=== PATIENT | male | born 1950 | race Caucasian/White ===

== ENCOUNTER 2020-11-12 10:40 | Outpatient (REF) | payer MEDICARE, OTHER, SELFPAY ==
[2020-11-12 12:47] LABS: Basophils Percent Auto 0.4 % (0-2); Eosinophils Absolute Auto 0.1 X10*3/uL (0.0-0.4); Hematocrit 33.1 % (42-52); Hemoglobin 10.7 g/dl (14.0-18.0); Imm Gran Abs Auto 0.01 X10*3/uL (0.00-0.03); Imm Gran Pct Auto 0.2 % (0.0-0.4); Lymphocytes Absolute Auto 0.7 X10*3/uL (1.2-4.9); Lymphocytes Percent Auto 13.3 % (20-40); MANUAL DIFF FLAG NO; Mean Corpuscular HGB Conc 32.3 g/dl (31.0-36.0); Mean Corpuscular Hemoglobin 30.2 pg (27.0-33.0); Mean Corpuscular Volume 93.5 fL (80-98); Mean Platelet Volume 10.8 fL (9.4-12.4); Monocytes Absolute Auto 0.3 X10*3/uL (0.1-1.2); Monocytes Percent Auto 5.9 % (2-11); Neutrophils Absolute Auto 4.2 X10*3/uL (2.0-8.3); Neutrophils Percent Auto 79.2 % (45-73); Platelet Count 222 X10*3/uL (160-400); Red Blood Count 3.54 X10*6/uL (4.60-5.80); Red Cell Distribution Width 15.9 % (11.0-16.0); White Blood Count 5.3 X10*3/uL (4.8-10.8)
[2020-11-12 13:15] LABS: Alanine Aminotransferase 34 U/L (0-40); Albumin Level 4.1 g/dL (3.5-5.0); Alkaline Phosphatase 63 U/L (39-117); Anion Gap 16 (12-20); Aspartate Amino Transferase 25 U/L (5-37); Bilirubin Total 0.5 mg/dL (0.0-1.0); Blood Urea Nitrogen 18 mg/dL (9-16); Calcium 8.8 mg/dL (8.4-10.2); Carbon Dioxide 26 mmol/L (22-29); Chloride 103 mmol/L (96-108); Estimated Glomerular Filt Rate > 60; Glucose Random 172 mg/dL (60-115); Potassium 4.4 mmol/l (3.3-5.1); Sodium 141 mmol/L (135-145); Total Protein 6.2 g/dL (6.5-8.0)
[2020-11-12 13:21] LABS: Estimated Average Glucose 174 mg/dL; Hemoglobin A1c % 7.7 %
== END 2020-11-12 10:41 | disposition home or self-care (01) ==
LOC: HO.MANLDS 10:40
PROVIDERS: PCP Internal Medicine; Visit Provider Internal Medicine
DX: Z00.01 Encounter for general adult medical examination with abnormal findings (principal); Z13.6 Encounter for screening for cardiovascular disorders; E11.9 Type 2 diabetes mellitus without complications; I10 Essential (primary) hypertension
CPT/HCPCS: 36415; 80053; 83036; 85025

== ENCOUNTER 2021-09-15 10:28 | Outpatient (REF) | payer MEDICARE, OTHER, SELFPAY ==
[2021-09-15 13:13] LABS: Estimated Average Glucose 154 mg/dL
== END 2021-09-15 10:29 | disposition home or self-care (01) ==
LOC: HO.MANLDS 10:28
PROVIDERS: PCP Internal Medicine; Visit Provider Internal Medicine
DX: E11.9 Type 2 diabetes mellitus without complications (principal)
CPT/HCPCS: 36415; 83036

== ENCOUNTER 2025-01-15 15:18 | Outpatient (REF) | payer MEDICARE, OTHER, SELFPAY ==
--- OUTSIDE RECORDS SUMMARY | 2025-01-15 17:32 | XMS_ITS | Continuity of Care Document ---
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) MDM HIGH MUST MEET 2 OUT OF 3 ELEMENTS: PROBLEMS, DATA OR RISK ELEMENT 1: PROBLEMS 1 OR MORE CHRONIC ILLNESS W/SEVERE EXACERBATION, PROGRESSION MAY REQUIRE HOSPITAL LEVEL CARE OR 1 ACUTE OR CHRONIC ILLNESS OR INJURY THAT POSES A THREAT TO LIFE OR BODILY FUNCTION ELEMENT 2: DATA: MUST MEET 2 OF 3 CATEGORIES CATEGORY 1 REVIEW OF PRIOR EXTERNAL NOTES REVIEW OF THE RESULTS ORDERING OF EACH TEST ASSESSMENT REQUIRING INDEPENDENT HISTORIAN(S) CATEGORY 2: INDEPENDENT INTERPRETATION OF TESTS BY ANOTHER PROVIDER/SPECIALI ST CATEGORY 3: DISCUSSION OF MGT OR TEST INTERPRETATION W/EXTERNAL PHYSICIAN/SPECIAL IST ELEMENT 3: RISK HIGH RISK OF MORBIDITY FROM ADDITIONAL DIAGNOSTIC TESTING OR TREATMENT PROVIDER MUST THOROUGHLY DOCUMENT EACH ELEMENT THAT IS COVERED The patient presented to their appointment today for multiple concerns requiring moderate to high-level decision making and took over 40-45 minutes for an adequate and appropriate history, exam, assessment and treatment plan. This appointment was done with an established patient. Not available 01/15/2025 15:18:33 Plan of Treatment Reminders Order Date Submit Date Provider Last Modified By Organization Details Last Modified Time Details Appointments FOLLOW UP 15 2024 02:30P M DR BURGOS Not available Not available Not available FOLLOW UP 15 20[address] 10:[address] BURGOS Not available Not available Not available Lab HbA1c (hemoglob in A1c), blood 2024 025 [facility], [address] [place] [address], [place], [id number], 01/15/2025 15:16:07 microalbu min, urine 2024 025 [facility], [address] [place] [address], [id number], 01/15/2025 15:16:07 lipid panel, serum 2024 025 [facility], [address] [place] [address], [id number], 01/15/2025 15:16:06 CBC w/ auto diff 2024 025 [facility], [address] [place] [address], [id number], 01/15/2025 15:16:07 CMP, serum or plasma 2024 025 [facility], [address] [place] [address], [place], [address], 01/15/2025 15:16:06 PSA, serum or plasma 2024 025 [facility], [address] [place] [address], [id number], 01/15/2025 15:16:07 CBC 2024 025 [facility], [address] [place] [address], [id number], 01/15/2025 15:16:07 Referral None recorded. Procedures None recorded. Surgeries None recorded. Imaging None recorded. Medication Orders oxycodone 5 mg tablet 2024 025 [id number], [address] [place], [address], 01/15/2025 15:14:49 Patient TargetsNo targets recorded. Patient Instructions Encounter Date Encounter Id Patient Instructions Last Modified By Organization Details Last Modified Time 01/15/2025 [id number] gastroesophageal reflux disease (GERD): care instructions Not available 01/15/2025 15:14:47 chronic lymphocy tic leukemia: care instructions Not available 01/15/2025 15:14:47 Reason for Referral None Reported. 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 Active 2017 stargard t's macular disease Not Available [facility] 3 14:31:55 Hyperten sive disorder 58455467 Completed 201710/07/2018 Yani yan [place] [facility] 8 16:54:39 Gastroes ophageal reflux disease 229520137 Active 2017 Not Available [facility] 3 14:31:55 Type 2 diabetes mellitus 28204741 Active 2017 Not Available [facility] 3 14:31:55 Hyperlip idemia 34777792 Active 2017 Not Available [facility] 3 14:31:55 Rheumato id arthriti s 25094618 Active 2017 Not Available [facility] 3 14:31:56 [facility] hyperten susana 49881899 Active 2017 Not Available [facility] 3 14:31:55 Coronary atherosc lerosis 550848557 Active 2017 Not Available [facility] 3 14:31:55 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 Not Available [facility] 3 14:31:55 Myocardi al infarcti on 41484249 Active 2017 Not Available [facility] 3 14:31:55 Osteomye litis 61101325 Active 2017 left foot Not Available [facility] 3 14:31:55 Osteoart hritis 833681011 Active 2017 Not Available [facility] 3 14:31:55 Anemia 871617936 Active 2017 neg GI workup for bleed, thought to be 2/2 ACS from RA Not Available [facility] 3 14:31:55 Osteopor osis 64046784 Active 2018 Not Available [facility] 3 14:31:55 Herpes zoster 8786861 Active 2020 Not Available [facility] 3 14:31:55 Closed subluxat ion cervical spine 247314612 Active 2021 Not Available [facility] 3 14:31:55 COVID-19 930694059 Active 2021 Not Available [facility] 3 14:31:56 Eczema 30596551 Active 2021 Not Available [facility] 3 14:31:55 Atopic dermatit is of scalp 143720999 Active 2022 Not Available [facility] 3 14:31:55 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 8612070245 35603 Active 2022 Not Available [facility] 3 14:31:55 Sebaceou s cyst of skin 982640844 Active 2022 Not Available [facility] 3 14:31:56 Abscess 378262724 Active 2022 Not Available [facility] 3 14:31:55 Pain of left hip joint 8334407354 68794 Active 2023 RENATE MARTÍNEZ [address] [place], [address], [facility] 4 14:28:13 Degenera tion of lumbar interver tebral disc 02271841 Active 2023 Ian Burgos DO [address] [place], [address], [facility] 4 11:03:05 Weakness of bilatera l lower limb Active 2023 Ian Burgos DO [address] [place], [address], [facility] 4 15:44:43 Iron deficien cy anemia 56952636 Active 2023 RENATE MARTÍNEZ [address] [place] [address], [phone], [facility] 4 12:00:15 Thromboc ytosis 9828073 Active 2023 RENATE MARTÍNEZ [address] [place] [address], [address], [facility] 4 12:04:33 Chronic lymphoid leukemia , disease 48464000 Active 2023 RENATE MARTÍNEZ [address] [place] [address], [address], [facility] 4 12:14:41 Osteoart hritis of right hip joint 5947130251 68205 Active 2023 Ian Burgos DO [address] [place] [address], [phone], [facility] 4 09:46:01 Total replacem ent of right hip joint Active 2024 Ian Burgos DO [address] [place] [address], [phone], [facility] 5 15:04:34 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 Procedures Surgical History Date Name Laterality Status Provider Name and Address Organization Details Recorded Time 07/02/20 23 I&D completed RENATE MARTÍNEZ [address] [place] [address], [phone], [facility] 07/02/2023 13:50:44 05/26/20 I&D completed RENATE MARTÍNEZ [address] [place] [address], [phone], [facility] 05/26/2023 15:42:48 04/02/20 21 Family Practice Trigger Point Injection completed Ian Burgos DO [address] [place] [address], [phone], [facility] 04/02/2021 12:27:07 12/13/19 21 I&D completed Ian Burgos DO [address] [place] [address], [phone], [facility] 12/13/2020 11:00:52 09/04/20 20 I&D completed Ian Burgos DO [address] [place] [address], [address], [facility] 09/04/2020 16:33:02 08/02/20 19 I&D completed [address], [address], [facility] 08/02/2019 11:00:55 11/08/19 19 extraction of cataract completed [address], [phone], [facility] 04/17/2019 09:33:00 07/09/20 18 Cabg vein three completed [address], [address], [facility] 10/11/2018 14:10:20 06/28/20 18 total knee replacement completed [address], [address], [facility] 10/11/2018 14:10:41 02/28/20 17 Back Surgery completed [address], [address], [facility] 10/11/2018 14:19:44 11/08/19 08 amputation of toe completed [address], [address], [facility] 10/11/2018 14:21:35 Imaging Results None recorded. Procedure Notes None recorded. Medical Equipment None Reported. Allergies No known drug allergies Medications Name Sig Start Date Stop Date Status Note LastModified by Organization Details LastModified Time cyclobenzap rine 10 mg tablet TAKE 1/2 TABLET BY MOUTH NIGHTLY AT BEDTIME 06/26 completed Not Available Not Available Not Available amoxicillin 500 mg capsule TAKE 4 CAPSULES EVERY DAY BY ORAL ROUTE DIRECTED FOR 1 DAY. 01/15 completed Not Available Not Available Not Available atorvastati n 40 mg tablet 10/12 completed Not Available Not Available Not Available fentanyl 50 mcg/hr transdermal patch APPLY 1 PATCH BY TRANSDERM AL ROUTE EVERY 72 HOURS 05/08 completed Not Available Not Available Not Available aspirin 25 mg-dipyrida mole 200 mg capsule,ext .release 12 hr multiphase 10/11 completed Not Available Not Available Not Available atorvastati n 80 mg tablet TAKE 1 TABLET BY MOUTH EVERY DAY active Not Available Not Available No t Available carvedilol 6.25 mg tablet TAKE 1 TABLET TWICE A DAY BY ORAL ROUTE FOR 90 DAYS. active Not Available Not Available No t Available prednisone 10 mg tablet TAKE 3 TABLETS BY MOUTH TWICE A DAY 01/09 completed Not Available Not Available Not Available lidocaine 5 % topical cream APPLY TOPICALLY THREE TIMES A DAY FOR 30 DAYS 11/19 completed Not Available Not Available Not Available valacyclovi r 1 gram tablet TAKE 1 TABLET BY MOUTH EVERY 8 HOURS FOR 7 DAYS 07/15 completed Not Available Not Available Not Available famotidine 40 mg tablet TAKE 1 TABLET BY MOUTH EVERY DAY active Not Available Not Available No t Available prednisone 20 mg tablet Take 1 tablet every day by oral route. 05/08 completed Not Available Not Available Not Available alendronate 70 mg tablet PLEASE SEE ATTACHED FOR DETAILED DIRECTION S 01/27 completed Not Available Not Available Not Available fluorouraci l 5 % topical cream PLEASE SEE ATTACHED FOR DETAILED DIRECTION S active Not Available Not Available No t Available prednisone 5 mg tablet TAKE 4 TABLETS (20 MG TOTAL) BY MOUTH ONCE A DAY. 05/08 completed Not Available Not Available Not Available atenolol 25 mg tablet 10/11 completed Not Available Not Available Not Available clobetasol 0.05 % topical cream APPLY THIN COAT TO AFFECTED AREA TWICE A DAY active Not Available Not Available No t Available acetaminoph en 300 mg-codeine 30 mg tablet TAKE 1 TABLET BY MOUTH THREE TIMES A DAY NEEDED 05/26 completed Not Available Not Available Not Available clopidogrel 75 mg tablet TAKE 1 TABLET BY MOUTH EVERY DAY 08/11 completed Not Available Not Available Not Available sulfamethox azole 800 mg-trimetho prim 160 mg tablet TAKE 1 TABLET BY MOUTH EVERY 12 HOURS FOR 10 DAYS 01/06 completed Not Available Not Available Not Available omeprazole 40 mg capsule,del ayed release 10/11 completed Not Available Not Available Not Available doxycycline monohydrate 100 mg tablet 10/11 completed Not Available Not Available Not Available tramadol 50 mg tablet TAKE 1 TO 2 TABLETS BY MOUTH EVERY 6 HOURS NEEDED FOR MILD PAIN. DO NOT EXCEED 8 TABLETS (400MG) PER DAY. active Not Available Not Available No t Available amoxicillin 500 mg tablet TAKE 1 TABLET BY MOUTH 3 TIMES A DAY UNTIL FINISHED 06/26 completed Not Available Not Available Not Available acyclovir 800 mg tablet TAKE 1 TABLET (800 MG TOTAL) BY MOUTH 5 (FIVE) TIMES A DAY FOR 10 DAYS. 11/12 completed Not Available Not Available Not Available oxycodone 15 mg tablet 10/11 completed Not Available Not Available Not Available isosorbide mononitrate ER 120 mg tablet,exte nded release 24 hr TAKE 1 TABLET BY MOUTH EVERY DAY DIRECTED active Not Available Not Available No t Available ketorolac 0.5 % eye drops 01/10 completed Not Available Not Available Not Available oxycodone-a cetaminophe n 5 mg-325 mg tablet Take 1 tablet every 6 hours by oral route as needed for 7 days. 01/09 completed Not Available Not Available Not Available alprazolam 0.25 mg tablet 05/08 completed Not Available Not Available Not Available lorazepam 0.5 mg tablet TAKE 1 TABLET BY MOUTH TWICE A DAY NEEDED active Not Available Not Available No t Available methocarbam ol 750 mg tablet 12/13 completed Not Available Not Available Not Available fentanyl 100 mcg/hr transdermal patch Apply 1 patch every 72 hours by transderm al route. 05/08 completed Not Available Not Available Not Available prednisone 1 mg tablet TAKE 3 TABLETS BY MOUTH EVERY DAY WITH BREAKFAST 01/27 completed Not Available Not Available Not Available prednisone 2.5 mg tablet Take 1 tablet every day by oral route. 08/11 completed Not Available Not Available Not Available cephalexin 500 mg capsule Take 1 capsule 3 times a day by oral route for 10 days. 12/13 completed Not Available Not Available Not Available nitroglycer in 0.4 mg sublingual tablet TAKE 1 TABLET BY MOUTH SUBLINGUA LLY EVERY 5 MINUTES. MAX OF 3 DOSES WITHIN 15 MINUTES active Not Available Not Available No t Available betamethaso ne dipropionat e 0.05 % topical cream APPLY TOPICALLY SPARINGLY TO AFFECTED AREA EVERY DAY FOR 30 DAYS 05/26 completed Not Available Not Available Not Available docusate sodium 100 mg capsule Take 1 capsule twice a day by oral route. 07/17 completed Not Available Not Available Not Available cephalexin 500 mg tablet 07/17 completed Not Available Not Available Not Available mupirocin 2 % topical ointment APPLY TO AFFECTED AREA 3 TIMES A DAY 01/06 completed Not Available Not Available Not Available gabapentin 100 mg capsule TAKE 6 CAPSULES BY MOUTH 3 TIMES A DAY 05/19 completed Not Available Not Available Not Available metoprolol succinate ER 25 mg tablet,exte nded release 24 hr TAKE 1/2 TABLET BY MOUTH DAILY 08/11 completed Not Available Not Available Not Available clobetasol 0.05 % topical ointment 11/12 completed Not Available Not Available Not Available fluocinonid e 0.05 % topical solution APPLY TOPICALLY TO AREAS FOR ITCHING OR PIMPLES ON SCALP ONCE A DAY FOR 30 DAYS 01/06 completed Not Available Not Available Not Available methylpredn isolone 4 mg tablets in a dose pack Take 1 dose pk by oral route as directed for 6 days. 01/06 completed Not Available Not Available Not Available morphine 15 mg immediate release tablet TAKE 0.5 TABLET BY MOUTH EVERY 4 HOURS NEEDED FOR PAIN 06/07 completed Not Available Not Available Not Available clobetasol 0.05 % scalp solution Apply 1 applicati on twice a day by topical route as directed for 30 days. 01/09 completed Not Available Not Available Not Available metformin ER 500 mg tablet,exte nded release 24 hr TAKE 2 TABLETS EVERY MORNING AND 1 TABLET IN THE EVENING active Not Available Not Available No t Available sertraline 50 mg tablet TAKE 1 TABLET BY MOUTH EVERY DAY 05/26 completed Not Available Not Available Not Available oxycodone 5 mg tablet Take 1 tablet twice a day by oral route as needed for 15 days. 2024 active Not Available Not Available Not Avai lable valsartan 40 mg tablet TAKE 1 TABLET BY MOUTH EVERY DAY active Not Available Not Available No t Available pregabalin 75 mg capsule TAKE 1 CAPSULE BY MOUTH TWICE A DAY 01/09 completed Not Available Not Available Not Available pregabalin 100 mg capsule TAKE 1 CAPSULE BY MOUTH TWICE A DAY 03/03 completed Not Available Not Available Not Available pregabalin 150 mg capsule TAKE 1 CAPSULE BY MOUTH TWICE A DAY active Not Available Not Available No t Available Vitamin C active Not Available Not Soo ilable Not Available garlic active Not Available Not Availa ble Not Available Fish Oil active Not Available Not Avai lable Not Available Aspir-81 Take one tablet once a day active Not Available Not Available No t Available cholecalcif patrick (vitamin D3) one per day active Not Available Not Available No t Available Multivitami n 50 Plus active Not Available Not Available No t Available Enbrel SureClick 50 mg/mL (1 mL) subcutaneou s pen injector 01/09 completed Not Available Not Available Not Available oxycodone 10 mg tablet Take 1 tablet 3 times a day by oral route as needed for 7 days. 07/02 completed Not Available Not Available Not Available Simponi 50 mg/0.5 mL subcutaneou s pen injector Once a month injection 07/18 completed Not Available Not Available Not Available GaviLyte-G 236 gram-22.74 gram-6.74 gram-5.86 gram oral solution 10/11 completed Not Available Not Available Not Available BD Ultra-Fine Melina Pen Needle 32 gauge x 5/32 active Not Available Not Available Not Available Orencia 125 mg/mL subcutaneou s syringe Inject 1 mL every week by subcutane ous route. 08/11 completed Not Available Not Available Not Available Trulicity 0.75 mg/0.5 mL subcutaneou s pen injector INJECT 1 PREFILLED PEN SUBCUTANE OUSLY ONCE A WEEK FOR 30 DAYS active Not Available Not Available No t Available naloxone 4 mg/actuatio n nasal spray 06/07 completed Not Available Not Available Not Available Orencia ClickJect 125 mg/mL subcutaneou s auto-inject or 08/11 completed Not Available Not Available Not Available Fish Oil 1,000 mg (120 mg-180 mg) capsule Take 1 capsule every day by oral route. 01/09 completed Not Available Not Available Not Available Basagldavid KwikPen U-100 Insulin 100 unit/mL (3 mL) subcutaneou s INJECT 14 UNIT(S) BY SUBCUTANE OUS ROUTE. 90 day supply 07/17 completed Not Available Not Available Not Available Actemra ACTPen 162 mg/0.9 mL subcutaneou s pen injector active Not Available Not Available Not Available Actemra ACTPen inject weekly active Not Available Not Available No t Available melatonin 3 mg capsule Take by oral route. active Not Available Not Available No t Available AsperFlex (lidocaine) 4 % topical patch APPLY ONCE DAILY active Not Available Not Available No t Available Paxlovid 300 mg (150 mg x 2)-100 mg tablets in a dose pack TAKE 3 TABLETS TWICE A DAY BY ORAL ROUTE FOR 5 DAYS. 06/26 completed Not Available Not Available Not Available Vitals Date Recorded Body height Body mass index (BMI) Body weight Heart rate Oxygen saturation Oxygen saturation in Arterial blood by Pulse oximetry Systolic blood pressure Diastolic blood pressure Provider Name and Address Organization Details Last Updated DateTime 5 161.29 cm 26.6 kg/m2 21549.2 g 71 /min 99 % 99 % 124 mm[Hg] 82 mm[Hg] Barbra Bobby [facility] 5 14:45:36 Social History Question Answer Notes LastModified by Organizat ion Details LastModified Time Tobacco Smoking Status Former Smoker Yani yan [facility] 10/11/2018 14:03:00 What Was The Date Of Your Most Recent Tobacco Screening? 01/15/2025 [email or web address] Information not available 01/15/2025 How Many Years Have You Smoked Tobacco? 20 [email or web address] Information not available 10/11/2018 Do You Or Have You Ever Used Any Other Forms Of Tobacco Or Nicotine? No Information not available 01/27/2023 Sex: Unknown Functional Status None recorded. Mental Status None recorded. Family History Nothing Reported. Medical History No medical history recorded. Immunizations Vaccine Type Date Status Note Provider Nam e and Address Organization Details Recorded Time COVID-19, mRNA, LNP-S, PF, 30 mcg/0.3 mL dose 06/26/20 21 completed Not Available [facility] 11/26/2023 16:07:42 Influenza, split virus, quadrivalent, preservative 06/19/20 21 completed Not Available [facility] 11/26/2023 16:07:42 COVID-19, mRNA, LNP-S, PF, 30 mcg/0.3 mL dose, janay-sucrose 03/13/20 22 completed Not Available [facility] 11/26/2023 16:07:42 COVID-19, mRNA, LNP-S, PF, 30 mcg/0.3 mL dose, janay-sucrose 08/25/20 22 completed Not Available [facility] 11/26/2023 16:07:42 influenza, unspecified formulation 08/25/20 22 completed Not Available [facility] 11/26/2023 16:07:43 Respiratory syncytial virus (RSV) MAB, unspecified 08/09/20 24 completed RENATE MARTÍNEZ [address] [place] [address], [phone], [facility] 08/11/2024 12:16:08 influenza, unspecified formulation 08/09/20 24 completed RENATE MARTÍNEZ [address] [place] [address], [phone], [facility] 08/11/2024 12:16:22 Pneumococcal conjugate PCV 13 08/09/20 15 completed Not Available [facility] 11/26/2023 16:07:43 Influenza, split virus, quadrivalent, preservative 08/08/20 18 completed Not Available [facility] 11/26/2023 16:07:42 pneumococcal polysaccharide PPV23 09/18/20 16 completed Not Available [facility] 11/26/2023 16:07:42 Td (adult) 11/08/19 05 completed Not Available [facility] 11/26/2023 16:07:43 Influenza, split virus, quadrivalent, preservative 07/27/20 19 completed Not Available [facility] 11/26/2023 16:07:42 Influenza, split virus, quadrivalent, preservative 07/22/20 20 completed [facility] Available [facility] 11/26/2023 16:07:42 COVID-19, mRNA, LNP-S, PF, 30 mcg/0.3 mL dose 01/19/20 21 completed Not Available [facility] 11/26/2023 16:07:42 COVID-19, mRNA, LNP-S, PF, 30 mcg/0.3 mL dose 02/09/20 21 completed Not Available [facility] 11/26/2023 16:07:42 Past Encounters Encounter ID Performer Location Encounter Start Date Encounter Closed Date Diagnosis/Indication Diagnosis SNOMED-CT Code Diagnosis ICD10 Code Diagnosis Note [id number] Ian Burgos, [facility] [address] [address] 01/15/2025 14:22:10 01/15/2025 15:41:26 Essential hypertension 47613658 I10 stable bp no changes Hyperlipidemia 76691223 E78.5 is excellent and LDL 38 Type 2 gabriel betes mellitus 50421978 E11.9 a1c was great at 6.1 again!!! prior he was at 6., 7.2 he was at 6.2 before thatwe will decrease the metformin to just 2 tabs in amwe will rechk in may and further decrease the dose Depression screening 171 638778 Z13.31 Doing well on sertraline Coronary atherosclerosis 507352228 I25.10 quiet and feeling good no cp no sob Gastroesop hageal reflux disease 613634550 K21.9 stable Chronic ly mphoid leukemia, disease 48445654 C91.10 cbc has been stable Osteoarthr itis of joint of right shoulder region 2047289880 54639 M19.011 still with severe pain at times will provide with med for prn use Health Concerns Section Related Observation LastModified by Organization Detai ls LastModified Time None Recorded Concern Status LastModified by Organization Details LastModified Time None Recorded Payers Encounter Date Sequence Insurance Name Policy Number Policy Meraz Covered Member ID Meraz Member ID Guarantor Name 01/15/2025 1 MEDICARE B-KS: [employer] Vito Vizcarra [id number] Vito Vizcarra 01/15/2025 2 [facility] [id number] Vito Vizcarra [id number] Vito Vizcarra Notes Date Note Type Note Provider Name a nd Address Organization Details Recorded Time 01/15/2025 text/html doing well and is feeling wellhad hip replaced and is feeling goodwas disch the next day Ian Burgos, DO [address] [facility], [place], [id number], [facility] 01/15/2025 15:18:38
--- OUTSIDE RECORDS SUMMARY | 2025-01-15 17:32 | XMS_ITS | Data Portability ---
Author Organization [facility], Main Office Address [address] [place] [address] Care Team Providers Care Clearance Coordinator Name Role Phone CAREONE (NONO UNIT) OTHER GIANLUCA BURGOS Primary Care Provider Assessment Encounter Date Assessment Date Assessment LastModified by Organization Details LastModified Time 05/19/2024 05/19/2024 05/10/24 na 141, k 5 cre 1 wbc 9.48 hgb 9.9 hct 30.5 7/9 na 142 k 4.6 cre 1.0 wbc 6.50 hgb 9.8 hct 30.7 [email or web address] Not available 05/21/2024 23:31:54 05/22/2024 05/22/2024 05/10/24 na 141, k 5 cre 1 wbc 9.48 hgb 9.9 hct 30.5 7/9 na 142 k 4.6 cre 1.0 wbc 6.50 hgb 9.8 hct 30.7 [email or web address] Not available 05/22/2024 11:10:43 05/24/2024 05/24/2024 05/10/24 na 141, k 5 cre 1 wbc 9.48 hgb 9.9 hct 30.5 7/9 na 142 k 4.6 cre 1.0 wbc 6.50 hgb 9.8 hct 30.7 /16 na 144 k 4.9 cre 1 wbc 10.4 hgb 10 hct 31.3 [email or web address] Not available 05/24/2024 12:41:15 05/29/2024 05/29/2024 05/10/24 na 141, k 5 cre 1 wbc 9.48 hgb 9.9 hct 30.5 7/9 na 142 k 4.6 cre 1.0 wbc 6.50 hgb 9.8 hct 30.7 7/16 na 144 k 4.9 cre 1 wbc 10.4 hgb 10 hct 31.3 [email or web address] Not available 05/29/2024 11:02:31 05/31/2024 05/31/2024 05/10/24 na 141, k 5 cre 1 wbc 9.48 hgb 9.9 hct 30.5 7/9 na 142 k 4.6 cre 1.0 wbc 6.50 hgb 9.8 hct 30.7 /16 na 144 k 4.9 cre 1 wbc 10.4 hgb 10 hct 31.3 /24 na 149 k 4.9 cre 0.8 wbc 6 hgb 10 hct 31.7 [email or web address] Not available 05/31/2024 09:48:42 Plan of Treatment Reminders Order Date Submit Date Provider Last Modified By Organization Details Last Modified Time Details Appointments None record ed. Lab None record ed. Referral None record ed. Procedures None record ed. Surgeries None record ed. Imaging None record ed. Medication Orders None record ed. Patient TargetsNo targets recorded. Patient InstructionsNo instructions recorded. Reason for Referral None Reported. Problems Name Problem SNOMED Code Status Onset Date Resolution Date Notes Provider Name and Address Organization Details Recorded Time At increased risk for falls 376120816 Active 2023 Florence Lees MD [address] [facility], [facility] [address], [place], [address] , [employer] 4 23:59:32 Pain in right hip joint 5405626244588 02 Active 2023 Florence Lees MD [address] [facility], [address], [place], [address] , [facility] 4 23:59:37 Spinal stenosis of lumbar region 08557018 Active 2016 Isabel yan [facility] 7 15:43:58 Rheumatoid arthritis 94810616 Active 2016 Isabel yan [facility] 7 15:44:04 Essential hypertensio n 11569402 Active 2016 Isabel yan [facility] 7 15:44:08 Hyperlipide rick 69221644 Active 2016 Isabel yan [facility] 7 15:44:14 Diabetes mellitus 16232726 Active 2016 Isabel Guzmán [facility] 7 15:44:24 Tobacco user 544768713 Active 2016 Isabel Guzmán [facility], [facility] 7 15:45:11 Gastroesoph ageal reflux disease without esophagitis 368767808 Active 2016 Isabel Guzmán [facility], [facility] 7 15:45:20 Degenerativ e disorder of macula 357130534 Active 2016 Arcenio Allen MD [address] [facility], [address], [place], [address], [facility] 7 09:29:40 Coronary atheroscler osis 697742356 Active [address], [address], [place], [address], [facility] 8 08:37:12 Anemia 566657772 Active [address], [address], [place], [address], [facility] 8 08:45:06 History of right total knee replacement 1493580918088 102 Active [address], [address], [place], [address], [facility] 8 08:46:37 Depressive disorder 21564370 Active [address], [address], [place], [address], [facility] 8 08:49:47 Problem Notes None recorded. Medical Equipment None Reported. Allergies No known drug allergies Medications Name Sig Start Date Stop Date Status Note LastModified by Organization Details LastModified Time morphine concentrate 100 mg/5 mL (20 mg/mL) oral solution give 10 mg(0.5ml) po q 4 hours prn 2023 active for ekit dose until MSIR arrives Not Available Not Available Not Available tramadol 50 mg tablet 50 mg po q 6hours prn mild moderate pain 2023 active Not Available Not Available Not Avai lable morphine 15 mg immediate release tablet take 1/2 tablet (7.5 mg) po q 4hours prn pain 2023 active Not Available Not Available Not Avai lable Lyrica 150 mg capsule Take 2 capsules twice a day by oral route. 2023 active Not Available Not Available Not Avai lable Vitals Date Recorded Body height Body mass index (BMI) Body weight Heart rate Respiratory rate Body temperature Oxygen saturation Oxygen saturation in Arterial blood by Pulse oximetry Systolic blood pressure Diastolic blood pressure Provider Name and Address Organization Details Last Updated DateTime 4 167.64 cm 23.5 kg/m2 02524.0 5 g 68 /min 17 /min 97.7 [degF] 97 % 97 % 124 mm[Hg] 56 mm[Hg] Florence Lees MD [address] [facility], [address], [place], [address], [facility] 4 22:30:06 Social History Question Answer Notes LastModified by Organizat ion Details LastModified Time Tobacco Smoking Status Former Smoker hx of cigar smoking Florence Lees MD [address] [facility], [address], [place], [address], [facility] 05/21/2024 18:09:40 Do You Have An Advance Directive? Yes Information not available 05/21/2024 What Is Your Level Of Alcohol Consumption? Occasional 3 Beers/wk Information not available 05/21/2024 How Many Times Per Week Do You Consume Alcohol? 3-4 Times Per Week Information not available 05/21/2024 What Is Your Code Status? Full Code Information not available 05/21/2024 Which Illicit Or Recreational Drugs Have You Used? Uses Cannabis Information not available 05/21/2024 Where Do You Live? Apartment [address] In Basement Of Daughter's Home Information not available 05/21/2024 Legal Guardian? No Informati on not available 05/21/2024 Do You Have A Medical Power Of Advertising Dispatch Clerks Supervisor? Yes Information not available 05/21/2024 What Was The Date Of Your Most Recent Tobacco Screening? 08/04/2018 [id number] Information not available 09/03/2020 Do You Have An Out Of Hospital DNR? No Information not available 05/21/2024 Have You Ever Been Counseled For Unhealthy Alcohol Use? No Information not available 05/21/2024 What Is Your Relationship Status? Information not available 05/21/2024 How Much Tobacco Do You Smoke? No Information not available 05/21/2024 Do You Use Any Illicit Or Recreational Drugs? Yes Information not available 05/21/2024 Has Tobacco Cessation Counseling Been Provided? No N/a As Pt No Longer Smokes Information not available 05/21/2024 Have You Used IV Drugs? No Information not available 05/21/2024 Do You Or Have You Ever Used Any Other Forms Of Tobacco Or Nicotine? No Information not available 05/21/2024 Sex: Unknown Functional Status None recorded. Mental Status None recorded. Family History Nothing Reported. Medical History No medical history recorded. Immunizations Vaccine Type Date Status Note Provider Nam e and Address Organization Details Recorded Time Td(adult) unspecified formulation 5 completed [facility] 05/18/2024 16:37:09 Pneumococcal conjugate PCV 13 5 completed [facility] 05/18/2024 16:37:42 Pneumococcal conjugate PCV 13 0 completed Annaleeteetee Arshad [facility] 05/18/2024 16:38:02 influenza, unspecified formulation 2 completed Annalee Arshad [facility] 05/18/2024 16:40:53 influenza, unspecified formulation 3 completed Annalee Arshad [facility] 05/18/2024 16:41:01 SARS-COV-2 (COVID-19) vaccine, UNSPECIFIED 1 completed Annalee Arshad [facility] 05/18/2024 16:41:17 SARS-COV-2 (COVID-19) vaccine, UNSPECIFIED 1 completed Annalee Arshad [facility] 05/18/2024 16:41:24 SARS-COV-2 (COVID-19) vaccine, UNSPECIFIED 1 completed [place] rAshad [facility] 05/18/2024 16:41:32 SARS-COV-2 (COVID-19) vaccine, UNSPECIFIED 2 completed Annaleeteetee Arshad [facility] 05/18/2024 16:41:39 SARS-COV-2 (COVID-19) vaccine, UNSPECIFIED 2 completed [facility] 05/18/2024 16:41:46 SARS-COV-2 (COVID-19) vaccine, UNSPECIFIED 3 completed [facility] 05/18/2024 16:41:54 Past Encounters Encounter ID Performer Location Encounter Start Date Encounter Closed Date Diagnosis/Indication Diagnosis SNOMED-CT Code Diagnosis ICD10 Code Diagnosis Note [id number] Isabel RUSSO [address] [place] [address] 02/25/2017 15:34:34 03/18/2017 12:57:47 Spinal stenosis of lumbar region 47387723 M48.06 failed conservati ve treatment, now s/p L3-L5 spinal fusion by niki Grubbs for pain, monitor incision, f/u ortho, PT/OT eval and tx Rheumatoid arthritis 698 28599 M06.89 Prednisone 20 mg dailySimpo ni injection QmonthlyMo nitor sxs and pain Essential hypertension 12473933 I10 Atenolol 25 mg dailyTriam terene-HCT Z 37.5-25 mg dailyMonit or bp and labs Hyperlipidemia 35489664 E78.2 Atorvastat in 40 mg QHS Diabetes mellitus 859935 09 E11.9 Metformin 500 mg BIDLantus 10 units QHS SS insulinMon itor accuchecks Tobacco user 431956935 Z 72.0 Nicotine patch, patient reports quit smoking 6 mos ago but started again for 2 weeks prior to surgery d/t pain and stress, is very motivated not to start back up again Gastroesop hageal reflux disease without esophagitis 902517021 K21.9 Omeprazole 40 mg dailyMonit or sxs Constipation 13972234 K5 9.09 Initiate bowel protocol [id number] Isabel RUSSO [address] [place] [address] 03/03/2017 12:14:08 03/18/2017 13:03:56 Diabetes mellitus 30362449 E11.9 Metformin 500 mg BIDLantus 10 units QHS SS insulinEle vated blood sugars mid-day, will increase AM metformin dose to 1000 mg, monitor [id number] MD PRIYA Da Silva [address] [place] [address] 03/04/2017 09:12:57 03/18/2017 13:05:25 Spinal stenosis of lumbar region 06356573 M48.07 see HPIfailed conservati ve treatmentf ollowed by Dr. Alejandro2-S1 laminectom ies with fusion of L4-F0jpmqy to [facility] on dilauded for pain controlmon itor for pain control and constipati on. Rheumatoid arthritis 698 44056 M06.89 Prednisone 20 mg qd baselineSi mponi 50 mg SQ q month through rheumatolo gyMonitor sxs and painrheuma tology consult prnfmercedese d by Dr. Thrasher Essential hypertension 10293363 I10 Atenolol 25 mg qdTriamter shayla-HCTZ 37.5-25 mg qdMonitor bp and labs Hyperlipidemia 31627899 E78.2 Atorvastat in 40 mg QHS Diabetes mellitus 967154 09 E11.9 Metformin 500 mg BIDLantus 10 units QHS SS insulinfol low blood glucose at [facility] Tobacco user 778941221 Z 72.0 hx cigar smokingsta sammie he has quit Gastroesop hageal reflux disease without esophagitis 822928683 K21.9 Omeprazole 40 mg dailyMonit or sxs Constipation 82850905 K5 9.09 Bowel protocol and monitor for sx Degenerati ve disorder of macula 012872318 H35.3131 legally blind at baselinesp ecifics of dx not availableh as been eval at [facility] ear [id number] Isabel POWERS RAFAELA [address] [place] [address] 03/05/2017 08:34:04 03/18/2017 13:04:18 Diabetes mellitus 65191123 E11.9 Metformin 1000 mg QAM and 500 mg QPMLantus 10 units QHSF/u with pcp to adjust meds if BS remains elevated Spinal jasson nosis of lumbar region 98627654 M48.06 failed conservati ve treatment, now s/p L3-L5 spinal fusion by niki Grubbs for pain-repor ts pain well controlled , monitor incision, f/u ortho, good progress in therapy Rheumatoid arthritis 698 50134 M06.89 Prednisone 20 mg dailySimpo ni injection Q monthlyInc reased bilat. knee and R elbow pain-usual ly takes diclofenac -mistopros jose but was d/c prior to surgery-wi ll restart now Essential hypertension 69987115 I10 Atenolol 25 mg dailyTriam terene-HCT Z 37.5-25 mg dailyBP with good control Hyperlipidemia 62475376 E78.2 Atorvastat in 40 mg QHS Tobacco user 630637498 Z 72.0 Nicotine patch, patient reports quit smoking 6 mos ago but started again for 2 weeks prior to surgery d/t pain and stress, is very motivated not to start back up again Gastroesop hageal reflux disease without esophagitis 567840158 K21.9 Omeprazole 40 mg dailyMonit or sxs [id number] ERIKA LORD PRIYA RUSSO [address] [place] [address] 07/26/2018 08:32:23 07/29/2018 12:05:59 Coronary atherosclerosis 426581810 I25.10 ASA 81 mg dailyAtorv astatin 80 mg qhsToprol XL 25 mg dailyplavi x 75 mg X 2 months due to NSTEMIdail y weights to monitor fluid statusmoni tor labsmonito r incision sitesfollo w up with surgeon on 08/01oxycod one 10 mg q 4 PRN Anemia 163787238 D50.8 Transfused in hospital with 1 unitstable on dischargem onitor H/H weekly- keep above 7likely ACD due to RA- baseline hgb around 7.5 Rheumatoid arthritis 698 26780 M06.89 Prednisone 5 mg dailygolim umab every 28 days had stress dose in hospital History of right total knee replacement 3395807337 039648 Z96.651 PT/OT eval and treat Depressive disorder 3548 9007 F33.8 sertraline 50 mg qhs Diabetes mellitus 427059 09 E11.9 Lantus 14 units dailymetfo rmin 500 mg BID Gastroesop hageal reflux disease without esophagitis 652163458 K21.9 Omeprazole 40 mg dailymonit or for reflux [id number] Bib RUSSO [address] [place] [address] 07/27/2018 15:06:17 07/29/2018 12:35:28 Coronary arteriosclerosis 44349476 I25.10 s/p CABG x 3. Continue DAPT, beta sandra Multiple complications due to type 2 diabetes mellitus 789354759 E11.8 glargine, accuchecks Anemia 533099292 D64.9 stable after transfusio n. Monitor CBC Rheumatoid arthritis 698 39514 M06.9 continue prednisone 5 mg. F/u with rheumatolo gy [id number] ERIKA SHIPMAN PRIYAEmmanuel RUSSO [address] [place] [address] 08/04/2018 09:14:45 08/09/2018 13:21:36 Coronary atherosclerosis 545313215 I25.10 ASA 81 mg dailyAtorv astatin 80 mg qhsToprol XL 25 mg dailyplavi x 75 mg X 2 months due to NSTEMIcard iology to arrange cardiac rehab once outptVNA to continue daily dressing changes, if steri strips fall off reapply Anemia 662372299 D50.8 H/H stable 9.7/31.7 likely ACD due to RA- baseline hgb around 7.5 Rheumatoid arthritis 698 80874 M06.89 Prednisone 5 mg dailygolim umab every 28 days follow up with rheumatolo gy Depressive disorder 9588 9007 F33.8 sertraline 50 mg qhsfollow up with psych outpt if needed Diabetes mellitus 684545 09 E11.9 Lantus 14 units dailymetfo rmin 500 mg BID Gastroesop hageal reflux disease without esophagitis 994241632 K21.9 D/C omeprazole add Famotidine 40 mg daily- per cardiology recs [id number] ERIKA Carballo at [facility] on [address] [facility] [place] [address] 05/16/2024 09:26:41 05/23/2024 10:16:48 Degenerative disorder of macula 934477149 H35.30 carrying dx - legally blind-fall risk precaution s Coronary atherosclerosis 132330984 I25.10 carrying dx-ASA 81 mg daily-Lipi tor 80 mg qhs-Toprol XL 12.5 mg daily-plav ix 75 mg daily due to NSTEMI Depressive disorder 3548 9007 F33.8 carrying dx-not on meds-monit or mood and affect-psy ch eval prn-melato radha HS for insomnia Diabetes mellitus 547389 09 E11.9 carrying dx-trulici ty SQ on wed.-metfo rmin 1000 daily-accu checks once daily in am-diabeti c foot care HS-regular diet Essential hypertension 38639452 I10 well controlled -toprol XL 12.5 mg daily-BP Q shift X 3 days, then daily Gastroesop hageal reflux disease without esophagitis 260301599 K21.9 carrying dx-famotid ine 40 daily-jodie tor ss Hyperlipidemia 46017030 E78.5 carrying dx-lipitor 80 daily-lipi d panel prn Rheumatoid arthritis 698 37852 M06.89 carrying dx-Prednis one 2.5 mg daily-jasper min C daily-jasper min D 3 daily-Omeg a 3 daily-foll ows with rheumatolo gy Spinal jasson nosis of lumbar region 91116829 M48.061 -lyrica 300 mg bid-see above for pain control At [facility] ed risk for falls 198493884 Z91.81 recent fall without fx or dislocatio ncontinues with right arm and hip painCT negative for acute findings-P t/OT for strength and mobility-f all precaution s-ordered to schedule tylenol 650 TID-start lidocaine patch to right hip-tramad ol 50 Q6H prn-morphi ne 7.5 Q4H prn Anemia 424932106 D50.8 H/H stable 05/10 9.9 and 30.5likely ACD due to RA-admissi on labs pending [id number] ERIKA Carballo at [facility] on [address] [place] [address] 05/18/2024 10:46:07 05/23/2024 11:52:48 At increased risk for falls 481116890 Z91.81 recent fall without fx or dislocatio ncontinues with right arm and hip painCT negative for acute findings-P t/OT for strength and mobility-f all precaution s-continue scheduled tylenol 650 TID-contin ue lidocaine patch to right hip-contin ue home pain regimen = tramadol 50 Q6H prn and morphine 7.5 Q4H prn Degenerati ve disorder of macula 479699927 H35.30 carrying dx - legally blind-fall risk precaution s-glasses Essential hypertension 69418123 I10 well controlled -toprol XL 12.5 mg daily-BP Q shift X 3 days, then daily Rheumatoid arthritis 698 21252 M06.89 carrying dxmultiple joint deformitie s and nodes-cont inue prednisone 2.5 mg daily-foll ows with rheumatolo gy-see above for pain control Spinal jasson nosis of lumbar region 66960545 M48.061 -continue lyrica 300 mg bid-see above for pain control [id number] MD PRIYA Boyd [address] [place] [address] 05/19/2024 20:53:55 05/23/2024 12:09:01 At increased risk for falls 762689201 R29.6 As above. Degenerati ve disorder of macula 792440706 H35.30 Legally blind.Prov breanna supportive care.F/U with eye dr as planned. Essential hypertension 63436997 I10 BP in good control on metoprolol XL 12.5 mg qdMonitor BP and labs. Rheumatoid arthritis 698 79889 M06.89 Severe with chronic pain and deformitie s.Continue meds as above.F/U as above. Spinal jasson nosis of lumbar region 88895286 M48.061 PT/OT and pain management as above.Jodie tor Coronary atherosclerosis 413535067 I25.10 No recent sxs.Contin ue ASA 81 mg qd, atorvastat in 80 mg qhs, metoprolol XL 12.5 mg qd and plavix 75 mg qd.Also on Trulicity which helps with cardiac risk reduction. Monitor sxs.F/U with cardio as planned. Depressive disorder 3548 9007 F33.8 Situationa l due to chronic pain, not on meds.Angie nue melatonin 3 mg qhs for insomniaMo od good today.Jodie tor mood.Consu lt psych prn Diabetes mellitus 876105 09 E11.9 Last HgA1C was 6.1 in 05/2023.Con tinue trulicity 0.75 mg SQ weekly and metformin 1000 mg qd.Monitor fingerstic ks fasting qd and HgA1C as an outpt. Gastroesop hageal reflux disease without esophagitis 706309791 K21.9 No current sxs.Contin ue famotidine 40 mg qdMonitor GI sxs. Hyperlipidemia 51965405 E78.49 Continue atorvastat in 80 mg qd and fish oil 1000 mg qdMonitor labs as an outpt. Anemia 603285449 D50.8 Multifacto rial.Stabl eMonitor labs. Pain in ri ght hip joint 4017877935 46124 M25.551 Acute exacerbati on of chronic problem.Wi th minimal pain with ROM doubt occult fx.Continu e lidocaine patch to right hip qd and baseline RA pain regimen of lyrica 300 mg BID, prednisone 2.5 mg qd, tramadol 50 mg q 6 hrs prn, MSIR 7.5 mg q 6 hrs prn, and APAP 650 mg q 4 hrs prn.Remain s deconditio mary.Needs PT/OT for strengthen ing, balance, gait training, safety and function.C ontinue fall precaution s.Monitor for safety.F/U with rheum and PM&R as planned. [id number] RIGO OLIVEROS [facility] on [address] [facility] [place] [address] 05/22/2024 09:44:23 05/26/2024 09:32:28 At increased risk for falls 092674803 Z91.81 recent fall without fx or dislocatio ncontinues with right arm and hip painCT negative for acute findings-P t/OT for strength and mobility-f all precaution s-continue scheduled tylenol 650 TID-contin ue lidocaine patch to right hip-contin ue home pain regimen = tramadol 50 Q6H prn and morphine 7.5 Q4H prn Rheumatoid arthritis 698 97679 M06.89 carrying dxmultiple joint deformitie s and nodes-cont inue prednisone 2.5 mg daily-foll ows with rheumatolo gy-see above for pain control Primary insomnia 5346349 F51.01 -increase melatonin to 10 mg HS-encoura ge sleep hygeine [id number] RIGO OLIVEROS [facility] on [address] [place] [phone] 05/24/2024 09:04:49 05/26/2024 11:52:14 At increased risk for falls 284559545 Z91.81 recent fall without fx or dislocatio nCT negative for acute findingspa in well controlled now-Pt/OT for strength and mobility = progressin g well=worki ng on goal of stairs with therapy-fa ll precaution s-continue scheduled tylenol 650 TID-contin ue lidocaine patch to right hip-contin ue home pain regimen = tramadol 50 Q6H prn and morphine 7.5 Q4H prn-plan to dc home next wednesday with PT/OT services Rheumatoid arthritis 698 08178 M06.89 carrying dxmultiple joint deformitie s and nodes-cont inue prednisone 2.5 mg daily-foll ows with rheumatolo gy-see above for pain control Primary insomnia 0559638 F51. improved with increased melatonin- continue melatonin to 10 mg HS-encoura ge sleep hygeine [id number] RIGO OLIVEROS [facility] on [address] [place] [phone] 05/29/2024 09:23:48 05/31/2024 09:17:09 At increased risk for falls 007187669 Z91.81 recent fall without fx or dislocatio nCT negative for acute findingspa in well controlled now-Pt/OT for strength and mobility = progressin g well=worki ng on goal of stairs with therapy-fa ll precaution s-continue scheduled tylenol 650 TID-contin ue lidocaine patch to right hip-contin ue home pain regimen = tramadol 50 Q6H prn and morphine 7.5 Q4H prn-plan to dc home wednesday with PT/OT services Rheumatoid arthritis 698 41158 M06.89 carrying dxmultiple joint deformitie s and nodes-cont inue prednisone 2.5 mg daily-foll ows with rheumatolo gy-see above for pain control Primary insomnia 4415845 F51.01 improved with increased melatonin- continue melatonin to 10 mg HS-encoura ge sleep hygeine Diabetes mellitus 021682 09 E11.9 BS very well controlled = 146 today-trul icity SQ on mon.-metfo rmin 1000 daily-accu checks once daily in am-diabeti c foot care HS-regular diet Essential hypertension 27864993 I10 well controlled 101/67 today-cont inue toprol XL 12.5 mg daily-BP check daily [id number] ROMAN KERNS NP-C [facility] on [address] [place] [place] [address] 05/31/2024 09:43:57 06/01/2024 14:43:00 At increased risk for falls 651094436 Z91.81 recent fall without fx or dislocatio nCT negative for acute findings-h ome with PT/OT services-f /up with pcp Rheumatoid arthritis 698 70151 M06.89 carrying dxmultiple joint deformitie s and nodes-cont inue prednisone 2.5 mg daily-foll ows with rheumatolo gy-continu e scheduled tylenol 650 TID-contin ue home pain regimen = tramadol 50 Q6H prn and morphine 7.5 Q4H prn-f/up with pcp Primary insomnia 1706502 F51.01 improved with increased melatonin- continue melatonin to 10 mg HS-encoura ge sleep hygeine at home-f/up with pcp Diabetes mellitus 456141 09 E11.9 BS very well controlled = 146 today-trul icity SQ on mon.-metfo rmin 1000 daily-jodie tor BS at home-f/up with pcp Essential hypertension 08318402 I10 well controlled 101/67 today-cont inue toprol XL 12.5 mg daily-jodie tor BP with pcp Degenerati ve disorder of macula 599087056 H35.30 carrying dx = legally blind-f/up outpatient Coronary atherosclerosis 887693021 I25.10 carrying dx-ASA 81 mg daily-Lipi tor 80 mg qhs-Toprol XL 12.5 mg daily-plav ix 75 mg daily due to NSTEMI-f/u p with pcp Depressive disorder 5444 9007 F33.8 carrying dx-not on meds-f/up with pcp to monitor mood and affect Gastroesop hageal reflux disease without esophagitis 792900312 K21.9 carrying dx-famotid ine 40 daily-jodie tor ss outpatient with pcp Hyperlipidemia 33356269 E78.5 carrying dx-lipitor 80 daily-lipi d panel outpatient Spinal jasson nosis of lumbar region 27147003 M48.061 -lyrica 300 mg bid-see above for pain control-f/ up wit pcp Anemia 261946373 D50.8 H/H stable hgb 10 hct 31.7 on 05/31likely ACD due to RA-admissi on labs pending Health Concerns Section Related Observation LastModified by Organization Detai ls LastModified Time None Recorded Concern Status LastModified by Organization Details LastModified Time None Recorded Advance Directives Directive Y: Payers Encounter Date Sequence Insurance Name Policy Number Policy Meraz Covered Member ID Meraz Member ID Guarantor Name 05/19/2024 2 [facility] [id number] 1 [employer] Elizabetheben [id number] Vito Sherette 05/19/2024 1 [place] [employer] Vito Vizcarra [id number] Vito Sherette 05/22/2024 2 [facility] [id number] 1 Vito Sherette [id number] Vito Sherette 05/22/2024 1 [place] [employer] Vito Vizcarra [id number] Vito Sherette 05/24/2024 2 [facility] [id number] 1 Vito Sherette [id number] Vito Sherette 05/24/2024 1 [place] [employer] Vito Elizabethette [id number] Vito Sherette 05/29/2024 2 [facility] [id number] 1 Vito Sherette [id number] Vito Sherette 05/29/2024 1 [place] [employer] Vito Elizabethette [id number] Vito Sherette 05/31/2024 2 [facility] [id number] 1 Vito Sherette [id number] Vito Sherette 05/31/2024 1 [place] [employer] Vito Elizabethette [id number] Vito Sherette Notes Date Note Type Note Provider Name and Address Organization Details Recorded Time 05/19/2024 text/html This is a 73 yo man with severe RA, who is here for rehab after an ED visit for a fall with hip pain, no fxs.Although he tells me tonight he never had right hip pain before his fall, on review of records he has been in the ED several times for right hip pain.First time in 02/2024, txed with pain meds.Then on 04/18, sent to [facility] for rehab. No info about that available, was d/c'd on 05/02.Was going to start outpt PT, but was unable to get out of the car.Was then getting home PT.Then on 05/10 he had a fall after slipping on urine in his BR when he had an accident.ED eval showed similar findings to previous imaging, no fxs.He was d/c home to continue home PT.However after returning home he was unable to manage with only 's help. So was admitted here on 05/15.At baseline he is on a pain med regimen for his RA and spinal stenosis. He also gets steroid injections at times. Tonight he tells me right hip still hurts, but is a little better. His PMH includes HTN, seropositive RA on chronic pain meds, AODM, spinal stenosis, GERD, CAD s/p CABGx3 in 2018, HLD, anemia, macular degeneration, and depression. Florence Lees MD [address] [place] [address], [address], [place], [address], [facility] 05/22/2024 00:48:02 05/22/2024 text/html Patient is a 73 yo male being seen today for acute rounding. Patient sustained a mechanical fall on 05/10 when he slipped in his urine in the bathroom at home. He was discharged back home after CT in ED showed no acute abnormalities. Family and patient felt he needed STR for weakness and pain to right arm and hip after the fall. He is now at [facility]. Vito is doing well, he continue to work with therapy with goal of returning home. His pain is fairly well controlled on current regimen. His only complaint this am was difficulty sleeping. He is requesting an increased dose of melatonin. Tells me the 3mg isnt enough as he was taking 10mg every night at home. PMH GERD, HTN, HLD, RA, DM2, spinal stenosis, depression, and coronary atherosclerosis RIGO OLIVEROS [address] [facility], [address], [place], [address], [facility] [employer] 05/22/2024 11:12:17 05/24/2024 text/html Patient is a 73 yo male being seen today for acute rounding. Patient sustained a mechanical fall on 05/10 when he slipped in his urine in the bathroom at home. He was discharged back home after CT in ED showed no acute abnormalities. Family and patient felt he needed STR for weakness and pain to right arm and hip after the fall. He is now at [facility]. Patient seen today with his present. He was just finishing up therapy, they tell me he is progressing very well. They will soon be working on stairs with plans to dc next Wednesday with PT/OT services. Patients pain is very well controlled now. He is sleeping through the night with the increase in melatonin. PMH GERD, HTN, HLD, RA, DM2, spinal stenosis, depression, and coronary atherosclerosis RIGO OLIVEROS [address] [facility], [address], [place], [address], [facility] [employer] 05/24/2024 12:45:10 05/29/2024 text/html Patient is a 73 yo male being seen today for acute rounding. Patient sustained a mechanical fall on 05/10 when he slipped in his urine in the bathroom at home. He was discharged back home after CT in ED showed no acute abnormalities. Family and patient felt he needed STR for weakness and pain to right arm and hip after the fall. He is now at [facility]. Patients weekend was uneventful. He is feeling very well, and happy to go home at the end of the week. He is planned for dc home on wed with PT/OT services. He has no complaints. He is sleeping well and his pain is being managed on current regimen. PMH GERD, HTN, HLD, RA, DM2, spinal stenosis, depression, and coronary atherosclerosis RIGO OLIVEROS [address] [facility], [address], [place], [address], [facility] 05/29/2024 11:05:35 05/31/2024 text/html Patient is a 73 yo male being seen today for discharge summary visit. Patient sustained a mechanical fall on 05/10 when he slipped in his urine in the bathroom at home. He was discharged back home after CT in ED showed no acute abnormalities. Family and patient felt he needed STR for weakness and pain to right arm and hip after the fall. He is now at [facility]. Patients rehab stay has been uneventful. His pain is well controlled on his home analgesics. Plan for dc home on wednesday with PT/OT services. He has no complaints and tells me he doesn't need any prescriptions sent home. PMH GERD, HTN, HLD, RA, DM2, spinal stenosis, depression, and coronary atherosclerosis ROMAN KERNS, GURJIT-C [address] [facility], [address], [place], [address], [facility] 05/31/2024 09:49:10
--- OUTSIDE RECORDS SUMMARY | 2025-01-15 17:32 | XMS_ITS | Data Portability ---
Author Organization [facility] Home Service Address [address] [place] [address] Assessment Encounter Date Assessment Date Assessment LastModified by Organization Details LastModified Time 06/07/2024 06/07/2024 Patient agreed and verbally consents to this audio and video Telehealth appt via a secure platform [email or web address] Not available 06/07/2024 15:15:38 09/29/2024 09/29/2024 [id number] [place] [id number] (JEWELRY APPRAISER) MDM MODERATE MUST MEET 2 OUT OF 3 ELEMENTS: PROBLEMS, DATA OR RISK ELEMENT 1: PROBLEMS ADDRESSED 1 OR MORE CHRONIC ILLNESS WITH EXACERBATION OR 2 OR MORE STABLE CHRONIC ILLNESSES OR 1 UNDIAGNOSED NEW PROBLEM OR 1 ACUTE ILLNESS W/SYMPTOMS OR 1 ACUTE COMPLICATED INJURY ELEMENT 2: DATA MUST MEET 1 OF 3 CATEGORIES CATEGORY 1: REVIEW OF PRIOR EXTERNAL NOTES, REVIEW OF RESULTS, ORDERING OF EACH TEST, ASSESSMENT REQUIRING INDEPENDENT HISTORIAN OR CATEGORY 2: INDEPENDENT INTERPRETATION OF TESTS BY ANOTHER PHYSICIAN OR SPECIALIST OR CATEGORY 3: DISCUSSION OF MGT OR TEST INTERPRETATION W/EXTERNAL PHYSICIAN OR SPECIALIST ELEMENT 3: RISK RISK OF COMPLICATIONS AND/OR MORBIDITY OR MORTALITY OF PATIENT MANAGEMENT PROVIDER MUST THOROUGHLY DOCUMENT EACH ELEMENT THAT IS COVERED Not available 09/29/2024 09:51:40 01/15/2025 01/15/2025 [id number] [place] [id number] (JEWELRY APPRAISER) MDM HIGH MUST MEET 2 OUT OF [...] HbA1c (hemoglob in A1c), blood 2024 025 [facility], [address] [place] [address], [address], 01/15/2025 15:16:07 microalbu min, urine 2024 025 [facility], [address] [place] [address], [address], 01/15/2025 15:16:07 lipid panel, serum 2024 025 [facility], [address] [place] [address], [address], 01/15/2025 15:16:06 CBC w/ auto diff 2024 025 [facility], [address] [place] [address], [address], 01/15/2025 15:16:07 CMP, serum or plasma 2024 025 [facility], [address] [place] [address], [address], 01/15/2025 15:16:06 PSA, serum or plasma 2024 025 [facility], [address] [place] [address], [address], 01/15/2025 15:16:07 CBC 2024 025 [facility], [address] [place] [address], [address], 01/15/2025 15:16:07 HbA1c (hemoglob in A1c), blood 2023 024 [facility], [address] [place] [address], [address], 09/29/2024 10:08:20 microalbu min, urine 2023 024 [facility], [address] [place] [address], [address], 09/29/2024 10:08:20 lipid panel, blood 2023 024 [facility], [address] [place] [address], [address], 09/29/2024 10:08:20 iron + TIBC + ferritin, serum 2023 024 [email or web address] 10 [facility], [address] [place] [address], [address], 08/18/2024 08:36:25 CBC w/ auto diff 2023 024 [facility], [address] [place] [address], [address], 08/11/2024 12:02:06 microalbu min, urine 2023 024 [facility], [address] [place] [address], [address], 06/26/2024 11:07:11 hemoglobi n A1c, QN, blood 2023 024 [facility], [address] [facility], [place], [address], 06/26/2024 11:07:11 lipid panel, serum 2023 [facility], [address] [facility], [place], [address], 06/26/2024 11:07:11 Referral None recorded. Procedures None recorded. Surgeries None recorded. Imaging None recorded. Medication Orders oxycodone 5 mg tablet 2024 [id number] [address] [place], [address], 01/15/2025 15:14:49 carvedilo l 6.25 mg tablet 2023 024 [id number], [address] [place], [address], 08/11/2024 12:02:28 isosorbid e mononitra te ER 120 mg tablet,ex tended release 24 hr 2023 024 [id number], [address] [place], [address], 08/11/2024 12:03:11 valsartan 40 mg tablet 2023 024 [id number], [address] [place], [address], 08/11/2024 12:04:18 nitroglyc ovi 0.4 mg sublingua l tablet 2023 024 [id number], [address] [place], [address], 08/11/2024 12:16:16 amoxicill in 500 mg capsule 2023 025 [id number], [address] [place], [address], 01/15/2025 14:39:17 metoprolo l succinate ER 25 mg tablet,ex tended release 24 hr 2023 024 [id number], [address] [place], [address], 08/11/2024 12:05:51 Patient TargetsNo targets recorded. Patient Instructions Encounter Date Encounter Id Patient Instructions Last Modified By Organization Details Last Modified Time 06/26/2024 [id number] stroke: care instructions Not available 06/26/2024 11:05:15 01/15/2025 [id number] gastroesophageal reflux disease (GERD): care instructions Not available 01/15/2025 15:14:47 chronic lymphocy tic leukemia: care instructions Not available 01/15/2025 15:14:47 Reason for Referral None Reported. Results Created Date Observation Date Name Description Value Unit Range Abnormal Flag Note LastModifiedBy Organization Detail LastModifiedTime 06/27/20 24 02/27/2024 MRI, cervi yesika spine , w/o contr ast No observ ation record ed. [facility] (Scheduling Dept) [address] [place], [address], 07/04/2024 16:53:55 06/27/20 24 02/27/2024 MRI, lumba r spine , w/o contr ast No observ ation record ed. [facility] [address] [place], [address], 06/30/2024 11:10:41 Result Notes None recorded. 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 stargard t's macular disease Not Available [facility] 14:31:55 Hyperten sive disorder 92244338 Completed 201710/07/2018 Yani yan [place] [facility] 8 16:54:39 Gastroes ophageal reflux disease 836206515 Active 2017 Not Available [facility] 3 14:31:55 Type 2 diabetes mellitus 27714452 Active 2017 Not Available [facility] 3 14:31:55 Hyperlip idemia 36586259 Active 2017 Not Available [facility] 3 14:31:55 Rheumato id arthriti s 02667998 Active 2017 Not Available [facility] 3 14:31:56 [facility] hyperten susana 87816191 Active 2017 Not Available [facility] 3 14:31:55 Coronary atherosc lerosis 519401485 Active 2017 Not Available [facility] 3 14:31:55 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 Not Available [facility] 3 14:31:55 Myocardi al infarcti on 54475548 Active 2017 Not Available [facility] 3 14:31:55 Osteomye litis 80369793 Active 2017 left foot Not Available [facility] 3 14:31:55 Osteoart hritis 545599800 Active 2017 Not Available [facility] 3 14:31:55 Anemia 865725253 Active 2017 neg GI workup for bleed, thought to be 2/2 ACS from RA Not Available [facility] 3 14:31:55 Osteopor osis 88858503 Active 2018 Not Available [facility] 3 14:31:55 Herpes zoster 7512224 Active 2020 Not Available [facility] 3 14:31:55 Closed subluxat ion cervical spine 718504411 Active 2021 Not Available [facility] 3 14:31:55 COVID-19 386247381 Active 2021 Not Available [facility] 3 14:31:56 Eczema 40303110 Active 2021 Not Available [facility] 3 14:31:55 Atopic dermatit is of scalp 453087048 Active 2022 Not Available [facility] 3 14:31:55 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 4 14:28:13 Degenera tion of lumbar interver tebral disc 26547843 Active 2023 Ian Burgos, DO [address] [place], [address], [facility] 4 11:03:05 Weakness of bilatera l lower limb Active 2023 Ian Burgos, DO [address] [place], [address], [facility] 4 15:44:43 Iron deficien cy anemia 35263496 Active 2023 RENATE MARTÍNEZ [address] [place], [address], [facility] 4 12:00:15 Thromboc ytosis 2348407 Active 2023 RENATE MARTÍNEZ [address] [place], [address], [facility] 4 12:04:33 Chronic lymphoid leukemia , disease 76087803 Active 2023 RENATE MARTÍNEZ [address] [place], [address], [facility] 4 12:14:41 Osteoart hritis of right hip joint 2238451323 81064 Active 2023 Ian Burgos DO [address] [place] [address], [address], [facility] 4 09:46:01 Total replacem ent of right hip joint Active 2024 Ian Burgos DO [address] [place] [address], [address], [facility] 5 15:04:34 Osteoart hritis of joint of right shoulder region 4647824709 32317 Active 2024 Ian Burgos DO [address] [place] [address], [address], [facility] 5 15:05:57 Problem Notes None recorded. Procedures Surgical History Date Name Laterality Status Provider Name and Address Organization Details Recorded Time 07/02/20 23 I&D completed RENATE MARTÍNEZ [address] [place] [address], [address], [facility] 07/02/2023 13:50:44 05/26/20 23 I&D completed RENATE MARTÍNEZ [address] [place] [address], [address], [facility] 05/26/2023 15:42:48 04/02/20 21 Family Practice Trigger Point Injection completed Ian Burgos DO [address] [place] [address], [address], [facility] 04/02/2021 12:27:07 12/13/19 21 I&D completed Ian Burgos DO [address] [place] [address], [address], [facility] 12/13/2020 11:00:52 09/04/20 20 I&D completed Ian Burgos DO [address] [place] [address], [address], [facility] 09/04/2020 16:33:02 08/02/20 19 I&D completed [address], [address], [facility] 08/02/2019 11:00:55 11/08/19 19 extraction of cataract completed [address], [address], [facility] 04/17/2019 09:33:00 07/09/20 18 Cabg vein three completed [address], [address], [facility] 10/11/2018 14:10:20 06/28/20 18 total knee replacement completed [address], [address], [facility] 10/11/2018 14:10:41 02/28/20 17 Back Surgery completed [address], [address], [facility] 10/11/2018 14:19:44 11/08/19 08 amputation of toe completed [address], [address], [facility] 10/11/2018 14:21:35 Imaging Results Imaging Date Name Status LastModified by Organiz ation Details LastModified Time 02/27/2024 MRI, cervical spine, w/o contrast completed [email or web address] [facility] (Scheduling Dept) [address] [place], [address], 07/04/2024 16:53:55 02/27/2024 MRI, lumbar spine, w/o contrast completed [email or web address] [facility] [address], [address], 06/30/2024 11:10:41 Procedure Notes None recorded. Medical Equipment None [...] Ultra-Fine Melina Pen Needle 32 gauge x active Not Available Not Available Not Available [...] Not Available Not Available Not Available [facility] BeckerikPen U-100 Insulin 100 unit/mL (3 mL) subcutaneou [...] Address Organization Details Last Updated DateTime 4 161.29 cm 25 kg/m2 58295.8 6 g 66 /min 98 % 98 % 124 mm[Hg] 64 mm[Hg] Gerald Cerrato [facility] 4 10:45:13 Date Recorded Body height Heart rate Oxygen saturation Oxygen saturation in Arterial blood by Pulse oximetry Systolic blood pressure Diastolic blood pressure Provider Name and Address Organization Details Last Updated DateTime 4 161.29 cm 67 /min 96 % 96 % 120 mm[Hg] 62 mm[Hg] Barbra Bobby [facility] 4 11:44:43 Date Recorded Body height Body mass index (BMI) Body weight Systolic blood pressure Diastolic blood pressure Provider Name and Address Organization Details Last Updated DateTime 09/29/2024 161.29 cm 26 kg/m2 15752.26 g 100 mm[Hg] 60 mm[Hg] Shanthi Mean [facility] 4 09:29:37 Date Recorded Body height Body mass index (BMI) Body weight Heart rate Oxygen saturation Oxygen saturation in Arterial blood by Pulse oximetry Systolic blood pressure Diastolic blood pressure Provider Name and Address Organization Details Last Updated DateTime 5 161.29 cm 26.6 kg/m2 61768.2 g 71 /min 99 % 99 % 124 mm[Hg] 82 mm[Hg] Barbra Bobby [facility] 5 14:45:36 Social History Question Answer Notes LastModified by Organizat ion Details LastModified Time Tobacco Smoking Status Former Smoker Yani Verna yan [facility] 10/11/2018 14:03:00 What Was The [...] mL dose 06/26/20 21 completed Not Available [facility] 11/26/2023 16:07:42 Influenza, split virus, quadrivalent, preservative 06/19/20 21 completed Not Available [facility] 11/26/2023 16:07:42 COVID-19, mRNA, LNP-S, PF, 30 mcg/0.3 mL dose, janay-sucrose 03/13/20 22 completed Not Available [facility] 11/26/2023 16:07:42 COVID-19, mRNA, LNP-S, PF, 30 mcg/0.3 mL dose, janay-sucrose 08/25/20 22 completed Not Available [facility] 11/26/2023 16:07:42 influenza, unspecified formulation 08/25/20 22 completed Not Available [facility] 11/26/2023 16:07:43 Respiratory syncytial virus (RSV) MAB, unspecified 08/09/20 24 completed RENATE MARTÍNEZ [address] [place] [address], [address], [facility] 08/11/2024 12:16:08 influenza, unspecified formulation 08/09/20 24 completed RENATE MARTÍNEZ [address] [facility], [place], [address], [facility] 08/11/2024 12:16:22 Pneumococcal conjugate PCV 13 08/09/20 15 completed Not Available [facility] 11/26/2023 16:07:43 Influenza, split virus, quadrivalent, preservative 08/08/20 18 completed Not Available [facility] 11/26/2023 16:07:42 pneumococcal polysaccharide PPV23 09/18/20 16 completed Not Available [facility] 11/26/2023 16:07:42 Td (adult) 11/08/19 05 completed Not Available [facility] 11/26/2023 16:07:43 Influenza, split virus, quadrivalent, preservative 07/27/20 19 completed Not Available [facility] 11/26/2023 16:07:42 Influenza, split virus, quadrivalent, preservative 07/22/20 20 completed Not Available [facility] 11/26/2023 16:07:42 COVID-19, mRNA, LNP-S, PF, 30 mcg/0.3 mL dose 01/19/20 21 completed Not Available [facility] 11/26/2023 16:07:42 COVID-19, mRNA, LNP-S, PF, 30 mcg/0.3 mL dose 02/09/20 21 completed Not Available [facility] 11/26/2023 16:07:42 Past Encounters Encounter ID Performer Location Encounter Start Date Encounter Closed Date Diagnosis/Indication Diagnosis SNOMED-CT Code Diagnosis ICD10 Code Diagnosis Note [id number] February CHELO [facility] [address] [facility],[place] [address] 10/11/2018 13:40:31 10/11/2018 15:13:47 Gastroesophageal reflux disease 327040195 K21.9 stable on famotidine Type 2 gabriel betes mellitus 30616814 E11.65 fbs this am 89 doesn't know his last a1c but reports he is generally well controlled Hyperlipidemia 41685783 E78.5 he is on statin, especially now s/p AK. he doesn't know the dose Essential hypertension 92886211 I10 very well controlled Rheumatoid arthritis [address] mo who rx's his controlled substance - tylenol #3 Myocardial infarction 22 905860 I21.9 unsure of his next cardio appointmen t we need to get consult informatio n to clarify his meds Osteoarthritis 198453537 M19.90 just had right knee replaced, and then several days later had an AK Cataract 546959864 H26.9 he is hoping to have cataracts removed, but he says the eye doctor is going to be contacting the cardiologi for clearance [id number] [facility] [address] [facility] [address],[place] [address] 10/18/2018 11:35:27 10/18/2018 12:25:48 Gastroesophageal reflux disease 197657307 K21.9 stable on famotidine Type 2 gabriel betes mellitus 78073039 E11.65 a1c 6.1 Hyperlipidemia 17169734 E78.5 really well controlled Essential hypertension 58404009 I10 very well controlled per his cardio note he should be on half dose of metoprolol , so he was advised of this Rheumatoid arthritis [address] mo who rx's his controlled substance - tylenol #3 also gets simponi injection through rheum joints have been improved Myocardial infarction 22 382478 I21.9 meds reconciled per cardio note Osteoarthritis 114539746 M19.90 joints seem to be less painful as of lately right knee is good Cataract 084016840 H26.9 will likely be able to have his cataracts based on his current state of health will schedule pre-op for this [id number] Morelia [facility] [address] [facility] [address],[facility] [address] 11/04/2018 14:15:40 11/04/2018 15:05:42 Pre-surgery evaluation 242763653 Z01.818 clear for b/l cataract removal procedures - will send note to office under conscious sedation surgeon - dr. camacho Type 2 gabriel betes mellitus 58842511 E11.65 a1c 6.1 very well controlled Hyperlipidemia 63966007 E78.5 really well controlled Essential hypertension 82264244 I10 very well controlled Myocardial infarction 22 430059 I21.9 undergoing cardiac rehab per pt, cardiac has cleared and will be sending their own note over to the eye surgeon as well [id number] Morelia [facility] [address] [facility] [address], [employer] [place] [facility] [address] 01/10/2019 09:03:28 01/10/2019 09:40:41 Gastroesophageal reflux disease 378133181 K21.9 stable on famotidine Type 2 gabriel betes mellitus 26131439 E11.65 needs repeat a1c Hyperlipidemia 04086854 E78.5 really well controlled as of last labs 10/25 will get labs in 3 months Essential hypertension 43519806 I10 very well controlled per his cardio note he should be on half dose of metoprolol , so he was advised of this Rheumatoid arthritis [address] mo who rx's his controlled substance - tylenol #3 also gets simponi injection through rheum joints have been improved Epidermoid cyst of skin of neck 679340462 L72.0 [id number] Morelia [facility] [address] [facility] [address], [address] [facility] [place] [address] 04/17/2019 09:05:25 04/17/2019 09:50:32 Gastroesophageal reflux disease 938344322 K21.9 stable on famotidine Type 2 gabriel betes mellitus 50617175 E11.65 slightly elevated microalbum in 01/2019 will recheck a1c Hyperlipidemia 77716696 E78.5 really well controlled as of last labs 01/2019 will get labs in 3 months Essential hypertension 81960192 I10 very well controlled Rheumatoid arthritis [address] mo who rx's his controlled substance - tylenol #3 also gets simponi injection through rheum joints have been improved [id number] Morelia [facility] [address] [facility] [address], [address] [address] 07/18/2019 09:01:50 07/18/2019 09:55:16 Gastroesophageal reflux disease 495548058 K21.9 stable on famotidine will monitor sx as he is now being started on alendronat e Type 2 gabriel betes mellitus 06354623 E11.65 slightly elevated microalbum in 05/2019 will recheck a1c - very well controlled as of may Hyperlipidemia 83533189 E78.5 really well controlled as of last labs 05/2019 Essential hypertension 71770832 I10 very well controlled Rheumatoid arthritis [address] mo who rx's his controlled substance - tylenol #3 also gets simponi injection through rheum joints have been improved Active or passive immunization 664057706 Z23 Body mass index 25-29 - overweight 288434039 Z68.27 very mildly overweight healthy diet and exercise Hepatitis C screening 41 4250463 Z11.59 Advance care planning 71 0452350 Z71.89 all uptodate [id number] February CHELO [facility] [address] [facility] [address],[place] [employer] [place] [address] 08/02/2019 10:08:34 08/02/2019 11:14:51 Essential hypertension 00126938 I10 very well controlled Abscess 234282772 L02.91 abscess drained keep area covered, dry clean, may shower but dry and cover immediatel y following use warm compress or ice for discomfort Type 2 gabriel betes mellitus 00080920 E11.65 slightly elevated microalbum in 05/2019 will recheck a1c - very well controlled as of may Hyperlipidemia 07997213 E78.5 really well controlled as of last labs 05/2019 having labs again just before october Anemia 567989682 D64.9 has anemia, had GI work up in the past which was negative and apparently it was determined to be due to RA will recheck again as pt has been feeling tired since before the AK this came up after completing pre-op for cataracts should not affect clearance unless very significan tly low Abscess of back 21140732 7 L02.212 [id number] [facility] [address] [facility] [address],[employer] [employer] [place] [address] 12/01/2019 11:05:02 12/01/2019 12:27:58 Gastroesophageal reflux disease 180271975 K21.9 stable on famotidine will monitor sx as he is now being started on alendronat e Type 2 gabriel betes mellitus 38432704 E11.65 a1c was 6.2 Hyperlipidemia 19388603 E78.5 really well controlled as of last labs 05/2019 Essential hypertension 72346098 I10 very well controlled Rheumatoid arthritis [address] mo who rx's his controlled substance - tylenol #3 also gets simponi injection through rheum joints have been improved Body mass index 25-29 - overweight 165394200 Z68.27 very mildly overweight healthy diet and exercise Basal cell carcinoma of skin 051790681 C44.91 [id number] Ian Burgos [facility] [address] [facility], [employer] [place] [address] 01/08/2020 16:01:20 01/08/2020 16:34:48 Type 2 diabetes mellitus 54755715 E11.9 a1c was stable at 6.2 Rheumatoid arthritis 698 54570 M06.9 stable but severe deformity noted in all limbs followed by dr mo Essential hypertension 77043851 I10 stable bp no changews Coronary atherosclerosis 630767010 I25.10 quiet and feeling good Diabetic foot 861206977 E11.59 pt is in great need for diabetic custom shoes given the marked deformitie s as described in the exam as well as the history of the foot ulcers and neuropathy [id number] Ian Burgos [facility] [address] [facility],[place] [employer] [place] [address] 04/17/2020 11:29:33 04/17/2020 12:26:09 Type 2 diabetes mellitus 84335153 E11.9 a1c was stable at 6.2 Essential hypertension 02606722 I10 stable bp no changews Myocardial infarction 22 459793 I21.9 Coronary atherosclerosis 232393179 I25.10 quiet and feeling good Rheumatoid arthritis 698 72587 M06.9 stable but severe deformity [place] [id number] Ian Burgos [facility] [address] [facility], [employer] [place] [address] 07/17/2020 10:24:18 07/17/2020 11:07:38 Type 2 diabetes mellitus 11274365 E11.9 a1c was elevated at 7.2 he was at 6.2 Hyperlipidemia 85751199 E78.5 is excellent and LDL 38 Essential hypertension 42381256 I10 stable bp no changes Coronary atherosclerosis 646145812 I25.10 quiet and feeling good Rheumatoid arthritis 698 19339 M06.9 stable but severe deformity noted in all limbs from rheumatoid followed by dr mo he is asking about accupunctu re andtold him i would try it [id number] Ian Burgos [facility] [address] [facility] [address] 09/04/2020 15:59:20 09/04/2020 16:43:00 Infection of sebaceous cyst 774154194 L72.3 I &D performed well tolerate d cont abx wound precaution s and extra bandages given [id number] Ian Burgos [facility] [address] [facility],[place] [address] 11/12/2020 09:46:08 11/12/2020 11:04:42 Adult health examination 602054741 Z00.01 Screening for cardiovascular system disease 441443107 Z13.6 Type 2 gabriel betes mellitus 13114924 E11.9 a1c was elevated at 7.2 he was at 6.2 Essential hypertension 69684056 I10 stable bp no changes Post-herpe tic trigeminal neuralgia 05338148 B02.22 [id number] [facility] [address] [facility],[place] [address] 12/13/2020 09:54:55 12/13/2020 11:08:35 Infection of sebaceous cyst 673972371 L72.3 I &D performed well tolerate d cont abx wound precaution s and extra bandages given [id number] Ian Burgos [facility] [address] [facility],[place] [address] 03/11/2021 13:30:15 03/11/2021 15:22:51 Type 2 diabetes mellitus 08080135 E11.9 a1c was elevated at 7.2 he was at 6.2 Essential hypertension 97674726 I10 stable bp no changes Cervico-oc cipital neuralgia 58540680 M54.81 believe this is a classic case but we will have him try a quick medrol pk and see if this is beneficial [id number] Ian Burgos [facility] [address] [facility] [address] 04/02/2021 11:48:50 04/02/2021 12:29:39 Cervico-occipital neuralgia 52425589 M54.81 believe this is a classic case but we will have celia trigger pt injh and see if this is beneficial [id number] RENATE MARTÍNEZ [facility] [address] [facility], [place] [address] 05/19/2021 14:36:14 05/20/2021 08:23:13 Herpes zoster 6459832 B02.9 will treat with valtrex and prednisone for pain and itching [id number] RENATE MARTÍNEZ [facility] [address] [place] [address],[facility] [place] [address] 07/15/2021 10:51:13 07/15/2021 14:39:40 Degeneration of cervical intervertebral disc 71323870 M50.30 will have patient call Dr. Mo 's office for fu sooner than three months to discuss next options in treatment if it is warranted Post-herpe tic trigeminal neuralgia 67545885 B02.22 will continue pregabalin and start on betamethas one for the inflammati on and rash [id number] Ian Burgos, [facility] [address] [place] [address],[facility] [place] [address] 09/15/2021 09:47:06 09/15/2021 10:34:27 Essential hypertension 93612443 I10 stable bp no changes Type 2 gabriel betes mellitus 06701680 E11.9 a1c was elevated at 7.2 he was at 6.2 Rheumatoid arthritis 698 45686 M06.9 stable but severe deformity noted in all limbs from rheumatoid followed by dr mo s re[placeme ntthey are going to try to get him offf the prednisone and embrel injection but we dont know what he is going to use to replace now on 7.5 of pred and he is feeling it but is tolerating Cerebrovas cular accident 748934993 I63.9 has been stable and without further neuro deficits Myocardial infarction 22 702063 I21.9 has been stable and without any symptoms and we will fust follow along with the cardiologi sts Abdominal aortic aneurysm screening 519545624 Z13.6 we will order but not at this time while he is undergoing rheumatoid work up for tx Diabetic foot 485453577 E11.59 pt is in great need for diabetic custom shoes given the marked deformitie s as described in the exam as well as the history of the foot ulcers and neuropathy Anemia 955476727 D64.9 stable hgb at 11.2 feel this is anemia of chronic disease Seborrheic dermatitis of scalp 828780483 L21.0 Cervico-oc cipital neuralgia 91189806 M54.81 believe this is a classic case and is involved with the severe C1-2 vertebral degen will give him oxy for pain [facility] [id number] Ian Burgos [facility] [address] [facility], [employer] [place] [address] 01/09/2022 11:01:17 01/09/2022 13:56:06 Type 2 diabetes mellitus 26738213 E11.9 a1c was elevated at 7.2 he was at 6.2 Essential hypertension 90868897 I10 stable bp no changes Abdominal aortic aneurysm screening 273834664 Z13.6 we will order but not at this time while he is undergoing rheumatoid work up for tx Cerebrovas cular accident 657377711 I63.9 has been stable and without further neuro deficits Myocardial infarction 22 070832 I21.9 has been stable and without any symptoms and we will fust follow along with the cardiologi sts Rheumatoid arthritis 698 95149 M06.9 stable but severe deformity noted in all limbs from rheumatoid followed by dr mo s re[placeme ntthey are going to try to get him offf the prednisone and embrel injection but we dont know what he is going to use to replace now on 7.5 of pred and he is feeling it but is tolerating Diabetic foot 112441696 E11.59 pt is in great need for diabetic custom shoes given the marked deformitie s as described in the exam as well as the history of the foot ulcers and neuropathy [id number] Ian Burgos DO [facility] [address] [facility], [place] [place] [address] 06/26/2022 10:51:02 06/26/2022 11:36:21 Type 2 diabetes mellitus 31282722 E11.9 a1c was great at 6.1 prior he was at 7.2 he was at 6.2 before that Hyperlipidemia 90181699 E78.5 is excellent and LDL 38 Essential hypertension 94856709 I10 stable bp no changes Active or passive immunization 867359968 Z23 will consider Tdap Depression screening 171 628141 Z13.31 Doing well on sertraline Eczema 52129575 L30.9 has been having irritating folliculit is episodes to the back of his scalp [id number] Ian Burgos, [facility] [address] [facility],[place] [address] 10/26/2022 11:55:46 10/26/2022 13:17:28 Type 2 diabetes mellitus 36239151 E11.9 a1c was great at 6.1 prior he was at 7.2 he was at 6.2 before that Essential hypertension 81581352 I10 stable bp no changes Hyperlipidemia 60405930 E78.5 is excellent and LDL 38 Rheumatoid arthritis 698 15306 M06.9 stable but severe deformity noted in all limbs from rheumatoid followed by dr mo s r[placemen tthey are going to try to get him off the prednisone and embrel injection but we dont know what he is going to use to replace now on 2.5 of pred and he is feeling it but is tolerating [id number] Ian Burgos, [facility] [address] [facility],[place] [address] 01/27/2023 10:32:23 01/27/2023 15:58:53 Essential hypertension 32491969 I10 stable bp no changes Type 2 gabriel betes mellitus 55455490 E11.9 a1c was great at 6.1 again!!! prior he was at 6., 7.2 he was at 6.2 before thatwe will decrease the metformin to just 2 tabs in amwe will rechk in may and further decrease the dose Coronary atherosclerosis 581268511 I25.10 quiet and feeling good Gastroesop hageal reflux disease 663392431 K21.9 Diabetic foot 878826682 E11.59 pt is in great need for diabetic custom shoes given the marked deformitie s as described in the exam as well as the history of the foot ulcers and neuropathy Rheumatoid arthritis 698 18227 M06.9 stable but severe deformity noted in all limbs from rheumatoid followed by dr chung lay[placemen ton ramira injection , per rheum , now on 2.5 of pred and he is feeling it but is tolerating Myocardial infarction 22 266393 I21.9 has been stable and without any symptoms and we will just follow along with the cardiologi sts Cerebrovas cular accident 489398703 I63.9 has been stable and without further neuro deficits Advance care planning 71 0916292 Z71.89 86390 Ian Burgos [facility] [address] [facility] [address] 05/18/2023 14:03:23 05/18/2023 14:55:19 Closed subluxation cervical spine 797841656 S13.100D he is in agony from this and is hurting badly at times he will be seeing his rheumin meantime we will give him some oxycodone 10mg Atopic raffy matitis of scalp 312893874 L20.9 61172 RENATE MARTÍNEZ [facility] [address] [facility],[place] [address] 05/26/2023 15:04:03 05/28/2023 16:11:15 Sebaceous cyst of skin 751515941 L72.3 I&D performed successful ly [id number] RENATE MARTÍNEZ [facility] [address] [facility],[place] [address] 07/02/2023 13:25:34 07/05/2023 14:56:49 Abscess 971046840 L02.212 resolved with I&D [id number] Ian Burgos DO [facility] [address] [facility] [address] 01/07/2024 13:27:58 01/07/2024 15:44:40 Active or passive immunization 835498504 Z23 will consider Tdap Adult heal th examination 959587818 Z00.00 actually doing ok overall Type 2 gabriel betes mellitus 78846165 E11.9 a1c was great at 6.1 again!!! prior he was at 6., 7.2 he was at 6.2 before thatwe will decrease the metformin to just 2 tabs in amwe will rechk in may and further decrease the dose Rheumatoid arthritis 698 24203 M06.9 stable but severe deformity noted in all limbs from rheumatoid followed by dr chung lay[placemen ton ramira injection , per rheum , now on 2.5 of pred and he is feeling it but is tolerating Cerebrovas cular accident 899300269 I63.9 has been stable and without further neuro deficits Essential hypertension 41085874 I10 stable bp no changes Coronary atherosclerosis 657526051 I25.10 quiet and feeling good no cp no sob [id number] RENATE MARTÍNEZ [facility] [address] [facility],[place] [address] 03/03/2024 14:05:25 03/03/2024 14:42:23 Rheumatoid arthritis 40667152 M05.152 fu with rheum Pain of le ft hip joint 7200000594 29158 M25.552 will set him up with PT [id number] RENATE MARTÍNEZ [facility] [address] [facility] [address] [place] [facility] [place] [address] 05/08/2024 14:46:18 05/09/2024 08:55:26 Depression screening 457938528 Z13.31 The patient denies little pleasure in activities they find enjoyable, feeling depressed, difficulti es sleeping, feeling tired or having little energy, change in appetite, feeling guilty, overwhelme d or unmotivate d. The patient denies suicidal ideation, thoughts of hurting themselves or others. Their mood is appropriat e, they show good judgement and clear understand ing of the conversati on. They are orientated to time, place and person. They are not expressing any concerning thoughts or actions that would need further investigat ion and treatment for mental health. 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 2089512846 35090 M99.61 stable Rheumatoid arthritis 698 95642 M05.152 stable Pain of le ft hip joint 6448854446 20137 M25.552 stable [id number] Ian Burgos, [facility] [address] [facility],[place] [address] 06/26/2024 10:35:53 06/26/2024 11:15:50 Closed subluxation cervical spine 899018878 S13.100D he is in agony from this and is hurting badly at times he will be seeing his rheumhe has been given oxy 10mg without relief he will need an MRI Essential hypertension 35442260 I10 stable bp no changes Hyperlipidemia 04610111 E78.5 is excellent and LDL 38 Type 2 gabriel betes mellitus 46361995 E11.9 a1c was great at 6.1 again!!! prior he was at 6., 7.2 he was at 6.2 before thatwe will decrease the metformin to just 2 tabs in amwe will rechk in may and further decrease the dose Depression screening 171 887676 Z13.31 Doing well on sertraline Cerebrovas cular accident 868742001 I63.9 has been stable and without further neuro deficits Degenerati on of lumbar intervertebral disc 68801013 M51.36 waiting to see if there is a record of a recent MRI of the lumbar spinestate s they think he had [facility] visit[facility] is off all pain medscont the PT he is eating better [id number] RENATE MARTÍNEZ [facility] [address] [facility] [address] 08/11/2024 11:31:16 08/11/2024 14:23:26 Iron deficiency anemia 73983344 D50.0 recheck levelshas improved Myocardial infarction 22 986545 I21.9 refilled new meds from hospitalha s f/u with cardio to discussed continuati on of them recommende d nitro to have until his cardiac fugiven specific instructio ns for useavoid use when BP is low Antibiotic prophylaxis indicated 751959386 Z78.9 has f/u with dentistsug gested rescheduli ng it in a few weeks [id number] Ian Burgos [facility] [address] [facility],[place] [address] 09/29/2024 09:14:31 09/29/2024 09:54:32 Essential hypertension 58064752 I10 stable bp no changes Type 2 gabriel betes mellitus 91843300 E11.9 a1c was great at 6.1 again!!! prior he was at 6., 7.2 he was at 6.2 before thatwe will decrease the metformin to just 2 tabs in amwe will rechk in may and further decrease the dose Hyperlipidemia 00882698 E78.5 is excellent and LDL 38 Osteoarthr itis of right hip joint 6718520013 28318 M16.11 going for surg wednesday [id number] Ian Burgos [facility] [address] [facility],[place] [address] 01/15/2025 14:22:10 01/15/2025 15:41:26 Essential hypertension 15479372 I10 stable bp no changes Hyperlipidemia 68826055 E78.5 is excellent and LDL 38 Type 2 gabriel betes mellitus 51627306 E11.9 a1c was great at 6.1 again!!! 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 1758574014 59551 M19.011 still with severe pain at times will provide with med for prn use Health Concerns Section Related Observation LastModified by Organization Detai ls LastModified Time None Recorded Concern Status LastModified by Organization Details LastModified Time None Recorded Advance Directives Directive None Recorded Payers Encounter Date Sequence Insurance Name Policy Number Policy Meraz Covered Member ID Meraz Member ID Guarantor Name 06/07/2024 1 [place] [employer] Vito R Sherette [id number] Vito R Sherette 06/07/2024 2 [facility] [id number] 01 Vito R R Sherette [id number] Vito R Sherette 06/26/2024 1 [place] [employer] Vito R Sherette [id number] Vito R Sherette 06/26/2024 2 [facility] [id number] 01 Vito R R Sherette [id number] Vito R Sherette 08/11/2024 1 [place] [employer] Vito R Sherette [id number] Vito R Sherette 08/11/2024 2 [facility] [id number] 01 Vito R R Sherette [id number] Vito R Sherette 09/29/2024 1 [place] [employer] Vito R Sherette [id number] Vito R Sherette 09/29/2024 2 [facility] [id number] 01 Vito R R Sherette [id number] Vito R Sherette 01/15/2025 1 [place] [employer] Vito R Sherette [id number] Vito R Sherette 01/15/2025 2 [facility] [id number] 01 Vito R R Sherette [id number] Vito R Sherette Notes Date Note Type Note Provider Name and Address Organization Details Recorded Time 4 text/htm l TCM/rehab d/c The patient is participating in this appointment via telemedicine communication with a phone call/video calling service (Doxy)The patient consents to use of these platforms in place of an in-person appointment due to either sick symptoms the patient is presenting with or current office closure due to COVID exposure in order to keep our office staff and patients safe the patient was recently discharged [facility] for his rehabilitation stay for PTdoing better, off the medications for the painup, walking around with a walker, able to go to the bathroom with assistance has been doing really good after d/c, has PT coming to the house is off the tramadol, fentanyl patches, morphine for the painmuch better pain control documented in his chartno other medication changes will fu in office when he is stronger otherwise knows to call if anything changeswill get progress notes from PT RENATE MARTÍNEZ [address] [place], [address], [facility] 06/07/2024 15:15:52 4 text/htm l Care Management - DiabetesReported bypatient.Self Care:seeing eye doctor yearly for dilated eye exam; checking feet regularly; normal range of home blood sugars (in the low 100s); no side effects from medications Associated Symptoms:symptoms are usually well controlled; no fatigue; no dizziness; no excessive sweating; no headaches; no confusion; no increased thirst; no increased appetite; no increased urination; no blurred vision; no numbness of feet; no calluses on feetCare Management - HypertensionReported bypatient.Self Care:not under emotional stress Severity:symptoms are improving; does not interfere with daily activities Associated Symptoms:no dizziness; no lightheadedness; no chest pain; no shortness of breath; no palpitations; no edema; no calf muscle cramps; no blurred vision; no confusion; no headaches; no fatigue here for rechk and is doing great Ian Burgos DO [address] [facility], [place], [address], [facility] 06/26/2024 11:07:08 4 text/htm l hospital f/u iron def from bleeding related to hospital complicationlevels improved with recheck from d/crecommended f/u in two weeks to monitor levels until he sees cardiology not a specific AK this time, still recommended cardio fufeeling better, bruising has improved, still bruising pattern posterior thigh L side up to the buttock medications adjusted in chart from the new meds initiatedwill continue until he sees cardiogiven nitro just in case, does have anginal symptoms, no specific signs of coronary blockage at this time has dental appt coming up, needs amox refilledrecommended pushing the appt due to the fact he is still recovering from the bleeds and at high risk for complications at this time his BP has evened outtoday in the office the patient BP is 120/62 L arm sitting the patient is doing well on the BP medication with no side effects and no adjustment of their medications needed today at the appointment well-controlled on medication denies chest pain, sob, ankle swelling, orthopnea, palpitations RENATE MARTÍNEZ [address] [place], [address], [facility] 08/11/2024 12:34:38 4 text/htm l here for rechk and is getting surgery for his right hip replacementon wednesdaypt has been strugglinghe has been seen by pre op eval and also with cardiologyhe has had a small NSTEMI in jul secondary to demand ischemia and that his grafts were all patent and was then cleared by cardiology Ian Burgos, [address] [place], [address], [facility] 09/29/2024 09:54:18 5 text/htm l doing well and is feeling wellhad hip replaced and is feeling goodwas disch the next day Ian Burgos DO [address] [place], [address], [facility] 01/15/2025 15:18:38
--- OUTSIDE RECORDS SUMMARY | 2025-01-15 17:32 | XMS_ITS | Data Portability ---
Author Organization [facility] Address [address] [facility] [place] [address] Care Team Providers Care Robot Programmer Name Role Phone CABRERAELDA Primary Care Provider [phone] KEKE WRIGHT Primary Care Provider [phone] Assessment Encounter Date Assessment Date Assessment LastModified by Organization Details LastModified Time 09/07/2018 09/07/2018 No new concerns re: right knee. ROM is functional for stair climbing. He tells me he tries to go for walks daily. He is doing his HEP. No chest pain, SOB or distress described dfisher Not available 09/07/2018 11:35:28 09/12/2018 09/12/2018 No new concerns re: right knee. ROM is functional for stair climbing demonstrating 0-125 degrees. Pt does have mild scar tissue at superior incision but has the tools to improve. Continue PT per POC Not available 09/12/2018 15:36:04 09/15/2018 09/15/2018 Despite subjective, pt was still able to achieve 118 degrees actively and 120 degrees passively. This is a decrease from previous visit, but still WNL given pain. Knee incision without restrictions, lower leg not as smooth but pt is aware of self scar massage. Pt to take a couple weeks off to reassess for further needs prior to starting cardiac rehab. Not available 09/15/2018 12:49:45 09/26/2018 09/26/2018 Pt continues to have full R knee AROM/patellar mobility, only still with mild soft tissue restrictions of superior incision. Pt actually demonstrates WNL of flexibility for HS and ITB, but did note a moderate stretch at end-range. Pt with full understanding of new HEP. Pt is hopeful for discharge next visit (to start cardiac rehab), will go through all HEP to ask any questions. Not available 09/26/2018 10:04:12 10/06/2018 10/06/2018 Pt is a 68 y.o. male s/p 06/28/18 as well as triple cardiac bypass given acute AK on 07/20/18. Pt is discharged today with full and pain-free R knee AROM (0-125 degrees), full patellar mobility, and strength grossly 4+/5 which is equal to LLE and pt? s baseline strength. During sessions, pt? s vitals were monitored and were consistent. Pt independent with extensive HEP. Pt is discharged today in order to start cardiac rehab. Not available 10/06/2018 13:37:38 Plan of Treatment Reminders Order Date Submit Date Provider Last Modified By Organization Details Last Modified Time Details Appointments None record ed. Lab None record ed. Referral None record ed. Procedures None record ed. Surgeries None record ed. Imaging None record ed. Medication Orders None record ed. Patient Targets Encounter Date Encounter Id Patient Goals Patient Target Last Modified By Organization Details Last Modified Time 10/06/2018 [id number] Mobility, walking and moving around ([id number]) 20-40 CJ % limitation Not available Not available Not available Patient Instructions Encounter Date Encounter Id Patient Instructions Last Modified By Organization Details Last Modified Time 09/07/2018 [id number] Continue with primary PT next week. dfisher Not available 09/07/2018 11:36:21 09/12/2018 [id number] Continue with primary PT next week. Not available 09/12/2018 14:37:00 09/15/2018 [id number] Continue with primary PT next week. Not available 09/15/2018 11:42:07 09/26/2018 [id number] Continue with primary PT next week. Not available 09/26/2018 09:00:20 10/06/2018 [id number] Continue with primary PT next week. Not available 10/06/2018 13:08:05 Reason for Referral None Reported. 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 Melchor Torres OD [address] [place] [address], [address] , [facility] 6 08:18:07 Cerebrov ascular accident 087009745 Active 2017 left leg weakness ; right sided embolic stroke Elda Cabrera MD [address] [place] [address], [address] , [facility] 8 09:59:21 Anemia 598093083 Active 2017 Keke Wright NP [address] [place] [address], [address] , [facility] 8 08:06:18 Mixed hyperlip idemia 545146987 Active 2008 Keke Wright NP [address] [place] [address], [address] , [facility] 6 06:25:19 Gastroes ophageal reflux disease 675678501 Active 2004 Not Available [facility] 3 03:06:24 Cough 33280421 Completed 09/27/2013 Not Available [facility] 3 02:01:05 Rheumato id arthriti s 02686203 Active 2000 Keke Wright NP [address] [place] [address], , [facility] 6 06:25:19 Astigmat ism 57171018 Completed 200606/23/2017 Keke Wright NP [address] [place] [address], , [facility] 7 07:49:01 Benign essentia l hyperten susana 0996550 Active 2000 Keke Wright NP [address] [place] [address], , [facility] 6 06:25:19 Tobacco user 075577768 Completed 200601/06/2018 Removal Reason: stopped Elda Cabrera MD [address] [place] [address], , [facility] 8 10:21:45 Complica tion of medical care 35849780 Completed 200609/27/2013 Not Available [facility] 3 02:03:24 Nuclear senile cataract 148704174 Completed 200806/23/2017 Keke Wright NP [address] [place], [address] , [facility] 7 07:49:11 Hammer toe 354395365 Active 2006 Keke Wright NP [address] [place], [address] , [facility] 4 09:15:14 Hypermet ropia 65786005 Active 2006 Not Available [facility] 3 03:06:24 Ketoacid osis due to type 2 diabetes mellitus 290928469 Completed 200807/10/2009 Not Available [facility] 3 03:06:24 Finding by method 923716656 Completed 200007/10/2009 Not Available [facility] 3 03:06:24 Nonvenom ous insect bite of multiple sites 723977535 Completed 200207/10/2009 Not Available [facility] 3 03:06:24 Lyme disease 22889860 Completed 200109/18/2016 Keke Wright NP [address] [place] [address], [address] , [facility] 6 07:53:27 Common cold 32869944 Completed 200507/10/2009 Not Available [facility] 3 03:06:24 Diabetes mellitus 89277950 Completed 09/18/2016 Keke Wright NP [address] [place], [address] , [facility] 6 07:53:43 Knee pain Completed 200707/10/2009 Not Available [facility] 3 03:06:24 On examinat ion - a rash Completed 09/27/2013 Not Available [facility] 3 02:00:45 On examinat ion - a rash Completed 200107/10/2009 Not Available [facility] 3 03:06:24 Legal blindnes s [facility] 700390425 Active 2008 Keke Wright NP [address] [place] [address], [address] , [facility] 4 09:15:14 Type 2 diabetes mellitus without complica tion 558163024 Active 2008 Keke Wright NP [address] [place] [address], [address] , [facility] 6 06:25:19 Heredita ry retinal dystroph y 46815524 Completed 200606/23/2017 Keke Wright NP [address] [place] [address], [address] , [facility] 7 07:49:05 Cellulit is and abscess of trunk 129575709 Completed 200509/27/2013 Not Available [facility] 3 02:03:42 Corns and callus Completed 200609/27/2013 Not Available [facility] 3 02:03:39 Problem Notes None recorded. Procedures Surgical History Date Name Laterality Status Provider Name and Address Organization Details Recorded Time 03/31/20 18 47184: Therapeutic Exercise completed Daniella Chen PT, DPT, CSCS [address] [place] [address], [address], [facility] 03/31/2018 17:44:08 03/31/20 18 97722: Manual Therapy completed Daniella Chen, PT, DPT, CSCS [address] [place] [address], [address], [facility] 03/31/2018 17:43:57 03/23/20 18 Physical Activity Counselling completed Daniella Chen PT, DPT, CSCS [address] [place] [address], [address], [facility] 03/23/2018 07:35:38 03/23/20 18 46587: PT Eval, Moderate Complexity completed Daniella Chen PT, DPT, [address], [address], [facility] 03/23/2018 07:37:46 03/09/20 18 54392: Therapeutic Exercise completed Daniella Chen, PT, DPT, CSCS [address] [place] [address], [address], [facility] 03/09/2018 14:30:32 03/09/20 18 86395: Manual Therapy completed Daniella Chen, PT, DPT, CSCS [address] [place] [address], [address], [facility] 03/09/2018 14:30:35 03/09/20 18 20659: Therapeutic Activities - Direct 1:1 completed Daniella Cehn PT, DPT, [address], [address], [facility] 03/09/2018 14:31:22 03/02/20 18 15950: Therapeutic Exercise completed Daniella Chen, PT, DPT, [address], [address], [facility] 03/02/2018 09:04:23 03/02/20 18 08970: Manual Therapy completed Daniella Chen, PT, DPT, [address], [address], [facility] 03/02/2018 09:04:23 02/18/20 18 15664: Therapeutic Exercise completed Daniella Chen, PT, DPT, [address], [address], [facility] 02/17/2018 09:50:32 02/18/20 18 92847: Manual Therapy completed Daniella Chen, PT, DPT, CSCS [address] [place] [address], [address], [facility] 02/17/2018 09:50:40 02/11/20 18 15766: Therapeutic Exercise completed Daniella Chen, PT, DPT, CSCS [address] [place] [address], [address], [facility] 02/10/2018 12:30:41 02/11/20 18 70901: Manual Therapy completed Daniella Chen, PT, DPT, CSCS [address] [place] [address], [address], [facility] 02/10/2018 13:44:30 02/11/20 18 51264: Therapeutic Activities - Direct 1:1 completed Daniella Chen, PT, DPT, CSCS [address] [place] [address], [address], [facility] 02/10/2018 13:36:16 02/01/20 18 35141: Therapeutic Exercise completed Daniella Chen, PT, DPT, CSCS [address] [place], [address], [facility] 01/31/2018 13:45:49 02/01/20 18 01286: Manual Therapy completed Daniella Chen, PT, DPT, CSCS [address] [place] [address], [address], [facility] 01/31/2018 13:45:51 01/25/20 18 Physical Activity Counselling completed Daniella Chen, PT, DPT, CSCS [address] [place] [address], [address], [facility] 01/24/2018 09:54:02 01/25/20 18 44318: PT Anna, High Complexity completed Daniella Chen, PT, DPT, CSCS [address] [place] [address], [address], [facility] 01/24/2018 09:54:23 01/07/20 18 Post hospital/SNF follow-up/Trans itional Care completed Kaci Wen CMA [facility] 01/06/2018 09:52:40 09/14/20 17 Medicare Wellness Visit completed Mariza Adams MA [facility] 09/14/2017 15:27:51 06/10/20 17 69133: Therapeutic Exercise completed Gurmeet Roa, PT [address] [place], [address], [facility] 06/10/2017 08:14:37 06/10/20 17 Treatment and Advice completed Gurmeet Roa, PT [address] [place], [address], [facility] 06/10/2017 08:07:22 06/03/20 17 42820: Therapeutic Exercise completed Gurmeet Roa, PT [address] [place], [address], [facility] 06/03/2017 08:14:58 06/03/20 17 Treatment and Advice completed Gurmeet Roa, PT [address] [place], [address], [facility] 06/03/2017 08:23:47 05/28/20 17 12642: Therapeutic Exercise completed Gurmeet Roa, PT [address] [place], [address], [facility] 05/28/2017 10:06:14 05/28/20 17 Treatment and Advice completed Gurmeet Roa, PT [address] [place], [address], [facility] 05/28/2017 10:06:08 05/20/20 17 Physical Activity Counselling completed Gurmeet Roa, PT [address] [place], [address], [facility] 05/20/2017 07:04:53 05/20/20 17 41100: PT Eval Low Complexity completed Gurmeet Roa, PT [address] [place], [address], [facility] 05/20/2017 07:05:03 05/20/20 17 Treatment and Advice completed Gurmeet Roa, PT [address] [place], [address], [facility] 05/20/2017 07:38:48 04/27/20 17 Knee (Left) Injection completed SAEID ChambersP [address] [place], [address], [facility] 04/28/2017 17:37:28 03/26/20 16 76657: Therapeutic Exercise completed Gurmeet Roa, PT [address] [place], [address], [facility] 03/26/2016 08:07:00 03/26/20 16 Treatment and Advice completed Gurmeet Roa, PT [address] [place], [address], [facility] 03/26/2016 08:06:41 03/12/20 16 30645: PT Evaluation completed Gurmeet Roa, PT [address] [place], [address], [facility] 03/12/2016 07:52:31 01/27/20 16 I&D completed Not Available Not Available Not Available 08/09/20 15 Medicare Wellness Visit completed Mariza Adams MA [facility] 08/09/2015 08:30:13 03/29/20 14 Medicare Wellness Visit completed Mariza Adams MA [facility] 03/29/2014 08:37:42 Imaging Results None recorded. Procedure Notes None recorded. Medical Equipment None Reported. Allergies No known drug allergies Medications Name Sig Start Date Stop Date Status Note LastModified by Organization Details LastModified Time freestyle mis lancets active Not Available Not Available Not Available freestyle sammie lite active Not Available Not Available Not Available diclofena c 75 mg-misopr ostol 200 mcg tablet,im mediate,d elayed release TK 2 TS PO BID 11/10 completed Not Available Not Available Not Available amoxicill in 500 mg capsule active Not Available Not Available Not Available atorvasta tin 40 mg tablet TK 1 T PO QD 12/20 completed increase d to 80 followin g CVA 2017 Not Available Not Available Not Available Augmentin 875 mg-125 mg tablet Take 1 tablet every 12 hours by oral route for 7 days. 04/20 completed Not Available Not Available Not Available aspirin 25 mg-dipyri damole 200 mg capsule,e xt.releas e 12 hr multiphas e TAKE ONE CAPSULE BY MOUTH TWICE A DAY 08/08 completed Not Available Not Available Not Available atorvasta tin 80 mg tablet TAKE 1 TABLET BY MOUTH EVERY DAY active Not Available Not Available No t Available prednison e 10 mg tablet TK 1 T PO TID 04/20 completed taking one pill daily 11/10/17 -alterna sammie back to 5mg as sx improve Not Available Not Available Not Available Protonix 40 mg tablet,de layed release Take 1 tablet every day by oral route. 07/01 completed Not Available Not Available Not Available aspirin 325 mg tablet Take 1 tablet every day by oral route. 01/08 completed Had CVA 12/2017; changed to aggrenox 01/06 Not Available Not Available Not Available pravastat in 40 mg tablet TAKE 1 TABLET BY MOUTH EVERY EVENING 03/29 completed change to atorva Not Available Not Available Not Available ceftriaxo ne 2 gram intraveno us solution Inject 2 g every day by intraven ous route. active s/p cdh discharg e 08/06/15. via PICC line. x 4-[address] flores Not Available Not Available Not Available FreeStyle Test strips test sugars QID 2017 active Not Available Not Available Not Avai lable hydrocodo ne 5 mg-acetam inophen 325 mg tablet TK 1 T PO Q 6 H 07/10 completed Not Available Not Available Not Available FreeStyle Lancets 28 gauge USE TO TEST BLOOD SUGARS QID active Not Available Not Available No t Available famotidin e 40 mg tablet TAKE 1 TABLET BY MOUTH EVERY DAY active Not Available Not Available No t Available prednison e 5 mg tablet take 2 tabs 3 x daily 11/19/16 per Rheumato logist sjm active ONE DAILY Not Available Not Available Not Available atenolol 25 mg tablet TAKE 1 TABLET BY MOUTH EVERY DAY 08/08 completed Not Available Not Available Not Available acetamino phen 300 mg-codein e 30 mg tablet TAKE 2 TABLETS BY MOUTH 3 TIMES A DAY NEEDED active Not Available Not Available No t Available clopidogr el 75 mg tablet TAKE 1 TABLET BY MOUTH EVERY DAY active Not Available Not Available No t Available Aspir-Low 81 mg tablet,de layed release Take 1 tablet every day by oral route. 12/20 completed Increase d to 325 with 2018 CVA Not Available Not Available Not Available omeprazol e 40 mg capsule,d elayed release TK ONE C PO QD 08/08 completed Not Available Not Available Not Available doxycycli ne monohydra te 100 mg tablet 04/20 completed Not Available Not Available Not Available triamtere ne 37.5 mg-hydroc hlorothia zide 25 mg capsule TAKE 1 CAPSULE BY MOUTH EVERY MORNING 2010 active Not Available Not Available Not Avai lable acyclovir 800 mg tablet TK 1 T Q 4 H FID FOR 10 DAYS 02/11 completed Not Available Not Available Not Available oxycodone 15 mg tablet 08/08 completed Not Available Not Available Not Available cefadroxi l 500 mg capsule 07/10 completed Not Available Not Available Not Available garlic 1,000 mg capsule 1 cap qd active Not Available Not Available Not Available oxycodone -acetamin ophen 5 mg-325 mg tablet TK 1 T PO Q 6 H PRN P 02/11 completed Not Available Not Available Not Available lorazepam 0.5 mg tablet take 1-2tabs one hour before flight and prn active Not Available Not Available No t Available pravastat in 10 mg tablet TAKE 1 TABLET BY MOUTH EVERY DAY 2010 active Not Available Not Available Not Avai lable aspirin 325 mg tablet,de layed release TAKE 1 TABLET BY MOUTH TWICE A DAY 08/08 completed Not Available Not Available Not Available oxycodone -acetamin ophen 10 mg-325 mg tablet TK 1 T PO BID PRN 03/12 completed Not Available Not Available Not Available prednison e 2.5 mg tablet TAKE 3 TABLETS EVERY DAY 08/08 completed Not Available Not Available Not Available lidocaine 5 % topical patch 07/10 completed Not Available Not Available Not Available docusate sodium 100 mg capsule TAKE ONE CAPSULE BY MOUTH TWICE A DAY active Not Available Not Available No t Available triamtere ne 37.5 mg-hydroc hlorothia zide 25 mg tablet TAKE 1 TABLET BY MOUTH EVERY MORNING/ /PLEASE SCHEDULE AN OFFICE VISIT// 02/11 completed ON HOLD X 1 WEEK OR PER PCP S/P [facility] DISCHARG E 08/06/15 Not Available Not Available Not Available codeine 10 mg-guaife nesin 100 mg/5 mL oral liquid Take 10 mL every 4 hours by oral route as needed. 2011 active Not Available Not Available Not Avai lable bisacodyl 5 mg tablet,de layed release TAKE 4 TABLETS BY MOUTH WITH 8 OUNCES OF WATER ONCE THE DAY BEFORE PROCEDUR E DIRECTED active Not Available Not Available No t Available pravastat in 20 mg tablet TAKE 1 TABLET BY MOUTH EVERY DAY IN THE EVENING 2011 active Not Available Not Available Not Avai lable metoprolo l succinate ER 25 mg tablet,ex tended release 24 hr TAKE 1/2 TABLET BY MOUTH EVERY DAY active Not Available Not Available No t Available fluocinon breanna 0.05 % topical cream Apply to the affected area(s) by topical route 2 times per day 2010 active Not Available Not Available Not Avai lable metformin ER 500 mg tablet,ex tended release 24 hr TAKE 2 TABLETS BY MOUTH IN THE MORNING AND 1 TABLET IN THE EVENING active Not Available Not Available No t Available sertralin e 50 mg tablet TAKE 1 TABLET BY MOUTH EVERY DAY active Not Available Not Available No t Available doxycycli ne hyclate 100 mg tablet Take 1 tablet twice a day by oral route. 07/10 completed Not Available Not Available Not Available Vitamin D3 25 mcg (1,000 unit) tablet take 2 daily active Not Available Not Available No t Available Tylenol-C odeine #3 1-2 tbas/ day prn 07/10 completed s/p cdh discharg e 08/06/15 Not Available Not Available Not Available Aspir-81 1 daily active Not Available Not Soo ilable Not Available multivita min 1 tab qd active Not Available Not Available Not Available Chantix Starting Month Foster 0.5 mg (11)-1 mg (42) tablets in dose pack Take by oral route as directed . 2013 active Not Available Not Available Not Avai lable Enbrel SureClick 50 mg/mL (1 mL) subcutane ous pen injector 2007 active once a week Not Available Not Available Not Available Fish Oil 1,000 mg capsule Take 1 capsule twice a day by oral route for 90 days. 2010 active Not Available Not Available Not Avai lable FreeStyle Lite Meter kit DIRECTED active Not Available Not Available No t Available Simponi 50 mg/0.5 mL subcutane ous syringe 11/10 completed Not Available Not Available Not Available Simponi 50 mg/0.5 mL subcutane ous pen injector active monthly Not Available Not Available Not Available Cimzia 400 mg/2 mL (200 mg/mL x 2) subcutane ous syringe kit 02/11 completed Not Available Not Available Not Available GaviLyte- G 236 gram-22.7 4 gram-6.74 gram-5.86 gram oral solution 08/08 completed Not Available Not Available Not Available BD Ultra-Fin e Melina Pen Needle 32 gauge x USE TO INJECT BASIGLAR DIRECTED active Not Available Not Available No t Available Probiotic BID active s/p cdh discharg e 08/06/15. while on IV abx Not Available Not Available Not Available Orencia 125 mg/mL subcutane ous syringe Inject 1 mL every week by subcutan eous route. 07/10 completed 03/18/16- ac Not Available Not Available Not Available Basaglar KwikPen U-100 Insulin 100 unit/mL (3 mL) subcutane ous INJECT 14 UNIT(S) BY SUBCUTAN EOUS ROUTE. active Not Available Not Available No t Available Vitals None Recorded Social History Question Answer Notes LastModified by Organization Details LastModified Time Tobacco Smoking Status Former Smoker Not Available [facility] 09/24/2011 04:44:23 Do You Have An Advance Directive? Yes [email or web address] Information not available 09/03/2009 What Is Your Level Of Caffeine Consumption? Heavy 3-4 Cups In AM Information not available 09/25/2010 How Much Tobacco Do You Chew? None Information not available 09/29/2011 What Type Of Diet Are You Following? CARBOHYDRATE Low Carb, Low Fat, Low Salt [email or web address] Information not available 09/25/2010 Which Illicit Or Recreational Drugs Have You Used? Denies Information not available 09/24/2011 What Is Your Occupation? [employer] Work [employer] Fulltime, [employer] Information not available 09/25/2010 When Did You Quit Smoking? 6-10yearssince lastcigarette Quit 2009 Cigars Information not available 02/11/2017 Are There Any Guns Present In Your Home? No Information not available 09/24/2011 Live Alone Or With Others? With Others Information not available 09/24/2011 CSRP - Narcotics No Informat ion not available 09/29/2011 CSRP Contract Signed And Discussed No Information not available 09/29/2011 Patient Has Health Care Proxy Signed And In Chart No [email or web address] Information not available 08/17/2018 DM Disease Process Post-shows Competency Information not available 03/30/2017 Nutrition [employer]-shows Competency Information not available 03/30/2017 Physical Activity Post-shows Competency Information not available 03/30/2017 Medications Post-grasps Echevarria Points Pt. Would Like To Eventually Come Off Insulin. Information not available 03/30/2017 Monitoring Post-shows Competency Information not available 03/30/2017 Acute Complications Post-grasps Echevarria Points Information not available 03/30/2017 Chronic Complications Post-grasps Echevarria Points Information not available 03/30/2017 Coping Post-shows Competency Information not available 03/30/2017 Behavior Change Post-shows Competency Information not available 03/30/2017 DSME Plan Goal Using Medications Safely: Continue Lantus 14 Units And Metformin 500 Mg, 2 In The AM And 1 At Night. Information not available 02/16/2017 DSME Plan Goal Success 100%-always: Information not available 03/30/2017 DSME Plan Goal Evaluation: 03/30/2017 Information not available 03/30/2017 DSME 2nd Goal Monitoring Monitor Blood Sugars 3-4x/day Information not available 02/16/2017 DSME 2nd Goal Success 100%-always: Information not available 03/30/2017 DSME 2nd Goal Evaluation: 03/30/2017 Information not available 03/30/2017 DSME Plan Initiated: 03/30/2017 DSME Dates Seen: 02/16/17, 03/30/17, Information not available 03/30/2017 DSME Plan Status Completed- Informat ion not available 03/30/2017 DSME Evaluation Note 03/30/2017 Pt. Doing Very Well With Diet, Exercise, Testing BG And Taking Medication. Information not available 03/30/2017 CCM Consent Discussion 01/06/2018 canelo Information not available 01/06/2018 Diabetes Ed Classes Discussed Patient Not Appropriate Information not available 03/30/2017 Marital Status Information not available 09/24/2011 Mosquito Repellent Used Routinely No Information not available 09/24/2011 What Was The Date Of Your Most Recent Tobacco Screening? 06/09/2018 Information not available 05/31/2019 How Many Children Do You Have? 2 Information not available 09/24/2011 Seat Belts Used Routinely Yes [id number] Information not available 09/24/2011 Are You Sexually Active? Yes Information not available 09/24/2011 Smoke Alarm In Home Yes Information not available 09/24/2011 General Stress Level Low mstefan Information not available 09/14/2017 Do You Use Sunscreen Routinely? No Information not available 09/24/2011 Sex: Unknown Functional Status None recorded. Mental Status None recorded. Family History Relationship Description Onset Age of this Age Resolved Age Notes LastModified by Organization Details LastModified Time Sister Problem health y 5 yrs younge r [id number] Not available 06/19/2013 03:00:17 Mother Problem 89 old age [id number] [id number] Not available 06/19/2013 03:00:17 Notes:father- early no k nowledge Medical History Condition Response Macular Degeneration Y EYE Y Hyperlipidemia Y Diabetes Type II Y GERD Y Rheumatoid Arthritis Y Hypertension Y Immunizations Vaccine Type Date Status Note Provider Nam e and Address Organization Details Recorded Time Influenza, split virus, trivalent, preservative 1 completed Not Available [facility] 11/25/2019 02:38:46 Td(adult) unspecified formulation 5 completed Not Available [facility] 09/23/2011 05:22:41 influenza, unspecified formulation 5 completed Not Available [facility] 09/23/2011 05:22:41 influenza, unspecified formulation 7 completed Not Available [facility] 09/23/2011 05:22:41 influenza, unspecified formulation 8 completed Not Available [facility] 09/23/2011 05:22:41 Novel [id number]-[id number] 9 completed Not Available [facility] 11/25/2019 02:17:42 Influenza, split virus, trivalent, preservative 2 completed Not Available [facility] 11/25/2019 02:18:35 pneumococcal polysaccharide PPV23 9 completed Not Available [facility] 09/23/2011 05:22:41 Influenza, split virus, trivalent, PF 3 completed Not Available [facility] 11/25/2019 02:18:58 Pneumococcal conjugate PCV 13 5 completed Not Available [facility] 11/25/2019 02:33:41 pneumococcal polysaccharide PPV23 9 [place] 10/14/[place] 07:34:39 Influenza, high-dose, trivalent, PF 6 completed Not Available [facility] 11/25/2019 02:31:08 Influenza, high-dose, trivalent, PF 6 completed Not Available [facility] 11/25/2019 02:20:41 pneumococcal polysaccharide PPV23 6 completed Not Available [facility] 11/25/2019 02:21:08 Influenza, high-dose, trivalent, PF 8 completed Not Available [facility] 11/25/2019 02:35:35 Influenza, split virus, trivalent, preservative 0 completed Not Available [facility] 11/25/2019 02:27:45 Influenza, split virus, trivalent, preservative 9 completed Not Available [facility] 11/25/2019 02:17:24 Past Encounters Encounter ID Performer Location Encounter Start Date Encounter Closed Date Diagnosis/Indication Diagnosis SNOMED-CT Code Diagnosis ICD10 Code Diagnosis Note [id number] Radiology , [facility] [address] [place] [address] 03/17/2001 10:45:00 11/28/2008 02:02:29 [id number] Radiology , [address] [address] 03/17/2001 00:00:00 11/28/2008 02:02:29 [id number] [facility], OFFICE [address] [place] [address] 03/17/2001 10:15:00 11/28/2008 02:02:29 [id number] [facility], OFFICE [address] [place] [address] 10/27/2001 10:15:00 11/28/2008 02:02:29 [id number] [facility], OFFICE [address] [place] [address] 05/01/2002 16:05:18 11/28/2008 02:02:29 [id number] FP, [facility], OFFICE [address] [facility] [place] [place] [address] 05/25/2002 15:35:49 11/28/2008 02:02:29 [id number] FP, [facility], OFFICE [address] [facility] [place] [place] [address] 03/26/2003 11:31:04 11/28/2008 02:02:29 [id number] FP, [facility], OFFICE [address] [facility] [place] [place] [address] 02/09/2004 08:58:58 02/10/2004 09:54:27 [id number] FP, [facility], OFFICE [address] [facility] [place] [place] [address] 03/11/2005 08:39:29 11/28/2008 02:02:29 [id number] FP, [facility], OFFICE [address] [facility] [place] [place] [address] 09/03/2005 08:10:20 11/28/2008 02:02:29 [id number] FP, [facility], OFFICE [address] [place] [address] 11/17/2005 13:52:34 11/17/2005 15:01:12 [id number] , [facility], OFFICE [address] [facility] [place] [address] [id number] FP, [facility], OFFICE [address] [place] [address] 02/08/2007 08:33:19 02/08/2007 12:38:13 [id number] Eye Care, [facility] [address] [place] [address] 03/04/2007 08:05:10 03/04/2007 10:37:05 [id number] , [facility], [address]ICE [address] [place] [address] 08/17/2007 09:57:40 11/28/2008 02:02:29 [id number] Podiatry, [facility] [address] [place] [address] 08/18/2007 09:07:59 11/28/2008 02:02:29 [id number] Radiology , [facility] [address] [place] [address] 08/18/2007 10:08:41 08/19/2007 08:47:28 [id number] Radiology , [facility] [address] [place] [address] 08/18/2007 00:00:00 11/28/2008 02:02:29 [id number] Podiatry, [facility] [address] [place] [address] 08/23/2007 08:45:55 08/23/2007 16:59:25 [id number] [facility], OFFICE [address] [place] [address] 08/31/2007 08:51:51 11/28/2008 02:02:29 [id number] Podiatry, [facility] [address] [place] [address] 10/11/2007 10:34:28 10/12/2007 09:07:55 [id number] Podiatry, [facility] [place] [address] 11/15/2007 08:54:43 11/16/2007 07:50:29 [id number] Podiatry, [facility] [address] [place] [address] 11/24/2007 10:32:03 11/28/2008 02:02:29 [id number] Radiology , [facility] [address] [place] [address] 02/22/2008 08:40:09 02/23/2008 09:14:11 [id number] Radiology , [facility] [address] [place] [address] 02/22/2008 00:00:00 11/28/2008 02:02:29 [id number] [facility], OFFICE [address] [place] [address] 04/24/2008 13:31:03 11/28/2008 02:02:29 [id number] LAB - [facility] [address] [place] [address] 04/24/2008 14:17:57 04/24/2008 14:18:07 [id number] [facility], OFFICE [address] [place] [address] 09/02/2008 09:24:50 09/02/2008 09:24:54 [id number] [facility], OFFICE [address] [place] [address] 10/23/2008 14:30:16 11/28/2008 02:02:29 [id number] Radiology , [facility] [address] [place] [address] 02/07/2009 08:47:55 02/08/2009 13:55:44 [id number] [facility], OFFICE [address] [place] [address] 04/03/2009 17:17:37 04/08/2009 15:33:25 [id number] [facility], OFFICE [address] [facility] CRISTINA SANCHES[address] 07/10/2009 07:30:38 07/17/2009 07:41:29 [id number] [facility], OFFICE [address] [place] [address] 09/03/2009 08:17:47 09/05/2009 09:36:12 [id number] Radiology , [facility] [address] [facility] [place] [address] 02/07/2009 00:00:00 09/05/2009 02:00:52 [id number] Eye Care, [facility] [address] [place] [address] 03/20/2009 07:45:01 03/20/2009 15:15:48 [id number] LAB - [facility] [address] [place] [address] 06/21/2009 06:51:48 06/21/2009 06:51:51 [id number] [facility], OFFICE [address] [place] [address] 09/12/2009 08:28:02 09/12/2009 14:38:10 [id number] [facility], OFFICE [address] [place] [address] 10/08/2009 08:25:39 10/11/2009 11:15:52 [id number] [facility], OFFICE [address] [place] [address] 07/01/2010 17:17:53 07/03/2010 14:42:22 [id number] [facility], OFFICE [address] [place] [address] 07/25/2010 07:24:00 07/28/2010 09:11:54 [id number] [facility], OFFICE [address] [place] [address] 09/25/2010 07:28:59 09/26/2010 12:43:17 [id number] [facility], OFFICE [address] [place] [address] 04/28/2011 07:53:27 04/28/2011 08:47:19 [id number] [facility], OFFICE [address] [place] [address] 08/05/2011 11:21:58 08/05/2011 11:35:11 [id number] [facility], OFFICE [address] [place] [address] 09/29/2011 08:01:26 09/30/2011 09:25:53 [id number] Morelia Jennifer. RAEGAN SANDOVAL, [facility], OFFICE [address] [place] [address] 08/12/2012 06:12:52 08/12/2012 10:20:40 [id number] Keke Wright NP , [facility], [address] [place] [address] 10/14/2012 06:46:17 10/14/2012 10:07:14 [id number] Keke Wright NP , [facility], OFF[address] [place] [address] 01/20/2013 08:52:56 01/20/2013 10:44:07 [id number] Nixon Forte MD Radiology , [facility] [address] [place] [address] 01/20/2013 09:44:35 01/23/2013 11:15:27 [id number] Keke Wright NP , [facility], [address] [place] [address] 02/01/2013 07:40:46 02/01/2013 08:33:36 [id number] Marci Chester , [facility], [address] [place] [address] 07/31/2013 06:14:30 07/31/2013 12:10:34 Influenza vaccine needed [id number] [id number] [facility], OFFICE [address] [place] [address] 03/29/2014 08:02:51 03/30/2014 08:31:12 Adult health examination [id number] see Risk Assessment and Lifestyle Change Counseling section above Counseling [id number] Benign ess ential hypertension 1693743 At goal - continue to work on diet , exercise, lowering salt intake as discussed Mixed hyperlipidemia 495931161 Not at goal - continue to work on diet and exercise as discussed Otitis 31660089 Use the Afrin nasal spray for 2 days only COnsider antibiotic s if pain increases, throbbing -over holiday weekend. Diabetes mellitus 65586779 At goal Hammer toe 090063952 Wor shashi with NEOS re amputation s to improve discomfort - plans future surg. Legal blindness [place] [id number] Rheumatoid arthritis 41603711 Stable - under care of Dr Mo . [id number] Mariza Adams MA , [facility], [address] [place] [address] 04/13/2014 07:25:46 04/16/2014 10:50:55 Otitis media 53066555 Will treat with augmentin - probiotics advised ENT referral with persistent sx [id number] Keke Wright NP FP, [facility], [address] [place] [address] 04/03/2015 06:58:02 04/03/2015 08:31:09 Benign essential hypertension 0472231 Blood pressure at goal Mixed hyperlipidemia 077197686 Cholestero l is at goal - except TG Continue to work on diet and exercise as discussed Diabetes mellitus 07074720 A1C increased above goal of <6.5 will start metformin, discussed dietary changes -suggest DM Ed or nutrition apt - pt declines at this time Allergic rhinitis 02846810 trial of loratadine 10mg - not Claritin D - no decongesta nts keep window closed at hs rtc prn cough persists - would obtain CXR [id number] Keke Wright NP , [facility], [address] [place] [address] 08/09/2015 08:18:56 08/09/2015 09:14:39 Adult health examination 409729936 Z00.00 see Risk Assessment and Lifestyle Change Counseling section above Counseling 930376604 Z71 .9 Benign ess ential hypertension 7725003 I10 at goal - continue to work on diet, exercise, and lowering salt intake as discussed Mixed hyperlipidemia 267 756886 E78.2 at goal -continue to work on diet and exercise as discussed Screening for disorder 148490400 Z11.59 Active or passive immunization 616983204 Z23 Diabetes mellitus 876970 09 E11.9 A1C at goal Rheumatoid arthritis 698 86442 M06.9 Stable - under care of Dr Mo . Osteomyeli tis of ankle AND/OR foot 94922818 M86.8X7 continue scrupulous foot care f/u with surgeon next week - report any redness or swelling sooner. [id number] MD LORI Perry, [facility], OFFICE [address] [place] [address] 01/27/2016 08:26:26 01/27/2016 09:01:21 Abscess of back 479427382 L02.491 [id number] Amy Back , [facility], OFF[address] [place] [address] 01/29/2016 16:24:42 01/30/2016 11:08:19 Abscess of back 648137305 L02.212 packing removed and reolaced will remove in 2 days , can leave ther sebaceous cysts alone unless red or tender [id number] Keke Wright NP , [facility], [address] [place] [address] 02/25/2016 14:11:40 02/25/2016 14:50:42 Screening for malignant neoplasm of colon 399207108 Z12.11 Type 2 gabriel betes mellitus without complication 657749747 E11.9 worsening control, little motivation to make changes declines nutr referral enc attention to diet, lower carb options Rheumatoid arthritis 698 23412 M06.9 Stable - under care of Dr Mo . Benign ess ential hypertension 1347736 I10 at goal - continue to work on diet, exercise, and lowering salt intake as discussed Mixed hyperlipidemia 267 454137 E78.2 at goal -continue to work on diet and exercise as discussed [id number] Gurmeet Roa , PT Physical Therapy, [facility] [address] [place] [address] 03/12/2016 07:00:40 03/13/2016 09:51:40 Low back pain 427962621 M54.5 65 year old {{male* fe male}} with signs and symptoms consistent with {{acute ch ronic* rec urrent}} low back pain with {{mobility deficits. movement co-ordinat ion impairment . referred lower extremity pain. radi ating pain.* rel ated cognitive or affective tendencies . related generalize d pain.}} Patient has significan t functional limitation in their {{activiti es of daily living. ac tivities of daily living and work capacity.* activitie s of daily living and exercise capacity. activities of daily living and recreation .}} Patient Goals: Be able to stand and walk and complete his worksday with less back and leg pain Clinical Goals: 1. Demonstrat e pain free trunk range of motion. 2. Demonstrat es sufficient trunk muscular stability to meet functional demands. Skilled physical therapy is needed to safely and progressiv mingo address impairment s and functional limitation s as outlined above. Treatment Plan: Patient to return {{1* 2 3 4 1-2 2-3 3 -4}} times per week for {{4 5 6 7 8 1-2 3-5 4-6 6-8*}} weeks. We expect significan t change in pain, impairment and function in this time frame. Treatment to Include: therapeuti c exercise and manual therapy Lumbar radiculopathy 128 383047 M54.16 [id number] Trish Martinez NP FP, [facility], OFF[address] [place] [address] 03/18/2016 07:39:22 03/18/2016 08:23:37 Eczema 85701369 L30.9 enc otc hydrocorti sone cream/oint ment to upper lids for 7-10 days and f/u here if sx not resolving Allergic conjunctivitis 890738756 H10.13 Reassured. No s/s bacterial infection - eyes clear but very itchy. Trial of otc allergy eye drops such as naphcon and f/u if not improving. [id number] Gurmeet Roa , PT Physical Therapy, [facility] [address] [place] [address] 03/26/2016 07:01:39 03/26/2016 08:13:50 Low back pain 628976019 M54.5 Lumbar radiculopathy 128 198380 M54.16 [id number] Keke Wright NP , [facility], OFF[address] [place] [address] 07/10/2016 06:58:12 07/16/2016 08:44:14 Type 2 diabetes mellitus without complication 898408385 E11.9 worsening control, little motivation to make changes declines nutr referral enc attention to diet, lower carb options Benign ess ential hypertension 2246673 I10 at goal - continue to work on diet, exercise, and lowering salt intake as discussed Mixed hyperlipidemia 267 136276 E78.2 at goal -continue to work on diet and exercise as discussed Screening for malignant neoplasm of colon 649606011 Z12.11 declines colonoscop yagrees to IFOBT Active or passive immunization 024030334 Z23 [id number] Melchor Torres OD Eye Care, [facility] [address] [place] [address] 07/10/2016 07:16:33 07/27/2016 10:02:29 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 Hypermetropia 26409914 H 52.03 Type 2 gabriel betes mellitus without complication 643083278 E11.9 Posterior subcapsular cataract 389223877 H25.89 [id number] Keke Wright NP , [facility], OFF[address] [place] [address] 09/18/2016 06:58:52 09/22/2016 08:51:31 Benign essential hypertension 4803166 I10 Blood pressure at goal Mixed hyperlipidemia 267 345859 E78.2 at goal -continue to work on diet and exercise as discussed Active or passive immunization 217628223 Z23 Diabetes mellitus 621927 09 E11.9 due for labs A1C now >8 - will increase metformin to bid and recheck 3mos -reminded re need for dietary controls Legal blindness [place] 1937 [address] H54.8 Rheumatoid arthritis 698 89510 M06.9 Stable - under care of Dr Mo . [id number] Eulalio Soto MD , [facility], [address] [place] [address] 12/09/2016 11:23:05 12/09/2016 14:59:46 Pain in calf 761675783 M79.669 Patient presents with RLE pain including right buttock, posterior thigh, calf and ankle. Denies classic claudicati on symptoms, but reports increased pain with prolonged standing. No pedal edema or cord. Negative Harsh's. Foot deformity due to RA deformity and subsequent toe amputation s. Has a custom-mad e insoles. Will check ankle-brac hial index to further evaluate and hopefully rule out vascular etiology of his pain. Ankle pain 760311374 M25 .571 Patient with ankle pain. Initially stated 2-3 weeks of symptoms, but now reports his pain has been present for several months. History of foot deformity and toe amputation s. No edema or effusion. Ankle has FROM with inversion, eversion, dorsiflext ion and plantar flexion. Will check X-ray of the ankle. I would expect some element of arthritic changes given his underlying RA, active lifestyle and foot deformity. Currently on a higher dose of maintenanc e Prednisone . Also tried Tylenol with Codeine and Percocet without significan t improvemen t. Recommende d to try Aspercream with Lidocaine topical. Patient also contacted his rheumatolo gist about his current symptoms. [id number] Elda Cabrera MD , [facility], OFF[address] [place] [address] 02/11/2017 16:33:04 02/17/2017 09:43:18 Pre-surgery evaluation 258233201 Z01.818 Type 2 gabriel betes mellitus without complication 318798922 E11.9 [id number] Annalee Pratt RN, BSN, [facility] DM Education , [facility] [address] [place] [address] 02/15/2017 08:34:29 02/15/2017 10:02:25 Type 2 diabetes mellitus without complication 448803877 E11.9 Met with Vito today for diabetes education, kindly referred by Dr. Cabrera. Vito reports he was scheduled to have a major back surgery last week and it was cancelled due to the fact that his blood sugars are elevated. His most recent A1C was 11% in February. He was not sure how long he has had diabetes, however, it appears he has had an elevated A1C since 2008 and his diabetes was well controlled for several years until recently when his A1C started to increase in 2015 to 8.2%. Vito also reports his blood sugars have deteriorat ed since he has been on higher doses of prednisone 20 mg every day. He will not be discontinu ing the prednisone anytime soon, however, he reports he has been taking it for his RA. Today Vito was taught how to inject Lantus insulin, as requested by Dr. Cabrera. We started him on a dose of 10 units. He successful ly injected his first injection during our appointmen t. The needle was bent after he injected it and this could be due to the fact that he is legally blind and can not watch the needle going in. Reviewed his technique and he demonstrat es excellent technique. He was also taught how to use a glucose meter so that he can test his blood sugars 3x/day. Reviewed with him how to titrate his dose of Lantus based on his fasting blood sugars. He was instructed to increase it by 2 units every 3 days until fasting blood sugars are below 150 mg/dl. Both Vito and his verbalized understand ing and agreeing with plan. Reviewed the following: Disease Process: Pathophysi ology of DM, Difference between Type I & 2, Goals of Treatment. Natural progressio n of diabetes Monitoring : Appropriat e times to test blood sugar and target blood sugars. Evaluation of blood glucose results and care of meter and strips. [employer] Pattern Management . Nutrition: Identifica tion of high carb foods, effects of carbs, carb counting and developing a meal plan. Label reading. The Plate Method. Hypoglycem ic protocols: Test blood sugar. If under 70mg/dl treat with 15grams of fast-actin g carbohydra sammie. Retest in 15 minutes if not over 70mg/dl, repeat. [id number] Keke Wright NP , [facility], [address] [place] [address] 03/12/2017 13:16:57 03/12/2017 14:07:01 Benign essential hypertension 5270730 I10 Blood pressure at goal -low due to dehydratio n - enc increasing fluid intake -limit alcohol, coffee. Type 2 gabriel betes mellitus without complication 668626562 E11.9 improved with attention to diet, taking insulinCOn t careful and close monitoring -consult with CDE re sick day insulin dosing Rheumatoid arthritis 698 62317 M06.9 Stable - under care of Dr Mo . Stargardt's disease 7009 9003 H35.53 Spinal jasson nosis of lumbar region 43793195 M48.06 healing well post op fusion - cont f/u with Dr Rosario [id number] Annalee Pratt, RN, BSN, [facility] DM Education , [facility] [address] [place] [address] 03/30/2017 07:14:07 03/30/2017 14:27:54 Type 2 diabetes mellitus without complication 472482014 E11.9 Met with Vito today for diabetes education, kindly referred by Dr. Cabrera. Since Vito was last seen he had back surgery in February to decompress and fuse L3,4 & 5. He came to diabetes education prior to surgery to start on Lantus due to the fact that his A1C was elevated. It was 8.2% in September and then climbed to 11% in February, before surgery. Vito now has it very well controlled by watching his diet, walking daily after his surgery, losing weight, testing his blood sugar 3x/day and taking Lantus 14 units once a day and Metformin 500 mg, 2 in the AM and 1 in the PM. He reports he continues to take Prednisone 10 mg once a day. His dose has decreased from 20 mg about 2 weeks ago. He was told to increase it based on his arthritis symptoms. No changes were made with his current diabetes medication s because his blood sugars are doing so well. He is testing 3x/day, he is taking his medication regularly and he is walking daily. He also reports he has cut out almost all sweets from his diet, such as donuts, cookies and ice cream. He was encouraged to keep up the great work.Both Vito and his verbalized understand ing and agreeing with plan. Reviewed the following: Disease Process: Pathophysi ology of DM, Difference between Type I & 2, Goals of Treatment. Natural progressio n of diabetes Monitoring : Appropriat e times to test blood sugar and target blood sugars. Evaluation of blood glucose results and care of meter and strips. [employer] Management . Nutrition: Identifica tion of high carb foods, effects of carbs, carb counting and developing a meal plan. Label reading. The Plate Method. [id number] CHRISTIE Chambers , [facility], OFF[address] [place] [address] 04/27/2017 07:29:44 04/29/2017 08:50:58 Pain in left knee [id number] 36813 M25.562 +RA, L knee pain, Cortisone injection given into L knee, tolerated procedure well, post injection instructio ns given Type 2 gabriel betes mellitus without complication 935086614 E11.9 Labs ordered [id number] Gurmeet Roa , PT Physical Therapy, [facility] [address] [place] [address] 05/20/2017 06:47:06 05/21/2017 10:33:29 History of operative procedure on lumbar spinal structure [id number] Z98.890 66 year old {{male* fe male}} with now approximat mingo 3 months status post lumbar laminectom y and fusion for treatment of lumbar stenosis. He has a history of rheumatoid arthritis and insulin-de pendent diabetes. He has recently retired secondary to his surgery. He has new onset right lower extremity symptoms that seem to have a component of both hip and knee sources. Patient has significan t functional limitation in their {{activiti es of daily living. ac tivities of daily living and work capacity. activities of daily living and exercise capacity. activities of daily living and recreation .*}} Patient Goals: He wishes to be able to walk stand and lift for longer periods of time ADLs, yardwork and home projects without back or recurrence of leg pain. Clinical Goals: 1. Demonstrat e pain free trunk range of motion. 2. Demonstrat es sufficient trunk muscular stability to meet functional demands. Skilled physical therapy is needed to safely and progressiv mingo address impairment s and functional limitation s as outlined above. Treatment Plan: Patient to return {{1* 2 3 4 1-2 2-3 3 -4}} times per week for {{4 5 6 7 8* 1-2 3-5 4-6 6-8}} weeks. We expect significan t change in pain, impairment and function in this time frame. Treatment to Include: therapeuti c exercise and manual therapy Low back pain [id number] M54.5 [id number] José Miguel Guzman PA-C , [facility], OFFICE [address] [place] [address] 05/24/2017 07:39:40 05/25/2017 10:50:26 Pain in right knee [id number] 14114 M25.561 Likely arthritis. No joint instabilit y. Will get xray and consider cortisone, although one was just done 04/27/17. [id number] Gurmeet Roa , PT Physical Therapy, [facility] [address] [place] [address] 05/28/2017 09:06:06 05/28/2017 13:24:33 History of operative procedure on lumbar spinal structure 178005893 Z98.890 Patient Goals: He wishes to be able to walk stand and lift for longer periods of time ADLs, yardwork and home projects without back or recurrence of leg pain. Clinical Goals: 1. Demonstrat e pain free trunk range of motion. 2. Demonstrat es sufficient trunk muscular stability to meet functional demands. Skilled physical therapy is needed to safely and progressiv mingo address impairment s and functional limitation s as outlined above. Treatment Plan: Patient to return {{1* 2 3 4 1-2 2-3 3 -4}} times per week for {{4 5 6 7 8* 1-2 3-5 4-6 6-8}} weeks. We expect significan t change in pain, impairment and function in this time frame. Treatment to Include: therapeuti c exercise and manual therapy Low back pain 242307504 4.5 [id number] Gurmeet Roa , PT Physical Therapy, [address] [address] 06/03/2017 07:49:01 06/03/2017 12:34:24 History of operative procedure on lumbar spinal structure [id number] Z98.890 Patient Goals: He wishes to be able to walk stand and lift for longer periods of time ADLs, yardwork and home projects without back or recurrence of leg pain. Clinical Goals: 1. Demonstrat e pain free trunk range of motion. 2. Demonstrat es sufficient trunk muscular stability to meet functional demands. Skilled physical therapy is needed to safely and progressiv mingo address impairment s and functional limitation s as outlined above. Treatment Plan: Patient to return {{1* 2 3 4 1-2 2-3 3 -4}} times per week for {{4 5 6 7 8* 1-2 3-5 4-6 6-8}} weeks. We expect significan t change in pain, impairment and function in this time frame. Treatment to Include: therapeuti c exercise and manual therapy Low back pain 023443593 M54.5 [id number] Gurmeet Roa , PT Physical Therapy, [address] [address] 06/10/2017 07:47:30 06/10/2017 16:45:54 History of operative procedure on lumbar spinal structure 245309759 Z98.890 Patient Goals: He wishes to be able to walk stand and lift for longer periods of time ADLs, yardwork and home projects without back or recurrence of leg pain. Clinical Goals: 1. Demonstrat e pain free trunk range of motion. 2. Demonstrat es sufficient trunk muscular stability to meet functional demands. Skilled physical therapy is needed to safely and progressiv mingo address impairment s and functional limitation s as outlined above. Treatment Plan: Patient to return {{1* 2 3 4 1-2 2-3 3 -4}} times per week for {{4 5 6 7 8* 1-2 3-5 4-6 6-8}} weeks. We expect significan t change in pain, impairment and function in this time frame. Treatment to Include: therapeuti c exercise and manual therapy Low back pain 476508578 M54.5 [id number] GURJIT Jose, [facility], [address] [place] [address] 06/23/2017 07:20:54 06/23/2017 13:17:51 Benign essential hypertension 2237421 I10 Blood pressure at goal Mixed hyperlipidemia 267 548728 E78.2 at goal -continue to work on diet and exercise as discussed Screening for disorder 503889993 Z11.59 Legal blindness [place] 1937 [address] H54.8 safe home environmen t Type 2 gabriel betes mellitus without complication 703528239 E11.9 improved with attention to diet, taking insulinCOn t careful and close monitoring - Rheumatoid arthritis 698 28687 M06.9 Stable - under care of Dr Mo . Screening for malignant neoplasm of colon 355525245 Z12.11 agrees to GI consult to discuss screening [id number] Keke Wright NP , [facility], [address] [place] [address] 09/14/2017 15:12:07 09/15/2017 12:13:55 Adult health examination 981497503 Z00.00 see Risk Assessment and Lifestyle Change Counseling section above Benign ess ential hypertension 3084639 I10 Blood pressure at goal. Mixed hyperlipidemia 267 789313 E78.2 at goal - continue to work on diet and exercise as discussed [place] 1937 [address] H54.8 Patient reports no vision changes and recent excessive tearing. Encouraged pt. to make appointmen t with optho- has not had visit in over a year. Gastroesop hageal reflux disease 623738079 K21.9 Pt. reports that his GERD is well controlled , and he only feels symptoms if he does not take his medication on a full stomach. COntinue omeprazole . Rheumatoid arthritis 318 99004 M06.9 Stable - under care of Dr Mo . Patient inquiring about possible medical marijuana prescripti on. [id number] Keke Wright NP , [facility], [address] [place] [address] 11/10/2017 09:13:44 11/10/2017 15:28:36 Benign essential hypertension 0206250 I10 Blood pressure at goal Mixed hyperlipidemia 267 853790 E78.2 at goal - continue to work on diet and exercise as discussed [place] [address] H54.8 Patient reports no vision changes and recent excessive tearing OD. Encouraged pt. to make appointmen t with optho- has not had visit in over a year. Type 2 gabriel betes mellitus without complication 680377095 E11.9 at goal A1C <7 Rheumatoid arthritis 698 08403 M06.9 per rheum - [id number] Elda Cabrera MD FP, [facility], [address] [place] [address] 01/06/2018 09:32:18 01/07/2018 08:47:19 Benign essential hypertension 2500116 I10 Blood pressure at goal Mixed hyperlipidemia 267 868186 E78.2 Cerebrovas cular accident 287553849 I63.9 Type 2 gabriel betes mellitus without complication 650709364 E11.9 Rheumatoid arthritis 698 64324 M06.9 [id number] Daniella Chen, PT, DPT, CSCS Physical Therapy, [facility] [address] [place] [address] 01/24/2018 09:48:23 01/24/2018 15:01:32 Muscle weakness 06150410 M62.81 Cerebrovas cular accident 121819799 I63.9 [id number] Daniella Chen, PT, DPT, CSCS Physical Therapy, [facility] [address] [place] [address] 01/31/2018 13:42:28 02/01/2018 08:57:14 Muscle weakness 05925720 M62.81 Cerebrovas cular accident 360772005 I63.9 [id number] Daniella Chen, PT, DPT, CSCS Physical Therapy, [facility] [address] [place] [address] 02/10/2018 11:42:50 02/11/2018 10:59:45 Muscle weakness 60222102 M62.81 Cerebrovas cular accident 567775035 I63.9 [id number] Daniella Chen, PT, DPT, CSC[facility] Physical Therapy, [address] [address] 02/17/2018 09:20:38 02/17/2018 13:27:00 Muscle weakness 23641557 M62.81 Cerebrovas cular accident 737939686 I63.9 [id number] Daniella Chen, PT, DPT, CSCS Physical Therapy, [address] [address] 03/02/2018 08:45:35 03/02/2018 10:47:55 Muscle weakness 04465900 M62.81 Cerebrovas cular accident 756943550 I63.9 [id number] Daniella Chen, PT, DPT, CSC[facility] Physical Therapy, [address] [address] 03/09/2018 13:49:33 03/10/2018 09:29:55 Muscle weakness 86314352 M62.81 Cerebrovas cular accident 792798622 I63.9 [id number] Daniella Chen, PT, DPT, [facility] Physical Therapy, [address] [address] 03/23/2018 07:27:34 03/24/2018 12:01:18 Pain in right knee 2037406635 32260 M25.561 Pt is a 67 y.o. male who was already being seen in physical therapy for LLE weakness secondary to recent CVA and now returns for R knee pain with plans for a TKA in the near future. Pt presents with limitation s in R knee AROM/joint mobility and strength that when combined with excess pressure and stress with weakness in LLE, has led to further antalgic gait and pain. Patient requires skilled physical therapy in order to safely and effectivel y progress their rehabilita tion to gain maximal functional outcome with as much symptom resolution as possible. Patient Goals: Resolve pain in order to return to normal function including walking, lawncare Clinical Goals: Maintain as much baseline R knee AROM and joint mobility; increase strength to grossly 4+/5; normalize gait; education on posture Treatment Plan: Patient to return 1-2 times per week for 4-6 weeks. Treatment to Include: therapeuti c exercises/ activities , HEP prescripti on, modalities PRN, edema massage, manual therapy, ROM, patient education. [id number] Daniella Chen, PT, DPT, CSC[facility] Physical Therapy, [facility] [address] [place] [address] 03/31/2018 16:44:51 04/01/2018 15:03:25 Pain in right knee 9544270791 86357 M25.561 Pt tolerated manual techniques noting feeling good during. PT demonstrat es significan t limitation s in patellar mobility, however, does demonstrat e full ROM. After combo of manual techniques and upright bike, pt noted pain down to 6/10 and with less of an antalgic gait.Angie nue PT per POC [id number] Daniella Chen, PT, DPT, [facility] Physical Therapy, [facility] [address] [place] [address] 04/18/2018 17:24:41 04/18/2018 17:53:49 Pain in right knee 0012134470 73003 M25.561 Pt understood concepts discussed and feels prepared to manage exercises on own. Pt will plan to take several weeks off prior to next PT appointmen t which will be another several weeks prior to TKA. At that point we will take re-measure ments and assess for further needs prior to surgery [id number] Keke Wright NP , [facility], [address] [place] [address] 04/20/2018 09:07:04 04/21/2018 08:31:06 Benign essential hypertension 4139598 I10 Blood pressure at goal Mixed hyperlipidemia 267 774205 E78.2 at goal = continue to work on diet and exercise as discussed Cerebrovas cular accident 966959255 I63.9 nearly returned to baseline - slower, less steady on feet. Gastroesop hageal reflux disease 861186406 K21.9 Pt. reports that his GERD is worse. Advised to take PPI on empty stomach (wasnt doing this) - increase to bid if still with sx -only for 2-3wk at bid. report persistent sx. Rheumatoid arthritis 698 41804 M06.9 per rheum - [id number] Daniella Chen, PT, DPT, CSCS Physical Therapy, [facility] [address] [place] [address] 05/18/2018 07:24:31 05/23/2018 13:16:32 Pain in right knee 9331307466 11854 M25.561 Pt understood concepts discussed and feels ready for surgery. Pt noted feeling better after manual techniques . Pt will plan to follow up after surgery. [id number] , [facility], [address] [place] [address] 06/09/2018 07:38:45 06/10/2018 13:33:46 Anemia 323755042 D64.9 [id number] Elda Cabrera MD , [facility], [address] [place] [address] 08/08/2018 15:05:18 08/12/2018 08:24:42 Active or passive immunization 742048998 Z23 Benign ess ential hypertension 0772070 I10 Blood pressure at goal Mixed hyperlipidemia 267 540184 E78.2 Type 2 gabriel betes mellitus without complication 740217094 E11.9 Rheumatoid arthritis 698 33854 M06.9 Legal blindness [facility] 1937 [address] H54.8 Type 2 gabriel betes mellitus 87530100 E11.8 [id number] Daniella Chen, PT, DPT, CSC[facility] Physical Therapy, [address] [address] 08/22/2018 09:42:36 08/23/2018 07:36:36 Replacement of total knee joint 311669136 Z96.651 Pt is a 68 y.o. who reports to PT with ? R knee pain s/p R TKA 06/28/18. To note, pt also had a hear attack requiring triple bypass on 07/20/18. Pt presents with deficits to ROM and joint mobility combined with limitation s in strength lead to an antalgic gait. Contributi ng to that is poor foot to RLE posturing, body habitus and weakness of hip/knee stabilizat ion muscles. Patient requires skilled physical therapy in order to safely and effectivel y progress their rehabilita tion to gain maximal functional outcome with as much symptom resolution as possible. Patient Goals: Resolve pain in order to return to normal function including walking Clinical Goals: Full and pain-free R knee AROM; increase strength of hip/knee stabilizat ion muscles; pt will demonstrat e understand ing and applicatio n of education on ergonomics and posture discussed Treatment Plan: Patient to return 1-2 times per week for 4-6 weeks. Treatment to Include: therapeuti c exercises/ activities , neuromuscu lar re-educati on, HEP prescripti on, modalities PRN, edema massage, manual therapy, ROM, patient education. [id number] Daniella Chen, PT, DPT, [facility] Physical Therapy, [address] [address] 08/25/2018 12:50:59 08/26/2018 08:31:06 Replacement of total knee joint 278093141 Z96.651 Pt tolerated initiation of manual techniques well and pain-free demonstrat ing improved patellar mobility as well as soft tissue extensibil ity of both knee and lower leg incision. Pt was able to achieve 121 degrees of knee flexion with moderate effort. Pt tolerated exercises well with adequate response in heart rate.Angie nue PT per POC [id number] Daniella Chen, PT, DPT, [facility] Physical Therapy, [address] [address] 08/29/2018 10:55:19 08/30/2018 07:38:53 Replacement of total knee joint 907249714 Z96.651 Pt tolerated all exercises well and with no c/o cardiac symptoms. Pt did require cues on maintainin g neutral pelvis and hips/knees /feet in same line. Pt able to utilize full available ROM actively. At end of visit, pt able to actively achieve 115 degrees of knee flexion and 122 degrees passively with full knee extension. Continue PT per POC [id number] Daniella Chen, PT, DPT, [facility] Physical Therapy, [address] [address] 09/01/2018 12:05:56 09/02/2018 08:37:39 Replacement of total knee joint 922077640 Z96.651 Pt tolerated all exercises well and with no c/o cardiac symptoms nor concerning vitals. Pt did required increased UE support with step ups with additional balance challenge, but only for balance versus assistance in the concentric portion of the step up. Pt with decreased antalgic gait, with the primary reason due to LLE weakness versus R knee pain. Pt still able to actively achieve 115 degrees flexion, passively 124.Contin ue PT per POC [id number] Dhara guajardo, PT Physical Therapy, [address] [address] 09/07/2018 10:49:20 09/08/2018 12:35:13 Replacement of total knee joint 650146009 Z96.809 [id number] Daniella Chen, PT, DPT, [facility] Physical Therapy, [address] [address] 09/12/2018 14:17:45 09/13/2018 08:54:42 Replacement of total knee joint 615770910 Z96.000 [id number] Daniella Chen, PT, DPT, [facility] Physical Therapy, [address] [address] 09/15/2018 11:25:32 09/15/2018 14:36:02 Replacement of total knee joint 626048174 Z96.074 [id number] Daniella Chen, PT, DPT, [facility] Physical Therapy, [address] [address] 09/26/2018 08:56:09 09/26/2018 13:47:45 Replacement of total knee joint 317539789 Z96.600 [id number] Daniella Chen, PT, DPT, [facility] Physical Therapy, [address] [address] 10/06/2018 12:45:49 10/06/2018 16:24:33 Replacement of total knee joint 996916554 Z96.651 Health Concerns Section Related Observation LastModified by Organization Detai ls LastModified Time None Recorded Concern Status LastModified by Organization Details LastModified Time None Recorded Advance Directives Directive Y: Payers Encounter Date Sequence Insurance Name Policy Number Policy Meraz Covered Member ID Meraz Member ID Guarantor Name 09/07/2018 2 [facility] ([facility] [place] [id number] 1 Vito Vizcarra [id number] Vito Vizcarra 09/07/2018 1 MEDICARE [place]: [employer] Vito Vizcarra [id number] Vito Vizcarra 09/12/2018 2 [facility] ([facility] [place]) [id number] 1 Vito Vizcarra [id number] Vito Vizcarra 09/12/2018 1 [place]: [employer] Vito R Sherette [id number] Vito R Sherette 09/15/2018 2 [facility] ([facility] [place] [id number] 1 Vito R R Sherette [id number] Vito R Sherette 09/15/2018 1 [place]: [employer] Vito R Sherette [id number] Vito R Sherette 09/26/2018 2 [facility] ([facility] [place]) [id number] 1 Vito R R Sherette [id number] Vito R Sherette 09/26/2018 1 [place]IC[place] [facility] SERVICES Vito R Sherette [id number] Vito R Sherette 10/06/2018 2 [facility] ([facility] [place]) [id number] 1 Vito R R Sherette [id number] Vito R Sherette 10/06/2018 1 [place]: [facility] GOVERNMENT SERVICES Vito R Sherette [id number] Vito R Sherette Notes Date Note Type Note Provider Name and Address Organization Details Recorded Time 09/07/2018 text/html The knee is feel ing fine with the exception of the superior aspect of the scar is tender. He continues with his scar massage, strengthening exercises. No other complaints. Plans to start cardiac rehab one PT here is done. Dhara Coulter, PT [address] [place] [address], [address], [facility] 09/07/2018 11:36:32 09/12/2018 text/html Pt continues to note discomfort at superior incision, but otherwise states I don't feel restricted anymore regarding knee, and in fact, feels ready for discharge so that he can get started on cardiac rehab. Daniella Chen, PT, DPT, [address], [address], [facility] 09/12/2018 15:36:16 09/15/2018 text/html Pt with increase d stiffness due to prolonged static standing on concrete floors yesterday, otherwise, no complaints. Daniella Chen, PT, DPT, [address], [address], [facility] 09/15/2018 12:49:57 09/26/2018 text/html Today was initia lly planned to be discharge, however, pt with follow up with Dr. Haddad who suggested further HEP targeting ITB/HS stretches and exercises as Dr. Haddad believes pt's subjective c/o restriction at superior incision is due to tightness. Daniella Chen, PT, DPT, [address], [address], [facility] 09/26/2018 10:04:37 10/06/2018 text/html PT Functional an d ADL Assessment*Reported bypatient.Mobility2 0-40 % limitation Pt notes I'm actually feeling pretty good, I'm read to get started on cardiac rehab. Daniella Chen, PT, DPT, [address], [address], [facility] 10/06/2018 13:40:46
--- OUTSIDE RECORDS SUMMARY | 2025-01-15 17:32 | XMS_ITS | Clinical Summary ---
Author Organization [facility] ity Address [address] [place] [address] Care Team Providers Care Store Standards Associate Name Role Phone Ian Morejon DO Primary Care Provider [phone] Surgical History Surgery Date Site/Laterality Comments CORONARY ARTERY BYPASS GRAFT PROCEDURE: HISTORICAL CABG TOTAL KNEE ARTHROPLASTY PROCEDURE: VA ARTHRP KNE CONDYLE&PLATU MEDIAL&LAT COMPARTMENTS BACK SURGERY PROCEDURE: HISTORICAL BACK SURGERY Medical History Medical History Date Comments Essential hypertension DX:Essent ial hypertension Diabetes mellitus type 2, co ntrolled, with complications (CMS/HCC) DX:Diabetes mellitus type 2, controlled, with complications (HCC) Rheumatoid arthritis (CMS/HCC) D X:Rheumatoid arthritis (HCC) Heart attack (CMS/HCC) DX:Heart attack (HCC) Osteopenia DX:Osteopenia Hyperlipidemia DX:Hyperlipidemi a Stargardts disease DX:Stargardts disease Social History Tobacco Use Types Packs/Day Years Used Date Smoking Tobacco: Former Smokeless Tobacco: Never Sex and Gender Information Value Date Recorded Sex Assigned at Not on file Legal Sex Male 6:27 AM EST Gender Identity Not on file Sexual Orientation Not on file Obstetrics History Last Filed Vital Signs Vital Sign Reading Time Taken Comments Blood Pressure - - Pulse - - Temperature - - Respiratory Rate - - Oxygen Saturation - - Inhaled Oxygen Concentration - - Weight 64.9 kg (143 lb) 07/04/2024 1:19 PM EDT Height 190.5 cm (6' 3 ) 07/04/2024 1:19 PM EDT Body Mass Index 17.87 07/04/2024 1:19 PM EDT Plan of Treatment Health Maintenance Due Date Last Done Comments COVID-19 Vaccine (#1) 1955 DTaP,Tdap,and Td Vaccines (1 - Tdap) 1967 Pneumococcal Vaccine: 50+ Ye ars (1 of 1 - PCV) 1998 Zoster Vaccines (1 of 2) 1998 RSV Immunization Patients 60 + Years Old (1 - 1-dose 75+ series) 2023 Influenza Vaccine (#1) 2024 Cholesterol Screening (Lipid Panel) 10/03/2024 Depression Screening 10/03/2024 Falls Risk Assessment 10/03/2024 Hepatitis C Screening 10/03/2024 Social Influencers of Health Screening 10/03/2024 HIB Vaccines Aged Out No longer eligi ble based on patient's age to complete this topic HPV Vaccines Aged Out No longer eligi ble based on patient's age to complete this topic Hepatitis A Vaccines Aged Out No long er eligible based on patient's age to complete this topic Hepatitis B Vaccines Aged Out No long er eligible based on patient's age to complete this topic IPV Vaccines Aged Out No longer eligi ble based on patient's age to complete this topic MMR Vaccines Aged Out No longer eligi ble based on patient's age to complete this topic Meningococcal ACWY Vaccine Aged Out N o longer eligible based on patient's age to complete this topic Meningococcal B Vacine Aged Out No lo nger eligible based on patient's age to complete this topic RSV Immunization Patients Un raffy 20 months Aged Out No longer eligible b ased on patient's age to complete this topic Varicella Vaccines Aged Out No longer eligible based on patient's age to complete this topic Care Teams Store Standards Associate Relationship Specialty Start Date End Date Ian Morejon DO [address] [facility] [address] [place], [place] PCP - General 07/04/24
[2025-01-15 17:42] LABS: MANUAL DIFF FLAG NO
[2025-01-15 17:59] LABS: Estimated Average Glucose 117 mg/dL; Hemoglobin A1C 115.5854 umol/L; Hemoglobin A1c % 5.7 % (<6.0)
[2025-01-15 18:07] LABS: Basophils Absolute Auto 0.1 X10*3/uL (0.0-0.2); Basophils Percent Auto 0.9 % (0-2); Eosinophils Absolute Auto 0.1 X10*3/uL (0.0-0.4); Eosinophils Percent Auto 1.7 % (0-4); Hematocrit 34.7 % (42.0-52.0); Hemoglobin 11.3 g/dl (14.0-18.0); Imm Gran Abs Auto 0.02 X10*3/uL (0.00-0.03); Imm Gran Pct Auto 0.3 % (0.0-0.4); Lymphocytes Absolute Auto 0.9 X10*3/uL (1.2-4.9); Mean Corpuscular HGB Conc 32.6 g/dl (31.0-36.0); Mean Corpuscular Hemoglobin 31.6 pg (27.0-33.0); Mean Corpuscular Volume 96.9 fL (80.0-98.0); Mean Platelet Volume 11.9 fL (9.4-12.4); Monocytes Absolute Auto 0.5 X10*3/uL (0.1-1.2); Monocytes Percent Auto 8.7 % (2-11); NRBC Pct Auto 0.3 /100WBC (0.0-0.2); Neutrophils Absolute Auto 4.3 x10*3/uL (2.0-8.3); Neutrophils Percent Auto 72.4 % (45-73); Platelet Count 530 X10*3/uL (160-400); Red Blood Count 3.58 X10*6/uL (4.60-5.80); Red Cell Distribution Width 15.1 % (11.0-16.0); White Blood Count 5.9 X10*3/uL (4.8-10.8)
[2025-01-15 18:19] LABS: Alanine Aminotransferase 66 U/L (0-40); Albumin Level 4.1 g/dL (3.5-5.0); Alkaline Phosphatase 41 U/L (39-117); Anion Gap 13 (12-20); Aspartate Amino Transferase 37 U/L (5-37); Bilirubin Total 0.4 mg/dL (0.0-1.0); Blood Urea Nitrogen 19 mg/dL (9-16); Calcium 9.4 mg/dL (8.4-10.2); Carbon Dioxide 27 mmol/L (22-29); Chloride 107 mmol/L (96-108); Estimated Glomerular Filt Rate > 60; Glucose Random 122 mg/dL (60-115); Potassium 5.1 mmol/L (3.3-5.1); Sodium 142 mmol/L (135-145); Total Protein 6.5 g/dL (6.5-8.0)
[2025-01-15 18:38] LABS: Prostate Specific Antigen 3.85 ng/mL (<0.05-4.0)
== END 2025-01-15 15:19 | disposition home or self-care (01) ==
LOC: HO.MANLDS 15:18
PROVIDERS: PCP Internal Medicine; Visit Provider Internal Medicine
DX: I10 Essential (primary) hypertension (principal); E11.9 Type 2 diabetes mellitus without complications; Z12.5 Encounter for screening for malignant neoplasm of prostate
CPT/HCPCS: 36415; 80053; 83036; 84153; 85025

== ENCOUNTER 2025-04-13 11:05 | Outpatient (REF) | payer MEDICARE, OTHER, SELFPAY ==
--- OUTSIDE RECORDS SUMMARY | 2025-04-13 11:58 | XMS_ITS | Data Portability ---
Author Organization [facility], Main Office Address [address] [place] [address] Care Team Providers Care Gallery Or Museum Curator Name Role Phone CAREONE (NONO UNIT) OTHER [...] 1.0 wbc 6.50 hgb 9.8 hct 30.7 [email or web address] Not available 05/22/2024 11:10:43 05/24/2024 05/24/2024 05/10/24 na 141, k 5 cre 1 wbc 9.48 hgb 9.9 hct 30.5 7/9 na 142 k 4.6 cre 1.0 wbc 6.50 hgb 9.8 hct 30.7 /16 na 144 k 4.9 cre 1 wbc 10.4 hgb 10 hct 31.3 [email or web address] Not available 05/24/2024 12:41:15 05/29/2024 05/29/2024 05/10/24 na 141, k 5 cre 1 wbc 9.48 hgb 9.9 hct 30.5 7/9 na 142 k 4.6 cre 1.0 wbc 6.50 hgb 9.8 hct 30.7 7/16 na 144 k 4.9 cre 1 wbc 10.4 hgb 10 hct 31.3 [email or web address] Not available 05/29/2024 11:02:31 05/31/2024 05/31/2024 05/10/24 na 141, k 5 cre 1 wbc 9.48 hgb 9.9 hct 30.5 7/9 na 142 k 4.6 cre 1.0 wbc 6.50 hgb 9.8 hct 30.7 /16 na 144 k 4.9 cre 1 wbc 10.4 hgb 10 hct 31.3 /24 na 149 k 4.9 cre 0.8 wbc 6 hgb 10 hct 31.7 [email or web address] Not available 05/31/2024 09:48:42 Plan of Treatment [...] Recorded Time At increased risk for falls 994194457 Active 2023 Florence Lees MD [address] [facility] [address], [place], [address] , [employer] 4 23:59:32 Pain of right hip joint 7747180902630 02 Active 2023 Florence Lees MD [address] [facility], [facility] [address], [place], [address] , [facility] [employer] 4 23:59:37 Spinal stenosis of lumbar region 56904427 Active 2016 Isabel yan [employer] 7 15:43:58 Rheumatoid arthritis 76252034 Active 2016 Isabel yan [facility] 7 15:44:04 Essential hypertensio n 61413064 Active 2016 Isabel yan [employer] 7 15:44:08 Hyperlipide rick 89578257 Active 2016 Isabel yan [facility] 7 15:44:14 Diabetes mellitus 25194756 Active 2016 Isabel Guzmán [facility] 7 15:44:24 Tobacco user 328576456 Active 2016 Isabel Guzmán [facility], [facility] 7 15:45:11 Gastroesoph ageal reflux disease without esophagitis 565662267 Active 2016 Isabel Guzmán [facility], [facility] 7 15:45:20 Degenerativ e disorder of macula 092799908 Active 2016 Arcenio Allen MD [address] [facility], [address], [place], [address], [facility] 7 09:29:40 Coronary atheroscler osis 490587404 Active [address], [address], [place], [address], [facility] 8 08:37:12 Anemia 608848233 Active [address], [address], [place], [address], [facility] 8 08:45:06 History of right total knee replacement 3772381607929 102 Active [address], [address], [place], [address], [facility] 8 08:46:37 Depressive disorder 19375674 Active [address], [address], [place], [address], [facility] 8 08:49:47 Problem Notes None recorded. 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 Yes Information not available 05/21/2024 What Was The Date Of Your Most Recent Tobacco Screening? 08/04/2018 [id number] Information not available 09/03/2020 Do You Have An Out Of Hospital DNR? No Information not available 05/21/2024 Have You Ever Been Counseled For Unhealthy Alcohol Use? No Information not available 05/21/2024 What Is Your Relationship Status? Information not available 05/21/2024 How Much Tobacco Do You Smoke? No Information not available 05/21/2024 Has Tobacco Cessation Counseling Been Provided? No N/a As Pt No Longer Smokes Information not available 05/21/2024 Have You Used IV Drugs? No Information not available 05/21/2024 Sex: Unknown Functional Status Question Answer Note LastModified by Organizat ion Details LastModified Time How many times per week do you consume alcohol? 3-4 times per week Information not available 05/21/2024 Do you use any illicit or recreational drugs? Yes Information not available 05/21/2024 Do you or have you ever used any other forms of tobacco or nicotine? No Information not available 05/21/2024 What is your level of alcohol consumption? Occasional 3 beers/wk Information not available 05/21/2024 Mental Status None recorded. Family History Nothing Reported. Medical History No medical history recorded. Immunizations Vaccine Type Date Status Note Provider Nam e and Address Organization Details Recorded Time Td(adult) unspecified formulation 5 completed Annalee Arshad [facility] 05/18/2024 16:37:09 Pneumococcal conjugate PCV 13 5 completed Annalee Arshad [facility] 05/18/2024 16:37:42 Pneumococcal conjugate PCV 13 0 completed Annalee Arshad [facility] 05/18/2024 16:38:02 influenza, unspecified formulation 2 completed Annalee Arshad [facility] 05/18/2024 16:40:53 influenza, unspecified formulation 3 completed Annalee Arshad [facility] 05/18/2024 16:41:01 SARS-COV-2 (COVID-19) vaccine, UNSPECIFIED 1 completed Annalee Arshad [facility] 05/18/2024 16:41:17 SARS-COV-2 (COVID-19) vaccine, UNSPECIFIED 1 completed Annalee Arshad [facility] 05/18/2024 16:41:24 SARS-COV-2 (COVID-19) vaccine, UNSPECIFIED 1 completed Annaleeteetee Arshad [facility] 05/18/2024 16:41:32 SARS-COV-2 (COVID-19) vaccine, UNSPECIFIED 2 completed Annalee [facility] 05/18/2024 16:41:39 SARS-COV-2 (COVID-19) vaccine, UNSPECIFIED 2 completed Annalee [facility] 05/18/2024 16:41:46 SARS-COV-2 (COVID-19) vaccine, UNSPECIFIED 3 completed [facility] 05/18/2024 16:41:54 Past Encounters Encounter ID Performer Location Encounter Start Date Encounter Closed Date Diagnosis/Indication Diagnosis SNOMED-CT Code Diagnosis ICD10 Code Diagnosis Note [id number] [address] [place] [address] [place] [address] 02/25/2017 15:34:34 03/18/2017 12:57:47 Spinal stenosis of lumbar region 25753084 M48.06 failed conservati ve treatment, now s/p L3-L5 spinal fusion by niki Grubbs for pain, monitor incision, f/u ortho, PT/OT eval and tx Rheumatoid arthritis 698 55689 M06.89 Prednisone 20 mg dailySimpo ni injection QmonthlyMo nitor sxs and pain Essential hypertension 83417153 I10 Atenolol 25 mg dailyTriam terene-HCT Z 37.5-25 mg dailyMonit or bp and labs Hyperlipidemia 96719278 E78.2 Atorvastat in 40 mg QHS Diabetes mellitus 626665 09 E11.9 Metformin 500 mg BIDLantus 10 units QHS SS insulinMon itor accuchecks Tobacco user 482076975 Z 72.0 Nicotine patch, patient reports quit smoking 6 mos ago but started again for 2 weeks prior to surgery d/t pain and stress, is very motivated not to start back up again Gastroesop hageal reflux disease without esophagitis 172619535 K21.9 Omeprazole 40 mg dailyMonit or sxs Constipation 67901381 K5 9.09 Initiate bowel protocol CHRISTIE [place] [address] [place] [address] 03/03/2017 12:14:08 03/18/2017 13:03:56 Diabetes mellitus 32823485 E11.9 Metformin 500 mg BIDLantus 10 units QHS SS insulinEle vated blood sugars mid-day, will increase AM metformin dose to 1000 mg, monitor [id number] MD PRIYA Da Silva [address] [place] [address] 03/04/2017 09:12:57 03/18/2017 13:05:25 Spinal stenosis of lumbar region 97667973 M48.07 see HPIfailed conservati ve treatmentf ollowed by Dr. Alejandro2-S1 laminectom ies with fusion of L4-E5xmknj to snf on dilauded for pain controlmon itor for pain control and constipati on. Rheumatoid arthritis 698 70346 M06.89 Prednisone 20 mg qd baselineSi mponi 50 mg SQ q month through rheumatolo gyMonitor sxs and painrheuma tology consult prnfollowe d by Dr. Thrasher Essential hypertension 47550051 I10 Atenolol 25 mg qdTriamter shayla-HCTZ 37.5-25 mg qdMonitor bp and labs Hyperlipidemia 24358104 E78.2 Atorvastat in 40 mg QHS Diabetes mellitus 900553 09 E11.9 Metformin 500 mg BIDLantus 10 units QHS SS insulinfol low blood glucose at [facility] Tobacco user 671615279 Z 72.0 hx cigar smokingsta sammie he has quit Gastroesop hageal reflux disease without esophagitis 605338807 K21.9 Omeprazole 40 mg dailyMonit or sxs Constipation 28712729 K5 9.09 Bowel protocol and monitor for sx Degenerati ve disorder of macula 643244996 H35.3131 legally blind at baselinesp ecifics of dx not availableh as been eval at [facility] ear CHRISTIE Mills [address] [place] [address] 03/05/2017 08:34:04 03/18/2017 13:04:18 Diabetes mellitus 37309664 E11.9 Metformin 1000 mg QAM and 500 mg QPMLantus 10 units QHSF/u with pcp to adjust meds if BS remains elevated Spinal jasson nosis of lumbar region 11205086 M48.06 failed conservati ve treatment, now s/p L3-L5 spinal fusion by Dr Rosario, dilaudid for pain-repor ts pain well controlled , monitor incision, f/u ortho, good progress in therapy Rheumatoid arthritis 698 16936 M06.89 Prednisone 20 mg dailySimpo ni injection Q monthlyInc reased bilat. knee and R elbow pain-usual ly takes diclofenac -mistopros jose but was d/c prior to surgery-wi ll restart now Essential hypertension 63934971 I10 Atenolol 25 mg dailyTriam terene-HCT Z 37.5-25 mg dailyBP with good control Hyperlipidemia 73389101 E78.2 Atorvastat in 40 mg QHS Tobacco user 463292714 Z 72.0 Nicotine patch, patient reports quit smoking 6 mos ago but started again for 2 weeks prior to surgery d/t pain and stress, is very motivated not to start back up again Gastroesop hageal reflux disease without esophagitis 534057671 K21.9 Omeprazole 40 mg dailyMonit or sxs [id number] ERIKA RUSSO [address] [place] [address] 07/26/2018 08:32:23 07/29/2018 12:05:59 Coronary atherosclerosis 483456523 I25.10 ASA 81 mg dailyAtorv astatin 80 mg qhsToprol XL 25 mg dailyplavi x 75 mg X 2 months due to NSTEMIdail y weights to monitor fluid statusmoni tor labsmonito r incision sitesfollo w up with surgeon on 08/01oxycod one 10 mg q 4 PRN Anemia 313777594 D50.8 Transfused in hospital with 1 unitstable on dischargem onitor H/H weekly- keep above 7likely ACD due to RA- baseline hgb around 7.5 Rheumatoid arthritis 698 39129 M06.89 Prednisone 5 mg dailygolim umab every 28 days had stress dose in hospital History of right total knee replacement 7318533704 344439 Z96.651 PT/OT eval and treat Depressive disorder 3548 9007 F33.8 sertraline 50 mg qhs Diabetes mellitus 806732 09 E11.9 Lantus 14 units dailymetfo rmin 500 mg BID Gastroesop hageal reflux disease without esophagitis 527566029 K21.9 Omeprazole 40 mg dailymonit or for reflux [id number] MD PRIYA Perez [address] [place] [address] 07/27/2018 15:06:17 07/29/2018 12:35:28 Coronary arteriosclerosis 02518320 I25.10 s/p CABG x 3. Continue DAPT, beta sandra Multiple complications due to type 2 diabetes mellitus 130388623 E11.8 glargine, accuchecks Anemia 229287345 D64.9 stable after transfusio n. Monitor CBC Rheumatoid arthritis 698 56685 M06.9 continue prednisone 5 mg. F/u with rheumatolo gy [id number] ERIKA RUSSO [address] [place] [address] 08/04/2018 09:14:45 08/09/2018 13:21:36 Coronary atherosclerosis 376697578 I25.10 ASA 81 mg dailyAtorv astatin 80 mg qhsToprol XL 25 mg dailyplavi x 75 mg X 2 months due to NSTEMIcard iology to arrange cardiac rehab once outptVNA to continue daily dressing changes, if steri strips fall off reapply Anemia 600485235 D50.8 H/H stable 9.7/31.7 likely ACD due to RA- baseline hgb around 7.5 Rheumatoid arthritis 698 68777 M06.89 Prednisone 5 mg dailygolim umab every 28 days follow up with rheumatolo gy Depressive disorder 5570 5977 F33.8 sertraline 50 mg qhsfollow up with psych outpt if needed Diabetes mellitus 370522 09 E11.9 Lantus 14 units dailymetfo rmin 500 mg BID Gastroesop hageal reflux disease without esophagitis 565124695 K21.9 D/C omeprazole add Famotidine 40 mg daily- per cardiology recs [id number] ERIKA Carballo at [facility] [address] [facility] [place] [address] 05/16/2024 09:26:41 05/23/2024 10:16:48 Degenerative disorder of macula 711243238 H35.30 carrying dx - legally blind-fall risk precaution s Coronary atherosclerosis 124356753 I25.10 carrying dx-ASA 81 mg daily-Lipi tor 80 mg qhs-Toprol XL 12.5 mg daily-plav ix 75 mg daily due to NSTEMI Depressive disorder 3548 9007 F33.8 carrying dx-not on meds-monit or mood and affect-psy ch eval prn-melato radah HS for insomnia Diabetes mellitus 364972 09 E11.9 carrying dx-trulici ty SQ on mon.-metfo rmin 1000 daily-accu checks once daily in am-diabeti c foot care HS-regular diet Essential hypertension 52757777 I10 well controlled -toprol XL 12.5 mg daily-BP Q shift X 3 days, then daily Gastroesop hageal reflux disease without esophagitis 757974888 K21.9 carrying dx-famotid ine 40 daily-jodie tor ss Hyperlipidemia 40569322 E78.5 carrying dx-lipitor 80 daily-lipi d panel prn Rheumatoid arthritis 698 06452 M06.89 carrying dx-Prednis one 2.5 mg daily-jasper min C daily-jasper min D 3 daily-Omeg a 3 daily-foll ows with rheumatolo gy Spinal jasson nosis of lumbar region 95127212 M48.061 -lyrica 300 mg bid-see above for pain control At [facility] ed risk for falls 567614718 Z91.81 recent fall without fx or dislocatio ncontinues with right arm and hip painCT negative for acute findings-P t/OT for strength and mobility-f all precaution s-ordered to schedule tylenol 650 TID-start lidocaine patch to right hip-tramad ol 50 Q6H prn-morphi ne 7.5 Q4H prn Anemia 216292629 D50.8 H/H stable 05/10 9.9 and 30.5likely ACD due to RA-admissi on labs pending [id number] ERIKA Carballo at [facility] on [address] [place] [address] 05/18/2024 10:46:07 05/23/2024 11:52:48 At increased risk for falls 358927245 Z91.81 recent fall without fx or dislocatio ncontinues with right arm and hip painCT negative for acute findings-P t/OT for strength and mobility-f all precaution s-continue scheduled tylenol 650 TID-contin ue lidocaine patch to right hip-contin ue home pain regimen = tramadol 50 Q6H prn and morphine 7.5 Q4H prn Degenerati ve disorder of macula 086739623 H35.30 carrying dx - legally blind-fall risk precaution s-glasses Essential hypertension 34957505 I10 well controlled -toprol XL 12.5 mg daily-BP Q shift X 3 days, then daily Rheumatoid arthritis 698 40098 M06.89 carrying dxmultiple joint deformitie s and nodes-cont inue prednisone 2.5 mg daily-foll ows with rheumatolo gy-see above for pain control Spinal jasson nosis of lumbar region 53957257 M48.061 -continue lyrica 300 mg bid-see above for pain control [id number] MD PRIYA Boyd [address] [place] [address] 05/19/2024 20:53:55 05/23/2024 12:09:01 At increased risk for falls 700513098 R29.6 As above. Degenerati ve disorder of macula 120988464 H35.30 Legally blind.Prov breanna supportive care.F/U with eye dr as planned. Essential hypertension 81593727 I10 BP in good control on metoprolol XL 12.5 mg qdMonitor BP and labs. Rheumatoid arthritis 698 71852 M06.89 Severe with chronic pain and deformitie s.Continue meds as above.F/U as above. Spinal jasson nosis of lumbar region 20801239 M48.061 PT/OT and pain management as above.Jodie tor Coronary atherosclerosis 585876912 I25.10 No recent sxs.Contin ue ASA 81 mg qd, atorvastat in 80 mg qhs, metoprolol XL 12.5 mg qd and plavix 75 mg qd.Also on Trulicity which helps with cardiac risk reduction. Monitor sxs.F/U with cardio as planned. Depressive disorder 5528 9007 F33.8 Situationa l due to chronic pain, not on meds.Angie nue melatonin 3 mg qhs for insomniaMo od good today.Jodie tor mood.Consu lt psych prn Diabetes mellitus 761368 09 E11.9 Last HgA1C was 6.1 in 05/2023.Con tinue trulicity 0.75 mg SQ weekly and metformin 1000 mg qd.Monitor fingerstic ks fasting qd and HgA1C as an outpt. Gastroesop hageal reflux disease without esophagitis 604529538 K21.9 No current sxs.Contin ue famotidine 40 mg qdMonitor GI sxs. Hyperlipidemia 33731449 E78.49 Continue atorvastat in 80 mg qd and fish oil 1000 mg qdMonitor labs as an outpt. Anemia 028042817 D50.8 Multifacto rial.Stabl eMonitor labs. Pain of ri ght hip joint 0685468557 97538 M25.551 Acute exacerbati on of chronic problem.Wi [...] safety.F/U with rheum and PM&R as planned. [id number] RIGO OLIVEROS [facility] on [address] [place] [address] 05/22/2024 09:44:23 05/26/2024 09:32:28 At increased risk for falls 540958080 Z91.81 recent fall without fx or dislocatio ncontinues with right arm and hip painCT negative for acute findings-P t/OT for strength and mobility-f all precaution s-continue scheduled tylenol 650 TID-contin ue lidocaine patch to right hip-contin ue home pain regimen = tramadol 50 Q6H prn and morphine 7.5 Q4H prn Rheumatoid arthritis 698 74421 M06.89 carrying dxmultiple joint deformitie s and nodes-cont inue prednisone 2.5 mg daily-foll ows with rheumatolo gy-see above for pain control Primary insomnia 4396451 F51.01 -increase melatonin to 10 mg HS-encoura ge sleep hygeine [id number] RIGO OLIVEROS [facility] on [address] [place] [address] 05/24/2024 09:04:49 05/26/2024 11:52:14 At increased risk for falls 957578372 Z91.81 recent fall without fx or dislocatio [...] wednesday with PT/OT services Rheumatoid arthritis 698 98124 M06.89 carrying dxmultiple joint deformitie s and nodes-cont inue prednisone 2.5 mg daily-foll ows with rheumatolo gy-see above for pain control Primary insomnia 0916702 F51.01 improved with increased melatonin- continue melatonin to 10 mg HS-encoura ge sleep hygeine [id number] RIGO OLIVEROS [facility] on [address] [place] [address] 05/29/2024 09:23:48 05/31/2024 09:17:09 At increased risk for falls 414730309 Z91.81 recent fall without fx or dislocatio [...] wednesday with PT/OT services Rheumatoid arthritis 698 33807 M06.89 carrying dxmultiple joint deformitie s and nodes-cont inue prednisone 2.5 mg daily-foll ows with rheumatolo gy-see above for pain control Primary insomnia 2119144 F51.01 improved with increased melatonin- continue melatonin to 10 mg HS-encoura ge sleep hygeine Diabetes mellitus 163017 09 E11.9 BS very well controlled = 146 today-trul icity SQ on mon.-metfo rmin 1000 daily-accu checks once daily in am-diabeti c foot care HS-regular diet Essential hypertension 71024485 I10 well controlled 101/ today-cont inue toprol XL 12.5 mg daily-BP check daily [id number] ROMAN KERNS NP-C [facility] on [address] [facility] [address] 05/31/2024 09:43:57 06/01/2024 14:43:00 At increased risk for falls 688499877 Z91.81 recent fall without fx or dislocatio nCT negative for acute findings-h ome with PT/OT services-f /up with pcp Rheumatoid arthritis 068 95833 M06.89 carrying dxmultiple joint deformitie s and nodes-cont inue prednisone 2.5 mg daily-foll ows with rheumatolo gy-continu e scheduled tylenol 650 TID-contin ue home pain regimen = tramadol 50 Q6H prn and morphine 7.5 Q4H prn-f/up with pcp Primary insomnia 3762852 F51.01 improved with increased melatonin- continue melatonin to 10 mg HS-encoura ge sleep hygeine at home-f/up with pcp Diabetes mellitus 263522 09 E11.9 BS very well controlled = 146 today-trul icity SQ on mon.-metfo rmin 1000 daily-jodie tor BS at home-f/up with pcp Essential hypertension 09632150 I10 well controlled 101 today-cont inue toprol XL 12.5 mg daily-jodie tor BP with pcp Degenerati ve disorder of macula 548252352 H35.30 carrying dx = legally blind-f/up outpatient Coronary atherosclerosis 265758935 I25.10 carrying dx-ASA 81 mg daily-Lipi tor 80 mg qhs-Toprol XL 12.5 mg daily-plav ix 75 mg daily due to NSTEMI-f/u p with pcp Depressive disorder 6988 9007 F33.8 carrying dx-not on meds-f/up with pcp to monitor mood and affect Gastroesop hageal reflux disease without esophagitis 351548452 K21.9 carrying dx-famotid ine 40 daily-jodie tor ss outpatient with pcp Hyperlipidemia 32026155 E78.5 carrying dx-lipitor 80 daily-lipi d panel outpatient Spinal jasson nosis of lumbar region 94262071 M48.061 -lyrica 300 mg bid-see above for pain control-f/ up wit pcp Anemia 234754696 D50.8 H/H stable hgb 10 hct 31.7 [...] Meraz Member ID Guarantor Name 05/19/2024 2 [facility] [id number] 1 Vito Glennette [id number] Vito Sherette 05/19/2024 1 [place] [employer] Vito R Sherette [id number] Vito Sherette 05/22/2024 2 [facility] [id number] 1 Vito Sherette [id number] Vito Sherette 05/22/2024 1 [place] [employer] Vito R Sherette [id number] Vito Sherette 05/24/2024 2 [facility] [id number] 1 Vito Sherette [id number] Vito Sherette 05/24/2024 1 [place] [employer] Vito R Sherette [id number] Vito Sherette 05/29/2024 2 [facility] [id number] 1 Vito Sherette [id number] Vito Sherette 05/29/2024 1 [place] [employer] Vito R Sherette [id number] Vito Sherette 05/31/2024 2 [facility] [id number] 1 Vito Sherette [id number] Vito Sherette 05/31/2024 1 [place] [employer] Vito R Sherette [id number] Vito Vizcarra Notes Date Note Type Note [...] with pain meds.Then on 04/18, sent to [facility] for rehab. No info about that available, [...] macular degeneration, and depression. Florence Lees MD [address] [place] [address], [address], [place], [address], [facility] 05/22/2024 00:48:02 05/22/2024 text/html Patient is a [...] after the fall. He is now at [facility]. Vito is doing well, he continue [...] depression, and coronary atherosclerosis RIGO OLIVEROS [address] [facility] [address], [address], [place], [address], [facility] 05/22/2024 11:12:17 05/24/2024 text/html Patient is a [...] after the fall. He is now at [facility]. Patient seen today with his present. [...] depression, and coronary atherosclerosis RIGO OLIVEROS [address], [address], [place], [address], [facility] 05/24/2024 12:45:10 05/29/2024 text/html Patient is a [...] after the fall. He is now at [facility]. Patients weekend was uneventful. He is [...] depression, and coronary atherosclerosis RIGO OLIVEROS [address], [address], [place], [address], [employer] 05/29/2024 11:05:35 05/31/2024 text/html Patient is a [...] after the fall. He is now at [facility]. Patients rehab stay has been uneventful. His pain is well controlled on his home analgesics. Plan for dc home on wednesday with PT/OT services. He has no complaints and tells me he doesn't need any prescriptions sent home. PMH GERD, HTN, HLD, RA, DM2, spinal stenosis, depression, and coronary atherosclerosis ROMAN KERNS NP-C [address] [place] [address], [address], [place], [address], [facility] 05/31/2024 09:49:10
[2025-04-13 14:04] LABS: Estimated Average Glucose 120 mg/dL; Hemoglobin A1c % 5.8 % (<6.0)
[2025-04-13 14:42] LABS: Alanine Aminotransferase 26 U/L (0-40); Albumin Level 3.6 g/dL (3.5-5.0); Alkaline Phosphatase 56 U/L (39-117); Anion Gap 11 (12-20); Aspartate Amino Transferase 31 U/L (5-37); Bilirubin Total 0.4 mg/dL (0.0-1.0); Blood Urea Nitrogen 20 mg/dL (9-16); Calcium 8.7 mg/dL (8.4-10.2); Carbon Dioxide 28 mmol/L (22-29); Chloride 104 mmol/L (96-108); Estimated Glomerular Filt Rate 53; Glucose Random 139 mg/dL (60-115); Potassium 4.5 mmol/L (3.3-5.1); Sodium 138 mmol/L (135-145); Total Protein 5.6 g/dL (6.5-8.0)
== END 2025-04-13 11:06 | disposition home or self-care (01) ==
LOC: HO.MANLDS 11:05
PROVIDERS: Visit Provider Internal Medicine
DX: E11.9 Type 2 diabetes mellitus without complications (principal)
CPT/HCPCS: 36415; 80053; 83036

== ENCOUNTER 2025-08-21 13:34 | Outpatient (REF) | payer MEDICARE, OTHER, SELFPAY ==
--- OUTSIDE RECORDS SUMMARY | 2021-03-27 09:30 | XMS_ITS | Encounter Summary ---
Author Organization [facility] Address [address] [place] [address] Phone Care Team Providers Care Bonding Supervisor Name Role Phone Ian Morejon Primary Care Provider Encounter Details Date Type Department Care Team (Late st Contact Info) Description 03/27/2021 9:30 AM EDT Hospital Encounter [facility] [address] [place] [id number] Ramon Thompson PA [address] [place] [phone] [email or web address] History Tobacco [...] 7:45 AM EDT Rayne Alvarez RN * [place] Suicide Severity Rating Scale (Screener/Recent Self-Report) Question [...] on filedocumented in this encounter Care Teams Bonding Supervisor Relationship Specialty Start Date End Date Ian Morejon DO [email or web address] PCP - General Internal Medicine 10/05/18 documented as of this encounter Additional Source Comments The information contained in this document represents components of the legal health record. It is not the complete legal health record.[facility]
--- OUTSIDE RECORDS SUMMARY | 2021-03-27 09:49 | XMS_ITS | Encounter Summary ---
Author Organization [facility] Address [address] [place] [address] Phone Care Team Providers Care Php Mysql Web Developer Name Role Phone Ian Morejon Primary Care Provider [phone] Encounter Details Date Type Department Care Team (Late st Contact Info) Description 03/27/2021 9:49 AM EDT Hospital Encounter [facility] [address] [place] [phone] Ramon Thompson PA [address] [place] [phone] [email or web address] History Tobacco Use Types Packs/Day [...] 7:45 AM EDT Rayne Alvarez RN * [place] Suicide Severity Rating Scale (Screener/Recent Self-Report) Question [...] on filedocumented in this encounter Care Teams Php Mysql Web Developer Relationship Specialty Start Date End Date Ian Morejon DO [email or web address] PCP - General Internal Medicine 10/05/18 documented as of this encounter Additional Source Comments The information contained in this document represents components of the legal health record. It is not the complete legal health record.[facility]
--- OUTSIDE RECORDS SUMMARY | 2025-08-21 16:30 | XMS_ITS | Encounter Summary ---
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; Elevated glucose Social History Tobacco Use Types Packs/Day Years Used Date Smoking Tobacco: Former Cigarettes Q uit: 2016 Smokeless Tobacco: Never Comments:Cigar Smoker Alcohol Use Standard Drinks/Week Comments Yes 6 (1 standard drink = 0.6 oz pur e alcohol) Weekly Sex and Gender Information Value Date Recorded Sex Assigned at Male 12/17/2017 9:49 AM EST Legal Sex Male 10:05 PM EDT Gender Identity Male 12/17/2017 9:49 AM EST Sexual Orientation Straight 12/17/2017 9: 49 AM EST documented as of this encounter Plan of Treatment Not on file documented as of this encounter Results * Urine culture (05/27/2018 10:40 AM EDT) Specimen Source/ Description URINE CLEAN [place] URINE [facility] Special Requests None [facility] GRAM STAIN NO ORGANISMS SEEN [facility] Culture/Test NO GROWTH 48HRS [facility] Report Status 05/29/2018 FINAL [facility] Urine (Urine) 05/27/2018 10: 40 AM EDT 05/27/2018 10:43 AM EDT Jim Haddad MD MICROBIOLOGY - GENERAL OR DERABLES Final Result Performing Organization Address [facility] de Phone Number [address] [address] * Urinalysis (05/27/2018 10:40 AM EDT) COLOR Yellow Yellow [facility] CLARITY Clear [facility] GLUCOSE Negative Negative [facility] BILI Negative Negative [facility] KETONES Negative Negative [facility] SPECIFIC GRAVITY <1.005 1.005 - 1.030 [facility] BLOOD Negative Negative [facility] PH 5.5 5.0 - 8.0 [facility] Protein-UA Negative Negative [facility] NITRITE Negative Negative [facility] Leukocyte esterase, ur Negative Negative [facility] Urine (Urine) 05/27/2018 10: 40 AM EDT 05/27/2018 10:43 AM EDT Jim Haddad MD URINE ORDERABLES Final Re sult Performing Organization Address [facility] de Phone Number [address] [address] * PTT (05/27/2018 10:40 AM EDT) APTT 30.2 25.1 - 36.5 sec [facility] Comment:APTT response to unf ractionated heparin concentrations between 0.3 and 0.7 IU/mL is typically 54.0-94.0 seconds in uncomplicated cases. The Anti-Xa assay is the preferred method. Blood 05/27/2018 10:4 0 AM EDT 05/27/2018 10:43 AM EDT Jim Haddad MD LAB BLOOD ORDERABLES Nunu l Result Performing Organization Address City/[facility] Co de Phone Number [address] [address] * PT-INR (05/27/2018 10:40 AM EDT) PT 12.1 10.2 - 12.9 sec [facility] INR 1.1 0.9 - 1.1 [facility] Comment:Therapeutic range fo r oral Vitamin K antagonists: 2.0-3.5 Blood 05/27/2018 10:4 0 AM EDT 05/27/2018 10:43 AM EDT Jim Haddad MD LAB BLOOD ORDERABLES Nunu l Result Performing Organization Address [facility] de Phone Number [address] [address] * (ABNORMAL) Hemoglobin A1c (05/27/2018 10:40 AM EDT) HEMOGLOBIN A1C 6.3(H) 4.3 - 5.8 % [facility] Blood 05/27/2018 10:4 0 AM EDT 05/27/2018 10:43 AM EDT Result [facility] Jim Haddad MD LAB BLOOD ORDERABLES Nunu l Result Performing Organization Address [facility] Co de Phone Number [address] [address] * (ABNORMAL) Glucose, fasting (05/27/2018 10:40 AM EDT) FASTING GLUCOSE 138(H) 70 - 110 mg/dL [facility] Blood 05/27/2018 10:4 0 AM EDT 05/27/2018 10:43 AM EDT Jim Haddad MD LAB BLOOD ORDERABLES Nunu l Result [address] [address] * Creatinine/eGFR (05/27/2018 10:40 AM EDT) CREATININE 1.00 0.5 - 1.5 mg/dL [facility] EGFR 76 >59 mL/min/1.7 3m2 [facility] Comment:If patient is black, multiply result by 1.159. Estimated glomerular filtration rate calculated using the CKD-EPI equation. Blood 05/27/2018 10:4 0 AM EDT 05/27/2018 10:43 AM EDT us Jim Haddad MD LAB BLOOD ORDERABLES Nunu doran Result [address] [address] * (ABNORMAL) CBC and differential (05/27/2018 10:40 AM EDT) WBC 5.68 3.40 - 11.20 K/uL [facility] RBC 3.87(L) 4.50 - 5.50 M/uL [facility] HGB 8.6(L) 13.0 - 17.0 g/dL [facility] HCT 29.3(L) 40.0 - 51.0 % [facility] PLT 211 130 - 400 K/uL [facility] MCV 75.7(L) 79.0 - 98.0 fL [facility] MCH 22.2(L) 27.0 - 34.8 pg [facility] MCHC 29.4(L) 31.5 - 36.0 g/dL [facility] RDW 16.6(H) 10.8 - 14.6 % [facility] MPV 11.3 9.4 - 12.4 fl [facility] NRBC 0.00 /100 WBCs [facility] ABSOLUTE NRBC 0.00 K/uL [facility] DIFF METHOD Auto [facility] NEUTS 67.9 45.30 - 77.70 % [facility] LYMPHS 22.0 12.30 - 39.70 % [facility] MONOS 7.4 4.10 - 12.80 % [facility] EOS 1.8 0 - 7.2 % [facility] BASOS 0.5 0 - 2.80 % [facility] Granulocytes, immature (%) 0.4 0.0 - 0.9 % [facility] ABSOLUTE NEUTS 3.86 1.40 - 7.70 K/uL [facility] ABSOLUTE LYMPHS 1.25 0.60 - 3.20 K/uL [facility] ABSOLUTE MONOS 0.42 0.11 - 0.59 K/uL [facility] ABSOLUTE EOS 0.10 0.01 - 0.50 K/uL [facility] ABSOLUTE BASOS 0.03 0.00 - 0.08 K/uL [facility] Granulocytes, immature 0.02 0.00 - 0.05 K/uL [facility] Blood 05/27/2018 10:4 0 AM EDT 05/27/2018 10:43 AM EDT us Jim Haddad MD LAB BLOOD ORDERABLES Nunu l Result [address] [address] * BUN (05/27/2018 10:40 AM EDT) BUN 16 6 - 19 mg/dL [facility] Blood 05/27/2018 10:4 0 AM EDT 05/27/2018 10:43 AM EDT us Jim Haddad MD LAB BLOOD ORDERABLES Nunu l Result Performing Organization Address City/[facility]/ZIP Co de Phone Number [address] [address] * Electrolytes (05/27/2018 10:40 AM EDT) SODIUM 143 133 - 146 mmol/L [facility] POTASSIUM 4.6 3.3 - 5.1 mmol/L [facility] CHLORIDE 103 96 - 108 mmol/L [facility] CO2 29 21 - 35 mmol/L [facility] ANION GAP 16 10 - 20 mmol/L [facility] Blood 05/27/2018 10:4 0 AM EDT 05/27/2018 10:43 AM EDT us Jim Haddad MD LAB BLOOD ORDERABLES Nunu l Result [facility] [address] [place] [address] documented in this encounter Visit Diagnoses Diagnosis Pre-operative laboratory examination- Primary Pre-procedural laboratory examination 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 It is not the complete legal health record.[facility]
--- OUTSIDE RECORDS SUMMARY | 2025-08-21 16:30 | XMS_ITS | Encounter Summary ---
Author Organization [facility] Address [address] [facility] [address] [place] [address] Phone Care Team Providers Care Bait Digger Name Role Phone Wyatt Jorgesnen MD Primary Care Provider [phone] Gianluca Morejon DO Primary Care Provider [phone] Encounter Details Date Type Department Care Team (Latest Contact Info) Description 05/17/2018 Transcribe Orders Virtual Department [address] [place] [address] Jim Haddad MD [address] [place] [id number] Pre-op examination (Primary Dx) Social History Tobacco Use Types Packs/Day Years [...] documented as of this encounter Results * ECG 12-LEAD (05/27/2018 11:12 AM EDT) Ventricular Rate EKG/MIN 62 BPM [facility] Atrial Rate 62 BPM [facility] AK Interval 158 ms [facility] QRS Duration 96 ms [facility] QT Interval 368 ms [facility] QTC Interval 373 ms [facility] P Wilson 49 degrees [facility] R Wave Wilson 5 degrees [facility] T Wave Wilson 33 degrees [facility] 05/27/2018 11:1 2 AM EDT 05/27/2018 3:12 PM EDT Narrative [facility] - 05/27/2018 3:12 PM EDT Normal sinus rhythm Normal ECG When compared with ECG of 17-DEC-2017 10:34, No significant change was found Confirmed by GIANLUCA LOGAN MD ([id number]) on 05/27/2018 3:12:17 PM us Jim Haddad MD ECG ORDERABLES Final Res ult [facility] documented in this encounter Visit Diagnoses Diagnosis Pre-op examination- Primary Pre-op examination documented in this encounter Care Teams Bait Digger Relationship Specialty Start Date End Date Wyatt Jorgensen MD [address] [place] [address] [email or web address] PCP - General 08/26/17 10/04/18 Gianluca Morejon DO [address] [place] [address] [email or web address] PCP - General Internal Medicine 10/05/18 documented as of this encounter Additional Source Comments The information contained in this document represents components of the legal health record. It is not the complete legal health record.[facility]
--- OUTSIDE RECORDS SUMMARY | 2025-08-21 16:31 | XMS_ITS | Encounter Summary ---
Author Organization [facility] Address [address] [facility] [address] [place] [address] Phone Care Team Providers Care Systems Integration Manager Name Role Phone Wyatt Jorgensen MD Primary Care Provider [phone] Ian Morejon DO Primary Care Provider [phone] Encounter Details Date Type Department Care Team (Late st Contact Info) Description 07/02/2018 Procedure Pass [facility], Ct Scan - [address] [address] Social History Tobacco Use Types Packs/Day Years [...] on file documented as of this encounter Visit Diagnoses Not on filedocumented in this encounter Care Teams Systems Integration Manager Relationship Specialty Start Date End Date Wyatt Jorgensen MD [address] [place] [address] [email or web address] PCP - General 08/26/17 10/04/18 Ian Morejon DO [address] [place] [address] [email or web address] PCP - General Internal Medicine 10/05/18 documented as of this encounter Additional Source Comments The information contained in this document represents components of the legal health record. It is not the complete legal health record.[facility]
--- OUTSIDE RECORDS SUMMARY | 2025-08-21 16:31 | XMS_ITS | Encounter Summary ---
Author Organization [facility] Address [address] [facility] [address] [place] [address] Phone Care Team Providers Care Patient Care Director Name Role Phone Wyatt Jorgensen MD Primary Care Provider [phone] Ian Morejon DO Primary Care Provider [phone] Encounter Details Date Type Department Care Team (Late st Contact Info) Description 07/29/2018 Transcribe Orders [facility] Specimen Processing [address] [place] [address] Arcenio Allen MD [address] [facility] [address], [address] [place] [address] S/P CABG x 3 (Primary Dx) Social History Tobacco Use Types [...] documented as of this encounter Results * (ABNORMAL) CBC and differential (07/29/2018 11:10 AM EDT) WBC 8.69 3.40 - 11.20 K/uL [facility] RBC 3.96(L) 4.50 - 5.50 M/uL [facility] HGB 9.7(L) 13.0 - 17.0 g/dL [facility] HCT 31.6(L) 40.0 - 51.0 % [facility] PLT 288 130 - 400 K/uL [facility] MCV 79.8 79.0 - 98.0 fL [facility] MCH 24.5(L) 27.0 - 34.8 pg [facility] MCHC 30.7(L) 31.5 - 36.0 g/dL [facility] RDW 18.4(H) 10.8 - 14.6 % [facility] MPV 10.8 9.4 - 12.4 fl [facility] NRBC 0.00 /100 WBCs [facility] ABSOLUTE NRBC 0.00 K/uL [facility] DIFF METHOD Auto [facility] NEUTS 85.7(H) 45.30 - 77.70 % [facility] LYMPHS 7.9(L) 12.30 - 39.70 % [facility] MONOS 4.9 4.10 - 12.80 % [facility] EOS 1.0 0 - 7.2 % [facility] BASOS 0.2 0 - 2.80 % [facility] Granulocytes, immature (%) 0.3 0.0 - 0.9 % [facility] ABSOLUTE NEUTS 7.43 1.40 - 7.70 K/uL [facility] ABSOLUTE LYMPHS 0.69 0.60 - 3.20 K/uL [facility] ABSOLUTE MONOS 0.43 0.11 - 0.59 K/uL [facility] ABSOLUTE EOS 0.09 0.01 - 0.50 K/uL [facility] ABSOLUTE BASOS 0.02 0.00 - 0.08 K/uL [facility] Granulocytes, immature 0.03 0.00 - 0.05 K/uL [facility] Blood 07/29/2018 11:1 0 AM EDT 07/29/2018 11:55 AM EDT us Arcenio Allen MD LAB BLOOD ORDERABLES Final Resul t [facility] [address] [place] [address] documented in this encounter Visit Diagnoses Diagnosis S/P CABG x 3- Primary Postsurgical aortocoronary bypass status documented in this encounter Care Teams Patient Care Director Relationship Specialty Start Date End Date Wyatt Jorgensen MD [address] [place] [address] [email or web address] PCP - General 08/26/17 10/04/18 Ian Morejon DO [address] [place] [address] [email or web address] PCP - General Internal Medicine 10/05/18 documented as of this encounter Additional Source Comments The information contained in this document represents components of the legal health record. It is not the complete legal health record.[facility]
--- OUTSIDE RECORDS SUMMARY | 2025-08-21 16:31 | XMS_ITS | Encounter Summary ---
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 Procedures MRI Cervical Spine Ian Morejon DO Phone: tel: fax: [email or web address] Referral ID Status Reason Start Date Expiration Date Visits Re quested Visits Authorized [id number] Closed 05/27/2023 1 1 Encounter Details Date Type Department Care Team (Late st Contact Info) Description 05/27/2023 Transcribe Orders Virtual Department [address] [place] [address] Ian Morejon DO [address] [facility] [place] [address] [place] [address] [email or web address] 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 Not on henrietta e 03/04/2023 Are you concerned about learning? Not on file 03/04/2023 No 03/04/2023 No 03/04/2023 Digital Access Answer Date Recorded No 04/05/2023 No 04/05/2023 Reliable internet access at home? Not on file 04/05/2023 Device with a working camera? Not on file Sex and Gender Information Value Date Recorded Sex Assigned at Male 12/17/2017 9:49 AM EST Legal Sex Male 10:05 PM EDT Gender Identity Male 12/17/2017 9:49 AM EST Sexual Orientation Straight 12/17/2017 9: 49 AM EST documented as of this encounter Plan of Treatment Not on file documented as of this encounter Results * MRI CERVICAL SPINE (BONE) WITHOUT CONTRAST (06/18/2023 7:09 AM EDT) Anatomical Region Laterality Modality C-spine Magnetic Resonan ce 06/19/2023 7:59 PM EDT Impressions 06/20/2023 2:43 PM EDT 1. Severe degenerative changes at the atlantoaxial joint appears essentially stable compared with 07/28/2021. Stable widening of the pre-dens space likely related to degenerative changes. 2. Moderate size right-sided disc protrusion at C3-C4 and mass effect on the spinal cord appears essentially stable. 3. Stable moderate central canal stenosis and moderate-severe bilateral neuroforaminal narrowing at C4-C5. 4. Stable degenerative disc and endplate changes, most prominent at C3-C4, C4-C5 and T1-T2. 5. No other significant changes. Narrative 06/20/2023 2:43 PM EDT MRI CERVICAL SPINE (BONE) WITHOUT CONTRAST Persistent, worsening cervical pain with right arm weakness. TECHNIQUE: MRI CERVICAL SPINE (BONE) WITHOUT CONTRAST Multi-sequence, multi-planar MRI of the cervical spine was performed without intravenous contrast. COMPARISON: Cervical spine x-ray 05/29/2022, CT cervical spine 08/12/2021, MRI cervical spine 07/28/2021 FINDINGS: CERVICAL SPINE: Alignment and Vertebrae: Pre-dens space measures approximately 6 mm, stable from 08/05/2021. Similar pannus formation at the atlantoaxial joint the dens extends approximately 11 mm superior to the upper margin of the C1 vertebral body and is stable. Stable mild retrolisthesis of C4 on C5. No new subluxations. No evidence of fractures. Marrow: No suspicious marrow signal abnormalities. Discs and Endplates: Moderate degenerative disc and endplate changes at C3-C4, C4-C5 and T1-T2 appear essentially stable. Spinal Cord: No evidence of spinal cord lesions. Soft Tissue: No prevertebral edema or evidence of paravertebral masses. Findings by level: C2-C3: Stable tiny central disc bulge. No central canal stenosis. Similar severe facet arthropathy on the left and mild-moderate neuroforaminal narrowing. Right neuroforamen widely patent. C3-C4: Moderate size right-sided disc protrusion is very similar. This again contacts and effaces the spinal cord. Degree of mass-effect on the spinal cord appears essentially unchanged. Mild-moderate narrowing of the right neuroforamen unchanged. Minimal narrowing of the left neuroforamen. C4-C5: Stable broad-based disc-osteophyte complex. Moderate central canal stenosis is stable. Moderate-severe bilateral neuroforaminal narrowing is stable. Stable bilateral moderate facet arthropathy. C5-C6: Small central disc protrusion superimposed on broad-based disc bulge is stable. No central canal stenosis. Stable mild neuroforaminal narrowing. Stable moderate facet arthropathy. C6-C7: Small broad-based disc bulge is stable. No central canal stenosis. Minimal neuroforaminal narrowing. C7-T1: Minimal broad-based bulging of the disc. No central canal stenosis. No significant neuroforaminal narrowing. Procedure Note Víctor Johnson MD - 06/20/2023 MRI CERVICAL SPINE (BONE) WITHOUT CONTRAST Persistent, worsening cervical pain with right arm weakness. TECHNIQUE: MRI CERVICAL SPINE (BONE) WITHOUT CONTRAST Multi-sequence, multi-planar MRI of the cervical spine was performedwithout intravenous contrast. COMPARISON: Cervical spine x-ray 05/29/2022, CT cervical spine 08/12/2021,MRI cervical spine 07/28/2021 FINDINGS: CERVICAL SPINE: Alignment and Vertebrae: Pre-dens space measures approximately 6 mm,stable from 08/05/2021. Similar pannus formation at the atlantoaxial jointthe dens extends approximately 11 mm superior to the upper margin of theC1 vertebral body and is stable. Stable mild retrolisthesis of C4 on C5.No new subluxations. No evidence of fractures. Marrow: No suspicious marrow signal abnormalities. Discs and Endplates: Moderate degenerative disc and endplate changes atC3-C4, C4-C5 and T1-T2 appear essentially stable. Spinal Cord: No evidence of spinal cord lesions. Soft Tissue: No prevertebral edema or evidence of paravertebral masses. Findings by level: C2-C3: Stable tiny central disc bulge. No central canal stenosis. Similarsevere facet arthropathy on the left and mild-moderate neuroforaminalnarrowing. Right neuroforamen widely patent. C3-C4: Moderate size right-sided disc protrusion is very similar. Thisagain contacts and effaces the spinal cord. Degree of mass-effect on thespinal cord appears essentially unchanged. Mild-moderate narrowing of theright neuroforamen unchanged. Minimal narrowing of the leftneuroforamen. C4-C5: Stable broad-based disc-osteophyte complex. Moderate central canalstenosis is stable. Moderate-severe bilateral neuroforaminal narrowing isstable. Stable bilateral moderate facet arthropathy. C5-C6: Small central disc protrusion superimposed on broad-based discbulge is stable. No central canal stenosis. Stable mild neuroforaminalnarrowing. Stable moderate facet arthropathy. C6-C7: Small broad-based disc bulge is stable. No central canal stenosis.Minimal neuroforaminal narrowing. C7-T1: Minimal broad-based bulging of the disc. No central canal stenosis.No significant neuroforaminal narrowing. IMPRESSION: 1. Severe degenerative changes at the atlantoaxial joint appearsessentially stable compared with 07/28/2021. Stable widening of thepre-dens space likely related to degenerative changes. 2. Moderate size right-sided disc protrusion at C3-C4 and mass effect onthe spinal cord appears essentially stable. 3. Stable moderate central canal stenosis and moderate-severe bilateralneuroforaminal narrowing at C4-C5. 4. Stable degenerative disc and endplate changes, most prominent atC3-C4, C4-C5 and T1-T2. 5. No other significant changes. 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 It is not the complete legal health record.[facility]
--- OUTSIDE RECORDS SUMMARY | 2025-08-21 16:31 | XMS_ITS | Encounter Summary ---
Author Organization [facility] Address [address] [place] [address] Phone Care Team Providers Care Horseback Excavator Name Role Phone Ian Morejon Primary Care Provider [phone] Encounter Details Date Type Department Care Team (Latest Contact Info) Description 10/27/2018 Transcribe Orders Non-Invasive Cardiology [address] [place] [address] Melchor Ji MD [address] [place] [address] [email or web address] NSTEMI (non-ST elevated myocardial infarction) (Primary Dx) Social History Tobacco Use Types [...] of this encounter Results * ECG 12-LEAD (10/27/2018 3:18 PM EST) Ventricular Rate EKG/MIN 97 BPM [facility] Atrial Rate 97 BPM [facility] MS Interval 150 ms [facility] QRS Duration 80 ms [facility] QT Interval 348 ms [facility] QTC Interval 441 ms [facility] P [place] 58 degrees [facility] R Wave [place] -5 degrees [facility] T Wave [place] 63 degrees [facility] 10/27/2018 3:18 PM EST 10/28/2018 11:05 AM EST Narrative [facility] - 10/28/2018 11:05 AM EST Normal sinus rhythm Inferior infarct , age undetermined Abnormal ECG When compared with ECG of 02-JUL-2018 11:30, Non-specific change in ST segment in Anterolateral leads T wave inversion no longer evident in Anterolateral leads Confirmed by DORA HOU MD ([id number]) on 10/28/2018 11:05:23 AM us Melchor Ji MD ECG ORDERABLES Final Res ult [facility] documented in this encounter Visit Diagnoses Diagnosis NSTEMI (non-ST elevated myocardial infarction)- Primary Acute myocardial infarction, subendocardial infarction, episode of care unspecified NSTEMI (non-ST elevated myocardial infarction) Acute myocardial infarction, subendocardial infarction, episode of care unspecified documented in this encounter Care Teams Horseback Excavator Relationship Specialty Start Date End Date Ian Morejon DO [email or web address] PCP - General Internal Medicine 10/05/18 documented as of this encounter Additional Source Comments The information contained in this document represents components of the legal health record. It is not the complete legal health record.[facility]
--- OUTSIDE RECORDS SUMMARY | 2025-08-21 16:31 | XMS_ITS | Encounter Summary ---
Author Organization [facility] Address [address] [place] [address] Phone Care Team Providers Care School Library Media Program Director Name Role Phone Wyatt Jorgensen MD Primary Care Provider [phone] Ian Morejon DO Primary Care Provider [phone] Encounter Details Date Type Department Care Team (Late st Contact Info) Description 07/26/2018 Transcribe Orders [facility] Specimen Processing [address] [place] [address] Arcenio Allen MD [address] [facility], [address] [place] [address] [email or web address] 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, unspecified vessel or lesion type, unspecified whether sleetm[place] or transplanted heart (Primary Dx); Hypertension, unspecified type; Diabetes mellitus of other type with complication, unspecified whether terminal make up operator insulin use Social History Tobacco Use Types Packs/Day Years [...] of this encounter Results * (ABNORMAL) CBC (07/26/2018 6:05 AM EDT) WBC 4.44 3.40 - 11.20 K/uL [facility] RBC 3.97(L) 4.50 - 5.50 M/uL [facility] HGB 9.6(L) 13.0 - 17.0 g/dL [facility] HCT 31.5(L) 40.0 - 51.0 % [facility] PLT 247 130 - 400 K/uL [facility] MCV 79.3 79.0 - 98.0 fL [facility] Comment:Checked by repeat an alysis. MCH 24.2(L) 27.0 - 34.8 pg [facility] MCHC 30.5(L) 31.5 - 36.0 g/dL [facility] RDW 19.0(H) 10.8 - 14.6 % [facility] MPV 11.3 9.4 - 12.4 fl [facility] NRBC 0.00 /100 WBCs [facility] ABSOLUTE NRBC 0.00 K/uL [facility] Blood 07/26/2018 6:05 AM EDT 07/26/2018 11:28 AM EDT us Arcenio Allen MD LAB BLOOD ORDERABLES Final Resul t [facility] [address] [place], [place] [id number] * (ABNORMAL) Comprehensive metabolic panel (07/26/2018 6:05 AM EDT) SODIUM 141 133 - 146 mmol/L [facility] POTASSIUM 4.2 3.3 - 5.1 mmol/L [facility] CHLORIDE 100 96 - 108 mmol/L [facility] CO2 23 21 - 35 mmol/L [facility] BUN 18 6 - 19 mg/dL [facility] CREATININE 0.90 0.5 - 1.5 mg/dL [facility] GLUCOSE 113(H) 70 - 99 mg/dL [facility] ALBUMIN 3.2(L) 3.9 - 4.8 g/dL [facility] TOTAL PROTEIN 5.9(L) 6.5 - 8.0 g/dL [facility] CALCIUM 8.7 8.4 - 10.3 mg/dL [facility] ALKALINE PHOSPHATASE 73 39 - 117 U/L [facility] TOTAL BILIRUBIN 0.4 0.0 - 1.2 mg/dL [facility] AST 16 0 - 37 U/L [facility] ALT 19 0 - 40 U/L [facility] GLOBULIN 2.7 1 - 4.8 g/dL [facility] EGFR 86 >59 mL/min/1.7 3m2 [facility] Comment:If patient is black, multiply result by 1.159. Estimated glomerular filtration rate calculated using the CKD-EPI equation. 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, unspecified vessel or lesion type, unspecified whether sleetm[place] or transplanted heart- Primary Hypertension, unspecified type Diabetes mellitus of other type with complication, unspecified whether terminal make up operator insulin use documented in this encounter Care Teams School Library Media Program Director Relationship Specialty Start Date End Date Wyatt Jorgensen MD [address] [place] [address] [email or web address] PCP - General 08/26/17 10/04/18 Ian Morejon DO [address] [place] [address] [email or web address] PCP - General Internal Medicine 10/05/18 documented as of this encounter Additional Source Comments The information contained in this document represents components of the legal health record. It is not the complete legal health record.[facility]
--- OUTSIDE RECORDS SUMMARY | 2025-08-21 16:31 | XMS_ITS | Encounter Summary ---
Author Organization [facility] Address [address] [place] [id number] Phone Care Team Providers Care Bobbin Inspector Name Role Phone Ian Morejon Primary Care Provider [phone] Encounter Details Date Type Department Care Team (Late st Contact Info) Description 05/27/2023 Procedure Pass [facility], [address] [address] Social History Tobacco Use Types Packs/Day Years [...] on filedocumented in this encounter Care Teams Bobbin Inspector Relationship Specialty Start Date End Date Ian Morejon DO [email or web address] PCP - General Internal Medicine 10/05/18 documented as of this encounter Additional Source Comments The information contained in this document represents components of the legal health record. It is not the complete legal health record.[facility]
--- OUTSIDE RECORDS SUMMARY | 2025-08-21 16:31 | XMS_ITS ---
Author Organization [facility] on Care Team Providers Care Commercial Relationship Manager Name Role Phone Ligia Plummer Unavailable Unavailable Sandra Boyd Unavailable Unavailable Otsi Stern Unavailable Unavailable Arcenio Allen Unavailable Unavailable Nabeel Florence Unavailable Unavailable Kaleigh Romo Unavailable Unavailable Allergies and adverse reactions No Known Allergies Care Team Name Role Address Phone Organization Dates Arcenio Allen PCP [address] [place] [address], [place], [address], [place] (Office): : [facility] 05/16/2024 - 06/02/2024 Ligia Plummer [address] [place] [address], [address], [place] (Office): : : [facility] 05/16/2024 - 06/02/2024 Sandra Boyd [address] [place] [address], [address], [place] (Office): [facility] 05/16/2024 - 06/02/2024 Otis Riveraey [address] [facility], [place], [address], [place] (Office): [facility] [place] 05/16/2024 - 06/02/2024 Florence Nabeel [address] [place] [address], [address], [facility] (Office): : [facility] [place] 05/16/2024 - 06/02/2024 Kaleigh Romo [address] [facility] [address], [place], [address], [place] (Office): : [facility] 05/16/2024 - 06/02/2024 Immunizations Immunization Status Vaccine Details Vaccine Code CodeSystem Date Notes Pneumococcal Conjugate Vaccine (PCV13) completed pneumococcal conjugate vaccine, 13 valent 133 CVX created date: 4 administe red date: 0 Verified in MIIS. Pneumococcal Conjugate Vaccine (PCV13) completed pneumococcal conjugate vaccine, 13 valent 133 CVX created date: 4 administe red date: 5 Verified in MIIS. Pneumococcal Polysaccharide Vaccine (PPSV23) completed pneumococcal polysaccharide vaccine, 23 valent 33 CVX created date: 4 administe red date: 6 Verified in MIIS. Pneumococcal Polysaccharide Vaccine (PPSV23) completed pneumococcal polysaccharide vaccine, 23 valent 33 CVX created date: 4 administe red date: 9 Verified in MIIS. SARS-COV-2 (COVID-19) completed SARS-COV-2 (COVID-19) vaccine, mRNA, spike protein, LNP, preservative free, 30 mcg/0.3mL dose Mfg: pfizer Step 2 of Multi-step with next step required 208 CVX created date: 4 administe red date: 1 Verified in MIIS. SARS-COV-2 (COVID-19) completed SARS-COV-2 (COVID-19) vaccine, mRNA, spike protein, LNP, preservative free, 30 mcg/0.3mL dose Mfg: pfizer Step 1 of Multi-step with next step required 208 CVX created date: 4 administe red date: 1 Verified in MIIS. Prevnar 20 Pneumococcal conjugate (PCV20) cancelled Pneumococcal conjugate vaccine 20-valent (PCV20), polysaccharide [id number] conjugate, adjuvant, preservative free 216 CVX created date: 4 consent date: 4 SARS-COV-2 (COVID-19 BOOSTER) completed SARS-COV-2 (COVID-19) vaccine, mRNA, spike protein, LNP, bivalent, preservative free, 30 mcg/0.3 mL dose, janay-sucrose formulation Mfg: Pfizer Bilvalent Booster 300 CVX created date: 4 administe red date: 2 Verified in MIIS. SARS-COV-2 (COVID-19 BOOSTER) completed SARS-COV-2 (COVID-19) vaccine, mRNA, spike protein, LNP, preservative free, 30 mcg/0.3mL dose Mfg: Pfizer Booster # 2 208 CVX created date: 4 administe red date: 2 Verified in MIIS. SARS-COV-2 (COVID-19 BOOSTER) completed SARS-COV-2 (COVID-19) vaccine, mRNA, spike protein, LNP, preservative free, 30 mcg/0.3mL dose Mfg: Pfizer Booster # 1 208 CVX created date: 4 administe red date: 1 Verified in MIIS. RSV, recombinant, protein subunit RSVpreF, adjuvant rec cancelled Respiratory syncytial virus (RSV), vaccine, recombinant, protein subunit RSV prefusion F, adjuvant reconstituted, 0.5 mL, preservative free 303 CVX created date: 4 consent date: 4 Previously Received influenza, unspecified formulation completed influenza virus vaccine, unspecified formulation 88 CVX created date: 4 administe red date: 3 Verified in MIIS. influenza, high-dose, quadrivalent cancelled Influenza, high-dose, split virus, quadrivalent, injectable, preservative free 197 CVX created date: 4 consent date: 4 Previously Received COVID-19 vaccine, vector-nr, rS-Ad26, PF, 0.5 mL cancelled SARS-COV-2 (COVID-19) vaccine, mRNA, spike protein, LNP, preservative free, janay-sucrose, 30 mcg/0.3 mL dose 309 CVX created date: 4 consent date: 4 COVID-19 vaccine, vector-nr, rS-Ad26, PF, 0.5 mL completed SARS-COV-2 (COVID-19) vaccine, mRNA, spike protein, LNP, preservative free, janay-sucrose, 30 mcg/0.3 mL dose Mfg: [employer] 309 CVX created date: 4 administe red date: 3 Verified in MIIS. Td(adult) unspecified formulation completed Td(adult) unspecified formulation 139 CVX created date: 4 administe red date: 5 Verified in MIIS. Mental Status Section Date Assessment Total Score Description 06/02/2024 BIMS 15 cognitively int act CAM 0 No delirium ind icated PHQ-9 00 05/21/2024 BIMS 15 cognitively int act CAM 0 No delirium ind icated PHQ-9 02 minimal depress ion Insurance Providers Problems Problem # Description Date of onset Resolved Date Code CodeSystem Concern Status 1 ANEMIA, UNSPECIFIED 05/15/[address] active 2 ATHEROSCLEROTIC HEART DISEASE OF [place] CORONARY ARTERY WITHOUT ANGINA PECTORIS 05/15/[id number] active 3 ESSENTIAL (PRIMARY) HYPERTENSION 05/15/[address] active 4 GASTRO-ESOPHAGEAL REFLUX DISEASE WITHOUT ESOPHAGITIS 05/15/[address] active 5 HYPERLIPIDEMIA, UNSPECIFIED 05/15/[address] active 6 RHEUMATOID ARTHRITIS, UNSPECIFIED 05/15/[address] active 7 SPINAL STENOSIS, LUMBAR REGION WITHOUT NEUROGENIC CLAUDICATION 05/15/[address] active 8 TYPE 2 DIABETES MELLITUS WITHOUT COMPLICATIONS 05/15/[address] active 9 UNSPECIFIED MACULAR DEGENERATION 05/15/[address] active Reason for Referral No Reasons for Referral Entered Social History Social History Observation Description Start Date End Date Code Code System Current Smoking Status Tobacco smoking consumption unknown 576225691 SNOMED CT Sex Assigned At Male 1950 46812-1 [facility] Gender Identity Sexual Orientation Vital Signs Code Code System Vitals Name Values and Units Timing Information 9279-1 [facility] Respiratory Rate Value=17.0 Units=/m in 06/02/2024 8462-4 [facility] Blood Pressure-Diastolic Value=64 Un its=mmHg 06/02/2024 8480-6 [facility] Blood Pressure-Systolic Znyop=878 Un its=mmHg 06/02/2024 8310-5 [facility] Body Temperature Value=97.2 Units= F 06/02/2024 8867-4 [facility] Heart rate Value=80.0 Units=/min 74197-6 [facility] O2 % BldC Oximetry Xnsin=766.0 Units =% 06/02/2024 2339-0 [facility] Blood Sugar Czxdu=738.0 Units=mg/dL 06/02/2024 20146-8 [facility] Pain Level Value=0.0 06/02/2024 27647-2 [facility] Weight Cpyzq=356.0 Units=Lbs 8302-2 [facility] Height Value=66.0 Units=Inches 05/18/2024
--- OUTSIDE RECORDS SUMMARY | 2025-08-21 16:31 | XMS_ITS | Clinical Summary ---
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 Active garlic 1,000 mg Cap Take 1 capsule by mouth daily. Active atorvastatin (LIPITOR) 80 MG tablet Take 1 tablet (80 mg total) by mouth every evening. 8 Active multivitamin-min erals-lutein (CENTRUM SILVER) Tab Take 1 tablet by mouth daily. Active aspirin 81 MG EC tablet Take 81 mg by mouth daily. Active famotidine (PEPCID) 40 MG tablet Take 40 mg by mouth every other day. 1 9 Active ascorbic acid, vitamin C, (VITAMIN C) 500 MG tablet Take 500 mg by mouth daily. 3 tablets daily Active TRULICITY 0.75 mg/0.5 mL subcutaneous injection INJECT 0.5 ML EVERY WEEK BY SUBCUTANEOUS ROUTE FOR 30 DAYS. 1 Active metFORMIN (GLUCOPHAGE-XR) 500 MG 24 hr tablet Take 1,000 mg by mouth daily. 1 Active cholecalciferol, vitamin D3, 25 mcg (1,000 unit) capsule Take 1,000 Units by mouth daily. 90 capsule 3 Active predniSONE (DELTASONE) 2.5 MG tabletIndication s:Seropositive rheumatoid arthritis TAKE 1 TABLET BY MOUTH DAILY WITH BREAKFAST. 90 tablet 1 3 Active pregabalin (LYRICA) 100 MG capsule Take 1 capsule by mouth 2 (two) times a day. 150 mg oral capsule - take by mouth 2 times daily 3 Active clobetasol (TEMOVATE) 0.05 % cream APPLY THIN COAT TO AFFECTED AREA TWICE A DAY 3 Active traMADoL (ULTRAM) 50 mg tablet Take 50 mg by mouth every 6 (six) hours as needed. Active morphine (MSIR) 15 MG tablet [The details of the medication are not available because there are pending changes by a home health clinician.] 9 tablet 4 Active Additional Information Patient not taking.Reason: Other (PATIENT NOT TAKING), Informant: Self, Reported on 08/01/2024 tocilizumab (ACTEMRA) 162 mg/0.9 mL subcutaneous injection syringe Inject 162 mg under the skin every 14 (fourteen) days. 4 Active acetaminophen (TYLENOL) 325 mg capsule Take 975 mg by mouth every 6 (six) hours as needed for pain (specific location in comments) (R hip). take 2 tablets by nouth every day at bedtime for moderate pain. As needed medicine 4 Active docusate sodium (COLACE) 100 MG capsule Take 100 mg by mouth 2 (two) times a day. as needed for constipation 4 Active melatonin 3 mg Cap Take 3 mg by mouth as needed (sleep aid). take 1 tablet by mouth every day at bedtime for insomnia. As needed medicine 4 Active polyethylene glycol (MIRALAX) 17 gram packet Take 17 g by mouth daily. take 17 grams by mouth every day for constipation. As needed medicine 4 Active ICY HOT, MENTHOL, TP Apply 1 Application topically 4 (four) times a day as needed (pain relief). apply to low back pain areas 4 X day as needed 4 Active lidocaine 4 % Place 1 patch onto the skin daily. apply one patch to R hip PRN 4 Active Medication-Free Text Apply 1 Application topically 2 (two) times a day as needed (pain management). Apply the fix (marijuana salve) to Paulino KNees and R shoulder 2 X day PRN as needed for pain 4 Active fluorouraciL (EFUDEX) 5 % cream Apply 1 Application topically 2 (two) times a day. apply twice daily to forehead and top of scalp 4 Active carvedilol (COREG) 6.25 MG tablet Take 6.25 mg by mouth 2 (two) times a day with meals. 4 Active isosorbide mononitrate (IMDUR) 120 MG 24 hr tablet Take 120 mg by mouth nightly at bedtime. 4 Active LORazepam (ATIVAN) 0.5 MG tablet Take 0.5 mg by mouth 2 (two) times a day as needed for anxiety. 4 Active oxyCODONE 5 MG immediate release tablet Take 5 mg by mouth every 4 (four) hours as needed for pain (specific location in comments) (severe pain R hip). 1-2 tabs every 4 hours as needed for severe pain R hip 4 Active senna 8.6 mg tablet Take 1 tablet by mouth daily as needed for constipation. 4 Active Active Problems Problem Noted Date Diagnosed Date Rheumatoid arthritis involvi ng multiple sites with positive rheumatoid factor 11/08/2023 Assessment & Plan (11/08/2023 1:23 PM EST): Seropositive rheumatoid arthritis with high titer factors currently well- controlled on Orencia weekly and daily prednisone 2.5 mg. He has not been able to wean himself off prednisone in the past. He has chronic joint deformities in multiple areas. He also has issues with gait instability and uses a cane for support. He uses a fentanyl pain patch 50 mcg every 72 hours. He might benefit from a small increase in the fentanyl dose since he has likely developed a tolerance to 50 mcg. He will talk with the prescriber to see if he can have an increase in dose. He also takes Tylenol 650 mg as needed. Primary osteoarthritis involving multiple joints 11/08/2023 Assessment & Plan (11/08/2023 1:24 PM EST): Degenerative osteoarthritis in multiple areas with stiffness but no swelling. He should continue with Tylenol and see if the prescriber will increase his fentanyl patch dose. Osteopenia of left forearm 06/17/2023 Thrombocytosis 12/10/2022 Overview (12/10/2022): Normal platelets prior to 09/2021 Assessment & Plan (06/17/2023 12:53 PM EDT): Timing of onset of thrombocytosis correlates with abatacept start, question direct drug effect vs manifestation of less well-controlled systemic inflammation. No current clear indication to switch to alternative biologic agent; will monitor closely. Trigeminal herpes zoster 11/25/2020 Assessment & Plan (11/25/2020 3:21 PM EST): Patient had trigeminal neuralgia and I believe it was secondary to herpes zoster. I am increasing the gabapentin to 100 mg 3 times daily for the next 10 days and then he will follow up with me by phone call. He then may slowly taper over the next 6 weeks if it is doing the right job without side effects. Certainly dosage can be augmented as well if it is not efficacious but there were no side effects. Occipital neuralgia of right side 06/20/2020 Assessment & Plan (06/23/2021 11:52 AM EDT): Injection therapy today hopefully will help this. He will call me and let me know. He will start physical therapy. He will use ice packs. Assessment & Plan (01/06/2021 3:35 PM EST): Acute flare of chronic recurrent occipital neuropathy will be treated by local injection therapy into the occipital nerve today. This will be on the right side. In addition his gabapentin will be increased from 100 mg 3 times daily to 300 mg 3 times daily with a follow-up phone call in 5 days. Assessment & Plan (07/01/2020 8:53 AM EDT): Severe multilevel cervical spondylitic changes with upper right paracervical spasm and tenderness and occipital neuralgia which is chronic and recurrent on the right side and unresponsive to local injection therapy. I advised ice applications and a call back from Dr. Chaney to consider radiofrequency ablation here. RI scan of the cervical spine reviewed in detail with him. Assessment & Plan (06/23/2020 2:04 PM EDT): Patient is using topical CBD product called fix and intermittent salonpas patches but did not find them helpful enough therefore requested local steroid injection today. Continue icing or applying warm pack as needed. Gentle range of motion and stretching as tolerated. Call if worse or with questions. Aspirin long-term use 06/20/2020 Assessment & Plan (06/23/2020 1:52 PM EDT): Avoid falls, injuries and cuts. Monitor for excessive bruising and bleeding. Anticoagulated 06/20/2020 Assessment & Plan (06/23/2020 1:54 PM EDT): Continue Plavix as prescribed. Avoid falls, injuries and cuts. Monitor for excessive bruising and bleeding. Extra caution exercised after local injection today. Spinal enthesopathy of cervical region Assessment & Plan (06/24/2021 9:28 AM EDT): Acute painful right sided upper cervical flare will be treated by a injection today for pain relief into the tendon sheath of the right upper paracervical tendon. Assessment & Plan (10/01/2020 9:49 AM EST): He has responded to a higher course of steroids and is now tapering down by 5 mg a week currently on 30 mg a day. He is also doing physical therapy. He is having less pain and is sleeping better and has a bit greater range of motion. Assessment & Plan (06/23/2020 1:50 PM EDT): Procedure: After an informed oral consent, under sterile conditions using Ethyl chloride spray for local anesthesia I have injected 20 mg DepoMedrol and 2 cc 1% Lidocaine into Right upper cervical enthesis uneventfully. Details of post-procedure care were explained to the patient in the office and given in writing. Cervical spine x-ray and MRI showed moderate synovitis within C1-2 and C3-4 on the right side without spondylolisthesis or fractures.-See details in imaging section of epic. Assessment & Plan (04/30/2020 8:29 AM EDT): Acute flare of right upper paracervical enthesopathy will be treated with local injection therapy today. MRI and x-ray of cervical spine reviewed. Moderate synovitis apparent in C1-2 and C3-4 on the right side. No spondylolisthesis. No fractures. Assessment & Plan (11/29/2019 9:55 AM EST): Severe cervical enthesopathy on top of multilevel severe advanced cervical spondylitic changes. He is under Dr. Chaney's care. He will continue to work with him. We will see how the Botox injection goes. There is no long track signs or signs of cervical radiculopathy. Assessment & Plan (04/27/2019 12:41 PM EDT): Flareup of right-sided cervical enthesopathy today will be treated with local injection followed by relative rest. Assessment & Plan (03/08/2019 10:43 AM EDT): Flaring cervical spinal enthesopathy in the setting of multilevel cervical spondylosis without long track signs or signs of radiculopathy. Injected area today of most tenderness over the right cervical ligament. Use relative rest and good support for the neck at night. If no improvement referred to PT. History of total knee arthroplasty, right 2018 Osteopenia of multiple sites 11/21/2018 Overview (06/17/2023): DEXA 05/2021 heidi T-score -1.9 left forearm Assessment & Plan (06/17/2023 1:00 PM EDT): Alendronate reportedly stopped by PCP some time after 11/2022 for drug holiday after at least 5 years on this medication. Updated DEXA ordered. Increased fall risk given chronic prednisone requirement, severe bl knee OA, and h/o multiple toe amputations bl. May require denosumab pending DEXA findings. Assessment & Plan (06/23/2021 11:51 AM EDT): High risk for fall and fracture given long-term prednisone use and low bone mass. He will continue on alendronate and vitamin D. New bone densitometry will be ordered and previous bone densitometry reviewed. Fall and fracture prevention strategies discussed. Results for orders placed or performed during the hospital encounter of 05/30/21 (from the past 99413 hour(s)) DXA Monitoring Narrative Reason for exam (per EHR order): Osteoporosis Additional clinical information obtained from the EHR: None. TECHNIQUE: Bone densitometry on Holo[employer] Vision A ([id number]). The least significant change for this machine is 0.039 g/cm2 for the lumbar spine, 0.034 g/cm2 for the total hip, and 0.030 g/cm2 for the radius. FINDINGS: Bone Density: Region: Left forearm. BMD (g/cm2): 0.576. T-score: -1.9. Z-score: -0.6. Classification: Osteopenia. Region: Right Femoral Neck. BMD (g/cm2): 0.99. T-score: -0.6. Z-score: 0.1. Classification: Normal. Region: Left Femoral Neck. BMD (g/cm2): 0.844. T-score: -1.3. Z-score: -0.5. Classification: Osteopenia. World Health Organization criteria for BMD interpretation classify patients as: Normal (T-score at or above -1.0), Osteopenia (T-score between -1.0 and -2.5), Osteoporosis (T-score at or below -2.5). Impression There is osteopenia of the left forearm and left femoral neck. The bone mineral density of the right femoral neck is normal. When comparing with 05/17/2019, A significant decrease in the left forearm density. A significant increase in the right femoral neck density. A significant increase in the left femoral neck density. Assessment & Plan (03/03/2021 11:51 AM EDT): Bone densitometry reviewed. Fall and fracture prevention strategies discussed. Risks and benefits of continued use of alendronate 70 mg weekly was discussed. He is tolerating this well without signs or symptoms of esophageal irritation. Continue vitamin D at current level as he has a therapeutic 25 hydroxy vitamin D level we will be checking that again today. Another bone density study to be done at the end of May of this year. Results for orders placed or performed during the hospital encounter of 05/17/19 (from the past 20593 hour(s)) DXA Monitoring Narrative COMPARISON: None. BONE DENSITY FINDINGS: History: This is a 68-year-old male with osteoporosis and history of long-term corticosteroid use. Evaluation of the left forearm and hips was performed and felt to be technically adequate. Lumbar spine was not imaged due to spinal fusion hardware Total bone mineral density in the left forearm was calculated at 0.601 gm/cm2 with a T-score of -1.4 falling within the WHO classification of osteopenia. Z-score of -0.3.Fracture risk increased. Total bone mineral density in the right hip was calculated at 0.864 gm/cm2 with a T-score of -1.1 falling within the WHO classification of osteopenia. Z-score of -0.4. Fracture risk increased. Total bone mineral density in the left hip was calculated at 0.833 gm/cm2 with a T-score of -1.3 falling within the WHO classification of osteopenia. Z-score of -0.6. Fracture risk increased. Impression Osteopenia of the left forearm and both hips. POS - [email or web address] Assessment & Plan (01/06/2021 3:36 PM EST): Previous bone densitometry was reviewed. He will remain on alendronate 70 mg weekly along with vitamin D3 1000 units daily to maintain a therapeutic 25 hydroxy vitamin D level. Fall and fracture prevention strategies were discussed. Results for orders placed or performed during the hospital encounter of 05/17/19 (from the past 54894 hour(s)) DXA Monitoring Narrative COMPARISON: None. BONE DENSITY FINDINGS: History: This is a 68-year-old male with osteoporosis and history of long-term corticosteroid use. Evaluation of the left forearm and hips was performed and felt to be technically adequate. Lumbar spine was not imaged due to spinal fusion hardware Total bone mineral density in the left forearm was calculated at 0.601 gm/cm2 with a T-score of -1.4 falling within the WHO classification of osteopenia. Z-score of -0.3.Fracture risk increased. Total bone mineral density in the right hip was calculated at 0.864 gm/cm2 with a T-score of -1.1 falling within the WHO classification of osteopenia. Z-score of -0.4. Fracture risk increased. Total bone mineral density in the left hip was calculated at 0.833 gm/cm2 with a T-score of -1.3 falling within the WHO classification of osteopenia. Z-score of -0.6. Fracture risk increased. Impression Osteopenia of the left forearm and both hips. POS - [email or web address] Assessment & Plan (11/25/2020 3:21 PM EST): Low bone mass, use of steroids and history of vertebral crush fracture is reason for him to continue on alendronate which he is tolerating well. The bone densitometry was done in May 2019 and will be repeated again in May 2021. He will continue on daily vitamin D supplements and we will make sure that his 25-hydroxy vitamin D level is in the therapeutic range. Results for orders placed or performed during the hospital encounter of 05/17/19 (from the past 93971 hour(s)) DXA Monitoring Narrative COMPARISON: None. BONE DENSITY FINDINGS: History: This is a 68-year-old male with osteoporosis and history of long-term corticosteroid use. Evaluation of the left forearm and hips was performed and felt to be technically adequate. Lumbar spine was not imaged due to spinal fusion hardware Total bone mineral density in the left forearm was calculated at 0.601 gm/cm2 with a T-score of -1.4 falling within the WHO classification of osteopenia. Z-score of -0.3.Fracture risk increased. Total bone mineral density in the right hip was calculated at 0.864 gm/cm2 with a T-score of -1.1 falling within the WHO classification of osteopenia. Z-score of -0.4. Fracture risk increased. Total bone mineral density in the left hip was calculated at 0.833 gm/cm2 with a T-score of -1.3 falling within the WHO classification of osteopenia. Z-score of -0.6. Fracture risk increased. Impression Osteopenia of the left forearm and both hips. POS - [email or web address] Assessment & Plan (10/01/2020 9:48 AM EST): Reviewed bone densitometry from May 2019 and plan to repeat it in June of this coming year. He will take his vitamin D 5 out of 7 days a week as his last 25- hydroxy vitamin D level was supratherapeutic. He will stay on 70 mg of alendronate weekly. 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 Results for orders placed or performed during the hospital encounter of 05/17/19 (from the past 90711 hour(s)) DXA Monitoring Narrative COMPARISON: None. BONE DENSITY FINDINGS: History: This is a 68-year-old male with osteoporosis and history of long-term corticosteroid use. Evaluation of the left forearm and hips was performed and felt to be technically adequate. Lumbar spine was not imaged due to spinal fusion hardware Total bone mineral density in the left forearm was calculated at 0.601 gm/cm2 with a T-score of -1.4 falling within the WHO classification of osteopenia. Z-score of -0.3.Fracture risk increased. Total bone mineral density in the right hip was calculated at 0.864 gm/cm2 with a T-score of -1.1 falling within the WHO classification of osteopenia. Z-score of -0.4. Fracture risk increased. Total bone mineral density in the left hip was calculated at 0.833 gm/cm2 with a T-score of -1.3 falling within the WHO classification of osteopenia. Z-score of -0.6. Fracture risk increased. Impression Osteopenia of the left forearm and both hips. POS - [email or web address] Assessment & Plan (07/01/2020 8:54 AM EDT): Previous bone densitometry reviewed. Fall and fracture prevention strategies discussed. Try to keep vitamin D at a therapeutic level and measure his 25- hydroxy vitamin D level and keep prednisone as low as possible. Continue on alendronate 70 mg weekly. Other bone density in 2020. No visits with results within 3 Month(s) from this visit. Latest known visit with results is: Hospital Outpatient Visit on 10/20/2019 Component Date Value Ref Range Status HBV SURFACE ANTIBODY 10/20/2019 Negative Final Comment: Unvaccinated: Negative Vaccinated: Positive HEMOGLOBIN A1C 10/20/2019 6.2* 4.3 - 5.8 % Final Assessment & Plan (04/30/2020 8:28 AM EDT): Reviewed bone densitometry from May 2019. Plan on repeat bone densitometry next year. Check 25 hydroxy vitamin D level. Fall and fracture prevention strategies discussed. Continue 70 mg of alendronate weekly. Assessment & Plan (11/29/2019 9:54 AM EST): Reviewed last bone densitometry. Continue vitamin D3. Continue calcium. Continue alendronate 70 mg weekly. Obtain bone densitometry later this year. Results for orders placed or performed during the hospital encounter of 05/17/19 (from the past 24041 hour(s)) DXA Monitoring Narrative COMPARISON: None. BONE DENSITY FINDINGS: History: This is a 68-year-old male with osteoporosis and history of long-term corticosteroid use. Evaluation of the left forearm and hips was performed and felt to be technically adequate. Lumbar spine was not imaged due to spinal fusion hardware Total bone mineral density in the left forearm was calculated at 0.601 gm/cm2 with a T-score of -1.4 falling within the WHO classification of osteopenia. Z-score of -0.3.Fracture risk increased. Total bone mineral density in the right hip was calculated at 0.864 gm/cm2 with a T-score of -1.1 falling within the WHO classification of osteopenia. Z-score of -0.4. Fracture risk increased. Total bone mineral density in the left hip was calculated at 0.833 gm/cm2 with a T-score of -1.3 falling within the WHO classification of osteopenia. Z-score of -0.6. Fracture risk increased. Impression Osteopenia of the left forearm and both hips. POS - [email or web address] Assessment & Plan (08/29/2019 10:07 AM EDT): Reviewed last bone densitometry. Continue vitamin D3 1000 units daily to maintain a therapeutic 25 hydroxy vitamin D level and we discussed further fall and fracture prevention strategies and I reviewed the bone densitometry which will be repeated again next year as long as he is on prednisone. He will remain on 70 mg of alendronate weekly. He is tolerating this well. Results for orders placed or performed during the hospital encounter of 05/17/19 (from the past 80795 hour(s)) DXA Monitoring Narrative COMPARISON: None. BONE DENSITY FINDINGS: History: This is a 68-year-old male with osteoporosis and history of long-term corticosteroid use. Evaluation of the left forearm and hips was performed and felt to be technically adequate. Lumbar spine was not imaged due to spinal fusion hardware Total bone mineral density in the left forearm was calculated at 0.601 gm/cm2 with a T-score of -1.4 falling within the WHO classification of osteopenia. Z-score of -0.3.Fracture risk increased. Total bone mineral density in the right hip was calculated at 0.864 gm/cm2 with a T-score of -1.1 falling within the WHO classification of osteopenia. Z-score of -0.4. Fracture risk increased. Total bone mineral density in the left hip was calculated at 0.833 gm/cm2 with a T-score of -1.3 falling within the WHO classification of osteopenia. Z-score of -0.6. Fracture risk increased. Impression Osteopenia of the left forearm and both hips. POS - [email or web address] Assessment & Plan (06/27/2019 10:25 AM EDT): Worsening osteopenia and patient at high risk for recurrent fracture on chronic steroids and aggressive inflammatory rheumatoid arthritis of a polyarticular and axial nature. After full discussion of risks and benefits he will start on 70 mg of alendronate weekly. He understands the risk for gastroesophageal inflammation and even esophagitis. I talked to him about the correct way to take the medication. He will call me if he has any worsening GERD and I will strongly recommend a parenteral form of treatment for treatment of his osteoporosis. Results for orders placed or performed during the hospital encounter of 05/17/19 (from the past 80112 hour(s)) DXA Monitoring Narrative COMPARISON: None. BONE DENSITY FINDINGS: History: This is a 68-year-old male with osteoporosis and history of long-term corticosteroid use. Evaluation of the left forearm and hips was performed and felt to be technically adequate. Lumbar spine was not imaged due to spinal fusion hardware Total bone mineral density in the left forearm was calculated at 0.601 gm/cm2 with a T-score of -1.4 falling within the WHO classification of osteopenia. Z-score of -0.3.Fracture risk increased. Total bone mineral density in the right hip was calculated at 0.864 gm/cm2 with a T-score of -1.1 falling within the WHO classification of osteopenia. Z-score of -0.4. Fracture risk increased. Total bone mineral density in the left hip was calculated at 0.833 gm/cm2 with a T-score of -1.3 falling within the WHO classification of osteopenia. Z-score of -0.6. Fracture risk increased. Impression Osteopenia of the left forearm and both hips. POS - [email or web address] Assessment & Plan (04/27/2019 12:42 PM EDT): And fracture prevention strategies and maintenance of vitamin D3 at 1000 units daily was discussed. Patient is at risk given his chronic inflammatory arthritis and low-dose prednisone. He will have a bone densitometry that I will review next month. Assessment & Plan (03/08/2019 10:41 AM EDT): New bone density will be done in the fall. Fall and fracture prevention strategies discussed. Compliance with vitamin D3 1000 units daily recommended. Decrease prednisone to 2.5 mg daily. Her vitamin D level in the next visit. Coronary artery disease with history of myocardial infarction without history of CABG 11/21/2018 Assessment & Plan (11/21/2018 1:27 PM EST): No report of anginal equivalents. Continue cardiac rehab and appropriate diet and medications as per cardiology. Cerebrovascular accident (CVA) due to embolism 0 12/17/2017 Assessment & Plan (11/21/2018 1:27 PM EST): Stable without recurrence. Blood pressure is normal. Assessment & Plan (12/18/2017 6:04 PM EST): - MRI appearance suggestive of embolic event - echo no vegetation or thrombus, nl ef - security monitor no afib so far - carotid - some right sided plaque but less than 50% stenosis - likely will need 30 day monitor at discharge - cont aspirin and statin - LDL is low, blood sugars controlled - bp ok atenolol held - pt ot speech Type 2 diabetes mellitus wit h complication, with long-term current use of insulin 12/17/2017 Overview (12/17/2017): Continue his Lantus. Hold the metformin because were doing significantly more imaging. Add a sliding scale. Diabetic diet. 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 Suspect severe and persistent c-spine pain is secondary to OA rather than direct result of rheumatoid arthritis; repeat MRI c-spine pending for tmrw (ordered by PCP). I had a very lengthy d/w patient and his today re: neck pain and recommendations moving forward. They will f/u with PCP +/- physiatry pending MRI findings, though I am certainly happy to help guide if needed. Will consider change from abatacept to alternative biologic pending clinical course, though certainly there is extensive and chronic joint damage that has already occurred. Assessment & Plan (08/31/2022 10:13 PM EDT): Hx of seropositive RA with cervical spine instability Pt had been managed on Enbrel weekly and chronic pred 10 mg daily-unable to taper in the past. Treatment changed to Orencia 10/28 He has had been tapering prednisone and tolerating Orencia -will continue He has tapered pred to 2.5 mg daily .Occasionally increases to 4 mg for a couple days if he flares Reports stiffness in the large joint all day but there is no synovitis on exam. He has secondary OA of large joints, suspect some of the stiffness is due to OA I asked pt to stay at 2.5 mg pred daily And keep note of when he increases the dose. He will try to increase only to 3 mg daily prn Labs today to include CRP and ESR as markers of disease activity Assessment & Plan (10/22/2021 9:47 AM EST): Hx of seropositive RA with cervical spine instability Pt had been managed on Enbrel weekly and chronic pred 10 mg daily-unable to taper in the past. Treatment changed to Orencia 3 weeks ago in hopes to taper pred to allow him to undergo cervical spine stabilization He has had 3 doses thus far of Orencia and is tolerated-will continue He has tapered pred to 5 mg daily . Reports stiffness in the large joint all day but there is no synovitis on exam. He has secondary OA of large joints, suspect some of the stiffness is due to OA I asked pt to stay at 5 mg pred for 4 weeks before trying to taper. Then I would try 5 mg daily alternating with 2 until next f/u in 2 month Labs today to include CRP and ESR as markers of disease activity Assessment & Plan (06/23/2021 11:51 AM EDT): Polyarticular seropositive erosive painful rheumatoid arthritis affecting large and small joints in the upper and lower portions of his body in a patient with a longstanding disease. He will continue on Enbrel at 50 mg weekly. He does want a third COVID-19 vaccination and after he gets the appointment I advised him to skip the next 2 doses of Enbrel if possible. Laboratory work was reviewed and new lab work is ordered. No change in medications. No visits with results within 3 Month(s) from this visit. Latest known visit with results is: Hospital Outpatient Visit on 03/03/2021 Component Date Value Ref Range Status SODIUM 03/03/2021 138 133 - 146 mmol/L Final POTASSIUM 03/03/2021 4.9 3.3 - 5.1 mmol/L Final CHLORIDE 03/03/2021 101 96 - 108 mmol/L Final CO2 03/03/2021 26 21 - 35 mmol/L Final BUN 03/03/2021 22* 6 - 19 mg/dL Final CREATININE 03/03/2021 0.90 0.5 - 1.5 mg/dL Final GLUCOSE 03/03/2021 197* 70 - 99 mg/dL Final ALBUMIN 03/03/2021 4.3 3.9 - 4.8 g/dL Final TOTAL PROTEIN 03/03/2021 6.6 6.5 - 8.0 g/dL Final CALCIUM 03/03/2021 9.7 8.4 - 10.3 mg/dL Final ALKALINE PHOSPHATASE 03/03/2021 80 39 - 117 U/L Final TOTAL BILIRUBIN 03/03/2021 0.3 0.0 - 1.2 mg/dL Final AST 03/03/2021 41* 0 - 37 U/L Final ALT 03/03/2021 27 0 - 40 U/L Final GLOBULIN 03/03/2021 2.3 1 - 4.8 g/dL Final EGFR 03/03/2021 85 >59 mL/min/1.73m2 Final Estimated glomerular filtration rate calculated using the CKD-EPI equation. ANION GAP 03/03/2021 16 10 - 20 mmol/L Final C REACTIVE PROTEIN 03/03/2021 <3.0 0.0 - 4.0 mg/L Final WBC 03/03/2021 7.90 4.00 - 11.00 K/uL Final RBC 03/03/2021 4.11 3.90 - 5.69 M/uL Final HGB 03/03/2021 11.6* 12.4 - 17.3 g/dL Final HCT 03/03/2021 36.9* 37.0 - 51.0 % Final PLT 03/03/2021 370 140 - 430 K/uL Final MCV 03/03/2021 89.8 78.0 - 97.0 fL Final MCH 03/03/2021 28.2 25.0 - 33.0 pg Final MCHC 03/03/2021 31.4* 32.0 - 36.0 g/dL Final RDW 03/03/2021 14.5 11.0 - 15.0 % Final MPV 03/03/2021 11.2 8.4 - 12.8 fl Final NRBC 03/03/2021 0.00 0 /100 WBCs Final ABSOLUTE NRBC 03/03/2021 0.00 0 K/uL Final DIFF METHOD 03/03/2021 Auto Final NEUTS 03/03/2021 85.5* 43.0 - 75.0 % Final LYMPHS 03/03/2021 8.6* 18.2 - 47.4 % Final MONOS 03/03/2021 4.8 4.00 - 11.00 % Final EOS 03/03/2021 0.4 0.0 - 8.0 % Final BASOS 03/03/2021 0.3 0.0 - 2.0 % Final Granulocytes, immature (%) 03/03/2021 0.4 0.0 - 0.9 % Final ABSOLUTE NEUTS 03/03/2021 6.76 1.80 - 7.70 K/uL Final ABSOLUTE LYMPHS 03/03/2021 0.68* 1.00 - 3.10 K/uL Final ABSOLUTE MONOS 03/03/2021 0.38 0.20 - 0.80 K/uL Final ABSOLUTE EOS 03/03/2021 0.03 0.00 - 0.80 K/uL Final ABSOLUTE BASOS 03/03/2021 0.02 0.00 - 0.09 K/uL Final Granulocytes, immature 03/03/2021 0.03 0.00 - 0.05 K/uL Final Assessment & Plan (03/03/2021 11:50 AM EDT): Patient severe erosive deforming polyarticular rheumatoid arthritis will continue to be treated with Enbrel and low-dose prednisone. His severe cervical spondylosis with occipital neuralgia will continue to be treated with pain medicine and and after full discussion risk and benefits he will stop the Tylenol with codeine is start tramadol 50 mg every 6 hours as needed. In addition I am to increase his gabapentin to 400 mg 3 times daily. Risks and benefits were discussed. Follow-up phone call 10 days. Continue to use cervical pillow. No visits with results within 3 Month(s) from this visit. Latest known visit with results is: Hospital Outpatient Visit on 07/05/2020 Component Date Value Ref Range Status WBC 07/05/2020 7.37 4.00 - 11.00 K/uL Final Note Reference Range updates to all CBC and Differential results. RBC 07/05/2020 4.48 3.90 - 5.69 M/uL Final HGB 07/05/2020 12.3* 12.4 - 17.3 g/dL Final Note updated Reference Ranges for all CBC and Differential results. HCT 07/05/2020 38.4 37.0 - 51.0 % Final PLT 07/05/2020 225 140 - 430 K/uL Final MCV 07/05/2020 85.7 78.0 - 97.0 fL Final MCH 07/05/2020 27.5 25.0 - 33.0 pg Final MCHC 07/05/2020 32.0 32.0 - 36.0 g/dL Final RDW 07/05/2020 16.1* 11.0 - 15.0 % Final MPV 07/05/2020 11.3 8.4 - 12.8 fl Final NRBC 07/05/2020 0.00 0 /100 WBCs Final ABSOLUTE NRBC 07/05/2020 0.00 0 K/uL Final DIFF METHOD 07/05/2020 Auto Final NEUTS 07/05/2020 72.9 43.0 - 75.0 % Final LYMPHS 07/05/2020 19.8 18.2 - 47.4 % Final MONOS 07/05/2020 6.6 4.00 - 11.00 % Final EOS 07/05/2020 0.5 0.0 - 8.0 % Final BASOS 07/05/2020 0.1 0.0 - 2.0 % Final Granulocytes, immature (%) 07/05/2020 0.1 0.0 - 0.9 % Final ABSOLUTE NEUTS 07/05/2020 5.36 1.80 - 7.70 K/uL Final ABSOLUTE LYMPHS 07/05/2020 1.46 1.00 - 3.10 K/uL Final ABSOLUTE MONOS 07/05/2020 0.49 0.20 - 0.80 K/uL Final ABSOLUTE EOS 07/05/2020 0.04 0.00 - 0.80 K/uL Final ABSOLUTE BASOS 07/05/2020 0.01 0.00 - 0.09 K/uL Final Granulocytes, immature 07/05/2020 0.01 0.00 - 0.05 K/uL Final SODIUM 07/05/2020 142 133 - 146 mmol/L Final POTASSIUM 07/05/2020 5.0 3.3 - 5.1 mmol/L Final CHLORIDE 07/05/2020 101 96 - 108 mmol/L Final CO2 07/05/2020 28 21 - 35 mmol/L Final BUN 07/05/2020 23* 6 - 19 mg/dL Final CREATININE 07/05/2020 1.00 0.5 - 1.5 mg/dL Final GLUCOSE 07/05/2020 97 70 - 99 mg/dL Final ALBUMIN 07/05/2020 4.2 3.9 - 4.8 g/dL Final TOTAL PROTEIN 07/05/2020 6.8 6.5 - 8.0 g/dL Final CALCIUM 07/05/2020 9.3 8.4 - 10.3 mg/dL Final ALKALINE PHOSPHATASE 07/05/2020 65 39 - 117 U/L Final TOTAL BILIRUBIN 07/05/2020 0.3 0.0 - 1.2 mg/dL Final AST 07/05/2020 21 0 - 37 U/L Final ALT 07/05/2020 33 0 - 40 U/L Final GLOBULIN 07/05/2020 2.6 1 - 4.8 g/dL Final EGFR 07/05/2020 75 >59 mL/min/1.73m2 Final Estimated glomerular filtration rate calculated using the CKD-EPI equation. ANION GAP 07/05/2020 18 10 - 20 mmol/L Final HEMOGLOBIN A1C 07/05/2020 7.3* 4.3 - 5.8 % Final HDL 07/05/2020 36 mg/dL Final Comment: Interpretation <40 mg/dL: Low HDL cholesterol (major risk factor for CHD) Greater than or equal to 60 mg/dL: High HDL cholesterol ( negative risk factor for CHD) HDL - cholesterol is affected by a number of factors, e.g. smoking, excerise, hormones, sex and age. CHOLESTEROL 07/05/2020 113 0 - 240 mg/dL Final TRIGLYCERIDES 07/05/2020 194* 30 - 160 mg/dL Final LDL 07/05/2020 38* 50 - 129 mg/dL Final Comment: LDL levels in terms of risk for coronary heart disease: <100 mg/dL: Optimal 100-129 mg/dL: Near or above optimal 130-159 mg/dL: Borderline high 160-189 mg/dL: High >190 mg/dL: Very High CARDIAC RISK RATIO 07/05/2020 3.1* 3.4 - 5.0 Final Assessment & Plan (01/06/2021 3:37 PM EST): Active erosive polyarticular seropositive disease affecting large and small joints in the upper and lower portions of his body. Continue Enbrel 50 mg weekly. Continue prednisone at 5 mg daily. No visits with results within 3 Month(s) from this visit. Latest known visit with results is: Hospital Outpatient Visit on 07/05/2020 Component Date Value Ref Range Status WBC 07/05/2020 7.37 4.00 - 11.00 K/uL Final Note Reference Range updates to all CBC and Differential results. RBC 07/05/2020 4.48 3.90 - 5.69 M/uL Final HGB 07/05/2020 12.3* 12.4 - 17.3 g/dL Final Note updated Reference Ranges for all CBC and Differential results. HCT 07/05/2020 38.4 37.0 - 51.0 % Final PLT 07/05/2020 225 140 - 430 K/uL Final MCV 07/05/2020 85.7 78.0 - 97.0 fL Final MCH 07/05/2020 27.5 25.0 - 33.0 pg Final MCHC 07/05/2020 32.0 32.0 - 36.0 g/dL Final RDW 07/05/2020 16.1* 11.0 - 15.0 % Final MPV 07/05/2020 11.3 8.4 - 12.8 fl Final NRBC 07/05/2020 0.00 0 /100 WBCs Final ABSOLUTE NRBC 07/05/2020 0.00 0 K/uL Final DIFF METHOD 07/05/2020 Auto Final NEUTS 07/05/2020 72.9 43.0 - 75.0 % Final LYMPHS 07/05/2020 19.8 18.2 - 47.4 % Final MONOS 07/05/2020 6.6 4.00 - 11.00 % Final EOS 07/05/2020 0.5 0.0 - 8.0 % Final BASOS 07/05/2020 0.1 0.0 - 2.0 % Final Granulocytes, immature (%) 07/05/2020 0.1 0.0 - 0.9 % Final ABSOLUTE NEUTS 07/05/2020 5.36 1.80 - 7.70 K/uL Final ABSOLUTE LYMPHS 07/05/2020 1.46 1.00 - 3.10 K/uL Final ABSOLUTE MONOS 07/05/2020 0.49 0.20 - 0.80 K/uL Final ABSOLUTE EOS 07/05/2020 0.04 0.00 - 0.80 K/uL Final ABSOLUTE BASOS 07/05/2020 0.01 0.00 - 0.09 K/uL Final Granulocytes, immature 07/05/2020 0.01 0.00 - 0.05 K/uL Final SODIUM 07/05/2020 142 133 - 146 mmol/L Final POTASSIUM 07/05/2020 5.0 3.3 - 5.1 mmol/L Final CHLORIDE 07/05/2020 101 96 - 108 mmol/L Final CO2 07/05/2020 28 21 - 35 mmol/L Final BUN 07/05/2020 23* 6 - 19 mg/dL Final CREATININE 07/05/2020 1.00 0.5 - 1.5 mg/dL Final GLUCOSE 07/05/2020 97 70 - 99 mg/dL Final ALBUMIN 07/05/2020 4.2 3.9 - 4.8 g/dL Final TOTAL PROTEIN 07/05/2020 6.8 6.5 - 8.0 g/dL Final CALCIUM 07/05/2020 9.3 8.4 - 10.3 mg/dL Final ALKALINE PHOSPHATASE 07/05/2020 65 39 - 117 U/L Final TOTAL BILIRUBIN 07/05/2020 0.3 0.0 - 1.2 mg/dL Final AST 07/05/2020 21 0 - 37 U/L Final ALT 07/05/2020 33 0 - 40 U/L Final GLOBULIN 07/05/2020 2.6 1 - 4.8 g/dL Final EGFR 07/05/2020 75 >59 mL/min/1.73m2 Final Estimated glomerular filtration rate calculated using the CKD-EPI equation. ANION GAP 07/05/2020 18 10 - 20 mmol/L Final HEMOGLOBIN A1C 07/05/2020 7.3* 4.3 - 5.8 % Final HDL 07/05/2020 36 mg/dL Final Comment: Interpretation <40 mg/dL: Low HDL cholesterol (major risk factor for CHD) Greater than or equal to 60 mg/dL: High HDL cholesterol ( negative risk factor for CHD) HDL - cholesterol is affected by a number of factors, e.g. smoking, excerise, hormones, sex and age. CHOLESTEROL 07/05/2020 113 0 - 240 mg/dL Final TRIGLYCERIDES 07/05/2020 194* 30 - 160 mg/dL Final LDL 07/05/2020 38* 50 - 129 mg/dL Final Comment: LDL levels in terms of risk for coronary heart disease: <100 mg/dL: Optimal 100-129 mg/dL: Near or above optimal 130-159 mg/dL: Borderline high 160-189 mg/dL: High >190 mg/dL: Very High CARDIAC RISK RATIO 07/05/2020 3.1* 3.4 - 5.0 Final Assessment & Plan (11/25/2020 3:19 PM EST): Patient with severe, polyarticular seropositive erosive rheumatoid arthritis affecting large and small joints in the upper and lower portions of his body is being treated with 50 mg of Enbrel weekly and 5 mg of prednisone daily. He is tolerating both well. No extra-articular manifestations of the severely erosive deforming disease but it is rather stable. No visits with results within 3 Month(s) from this visit. Latest known visit with results is: Hospital Outpatient Visit on 07/05/2020 Component Date Value Ref Range Status WBC 07/05/2020 7.37 4.00 - 11.00 K/uL Final Note Reference Range updates to all CBC and Differential results. RBC 07/05/2020 4.48 3.90 - 5.69 M/uL Final HGB 07/05/2020 12.3* 12.4 - 17.3 g/dL Final Note updated Reference Ranges for all CBC and Differential results. HCT 07/05/2020 38.4 37.0 - 51.0 % Final PLT 07/05/2020 225 140 - 430 K/uL Final MCV 07/05/2020 85.7 78.0 - 97.0 fL Final MCH 07/05/2020 27.5 25.0 - 33.0 pg Final MCHC 07/05/2020 32.0 32.0 - 36.0 g/dL Final RDW 07/05/2020 16.1* 11.0 - 15.0 % Final MPV 07/05/2020 11.3 8.4 - 12.8 fl Final NRBC 07/05/2020 0.00 0 /100 WBCs Final ABSOLUTE NRBC 07/05/2020 0.00 0 K/uL Final DIFF METHOD 07/05/2020 Auto Final NEUTS 07/05/2020 72.9 43.0 - 75.0 % Final LYMPHS 07/05/2020 19.8 18.2 - 47.4 % Final MONOS 07/05/2020 6.6 4.00 - 11.00 % Final EOS 07/05/2020 0.5 0.0 - 8.0 % Final BASOS 07/05/2020 0.1 0.0 - 2.0 % Final Granulocytes, immature (%) 07/05/2020 0.1 0.0 - 0.9 % Final ABSOLUTE NEUTS 07/05/2020 5.36 1.80 - 7.70 K/uL Final ABSOLUTE LYMPHS 07/05/2020 1.46 1.00 - 3.10 K/uL Final ABSOLUTE MONOS 07/05/2020 0.49 0.20 - 0.80 K/uL Final ABSOLUTE EOS 07/05/2020 0.04 0.00 - 0.80 K/uL Final ABSOLUTE BASOS 07/05/2020 0.01 0.00 - 0.09 K/uL Final Granulocytes, immature 07/05/2020 0.01 0.00 - 0.05 K/uL Final SODIUM 07/05/2020 142 133 - 146 mmol/L Final POTASSIUM 07/05/2020 5.0 3.3 - 5.1 mmol/L Final CHLORIDE 07/05/2020 101 96 - 108 mmol/L Final CO2 07/05/2020 28 21 - 35 mmol/L Final BUN 07/05/2020 23* 6 - 19 mg/dL Final CREATININE 07/05/2020 1.00 0.5 - 1.5 mg/dL Final GLUCOSE 07/05/2020 97 70 - 99 mg/dL Final ALBUMIN 07/05/2020 4.2 3.9 - 4.8 g/dL Final TOTAL PROTEIN 07/05/2020 6.8 6.5 - 8.0 g/dL Final CALCIUM 07/05/2020 9.3 8.4 - 10.3 mg/dL Final ALKALINE PHOSPHATASE 07/05/2020 65 39 - 117 U/L Final TOTAL BILIRUBIN 07/05/2020 0.3 0.0 - 1.2 mg/dL Final AST 07/05/2020 21 0 - 37 U/L Final ALT 07/05/2020 33 0 - 40 U/L Final GLOBULIN 07/05/2020 2.6 1 - 4.8 g/dL Final EGFR 07/05/2020 75 >59 mL/min/1.73m2 Final Estimated glomerular filtration rate calculated using the CKD-EPI equation. ANION GAP 07/05/2020 18 10 - 20 mmol/L Final HEMOGLOBIN A1C 07/05/2020 7.3* 4.3 - 5.8 % Final HDL 07/05/2020 36 mg/dL Final Comment: Interpretation <40 mg/dL: Low HDL cholesterol (major risk factor for CHD) Greater than or equal to 60 mg/dL: High HDL cholesterol ( negative risk factor for CHD) HDL - cholesterol is affected by a number of factors, e.g. smoking, excerise, hormones, sex and age. CHOLESTEROL 07/05/2020 113 0 - 240 mg/dL Final TRIGLYCERIDES 07/05/2020 194* 30 - 160 mg/dL Final LDL 07/05/2020 38* 50 - 129 mg/dL Final Comment: LDL levels in terms of risk for coronary heart disease: <100 mg/dL: Optimal 100-129 mg/dL: Near or above optimal 130-159 mg/dL: Borderline high 160-189 mg/dL: High >190 mg/dL: Very High CARDIAC RISK RATIO 07/05/2020 3.1* 3.4 - 5.0 Final Assessment & Plan (10/01/2020 9:48 AM EST): Severe, erosive, polyarticular rheumatoid arthritis affecting large and small joints in the upper and lower portions of his body will continue to be treated with Enbrel. He did have a TB test which was indeterminate. This will be repeated next month. All his other labs are normal. No signs or symptoms of infection. He has had all vaccinations. Hospital Outpatient Visit on 07/05/2020 Component Date Value Ref Range Status WBC 07/05/2020 7.37 4.00 - 11.00 K/uL Final Note Reference Range updates to all CBC and Differential results. RBC 07/05/2020 4.48 3.90 - 5.69 M/uL Final HGB 07/05/2020 12.3* 12.4 - 17.3 g/dL Final Note updated Reference Ranges for all CBC and Differential results. HCT 07/05/2020 38.4 37.0 - 51.0 % Final PLT 07/05/2020 225 140 - 430 K/uL Final MCV 07/05/2020 85.7 78.0 - 97.0 fL Final MCH 07/05/2020 27.5 25.0 - 33.0 pg Final MCHC 07/05/2020 32.0 32.0 - 36.0 g/dL Final RDW 07/05/2020 16.1* 11.0 - 15.0 % Final MPV 07/05/2020 11.3 8.4 - 12.8 fl Final NRBC 07/05/2020 0.00 0 /100 WBCs Final ABSOLUTE NRBC 07/05/2020 0.00 0 K/uL Final DIFF METHOD 07/05/2020 Auto Final NEUTS 07/05/2020 72.9 43.0 - 75.0 % Final LYMPHS 07/05/2020 19.8 18.2 - 47.4 % Final MONOS 07/05/2020 6.6 4.00 - 11.00 % Final EOS 07/05/2020 0.5 0.0 - 8.0 % Final BASOS 07/05/2020 0.1 0.0 - 2.0 % Final Granulocytes, immature (%) 07/05/2020 0.1 0.0 - 0.9 % Final ABSOLUTE NEUTS 07/05/2020 5.36 1.80 - 7.70 K/uL Final ABSOLUTE LYMPHS 07/05/2020 1.46 1.00 - 3.10 K/uL Final ABSOLUTE MONOS 07/05/2020 0.49 0.20 - 0.80 K/uL Final ABSOLUTE EOS 07/05/2020 0.04 0.00 - 0.80 K/uL Final ABSOLUTE BASOS 07/05/2020 0.01 0.00 - 0.09 K/uL Final Granulocytes, immature 07/05/2020 0.01 0.00 - 0.05 K/uL Final SODIUM 07/05/2020 142 133 - 146 mmol/L Final POTASSIUM 07/05/2020 5.0 3.3 - 5.1 mmol/L Final CHLORIDE 07/05/2020 101 96 - 108 mmol/L Final CO2 07/05/2020 28 21 - 35 mmol/L Final BUN 07/05/2020 23* 6 - 19 mg/dL Final CREATININE 07/05/2020 1.00 0.5 - 1.5 mg/dL Final GLUCOSE 07/05/2020 97 70 - 99 mg/dL Final ALBUMIN 07/05/2020 4.2 3.9 - 4.8 g/dL Final TOTAL PROTEIN 07/05/2020 6.8 6.5 - 8.0 g/dL Final CALCIUM 07/05/2020 9.3 8.4 - 10.3 mg/dL Final ALKALINE PHOSPHATASE 07/05/2020 65 39 - 117 U/L Final TOTAL BILIRUBIN 07/05/2020 0.3 0.0 - 1.2 mg/dL Final AST 07/05/2020 21 0 - 37 U/L Final ALT 07/05/2020 33 0 - 40 U/L Final GLOBULIN 07/05/2020 2.6 1 - 4.8 g/dL Final EGFR 07/05/2020 75 >59 mL/min/1.73m2 Final Estimated glomerular filtration rate calculated using the CKD-EPI equation. ANION GAP 07/05/2020 18 10 - 20 mmol/L Final HEMOGLOBIN A1C 07/05/2020 7.3* 4.3 - 5.8 % Final HDL 07/05/2020 36 mg/dL Final Comment: Interpretation <40 mg/dL: Low HDL cholesterol (major risk factor for CHD) Greater than or equal to 60 mg/dL: High HDL cholesterol ( negative risk factor for CHD) HDL - cholesterol is affected by a number of factors, e.g. smoking, excerise, hormones, sex and age. CHOLESTEROL 07/05/2020 113 0 - 240 mg/dL Final TRIGLYCERIDES 07/05/2020 194* 30 - 160 mg/dL Final LDL 07/05/2020 38* 50 - 129 mg/dL Final Comment: LDL levels in terms of risk for coronary heart disease: <100 mg/dL: Optimal 100-129 mg/dL: Near or above optimal 130-159 mg/dL: Borderline high 160-189 mg/dL: High >190 mg/dL: Very High CARDIAC RISK RATIO 07/05/2020 3.1* 3.4 - 5.0 Final Assessment & Plan (07/01/2020 8:53 AM EDT): Patient with severe polyarticular rheumatoid arthritis he will remain on Enbrel and low-dose prednisone. He will speak to his primary care physician about maintaining adequate vaccination with Prevnar and Pneumovax. He will also have a flu vaccine this year. He will continue tapering the prednisone. He will continue on the Enbrel. We will have lab work done today. Previous lab work was reviewed. No visits with results within 3 Month(s) from this visit. Latest known visit with results is: Hospital Outpatient Visit on 10/20/2019 Component Date Value Ref Range Status HBV SURFACE ANTIBODY 10/20/2019 Negative Final Comment: Unvaccinated: Negative Vaccinated: Positive HEMOGLOBIN A1C 10/20/2019 6.2* 4.3 - 5.8 % Final Assessment & Plan (06/23/2020 1:48 PM EDT): Continue current medications as prescribed including Enbrel subcutaneous injection every week on Wednesday and gentle prednisone taper by 5 mg every 3 days. He is currently starting prednisone 35 mg daily tomorrow for 3 days. Assessment & Plan (04/30/2020 8:28 AM EDT): Active but stable. Continue Enbrel. Continue 10 mg of prednisone. Check lab work today. No change in current medications. No injection site reaction. We will call him back with lab work results. We will follow-up with his primary care physician regarding his diabetes and coronary artery disease. Assessment & Plan (11/29/2019 9:54 AM EST): Severe polyarticular erosive rheumatoid arthritis affecting both large and small joints in the upper and lower portions of the body in a patient on Enbrel and prednisone. Medications will continue unchanged. Previous lab work was reviewed and new lab work was ordered today. No extra-articular manifestations of disease are seen. Patient is already had a flu shot and his pneumonia vaccine. Hospital Outpatient Visit on 10/20/2019 Component Date Value Ref Range Status HBV SURFACE ANTIBODY 10/20/2019 Negative Final Comment: Unvaccinated: Negative Vaccinated: Positive HEMOGLOBIN A1C 10/20/2019 6.2* 4.3 - 5.8 % Final Assessment & Plan (08/29/2019 10:07 AM EDT): Patient has severe erosive polyarticular rheumatoid arthritis which has improved substantially since last visit. He will continue on 50 mg of Enbrel weekly and we will reduce his prednisone from 10 mg daily to 7.5 mg daily for 1 week then 5 mg daily until his next visit in 2 months. No new extra-articular manifestations of disease and lab work appears stable. No visits with results within 3 Month(s) from this visit. Latest known visit with results is: Hospital Outpatient Visit on 05/17/2019 Component Date Value Ref Range Status URINE MICROALBUMIN 05/17/2019 2.9* 0 - 2.3 mg/dL Final URINE CREATININE 05/17/2019 107 mg/dL Final MICROALB/CRE RATIO 05/17/2019 27.1* 0 - 20 mg/g Cre Final HEMOGLOBIN A1C 05/17/2019 5.8 4.3 - 5.8 % Final SODIUM 05/17/2019 142 133 - 146 mmol/L Final POTASSIUM 05/17/2019 4.2 3.3 - 5.1 mmol/L Final CHLORIDE 05/17/2019 103 96 - 108 mmol/L Final CO2 05/17/2019 27 21 - 35 mmol/L Final BUN 05/17/2019 21* 6 - 19 mg/dL Final CREATININE 05/17/2019 1.00 0.5 - 1.5 mg/dL Final GLUCOSE 05/17/2019 88 70 - 99 mg/dL Final ALBUMIN 05/17/2019 4.0 3.9 - 4.8 g/dL Final TOTAL PROTEIN 05/17/2019 6.7 6.5 - 8.0 g/dL Final CALCIUM 05/17/2019 8.9 8.4 - 10.3 mg/dL Final ALKALINE PHOSPHATASE 05/17/2019 55 39 - 117 U/L Final TOTAL BILIRUBIN 05/17/2019 0.3 0.0 - 1.2 mg/dL Final AST 05/17/2019 19 0 - 37 U/L Final ALT 05/17/2019 21 0 - 40 U/L Final GLOBULIN 05/17/2019 2.7 1 - 4.8 g/dL Final EGFR 05/17/2019 76 >59 mL/min/1.73m2 Final If patient is black, multiply result by 1.159. Estimated glomerular filtration rate calculated using the CKD-EPI equation. ANION GAP 05/17/2019 16 10 - 20 mmol/L Final HDL 05/17/2019 38 mg/dL Final Comment: Interpretation <40 mg/dL: Low HDL cholesterol (major risk factor for CHD) Greater than or equal to 60 mg/dL: High HDL cholesterol ( negative risk factor for CHD) HDL - cholesterol is affected by a number of factors, e.g. smoking, excerise, hormones, sex and age. CHOLESTEROL 05/17/2019 87 0 - 240 mg/dL Final TRIGLYCERIDES 05/17/2019 143 30 - 160 mg/dL Final LDL 05/17/2019 20* 50 - 129 mg/dL Final Comment: LDL levels in terms of risk for coronary heart disease: <100 mg/dL: Optimal 100-129 mg/dL: Near or above optimal 130-159 mg/dL: Borderline high 160-189 mg/dL: High >190 mg/dL: Very High CARDIAC RISK RATIO 05/17/2019 2.3* 3.4 - 5.0 Final Assessment & Plan (06/27/2019 10:24 AM EDT): Patient has severe, erosive, seropositive, polyarticular, disabling rheumatoid arthritis affecting all of his peripheral joints both large and small as well as his cervical spine. I reviewed with him the MRI and CT scan of the cervical spine indicating pannus formation over C1 and C2 with partial subluxation. No fractures of C1 seen. Extensive degenerative arthritis with both central canal and lateral recess stenosis are seen at the lower cervical levels. Prednisone had been increased from 5 mg to 10 mg and this has helped not only some of the neck pain to a very small extent but to some degree the increased pain swelling and stiffness throughout the body which he has encouraged since stopping Simponi. After full discussion of risks and benefits like to retry him on Enbrel which he has had a favorable response to in the past. All risks and benefits were discussed. He understands the need to have a flu vaccine. He will check in with his primary care physician about whether he has had full coverage for pneumococcal vaccines including Prevnar 13 and Pneumovax 23. Hospital Outpatient Visit on 05/17/2019 Component Date Value Ref Range Status URINE MICROALBUMIN 05/17/2019 2.9* 0 - 2.3 mg/dL Final URINE CREATININE 05/17/2019 107 mg/dL Final MICROALB/CRE RATIO 05/17/2019 27.1* 0 - 20 mg/g Cre Final HEMOGLOBIN A1C 05/17/2019 5.8 4.3 - 5.8 % Final SODIUM 05/17/2019 142 133 - 146 mmol/L Final POTASSIUM 05/17/2019 4.2 3.3 - 5.1 mmol/L Final CHLORIDE 05/17/2019 103 96 - 108 mmol/L Final CO2 05/17/2019 27 21 - 35 mmol/L Final BUN 05/17/2019 21* 6 - 19 mg/dL Final CREATININE 05/17/2019 1.00 0.5 - 1.5 mg/dL Final GLUCOSE 05/17/2019 88 70 - 99 mg/dL Final ALBUMIN 05/17/2019 4.0 3.9 - 4.8 g/dL Final TOTAL PROTEIN 05/17/2019 6.7 6.5 - 8.0 g/dL Final CALCIUM 05/17/2019 8.9 8.4 - 10.3 mg/dL Final ALKALINE PHOSPHATASE 05/17/2019 55 39 - 117 U/L Final TOTAL BILIRUBIN 05/17/2019 0.3 0.0 - 1.2 mg/dL Final AST 05/17/2019 19 0 - 37 U/L Final ALT 05/17/2019 21 0 - 40 U/L Final GLOBULIN 05/17/2019 2.7 1 - 4.8 g/dL Final EGFR 05/17/2019 76 >59 mL/min/1.73m2 Final If patient is black, multiply result by 1.159. Estimated glomerular filtration rate calculated using the CKD-EPI equation. ANION GAP 05/17/2019 16 10 - 20 mmol/L Final HDL 05/17/2019 38 mg/dL Final Comment: Interpretation <40 mg/dL: Low HDL cholesterol (major risk factor for CHD) Greater than or equal to 60 mg/dL: High HDL cholesterol ( negative risk factor for CHD) HDL - cholesterol is affected by a number of factors, e.g. smoking, excerise, hormones, sex and age. 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 Patient has been off Simponi for 1 month because of financial reasons and insurance coverage. At this time I see no active disease. We will keep him off disease modifying antirheumatic drugs for now. He will call me for any flares. Assessment & Plan (03/08/2019 10:42 AM EDT): No visits with results within 30 Day(s) from this visit. Latest known visit with results is: Hospital Outpatient Visit on 01/13/2019 Component Date Value Ref Range Status URINE MICROALBUMIN 01/13/2019 3.9* 0 - 2.3 mg/dL Final URINE CREATININE 01/13/2019 125 mg/dL Final MICROALB/CRE RATIO 01/13/2019 31.2* 0 - 20 mg/g Cre Final HEMOGLOBIN A1C 01/13/2019 5.2 4.3 - 5.8 % Final SODIUM 01/13/2019 140 133 - 146 mmol/L Final POTASSIUM 01/13/2019 4.2 3.3 - 5.1 mmol/L Final CHLORIDE 01/13/2019 99 96 - 108 mmol/L Final CO2 01/13/2019 31 21 - 35 mmol/L Final BUN 01/13/2019 21* 6 - 19 mg/dL Final CREATININE 01/13/2019 1.00 0.5 - 1.5 mg/dL Final GLUCOSE 01/13/2019 167* 70 - 99 mg/dL Final ALBUMIN 01/13/2019 4.7 3.9 - 4.8 g/dL Final TOTAL PROTEIN 01/13/2019 7.2 6.5 - 8.0 g/dL Final CALCIUM 01/13/2019 9.7 8.4 - 10.3 mg/dL Final ALKALINE PHOSPHATASE 01/13/2019 64 39 - 117 U/L Final TOTAL BILIRUBIN 01/13/2019 0.3 0.0 - 1.2 mg/dL Final Comment: Results from certain multiple myeloma patients may show a positive bias in recovery. Not all multiple myeloma patients show the bias and severity of the bias may vary between patients. In very rare cases, gammopathy, in particular type IgM (Waldenstrom's macroglobulinemia), may cause unreliable results. AST 01/13/2019 23 0 - 37 U/L Final ALT 01/13/2019 26 0 - 40 U/L Final GLOBULIN 01/13/2019 2.5 1 - 4.8 g/dL Final EGFR 01/13/2019 76 >59 mL/min/1.73m2 Final If patient is black, multiply result by 1.159. Estimated glomerular filtration rate calculated using the CKD-EPI equation. ANION GAP 01/13/2019 14 10 - 20 mmol/L Final HDL 01/13/2019 40 mg/dL Final Comment: Interpretation <40 mg/dL: Low HDL cholesterol (major risk factor for CHD) Greater than or equal to 60 mg/dL: High HDL cholesterol ( negative risk factor for CHD) HDL - cholesterol is affected by a number of factors, e.g. smoking, excerise, hormones, sex and age. CHOLESTEROL 01/13/2019 97 0 - 240 mg/dL Final TRIGLYCERIDES 01/13/2019 149 30 - 160 mg/dL Final LDL 01/13/2019 27* 50 - 129 mg/dL Final Comment: LDL levels in terms of risk for coronary heart disease: <100 mg/dL: Optimal 100-129 mg/dL: Near or above optimal 130-159 mg/dL: Borderline high 160-189 mg/dL: High >190 mg/dL: Very High CARDIAC RISK RATIO 01/13/2019 2.4* 3.4 - 5.0 Final Severe polyarticular erosive seropositive disease which is active but stable on 50 mg of Simponi a month. Will reduce prednisone to 2.5 mg daily. Lab work reviewed and looks normal. No extra-articular manifestations. Assessment & Plan (11/21/2018 1:28 PM EST): Severe, erosive, polyarticular rheumatoid arthritis. He is on his lowest dose of prednisone that he has been on for a long time and for now he will remain on this. He will remain on Simponi at 50 mg monthly. He is tolerating this well. We discussed long-term risks of being on this medication. Reviewed lab work done on the ninth of this month showing hemoglobin of 10.4 with a hematocrit of 34 and a white count of 5700 with a normal different hemoglobin A1c of 6.1 with an alkaline phosphatase of 57 and an AST of 18 with an ALT of 25. Lab work will be repeated 3 days prior to her next visit. Assessment & Plan (08/18/2018 11:06 AM EDT): Severe polyarticular erosive seropositive rheumatoid arthritis affecting both large and small joints in the upper and lower portions of his body. Right now it appears to be in remission. He will decrease prednisone to 2.5 mg daily and after 3 weeks if well, stop medication. We will hold other disease modifying antirheumatic drugs for now. Reviewed recent lab work showing creatinine 0.9 with AST 16 ALT 19 hemoglobin 9.7 with hematocrit 31.6 and white count 8700 with a normal differential. Will call me if he has a flare. Will and fracture prevention strategies and maintenance of vitamin D3 at 1000 units daily was encouraged. Other medications will be left unchanged. Greater than 50% of this 28-minute visit was spent in [id number] conversation with the patient and his going over rationale for stopping treatment and risks and benefits of using prednisone. He had a flu vaccine. Should consider a pneumonia vaccine and a shingles vaccine. Assessment & Plan (04/18/2018 12:53 PM EDT): Polyarticular seropositive erosive rheumatoid arthritis is quite active and vomiting but reasonably well-controlled on current medications which she demonstrates no toxicity. There are no extra-articular manifestations of disease. He will have new lab work done 3 days prior to her next visit. Assessment & Plan (02/17/2018 3:52 PM EDT): Patient's polyarticular rheumatoid arthritis is active but stable on low-dose prednisone,Simponi, and methotrexate. There is a secondary right knee osteoarthritis is quite severe and it prevents him from doing any meaningful weightbearing and it awakens her from sleep at night and makes transfers from a seated to standing position quite difficult. I referred him to Dr. Haddad for further evaluation and possible total hip replacement. His medications will remain unchanged. All of his questions were answered. Assessment & Plan (01/26/2018 8:28 AM EDT): Polyarticular severe erosive disease. Doing well on Simponi 40 mg subcutaneously monthly. I reviewed recent lab work showing a stable CBC and no elevation of liver enzymes. There have been no intercurrent infections. He is down to 5 mg of prednisone daily. He will continue on 1000 units of vitamin D3. We discussed fall and fracture prevention strategies. Assessment & Plan (01/19/2018 8:56 AM EDT): Polyarticular erosive active but stable. Medications to continue unchanged except for prednisone reduced to 5 mg daily from 7.5 mg daily Assessment & Plan (01/11/2018 3:05 PM EST): Patient will continue onSimponi 60 mg subcutaneously every month as well as prednisone but I don't think he needs 10 mg of giving him 2.5 mg tablets she will decrease test to 7.5 mg daily. I reviewed with him recent lab work showing normal liver function tests, stable normochromic normocytic anemia, normal white count, and normal BUN/creatinine and electrolytes. Assessment & Plan (12/18/2017 6:05 PM EST): Cont chronic prednisone Assessment & Plan (11/03/2017 11:01 AM EST): Severe polyarticular seropositive erosive disease on low-dose prednisone and monthlysimponi. He still has quite active disease. He has a large olecranon bursal swelling which she would like to be surgically removed and I referred him to [facility] to discuss that. Primary osteoarthritis of left knee 11/03/2017 Assessment & Plan (01/19/2018 8:57 AM EDT): Second Synvisc injection today. Reviewed in detail knee x-ray showing diffuse osteopenia and tricompartmental severe osteoarthritis particularly severe in the medial compartment. Erosive disease was seen in the intercondylar notch. Assessment & Plan (01/11/2018 3:08 PM EST): His exam is consistent with secondary osteoarthritis. Since his stroke leaving him with some left lower extremity weakness he has been more dependent on his right leg. We will obtain an x-ray of the right knee today. After full discussion was and benefits we will start a series of Synvisc injections giving the first one today. Aside from the reduction of prednisone his medications will remain unchanged. Assessment & Plan (11/03/2017 10:59 AM EST): Quadriceps strengthening was offered and he received aspiration and local cortisone injection today. Lumbar radiculopathy 11/03/2017 Assessment & Plan (10/01/2020 9:49 AM EST): Status post lumbar laminectomy he is having a localized flare of back pain. This is on right side. May be secondary to facet arthropathy or sacroiliac flare. He does have a sacral support belt at home which I advised him to use. He will avoid any lifting bending or twisting and apply heat locally in a modest amount. Assessment & Plan (11/03/2017 11:01 AM EST): His lumbar spinal stenosis as seen on MRI scan is quite severe and he has intermittent signs and symptoms of right lower extremity radiculopathy but it is no worse. His medications will remain unchanged. Greater trochanteric bursitis of right hip 11/03 Assessment & Plan (11/03/2017 10:59 AM EST): I gave him stretches to do for the iliotibial band and gave him an injection into the tender area over the right trochanteric bursa. Gastroesophageal reflux disease without esophagi tis 11/03/2017 Assessment & Plan (11/03/2017 11:00 AM EST): Worsening symptoms of reflux to be treated by continuance of omeprazole at 40 mg daily but discontinuing the diclofenac and all [id number] anti- inflammatories. Follow up by phone call in 5 days. Effusion of left olecranon bursa Encounter for preoperative s creening laboratory testing for COVID-19 virus Resolved Problems Problem Noted Date Diagnosed Date Resolved Date Osteoarthritis of right knee 01/11/2018 11/21/2018 Assessment & Plan (04/18/2018 12:52 PM EDT): Patient's right knee with end-stage tricompartmental secondary osteoarthritis continues to be quite painful. He is scheduled for right total knee arthroplasty on June 13. I told him that he would need to discontinue Simponi one month prior surgery and his last injection is scheduled for the end of April so this works out fine. He may continue prednisone right through surgery. He is to stop all anti-inflammatories 14 days prior to surgery. I reviewed the April 15, 2018 laboratory work with him showing a B1 of 27 with a creatinine of 1.3 and a calcium of 9.0 with an AST of 18 an ALT of 26. Assessment & Plan (01/26/2018 8:27 AM EDT): Patient continues to have pain but is had no postinjection flares. He will receive his third and final Synvisc injection today. Social History Tobacco Use Types Packs/Day Years Used Date Smoking Tobacco: Former Cigars Smokeless Tobacco: Never Tobacco Cessation:Counseling Given: Not Answered Comments:Cigar Smoker Alcohol Use Standard Drinks/Week Comments [...] ecorded Are you denied basic needs s [facility] as food, clothing, or medical care? No 05/10/2024 In the past 12 months have y ou been in a relationship with a person who hurts, threatens, or tries to control you? No 05/10/2024 Are you denied basic needs s [facility] as food, clothing, or medical care? No [...] Orientation Straight 12/17/2017 9: 49 AM EST Last Filed Vital Signs Vital Sign Reading Time Taken Comments Blood Pressure 100/60 05/03/2025 9:38 AM EDT Pulse 72 05/03/2025 9:38 AM EDT Temperature 37.2 C (98.9 F) 05/03/2025 9:38 AM EDT Respiratory Rate 12 05/03/2025 9:38 AM EDT Oxygen Saturation 95% 05/03/2025 9:38 AM EDT Inhaled Oxygen Concentration - - Weight 64.4 kg (142 lb) 05/10/2024 7:44 AM EDT Height 165.1 cm (5' 5 ) 05/10/2024 7:44 AM EDT Body Mass Index 23.63 05/10/2024 7:44 AM EDT Plan of Treatment Health Maintenance Due Date Last Done Comments DEPRESSION SCREENING 1960 ZOSTER VACCINES (1 of 2) 1967 Adult Td,Tdap Booster 03/11/2015 03/11/2005 DIABETIC EYE EXAM 12/17/2017 07/10/2016, 03/20/2009 URINE MICROALBUMIN/CREATININE RATIO 05/17/2020 05/17/2019, 01/13/2019, 10/13/2018 RSV VACCINE (1 - 1-dose 75+ series) 2023 HEMOGLOBIN A1C 11/12/2023 05/12/2023, 07/0 03/2023, 12/09/2022, Additional history exists CREATININE LEVEL 05/30/2025 05/30/2024, , 05/16/2024, Additional history exists INFLUENZA VACCINE (#1) 2025 , 07/22/2020, 07/27/2019, Additional history exists COVID-19 VACCINE ( season) 2025 03/13/2022, 06/26/2021, 02/08/2021, Additional history exists BLOOD PRESSURE 11/02/2025 05/03/2025 SMOKING Hx and SMOKELESS TOBACCO SCREENING 12/19/2025 12/19/2024 PNEUMOCOCCAL VACCINES (50+ years) Completed 07/22/2020, 09/18/2016, 08/09/2015, Additional history exists HEPATITIS C SCREENING Completed 11/26/2023, 020 HEPATITIS A VACCINES Aged Out No long er eligible based on patient's age to complete this topic HIB VACCINES Aged Out No longer eligi ble based on patient's age to complete this topic MENINGOCOCCAL VACCINES (ACWY) Aged Out No longer eligible based on patient's age to complete this topic MENINGOCOCCAL VACCINES (B) Aged Out N o longer eligible based on patient's age to complete this topic Medical Devices Implanted Type Area Manager Forensic Device Identifier Shelf Expiration Date Model / Serial / Lot Lens Lens Bilateral: Eye Description:Pt is legally bl ind wears glasses Prosthetic Joint Prosthetic Joint Right: Knee Wire Wire Sternum Procedures Procedure Name Priority Date/Time Associated Diagnosis Comments BASIC METABOLIC PANEL Routine 05/30/2024 6:20 AM EDT Type 2 diabetes mellitus with complication, with long-term current use of insulin HEMOGLOBIN A1C Routine 05/12/2023 9:44 AM EDT Primary osteoarthritis of left knee Diabetes mellitus of other type without complication, unspecified whether mechanical manufacturing engineer insulin use HEPATITIS C ANTIBODY, QUALITATIVE Routine 07/01/2020 8:54 AM EDT Rheumatoid arthritis involving vertebra with positive rheumatoid factor MICROALBUMIN/CREATI NINE RATIO, RANDOM URINE Routine 05/17/2019 7:41 AM EDT Type 2 diabetes mellitus without complication, without long-term current use of insulin from Last 3 Months or Most Recently Relevant to Health Maintenance Results * (ABNORMAL) Basic metabolic panel (05/30/2024 6:20 AM EDT) SODIUM 143 133 - 146 mmol/L [facility] CHLORIDE 108 96 - 108 mmol/L [facility] POTASSIUM 4.9 3.3 - 5.1 mmol/L [facility] CO2 23 21 - 35 mmol/L [facility] BUN 22(H) 6 - 19 mg/dL [facility] CREATININE 0.80 0.5 - 1.5 mg/dL [facility] GLUCOSE 103(H) 70 - 99 mg/dL [facility] CALCIUM 8.3(L) 8.4 - 10.3 mg/dL [facility] EGFR 92 >59 mL/min/1.7 3m2 [facility] Comment:Estimated glomerular filtration rate calculated using the CKD-EPI refit equation. ANION GAP 17 10 - 20 mmol/L [facility] Blood 05/30/2024 6:20 AM EDT 05/30/2024 8:56 AM EDT us Arcenio Allen MD LAB BLOOD ORDERABLES Final Resul t Performing Organization Address [facility] Co de Phone Number [address] [address] * (ABNORMAL) Hemoglobin A1c (05/12/2023 9:44 AM EDT) HEMOGLOBIN A1C 6.1(H) 4.3 - 5.8 % [facility] Blood 05/12/2023 9:44 AM EDT 05/12/2023 9:48 AM EDT us Wyatt Diallo MD LAB BLOOD ORDERABLES Final R esult Performing Organization Address [facility] Co de Phone Number [address] [address] * Hepatitis C antibody, qualitative (07/01/2020 8:54 AM EDT) HCV NON-REACTIV E NON-REACTI VE [facility] Blood 07/01/2020 8:54 AM EDT 07/01/2020 8:56 AM EDT us Kervin Mo MD LAB BLOOD ORDERABLES Final Result Performing Organization Address [facility] Co de Phone Number [address] [address] * (ABNORMAL) Microalbumin/creatinine ratio, random urine (05/17/2019 7:41 AM EDT) URINE MICROALBUMIN 2.9(H) 0 - 2.3 mg/dL [facility] URINE CREATININE 107 mg/dL [facility] MICROALB/CRE RATIO 27.1(H) 0 - 20 mg/g Cre [facility] Urine (Urine) 05/17/2019 7:4 1 AM EDT 05/17/2019 7:46 AM EDT us Ian Morejon DO URINE ORDERABLES Final Result [facility] [address] [place] [address] from Last 3 Months or Most Recently Relevant to Health Maintenance Insurance [place] [id number] [facility] MEDICARE SUPPLEMENT MEDICARE PART A & B Member Subscriber Plan / Payer (Ef fective 2013-Present) Name:Vito Vizcarra Member ID:[id number] Relation to Subscriber:Self Name:Vito Vizcarra Subscriber ID:[id number] Payer ID:[id number] Group ID:Not on file Type:Medicare Address: [employer] [address] MEDICARE SUPPLEMENT MEDICARE PART A & B MEDICARE SUPPLEMENT MEDICARE PART A & B MEDICARE SUPPLEMENT MEDICARE PART A & B MEDICARE SUPPLEMENT MEDICARE PART A & B Member Subscriber Plan / Payer (Ef fective 2013-Present) Name:Vito Vizcarra Member ID:[id number] Relation to Subscriber:Self Name:Vito Vizcarra Subscriber ID:[id number] Payer ID:[id number] Group ID:Not on file Type:Medicare Address: [employer] [address] [place] [id number] [place] [address] MEDICARE SUPPLEMENT MEDICARE PART A & B [facility] MEDICARE SUPPLEMENT MEDICARE PART A & B MEDICARE SUPPLEMENT MEDICARE PART A & B MEDICARE SUPPLEMENT Advance Directives For more information, please contact: [phone] (9AM - 5PM [place], Wednesday-Wednesday) Documents on File Type Date Recorded Patient Instructor Bridge Expl anation Healthcare Proxy 12/09/2017 12:41 PM Health care Proxy * Full Code (Latest Code Status on File) Date Activated Date Inactivated Comments 05/27/2022 7:59 AM Question Answer Comments Code Status Confirmed With: Patient * Full Code (Confirmed) Date Activated Date Inactivated Comments 12/17/2017 3:53 PM 12/19/2017 6:43 PM Question Answer Comments Code Discussion Comments: pt * Full Code (Presumed) Date Activated Date Inactivated Comments 12/08/2017 6:19 AM 12/08/2017 12:10 PM Healthcare Agents on File Name Relationship Healthcare Agent [facility] p Communication Jesenia Vizcarra Spouse .Primary Health Care Agent (Proxy form on file) Rosy Vizcarra Daughter Alternate Heal thcare Agent (Proxy form on file) Care Teams Surface Logging Systems Logger Relationship Specialty Start Date End Date Ian Morejon DO [email or web address] PCP - General Internal Medicine 10/05/18 Additional Source Comments The information contained in this document represents components of the legal health record. It is not the complete legal health record.[facility]
--- OUTSIDE RECORDS SUMMARY | 2025-08-21 16:32 | XMS_ITS | Encounter Summary ---
Author Organization [facility] Address [address] [place] [address] Phone Care Team Providers Care Bleach Machine Operator Name Role Phone Ian Morejon Primary Care Provider [phone] Encounter Details Date Type Department Care Team (Late st Contact Info) Description 05/10/2024 Procedure Pass [facility], Ct Scan - [address] [address] Social History Tobacco Use Types Packs/Day Years Used Date Smoking Tobacco: Former Cigars Smokeless Tobacco: Never Comments:Cigar Smoker Alcohol Use Standard Drinks/Week Comments Yes 3 (1 standard drink = 0.6 oz pur e alcohol) rare Home Health Assessment: Transportation Answer Date Recorded Lack of Transportation (Medical) No 05/04/2024 Lack of Transportation (Non-Medical) No 05/04/2024 Patient Unable or Declines to Respond No 05/04/2024 Education Answer Date Recorded Are you interested [...] 7:45 AM EDT Rayne Alvarez RN * [place] Suicide Severity Rating Scale (Screener/Recent Self-Report) Question Answer Date of Assessment Author 1. Wish to be (Past 1 Month) No 024 7:45 AM EDT Rayne Alvarez RN 2. Non-Specific Active Suici bryan Thoughts (Past 1 Month) No 05/10/2024 7:45 AM EDT Rayne Alvarez RN 6. Suicidal Behavior (Lifetime) No 7:45 AM EDT Rayne Alvarez RN documented as of this encounter Plan of Treatment Not on file documented as of this encounter Visit Diagnoses Not on filedocumented in this encounter Care Teams Bleach Machine Operator Relationship Specialty Start Date End Date Ian Morejon DO [email or web address] PCP - General Internal Medicine 10/05/18 documented as of this encounter Additional Source Comments The information contained in this document represents components of the legal health record. It is not the complete legal health record.[facility]
--- OUTSIDE RECORDS SUMMARY | 2025-08-21 16:32 | XMS_ITS | Encounter Summary ---
Author Organization [facility] Address [address] [facility] [place] [address] Phone Care Team Providers Care Environmental Sampling Technician Name Role Phone Wyatt Jorgensen MD Primary Care Provider [phone] Ian Morejon DO Primary Care Provider [phone] Encounter Details Date Type Department Care Team (Late st Contact Info) Description 11/16/2017 Prep for Surgery [facility] & Sports Medicine [address] [place] [id number] Omer Alamo MD [address] [place] [address] Effusion of left olecranon bursa (Primary Dx) Social History Tobacco Use Types [...] AM EST documented as of this encounter H&P Notes * Omer Alamo MD - 11/16/2017 10:13 AM EST Mr. Vizcarra is a 67-year-old man with a long-standing history of nodular rheumatoid arthritis. In the past she's had multiple nodules were removed and has been on an extensive medical regimen for years. Recently he's developed a very large uncomfortable olecranon bursa which is been drained several times with by his tax clerk but without resolution. Within this bursa he also has nodularity and loose bodies. He is admitted at this time for excision. Physical examination reveals alert man in no distress. Examination of the head eyes ears nose and throat reveals no evidence of active upper respiratory tract infection. Neck is supple. Chest is clear to P&A. Heart reveals sinus rhythm without murmur or gallop. Abdominal rectal and genital examinations are deferred. Orthopedic evaluation is restricted today to the left upper extremity. His elbow flexes to 95?? andextends to 10??. He seems to have normal pronation and supination. He has the stigmata of rheumatoid arthritis in the hand oxidation of the carpus on the distal radius and with multiple deformities of the MP joints. He also has rheumatoid nodules about the ulnar aspect of the thumb and the dorsum of the middle finger. There is a very large fluctuant olecranon bursa which is not erythematous and not tender within thebursa E easily palpated some loose bodies and the posterior surface of the ulna is irregular with prominent nodules present within the bursa. Impression is significant olecranon bursitis with nodule formation in a patient with rheumatoid arthritis. I had a long discussion with the patient and his . I went over the risk-benefit profile of the surgery including the obvious risk of recurrence and infection. He's on prednisone and a disease modifying agent golimunab. He'll require postoperativesplints and perioperative antibiotics. I answered questions the patient and his at length documented in this encounter Plan of Treatment Not on file documented as of this encounter Visit Diagnoses Diagnosis Effusion of left olecranon bursa- Primary documented in this encounter Care Teams Environmental Sampling Technician Relationship Specialty Start Date End Date Wyatt Jorgensen MD [address] [place] [id number] [email or web address] PCP - General 08/26/17 10/04/18 Ian Morejon DO [address] [place] [id number] [email or web address] PCP - General Internal Medicine 10/05/18 documented as of this encounter Additional Source Comments The information contained in this document represents components of the legal health record. It is not the complete legal health record.[facility]
--- OUTSIDE RECORDS SUMMARY | 2025-08-21 16:32 | XMS_ITS | Encounter Summary ---
Author Organization [facility] Address [address] [facility] [address] [place] [address] Phone Care Team Providers Care Telemarketing Supervisor Name Role Phone Ian Morejon Primary Care Provider [phone] Encounter Details Date Type Department Care Team (Late st Contact Info) Description 09/27/2023 Procedure Pass OR Admitting Dept - Virtual Department [address] [place] [address] Social History Tobacco Use Types Packs/Day Years [...] on filedocumented in this encounter Care Teams Telemarketing Supervisor Relationship Specialty Start Date End Date Ian Morejon DO [email or web address] PCP - General Internal Medicine 10/05/18 documented as of this encounter Additional Source Comments The information contained in this document represents components of the legal health record. It is not the complete legal health record.[facility]
--- OUTSIDE RECORDS SUMMARY | 2025-08-21 16:32 | XMS_ITS | Encounter Summary ---
Author Organization [facility] Address [address] [facility] [address] [place] [phone] Phone Care Team Providers Care Co Founder And Director Name Role Phone Wyatt Jorgensen MD Primary Care Provider [phone] Ian Morejon DO Primary Care Provider [phone] Encounter Details Date Type Department Care Team (Late st Contact Info) Description 12/08/2017 Procedure Pass OR Admitting Dept - Virtual Department [address] [place] [address] Social History Tobacco Use Types Packs/Day Years [...] on filedocumented in this encounter Care Teams Co Founder And Director Relationship Specialty Start Date End Date Wyatt Jorgensen MD [address] [place] [address] [email or web address] PCP - General 08/26/17 10/04/18 Ian Morejon DO [address] [place] [phone] [email or web address] PCP - General Internal Medicine 10/05/18 documented as of this encounter Additional Source Comments The information contained in this document represents components of the legal health record. It is not the complete legal health record.[facility]
--- OUTSIDE RECORDS SUMMARY | 2025-08-21 16:32 | XMS_ITS | Encounter Summary ---
Author Organization [facility] Address [address] [facility] [address] [place] [address] Phone Care Team Providers Care Frame Sample And Pattern Supervisor Name Role Phone Ian Morejon Primary Care Provider Encounter Details Date Type Department Care Team (Late st Contact Info) Description 04/18/2024 Procedure Pass [facility] Scan - [address] [address] Social History Tobacco Use Types Packs/Day Years [...] 9:49 AM EST Sexual Orientation Straight 12/17/2017 9 :49 AM EST documented as of this encounter Functional Status * Calculated C-SSRS Risk Score (Lifetime/Recent) Answer Date of Assessment Author No Risk Indicated 04/18/2024 6:27 PM EDT Thanh Faye RN * Pitt Suicide Severity Rating Scale (Screener/Recent Self-Report) Question Answer Date of Assessment Author 1. Wish to be (Past 1 Month) No 024 6:27 PM EDT Thanh Gomez RN 2. Non-Specific Active Suici bryan Thoughts (Past 1 Month) No 04/18/2024 6:27 PM EDT Alfonzo Gomez RN 6. Suicidal Behavior (Lifetime) No 6:27 PM EDT Thanh Gomez RN documented as of this encounter Plan of Treatment Not on file documented as of this encounter Visit Diagnoses Not on filedocumented in this encounter Care Teams Frame Sample And Pattern Supervisor Relationship Specialty Start Date End Date Ian Morejon DO [email or web address] PCP - General Internal Medicine 10/05/18 documented as of this encounter Additional Source Comments The information contained in this document represents components of the legal health record. It is not the complete legal health record.[facility]
--- OUTSIDE RECORDS SUMMARY | 2025-08-21 16:32 | XMS_ITS | Clinical Summary ---
Author Organization [facility] Address [address] [place] [address] Care Team Providers Care Master Rigger Name Role Phone Ian Morejon Primary Care Provider [phone] Allergies No known active allergies Medications ascorbic acid (VITAMIN C) 500 mg tablet Take 500 mg by mouth daily. Active aspirin 81 mg EC tablet Take 81 mg by mouth daily. Active atorvastatin (LIPITOR) 80 mg tablet SMARTSI Tablet(s) By Mouth Daily 09/03/2023 Active vitamin D3 25 mcg (1,000 unit) capsule Take 1,000 Units by mouth daily. 12/10/2022 Active DOCOSAHEXAENOIC ACID ORAL Take 1 capsule by mouth daily. Active Trulicity 0.75 mg/0.5 mL injection dose SMARTSI.5 Milliliter(s ) SUB-Q Once a Week 11/08/2023 Active famotidine (PEPCID) 40 mg tablet SMARTSI Tablet(s) By Mouth Daily 10/18/2023 Active garlic 1,000 mg capsule Take 1 capsule by mouth daily. Active metFORMIN ER (GLUCOPHAGE XR) 500 mg tablet Take 2 tablets by mouth daily with breakfast. 10/22/2023 Active metoprolol succinate XL (TOPROL XL) 25 mg tablet Take 12.5 mg by mouth daily. 06/03/2023 Active multivitamin-min erals-lutein tablet Take 1 tablet by mouth daily. Active predniSONE (DELTASONE) 2.5 mg tablet Take 1 tablet by mouth daily with breakfast. 09/17/2023 Active Lyrica 100 mg capsule Take 150 mg by mouth 2 times a day. Active acetaminophen (TYLENOL) 500 mg tablet Take 975 mg by mouth 3 times a day. Active LORazepam (ATIVAN) 0.5 mg tablet Take 0.5 mg by mouth 2 times daily as needed. 07/28/2024 Active carvediloL (COREG) 6.25 mg tablet Take 6.25 mg by mouth 2 times daily. 07/28/2024 Active docusate sodium (Colace) 100 mg capsule Take 100 mg by mouth. 05/04/2024 Active isosorbide mononitrate (IMDUR) 120 mg 24 hr tablet Take 120 mg by mouth daily. 07/28/2024 Active lidocaine 4 % adhesive patch,medicated Place 1 patch on the skin every 24 hours. 06/21/2024 Active oxyCODONE IR (ROXICODONE) 5 mg tablet Take 5 mg by mouth every 4 hours as needed. 08/03/2024 Active nitroglycerin (NITROSTAT) 0.[address] 0.4 mg under the tongue every 5 minutes as needed for chest pain. 09/27/2024 Active tocilizumab (Actemra ACTPen) 162 mg/0.9 mL pen injector Inject 0.9 mL (162 mg total) under the skin every 14 days. 1.8 mL 11 07/31/2025 8:02 AM EDT 03/01/2025 03/01/20 26 Active Active Problems Problem Noted Date Diagnosed Date High risk medication use 05/26/2024 Depression 03/14/2024 Current chronic use of systemic steroids 024 Assessment & Plan (01/14/2024 4:14 PM EST): -osteopenia per T scores, continuous churn buttermaker steroid use. -discussed the above -goal Vit D 30-50, will check level today, continue current supplementation -goal calcium intake 1200mg daily. He is likely around 600mg daily by way of diet alone. Will get 24 hour urine. -continue regular, safe, weight bearing physical activity -will obtain labs to rule out secondary osteoporosis to include CBC, CMP, TSH, PTH, Vit D, phos, 24 hour urine, celiac and monoclonal gammopathy panels -will obtain XR of lumbar and thoracic spine to rule out compression fractures -based on the above findings, is high risk for fracture. If he has compression fractures, will be very high risk and qualify for anabolic therapies -we briefly touched on anabolic versus antiresorptive therapy today -follow up in 6-8 weeks to review all results and finalize a treatment plan -all questions answered Primary osteoarthritis involving multiple joints 11/08/2023 Overview (03/14/2024): Last Assessment & Plan: Degenerative osteoarthritis in multiple areas with stiffness but no swelling. He should continue with Tylenol and see if the prescriber will increase his fentanyl patch dose. Rheumatoid arthritis involvi ng multiple sites with positive rheumatoid factor 11/08/2023 Overview (03/14/2024): Last Assessment & Plan: Seropositive rheumatoid arthritis with high titer factors [...] also takes Tylenol 650 mg as needed. 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 No current clear indication to switch to alternative biologic agent; will monitor closely. Closed subluxation of cervical spine 01/09/2022 Occipital neuralgia of right side 06/20/2020 Overview (03/14/2024): Last Assessment & Plan: Injection therapy today hopefully will help this. He will call me and let me know. He will start physical therapy. He will use ice packs. Osteoporosis 07/18/2019 Assessment & Plan (03/09/2025 11:45 AM EDT): -osteoporosis -continue Vit D and calcium supplementation -continue regular, safe, weight bearing physical activity -continue Reclast infusion annually, schedule for April 2025 -update labs to be done within a month of next infusion, including CMP, Vit D and phos, mailed to him so he can have done closer to home -follow up in 1 year -repeat DXA in September 2025 -all questions answered Assessment & Plan (03/17/2024 5:43 PM EDT): -osteoporosis, very high risk based on T scores, FRAX, compression fractures, steroid use -chronic compression fractures at T8 and L1 on recent imaging of T and L spine -no untoward findings to indicate secondary osteoporosis -continue Vit D supplementation, level is therapeutic -start calcium supplementation with calcium carbonates 600mg daily with food -continue regular, safe, weight bearing physical activity as best he can -he certainly qualifies for anabolics, however romosozumab not approved in men, and with underlying RA, self injections with PTH analogues may not be the best choice -we discussed antiresorptive therapy, including oral bisphosphonates, IV zoledronate (Reclast) and denosumab (Prolia). Common and potential side effects as well as treatment regimen discussed. -in this case, and given his travel from [facility], zoledronate (Reclast) is the best option and daughter agrees -will start insurance approval -follow up in 1 year -all questions answered Coronary artery disease with history of myocardial infarction without history of CABG 11/21/2018 Overview (03/14/2024): Last Assessment & Plan: No report of anginal equivalents. Continue cardiac rehab and appropriate diet and medications as per cardiology. 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 Blood pressure is normal. with residual left foot drop 12/2017 Gastroesophageal reflux disease without esophagi tis 11/03/2017 Overview (03/14/2024): Last Assessment & Plan: Worsening symptoms of reflux to be treated by continuance of omeprazole at 40 mg daily but discontinuing the diclofenac and all [id number] anti- inflammatories. Follow up by phone call in 5 days. Family History Medical History Relation Name Comments Arthritis Maternal Grandfather Arthritis Maternal Grandmother Arthritis Mother Relation Name Status Comments Maternal Grandfather Maternal Grandmother Mother Social History Tobacco Use Types Packs/Day Years Used Date Smoking Tobacco: Former Cigarettes Passive Smoke Exposure: Past Smokeless Tobacco: Never Tobacco Cessation:Counseling Given: Not Answered Alcohol Use Standard Drinks/Week Comments Not Currently 0 (1 standard drink = 0.6 oz pur e alcohol) Sex and Gender Information Value Date Recorded Sex Assigned at Male 05/25/2024 1:18 PM EDT Legal Sex Male 9:50 AM EST Gender Identity Male 05/25/2024 1:18 PM EDT Sexual Orientation Straight 05/25/2024 1: 18 PM EDT 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 Not on file Not on file Not on henrietta e Last Filed Vital Signs Vital Sign Reading Time Taken Comments Blood Pressure 110/69 05/05/2025 3:00 PM EDT Pulse 63 05/05/2025 3:00 PM EDT Temperature 36.6 C (97.9 F) 05/05/2025 3:00 PM EDT Respiratory Rate 16 05/05/2025 3:00 PM EDT Oxygen Saturation 95% 05/05/2024 1:52 PM EDT Inhaled Oxygen Concentration - - Weight 65.1 kg (143 lb 8.3 oz) 05/05/2024 1:52 P M EDT Height 162.6 cm (5' 4 ) 03/10/2024 1:40 PM EDT Body Mass Index 24.64 03/10/2024 1:40 PM EDT Plan of Treatment Upcoming Encounters Date Type Department Care Team (Late st Contact Info) Description 03/15/2026 1:00 PM EDT Telehealth [facility] [address] [place] [phone] Squad Sergeant: Christie Medina NP [address] [place] [address] [phone] 05/06/2026 10:30 AM EDT Infusion [facility] [address] [place] [address] Health Maintenance Due Date Last Done Comments Medicare AWV 1951 Ophthalmology Exam 1958 Zoster Vaccines (1 of 2) 1998 DTaP,Tdap,and Td Vaccines (1 - Tdap) 03/12/2005 03/11/2005, 11/08/2004 CT Lung Cancer Screening (Baseline) 07/02/2019 07/02/2018 Urine Microalbumin 05/17/2020 05/17/2019 RSV Vaccine (60+ years old and patients) (1 - 1-dose 75+ series) 2023 Hemoglobin A1C 11/12/2023 05/12/2023, 02/0 11/2022, 04/20/2022, Additional history exists Alcohol/Substance Use Screening 11/08/2024 Depression Screening and Follow-Up 11/08/2024 Health Care Proxy Review 11/08/2024 Social Drivers of Health Annual Screening 11/08/2024 Basic Metabolic Panel 05/30/2025 05/30/2024 , 05/23/2024, 05/16/2024, Additional history exists COVID-19 Vaccine (2024- season) 2025 09/10/2023, 08/25/2022, 03/13/2022, Additional history exists Influenza Vaccine (#1) 2025 , 09/17/2023, 08/25/2022, Additional history exists Pneumococcal Vaccine: 50+ Years Completed 07/22/2020, 09/18/2016, 08/09/2015, Additional history exists Hepatitis C Screening Completed 11/26/2023, 020 Hepatitis B Vaccines Aged Out No long er eligible based on patient's age to complete this topic Procedures * Due to [place] [employer] law, this organization might not be sharing negative HIV tests. Procedure Name Priority Date/Time Associated Diagnosis Comments COMPREHENSIVE METABOLIC PANEL Routine 01/14/2024 4:50 PM EST Current chronic use of systemic steroids HEPATITIS C ANTIBODY W/REFLEX TO HCV RNA, QUANTITATIVE PCR Routine 11/26/2023 12:16 PM EST Rheumatoid arthritis involving multiple sites, unspecified whether rheumatoid factor present from Last 3 Months or Most Recently Relevant to Health Maintenance Results * Due to [facility] law, this organization might not be sharing negative HIV tests. * (ABNORMAL) Comprehensive Metabolic Panel (01/14/2024 4:50 PM EST) NA 142 135 - 145 mmol/L 01/14/2024 6:38 PM EST [facility] K 4.1 3.5 - 5.3 mmol/L 01/14/2024 6:38 PM EST [facility] Cl 104 97 - 110 mmol/L 01/14/2024 6:38 PM EST [facility] CO2 30 24 - 32 mmol/L 01/14/2024 6:38 PM EST [facility] Anion Gap 8 5 - 15 01/14/2024 6:38 PM EST [facility] Glucose 95 70 - 99 mg/dL 01/14/2024 6:38 PM [facility] Creatinine 1.21 0.60 - 1.30 mg/dL 01/14/2024 6:38 PM [facility] Calcium 10.0 8.7 - 10.7 mg/dL 01/14/2024 6:38 PM [facility] Total Protein 7.3 6.0 - 8.0 g/dL 01/14/2024 6:38 PM [facility] Albumin 5.0(H) 3.5 - 4.8 g/dL 01/14/2024 6:38 PM [facility] Bilirubin, Total 0.4 0.3 - 1.2 mg/dL 01/14/2024 6:38 PM [facility] Alkaline Phosphatase 53 30 - 115 U/L 01/14/2024 6:38 PM [facility] AST 39 10 - 40 U/L 01/14/2024 6:38 PM [facility] ALT 55(H) 10 - 40 U/L 01/14/2024 6:38 PM [facility] BUN 21 7 - 23 mg/dL 01/14/2024 6:38 PM [facility] eGFR 62 >=60 mL/min/1. 73m2 01/14/2024 6:38 PM [facility] Comment:The estimated glomer ular filtration rate (eGFR) is calculated using a new formula developed by the NKF-ASN task force to eliminate race-based correction factors. The new formula uses serum/plasma creatinine, age, and gender to determine eGFR. A value below 60mls/min might indicate kidney disease and will be flagged. For additional information, see Michel ibarra al, Am J Kidney Dis. 2021;79(2):268- 288, A Unifying Approach for GFR estimation: Recommendations of the NKF-ASN Task Force on Reassessing the Inclusion of Race in Diagnosing Kidney Disease . Blood Structure of peripheral vein / Unknown Venipuncture / Unknown 01/14/2024 4:50 PM EST 01/14/2024 5:53 PM EST Christie East NP LAB BLOOD ORDERABLES Final Resul t [facility] [address] [place] [address], * Hepatitis C Antibody w/Reflex to HCV RNA, Quantitative PCR (11/26/2023 12:16 PM EST) Hepatitis C Antibody NON-REACT NCIOLASA NON-REACT NICOLASA 11/26/2023 9:50 PM EST [employer] Comment: HCV antibody was non-reactive. There is no laboratory evidence of HCV infection. In most cases, no further action is required. However, if recent HCV exposure is suspected, a test for HCV RNA (test code 17977) is suggested. For additional information please refer to http://education.[employer]/faq/ESM23t3 (This link is being provided for informational/ educational purposes only.) Blood Structure of peripheral vein / Unknown Venipuncture / Unknown 11/26/2023 12:16 PM EST 11/26/2023 12:30 PM EST Narrative [facility] - 11/26/2023 9:50 PM EST [facility] Received Date: Jeimy Bui MD LAB BLOOD ORDERABLES Final Result Performing Organization Address City/[facility]/ZIP Co de Phone Number [facility] [address], [place] [address], [employer] [facility] [address], [place] [address], from Last 3 Months or Most Recently Relevant to Health Maintenance Insurance [facility] Member Subscriber Plan / Payer (Ef fective 2023-Present) Name:Vito Vizcarra Relation to Subscriber:Self Name:Vito Vizcarra Payer ID:[id number] Type:Not on file Address: [address] [phone] MEDICARE Care Teams Master Rigger Relationship Specialty Start Date End Date Ian Morejon [address] [place] [phone] PCP - General Internal Medicine 10/06/23
--- OUTSIDE RECORDS SUMMARY | 2025-08-21 16:32 | XMS_ITS | Encounter Summary ---
Author Organization [facility] Address [address] [facility] [address] [place] [address] Phone Care Team Providers Care Quality Rep Name Role Phone Ian Morejon Primary Care Provider [phone] Encounter Details Date Type Department Care Team (Late st Contact Info) Description 05/29/2022 Ancillary Orders [facility], X-Ray - [address] [address] Joao Jernigan MD [address] [place] [address] Dr [place]IERR[place] [address] Subluxation of C1-C2 cervical vertebrae, initial encounter Social History Tobacco Use Types Packs/Day Years [...] documented as of this encounter Results * XR CERVICAL SPINE 4-5 VIEWS (05/29/2022 11:01 AM EDT) Anatomical Region Laterality Modality C-spine Computed Radiogr aphy 05/29/2022 11:2 8 AM EDT Impressions 05/29/2022 11:41 AM EDT No significant change in pre-dens space suggested during flexion or extension, with measurements fairly similar to that demonstrated in 2020. There is very minimal interval increase of the chronic grade 1 C2-3 and C4-5 spondylolistheses during flexion with minimal instability at the C3-4 level during extension. Chronic degenerative disc and facet changes otherwise appear overall stable. Narrative 05/29/2022 11:41 AM EDT XR CERVICAL SPINE 4-5 VIEWS COMPARISON: 08/27/2021 FINDINGS: Lateral neutral, flexion, extension, and AP views were obtained. The pre-dens space measures 6 mm in neutral and extension lesions with equivocal increase of 1 mm during flexion, difficult to confirm due to suboptimal delineation of the cortical surfaces. The chronic grade 1 anterolisthesis of C2 in relation to C3 measures approximately 3 mm in neutral, 4 mm in flexion, and 3 mm in extension. The chronic grade 1 retrolisthesis of C4 in relation to C5 is approximately 5 mm in neutral, 4 mm in flexion, and approximately 4 mm in extension. No other spondylolistheses identified in the neutral or flexion positioning although there is a 3 mm retrolisthesis of C3 in relation to C4 now demonstrated in extension. Stable degenerative disc changes most pronounced at the C4-5 level. No acute fracture. Chronic degenerative facet arthropathy and presumed carotid atherosclerotic calcifications. Procedure Note Wyatt Callejas MD - 05/29/2022 XR CERVICAL SPINE 4-5 VIEWS COMPARISON: 08/27/2021 FINDINGS: Lateral neutral, flexion, extension, and AP views were obtained. The pre-dens space measures 6 mm in neutral and extension lesions withequivocal increase of 1 mm during flexion, difficult to confirm due tosuboptimal delineation of the cortical surfaces. The chronic grade 1anterolisthesis of C2 in relation to C3 measures approximately 3 mm inneutral, 4 mm in flexion, and 3 mm in extension. The chronic grade 1retrolisthesis of C4 in relation to C5 is approximately 5 mm in neutral, 4mm in flexion, and approximately 4 mm in extension. No otherspondylolistheses identified in the neutral or flexion positioningalthough there is a 3 mm retrolisthesis of C3 in relation to C4 nowdemonstrated in extension. Stable degenerative disc changes most pronounced at the C4-5 level. Noacute fracture. Chronic degenerative facet arthropathy and presumedcarotid atherosclerotic calcifications. IMPRESSION: No significant change in pre-dens space suggested during flexion orextension, with measurements fairly similar to that demonstrated in 2020.There is very minimal interval increase of the chronic grade 1 C2-3 andC4-5 spondylolistheses during flexion with minimal instability at the C3-4level during extension. Chronic degenerative disc and facet changes otherwise appear overallstable. us Joao Jernigan MD IMG XR SPINE Final Re sult documented in this encounter Visit Diagnoses Diagnosis Subluxation of C1-C2 cervical vertebrae, initial encounter Subluxation of C1-C2 cervical vertebrae, initial encounter documented in this encounter Care Teams Quality Rep Relationship Specialty Start Date End Date Ian Morejon DO [email or web address] PCP - General Internal Medicine 10/05/18 documented as of this encounter Additional Source Comments The information contained in this document represents components of the legal health record. It is not the complete legal health record.[facility]
--- OUTSIDE RECORDS SUMMARY | 2025-08-21 16:32 | XMS_ITS | Encounter Summary ---
Author Organization [facility] Address [address] [facility] [address] [place] [address] Phone Care Team Providers Care Grout Machine Operator Name Role Phone Ian Morejon DO Primary Care Provider [phone] Encounter Details Date Type Department Care Team (Late st Contact Info) Description 05/27/2022 Procedure Pass [place] Admitting Dept - Virtual Department [address] [place] [address] Social History Tobacco Use Types Packs/Day Years [...] on filedocumented in this encounter Care Teams Grout Machine Operator Relationship Specialty Start Date End Date Ian Morejon DO PCP - General Internal Medicine 10/05/18 documented as of this encounter Additional Source Comments The information contained in this document represents components of the legal health record. It is not the complete legal health record.[facility]
--- OUTSIDE RECORDS SUMMARY | 2025-08-21 16:32 | XMS_ITS | Encounter Summary ---
Author Organization [facility] Address [address] [facility] [address] [place] [address] Phone Care Team Providers Care Chief Juvenile Probation Officer Name Role Phone Ian Morejon Primary Care Provider [phone] Encounter Details Date Type Department Care Team (Late st Contact Info) Description 05/10/2024 Procedure Pass [facility], Ct Scan - [address] [address] Social History Tobacco Use Types Packs/Day Years [...] 7:45 AM EDT Rayne Alvarez RN * [place] Suicide Severity Rating Scale (Screener/Recent Self-Report) Question [...] on filedocumented in this encounter Care Teams Chief Juvenile Probation Officer Relationship Specialty Start Date End Date Ian Morejon DO [email or web address] PCP - General Internal Medicine 10/05/18 documented as of this encounter Additional Source Comments The information contained in this document represents components of the legal health record. It is not the complete legal health record.[facility]
--- OUTSIDE RECORDS SUMMARY | 2025-08-21 16:32 | XMS_ITS | Encounter Summary ---
Author Organization [facility] Address [address] [facility] [address] [place] [address] Phone Care Team Providers Care Horse Groomer Name Role Phone Wyatt Jorgensen MD Primary Care Provider [phone] Ian Morejon DO Primary Care Provider Encounter Details Date Type Department Care Team (Late st Contact Info) Description 06/10/2018 Procedure Pass [facility] Admitting Dept Virtual Department [address] [place] [address] Social History Tobacco Use Types Packs/Day Years [...] on filedocumented in this encounter Care Teams Horse Groomer Relationship Specialty Start Date End Date Wyatt Jorgensen MD [address] [place] [address] [email or web address] PCP - General 08/26/17 10/04/18 Ian Morejon DO [address] [place] [address] [email or web address] PCP - General Internal Medicine 10/05/18 documented as of this encounter Additional Source Comments The information contained in this document represents components of the legal health record. It is not the complete legal health record.[facility]
--- OUTSIDE RECORDS SUMMARY | 2025-08-21 16:32 | XMS_ITS | Clinical Summary ---
Author Organization [facility] it Address [address] [place] [address] Care Team Providers Care Center Customer Service Associate Name Role Phone Ian Morejon DO Primary Care Provider [phone] Surgical History Surgery Date Site/Laterality Comments CORONARY ARTERY BYPASS GRAFT PROCEDURE: HISTORICAL CABG TOTAL KNEE ARTHROPLASTY PROCEDURE: LA ARTHRP KNE CONDYLE&PLATU MEDIAL&LAT COMPARTMENTS BACK SURGERY PROCEDURE: HISTORICAL BACK SURGERY Medical History Medical History Date Comments Essential hypertension DX:Essent ial hypertension Diabetes mellitus type 2, co ntrolled, with complications (CMS/HCC V24, CMS/[facility] V28) DX:Diabetes mellitus type 2, controlled, with complications (HCC) Rheumatoid arthritis ([facility]/ C V24, [facility]/HCC V28) DX:Rheumatoid arthritis (HCC ) Heart attack (CMS/HCC V24, CMS/HCC V28) DX:Heart attack (HCC) Osteopenia DX:Osteopenia Hyperlipidemia DX:Hyperlipidemi [...] Health Maintenance Due Date Last Done Comments DTaP,Tdap,and Td Vaccines (1 - Tdap) 1967 Pneumococcal Vaccine: 50+ Ye ars (1 of 1 - PCV) 1998 Zoster Vaccines (1 of 2) 1998 RSV Immunization Adult Patie nts (1 - 1-dose 75+ series) 2023 Cholesterol Screening (Lipid Panel) 10/03/2024 Falls Risk Assessment 10/03/2024 Hepatitis C Screening 10/03/2024 Social Influencers of Health Screening 10/03/2024 Depression Screening 11/08/2024 COVID-19 Vaccine (1 - 2023-2 5 season) 2025 Influenza Vaccine (#1) 2025 HIB Vaccines Aged Out No longer eligi [...] age to complete this topic Meningococcal B Vaccine Aged Out No l onger eligible based on patient's age to complete this topic RSV Immunization Patients Un raffy 20 months Aged Out No longer eligible b ased on patient's age to complete this topic Varicella Vaccines Aged Out No longer eligible based on patient's age to complete this topic Care Teams Center Customer Service Associate Relationship Specialty Start Date End Date Ian Morejon DO [address] [facility] [address] [place], [place] PCP - General 07/04/24
--- OUTSIDE RECORDS SUMMARY | 2025-08-21 16:32 | XMS_ITS | Encounter Summary ---
Author Organization [facility] Address [address] [facility] [address] [place] [address] Phone Care Team Providers Care Advanced Registered Nurse Name Role Phone Wyatt Jorgensen MD Primary Care Provider [phone] Ian Morejon DO Primary Care Provider [phone] Encounter Details Date Type Department Care Team (Late st Contact Info) Description 12/08/2017 Procedure Pass [place] Admitting Dept - Virtual Department [address] [place] [address] Social History Tobacco Use Types Packs/Day Years [...] on filedocumented in this encounter Care Teams Advanced Registered Nurse Relationship Specialty Start Date End Date Wyatt Jorgensen MD [address] [place] [address] [email or web address] PCP - General 08/26/17 10/04/18 Ian Morejon DO [address] [place] [address] [email or web address] PCP - General Internal Medicine 10/05/18 documented as of this encounter Additional Source Comments The information contained in this document represents components of the legal health record. It is not the complete legal health record.[facility]
--- OUTSIDE RECORDS SUMMARY | 2025-08-21 16:32 | XMS_ITS | Encounter Summary ---
Author Organization [facility] Address [address] [facility] [address] [place] [address] Phone Care Team Providers Care Finish Remover Name Role Phone Ian Morejon Primary Care Provider [phone] Encounter Details Date Type Department Care Team (Late st Contact Info) Description 05/10/2024 Procedure Pass [facility], Ct Scan - [address] [address] Social History Tobacco Use Types Packs/Day Years [...] 7:45 AM EDT Rayne Alvarez RN * [place] Suicide Severity Rating Scale (Screener/Recent Self-Report) Question [...] on filedocumented in this encounter Care Teams Finish Remover Relationship Specialty Start Date End Date Ian Morejon DO [email or web address] PCP - General Internal Medicine 10/05/18 documented as of this encounter Additional Source Comments The information contained in this document represents components of the legal health record. It is not the complete legal health record.[facility]
--- OUTSIDE RECORDS SUMMARY | 2025-08-21 16:33 | XMS_ITS | Encounter Summary ---
Author Organization [facility] Address [address] [facility] [address] [place] [address] Phone Care Team Providers Care Sheriffs Detective Name Role Phone Ian Morejon DO Primary Care Provider [phone] Encounter Details Date Type Department Care Team (Late st Contact Info) Description 05/09/2020 Procedure Pass [facility], [address] [address] Social History Tobacco Use Types Packs/Day Years [...] on filedocumented in this encounter Care Teams Sheriffs Detective Relationship Specialty Start Date End Date Ian Morejon DO PCP - General Internal Medicine 10/05/18 documented as of this encounter Additional Source Comments The information contained in this document represents components of the legal health record. It is not the complete legal health record.[facility]
--- OUTSIDE RECORDS SUMMARY | 2025-08-21 16:33 | XMS_ITS | Encounter Summary ---
Author Organization [facility] Address [address] [facility] [address] [place] [address] Phone Care Team Providers Care Referral Rn Name Role Phone Ian Morejon DO Primary Care Provider [phone] Encounter Details Date Type Department Care Team (Late st Contact Info) Description 08/07/2021 Procedure Pass [facility], Ct Scan - [address] [address] Social History Tobacco Use Types Packs/Day Years Used Date Smoking Tobacco: Former Cigarettes Q uit: 2016 Smokeless Tobacco: Never Comments:Cigar Smoker Alcohol Use Standard Drinks/Week Comments Yes 6 (1 standard drink = 0.6 oz pur e alcohol) rare Sex and Gender Information Value Date Recorded Sex Assigned at Male 12/17/2017 9:49 AM EST Legal Sex Male 10:05 PM EDT Gender Identity Male 12/17/2017 9:49 AM EST Sexual Orientation Straight 12/17/2017 9: 49 AM EST documented as of this encounter Plan of Treatment Not on file documented as of this encounter Visit Diagnoses Not on filedocumented in this encounter Care Teams Referral Rn Relationship Specialty Start Date End Date Ian Morejon DO [email or web address] PCP - General Internal Medicine 10/05/18 documented as of this encounter Additional Source Comments The information contained in this document represents components of the legal health record. It is not the complete legal health record.[facility]
--- OUTSIDE RECORDS SUMMARY | 2025-08-21 16:33 | XMS_ITS | Encounter Summary ---
Author Organization [facility] Address [address] [facility] [address] [place] [address] Phone Care Team Providers Care Finance Business Partner Name Role Phone Wyatt Jorgensen MD Primary Care Provider [phone] Ian Morejon DO Primary Care Provider [phone] Encounter Details Date Type Department Care Team (Late st Contact Info) Description 12/17/2017 Procedure Pass [facility], Ct Scan - [address] [address] Social History Tobacco Use Types Packs/Day Years [...] on filedocumented in this encounter Care Teams Finance Business Partner Relationship Specialty Start Date End Date Wyatt Jorgensen MD [address] [place] [address] [email or web address] PCP - General 08/26/17 10/04/18 Ian Morejon DO [address] [place] [address] [email or web address] PCP - General Internal Medicine 10/05/18 documented as of this encounter Additional Source Comments The information contained in this document represents components of the legal health record. It is not the complete legal health record.[facility]
--- OUTSIDE RECORDS SUMMARY | 2025-08-21 16:33 | XMS_ITS | Encounter Summary ---
Author Organization [facility] Address [address] [facility] [address] [place] [address] Phone Care Team Providers Care Lei Maker Name Role Phone Ian Morejon DO Primary Care Provider Encounter Details Date Type Department Care Team (Late st Contact Info) Description 07/16/2021 Procedure Pass [facility], [address] [address] Social History Tobacco Use Types Packs/Day Years [...] on filedocumented in this encounter Care Teams Lei Maker Relationship Specialty Start Date End Date Ian Morejon DO [email or web address] PCP - General Internal Medicine 10/05/18 documented as of this encounter Additional Source Comments The information contained in this document represents components of the legal health record. It is not the complete legal health record.[facility]
--- OUTSIDE RECORDS SUMMARY | 2025-08-21 16:33 | XMS_ITS | Encounter Summary ---
Author Organization [facility] Address [address] [facility] [address] [place] [address] Phone Care Team Providers Care Certified Composites Technician Name Role Phone Ian Morejon DO Primary Care Provider [phone] Encounter Details Date Type Department Care Team (Late st Contact Info) Description 04/14/2022 Prep for Surgery [facility] [address] [place] [address] Gem Blevins MD [address] [place] [address] Orthopedics & Sports Medicine, [facility] [place] [address] [email or web address] Social History Tobacco Use Types Packs/Day Years [...] on filedocumented in this encounter Care Teams Certified Composites Technician Relationship Specialty Start Date End Date Ian Morejon DO [email or web address] PCP - General Internal Medicine 10/05/18 documented as of this encounter Additional Source Comments The information contained in this document represents components of the legal health record. It is not the complete legal health record.[facility]
--- OUTSIDE RECORDS SUMMARY | 2025-08-21 16:33 | XMS_ITS | Encounter Summary ---
Author Organization [facility] Address [address] [facility] [address] [place] [address] Phone Care Team Providers Care Custodian Supervisor Name Role Phone Ian Morejon DO Primary Care Provider [phone] Encounter Details Date Type Department Care Team (Late st Contact Info) Description 06/05/2019 Procedure Pass [facility], [address] [address] Social History Tobacco Use Types Packs/Day Years [...] on filedocumented in this encounter Care Teams Custodian Supervisor Relationship Specialty Start Date End Date Ian Morejon DO PCP - General Internal Medicine 10/05/18 documented as of this encounter Additional Source Comments The information contained in this document represents components of the legal health record. It is not the complete legal health record.[facility]
--- OUTSIDE RECORDS SUMMARY | 2025-08-21 16:33 | XMS_ITS | Encounter Summary ---
Author Organization [facility] Address [address] [facility] [address] [place] [address] Phone Care Team Providers Care Livestock Trader Name Role Phone Wyatt Jorgensen MD Primary Care Provider [phone] Ian Morejon DO Primary Care Provider [phone] Encounter Details Date Type Department Care Team (Late st Contact Info) Description 12/17/2017 Procedure Pass [facility], [address] [address] Social History Tobacco Use Types Packs/Day Years [...] AM EST documented as of this encounter Last Filed Vital Signs Vital Sign Reading Time Taken Comments Blood Pressure - - Pulse - - Temperature - - Respiratory Rate - - Oxygen Saturation - - Inhaled Oxygen Concentration - - Weight 77.6 kg (171 lb) 12/17/2017 6:04 PM EST Height 162.6 cm (5' 4 ) 12/17/2017 6:04 PM EST Body Mass Index 29.35 12/17/2017 6:04 PM EST documented in this encounter Plan of Treatment Not on file documented as of this encounter Visit Diagnoses Not on filedocumented in this encounter Care Teams Livestock Trader Relationship Specialty Start Date End Date Wyatt Jorgensen MD [address] [place] [address] [email or web address] PCP - General 08/26/17 10/04/18 Ian Morejon DO [address] [place] [address] [email or web address] PCP - General Internal Medicine 10/05/18 documented as of this encounter Additional Source Comments The information contained in this document represents components of the legal health record. It is not the complete legal health record.[facility]
--- OUTSIDE RECORDS SUMMARY | 2025-08-21 16:33 | XMS_ITS | Encounter Summary ---
Author Organization [facility] Address [address] [facility] [address] [place] [address] Phone Care Team Providers Care Load Haul Dump Operator Name Role Phone Ian Morejon DO Primary Care Provider [phone] Encounter Details Date Type Department Care Team (Late st Contact Info) Description 01/09/2022 Transcribe Orders Virtual Department [address] [place] [address] Ian Morejon DO [address] [facility] [place] [address] [place] [address] [email or web address] Encounter for screening for cardiovascular disorders (Primary Dx) Social History Tobacco Use Types [...] documented as of this encounter Results * US Abdominal Aortic Screening (01/30/2022 9:41 AM EDT) Anatomical Region Laterality Modality Abdomen Ultrasound 01/30/2022 9:45 AM EDT Impressions 01/30/2022 9:45 AM EDT No AAA. Narrative 01/30/2022 9:45 AM EDT COMPARISON: None. ABDOMINAL AORTA ULTRASOUND FINDINGS: No evidence of an abdominal aortic aneurysm. Aorta measures up to 2.5 cm proximally. The proximal common iliac arteries are nonaneurysmal. Mild diffuse atherosclerosis. Procedure Note Puneet Herr MD - 01/30/2022 COMPARISON: None. ABDOMINAL AORTA ULTRASOUND FINDINGS: No evidence of an abdominal aortic aneurysm. Aorta measures up to 2.5 cmproximally. The proximal common iliac arteries are nonaneurysmal. Milddiffuse atherosclerosis. IMPRESSION: No AAA. us Ian Morejon DO IMG US ABDOMEN Final Result documented in this encounter Visit Diagnoses Diagnosis Encounter for screening for cardiovascular disorders- Primary Encounter for screening for cardiovascular disorders documented in this encounter Care Teams Load Haul Dump Operator Relationship Specialty Start Date End Date Ian Morejon DO [email or web address] PCP - General Internal Medicine 10/05/18 documented as of this encounter Additional Source Comments The information contained in this document represents components of the legal health record. It is not the complete legal health record.[facility]
[2025-08-21 18:07] LABS: MANUAL DIFF FLAG NO
[2025-08-21 18:17] LABS: Hematocrit 34.0 % (42.0-52.0); Hemoglobin 11.2 g/dl (14.0-18.0); Imm Gran Abs Auto 0.02 X10*3/uL (0.00-0.03); Imm Gran Pct Auto 0.3 % (0.0-0.4); Lymphocytes Absolute Auto 1.0 X10*3/uL (1.2-4.9); Mean Corpuscular HGB Conc 32.9 g/dl (31.0-36.0); Mean Corpuscular Hemoglobin 31.0 pg (27.0-33.0); Mean Corpuscular Volume 94.2 fL (80.0-98.0); NRBC Abs Auto 0.020 X10*3/uL (0.0-0.012); NRBC Pct Auto 0.3 /100WBC (0.0-0.2); Platelet Count 479 X10*3/uL (160-400); Red Blood Count 3.61 X10*6/uL (4.60-5.80); White Blood Count 6.0 X10*3/uL (4.8-10.8)
[2025-08-21 18:50] LABS: Thyroid Stimulating Hormone 0.80 uIU/mL (0.32-4.0)
[2025-08-21 18:56] LABS: Vitamin B12 1251 pg/mL (200-900)
== END 2025-08-21 13:35 | disposition home or self-care (01) ==
LOC: HO.MANLDS 13:34
PROVIDERS: Visit Provider Internal Medicine
DX: R53.82 Chronic fatigue, unspecified (principal)
CPT/HCPCS: 36415; 82306; 82607; 84443; 85025

== ENCOUNTER 2025-09-26 10:18 | Outpatient (REF) | payer MEDICARE, OTHER, SELFPAY ==
--- OUTSIDE RECORDS SUMMARY | 2021-03-27 08:30 | XMS_ITS | Encounter Summary ---
Author Organization [facility] Address [address] [place] [address] Phone Care Team Providers Care Lead Blender Name Role Phone Ian Morejon Primary Care Provider [phone] Encounter Details Date Type Department Care Team (Late st Contact Info) Description 03/27/2021 9:30 AM EDT Hospital Encounter [facility] [address] [place] [phone] Ramon Thompson PA [address] [place] [phone] [email or web address] Social History Tobacco Use Types Packs/Day Years Used Date Smoking Tobacco: Former Cigars Smokeless Tobacco: Never Comments:Cigar Smoker Alcohol Use Standard Drinks/Week Comments Yes 3 (1 standard drink = 0.6 oz pur e alcohol) rare Home Health Assessment: Transportation Answer Date Recorded Lack of Transportation (Medical) No 05/03/2025 Lack of Transportation (Non-Medical) No 05/03/2025 Patient Unable or Declines to Respond No 05/03/2025 Education Answer Date Recorded Are you interested in more education? Not on henrietta e 03/04/2023 Are you concerned about learning? Not on file 03/04/2023 No 03/04/2023 No 03/04/2023 Digital Access Answer Date Recorded No 04/05/2023 No 04/05/2023 Reliable internet access at home? Not on file 04/05/2023 Device with a working camera? Not on file Intimate Partner Violence Answer Date R ecorded Are you denied basic needs s uch as food, clothing, or medical care? No 05/10/2024 In the past 12 months have y ou been in a relationship with a person who hurts, threatens, or tries to control you? No 05/10/2024 Are you denied basic needs s uch as food, clothing, or medical care? No 05/10/2024 In the past 12 months have y ou been in a relationship with a person who hurts, threatens, or tries to control you? No 05/10/2024 Sex and Gender Information Value Date Recorded Sex Assigned at Male 12/17/2017 9:49 AM EST Legal Sex Male 10:05 PM EDT Gender Identity Male 12/17/2017 9:49 AM EST Sexual Orientation Straight 12/17/2017 9: 49 AM EST documented as of this encounter Functional Status * Calculated C-SSRS Risk Score (Lifetime/Recent) Answer Date of Assessment Author No Risk Indicated 05/10/2024 7:45 AM EDT Rayne Alvarez RN * [place] Suicide Severity Rating Scale (Screener/Recent Self-Report) Question Answer Date of Assessment Author 1. Wish to be (Past 1 Month) No 024 7:45 AM EDT Rayne Alvarez RN 2. Non-Specific Active Suici bryan Thoughts (Past 1 Month) No 05/10/2024 7:45 AM EDT Rayne Alvarez, RAEGAN 6. Suicidal Behavior (Lifetime) No 7:45 AM EDT Rayne Alvarez RN documented as of this encounter Plan of Treatment Not on file documented as of this encounter Procedures Procedure Name Priority Date/Time Associated Diagnosis Comments XR HIP 2 VW LEFT PLUS PELVIS Urgent/patient waiting 03/27/2021 9:42 AM EDT Hip pain, left documented in this encounter Results * XR HIP 2 VW LEFT PLUS PELVIS (03/27/2021 9:42 AM EDT) Anatomical Region Laterality Modality Hip, Pelvis Computed Radiogr aphy 03/27/2021 9:55 AM EDT Impressions 03/27/2021 9:57 AM EDT No acute fracture or dislocation of the pelvis or left hip. Narrative 03/27/2021 9:57 AM EDT TECHNIQUE: XR HIP 2 VW LEFT PLUS PELVIS COMPARISON: 02/03/2017 FINDINGS: Intact pelvic ring, without displaced fracture. Sacroiliac joints are intact. Degenerative changes in the visualized lower lumbar spine. Sacrum is partially obscured by overlying bowel gas. Frontal evaluation of the right hip demonstrates mild degenerative change without displaced fracture. Intact alignment at the left hip, without acute fracture or dislocation. Mild left hip degenerative change. No focal radiographic soft tissue swelling. Vascular calcification. Procedure Note Kym Loya MD - 03/27/2021 TECHNIQUE: XR HIP 2 VW LEFT PLUS PELVIS COMPARISON: 02/03/2017 FINDINGS: Intact pelvic ring, without displaced fracture. Sacroiliac joints areintact. Degenerative changes in the visualized lower lumbar spine. Sacrumis partially obscured by overlying bowel gas. Frontal evaluation of theright hip demonstrates mild degenerative change without displacedfracture. Intact alignment at the left hip, without acute fracture or dislocation.Mild left hip degenerative change. No focal radiographic soft tissueswelling. Vascular calcification. IMPRESSION: No acute fracture or dislocation of the pelvis or left hip. Ramon DEWITT IMG XR PELVIS Final Resul t documented in this encounter Visit Diagnoses Not on filedocumented in this encounter Care Teams Lead Blender Relationship Specialty Start Date End Date Ian Morejon DO [email or web address] PCP - General Internal Medicine 10/05/18 documented as of this encounter Additional Source Comments The information contained in this document represents components of the legal health record. It is not the complete legal health record.[facility]
--- OUTSIDE RECORDS SUMMARY | 2021-03-27 08:49 | XMS_ITS | Encounter Summary ---
Author Organization [facility] Address [address] [place] [address] Phone Care Team Providers Care Manager Department Name Role Phone Ian Morejon Primary Care Provider [phone] Encounter Details Date Type Department Care Team (Late st Contact Info) Description 03/27/2021 9:49 AM EDT Hospital Encounter [facility] [address] [place] [id number] Ramon Thompson PA [address] [place] [phone] [email or web address] Tobacco Use Types Packs/Day [...] 7:45 AM EDT Rayne Alvarez RN * [place] Suicide Severity Rating Scale (Screener/Recent Self-Report) Question [...] Name Priority Date/Time Associated Diagnosis Comments XR LUMBOSACRAL SPINE 2-3 VIEWS Urgent/patient waiting 03/27/2021 9:57 AM EDT Acute low back pain, unspecified back pain laterality, unspecified whether sciatica present documented in this encounter Results * XR LUMBOSACRAL SPINE 2-3 VIEWS (03/27/2021 9:57 AM EDT) Anatomical Region Laterality Modality L-spine Computed Radiogr aphy 03/27/2021 9:59 AM EDT Impressions 03/27/2021 10:05 AM EDT 1.Interval progressed levoconvex lumbar scoliosis and multilevel severe discovertebral and facet degeneration. 2.New grade 1 anterolisthesis at L4-5, may be degenerative, less likely posttraumatic. 3.No displaced fracture. Narrative 03/27/2021 10:05 AM EDT TECHNIQUE: XR LUMBOSACRAL SPINE 2-3 VIEWS COMPARISON: 12/17/2017 FINDINGS: 5 lumbar-type nonrib-bearing vertebral bodies. Mild levoconvex lumbar scoliosis, apex at L3, progressed. Straightening of the normal lumbar lordosis. Grade 1 anterolisthesis at L4-5 is new since 2018. Multilevel degenerative changes of the lumbar spine with moderate to severe disc space narrowing, greatest at L1-L4, associated endplate sclerosis and osteophytosis, also progressed. Postlaminectomy changes at L2/3-L5. Multilevel facet arthropathy greatest at L4-5 and L5-S1. Vertebral body heights are otherwise maintained. Vascular calcification. Unchanged peripherally calcified density projecting over the left renal fossa. Procedure Note Kym Loya MD - 03/27/2021 TECHNIQUE: XR LUMBOSACRAL SPINE 2-3 VIEWS COMPARISON: 12/17/2017 FINDINGS: 5 lumbar-type nonrib-bearing vertebral bodies. Mild levoconvex lumbarscoliosis, apex at L3, progressed. Straightening of the normal lumbarlordosis. Grade 1 anterolisthesis at L4-5 is new since 2018. Multileveldegenerative changes of the lumbar spine with moderate to severe discspace narrowing, greatest at L1-L4, associated endplate sclerosis andosteophytosis, also progressed. Postlaminectomy changes at L2/3-L5.Multilevel facet arthropathy greatest at L4-5 and L5-S1. Vertebral bodyheights are otherwise maintained. Vascular calcification. Unchangedperipherally calcified density projecting over the left renal fossa. IMPRESSION: 1.Interval progressed levoconvex lumbar scoliosis and multilevel severediscovertebral and facet degeneration. 2.New grade 1 anterolisthesis at L4-5, may be degenerative, less likelyposttraumatic. 3.No displaced fracture. Ramon DEWITT IMG XR SPINE Final Resul t documented in this encounter Visit Diagnoses Not on filedocumented in this encounter Care Teams Manager Department Relationship Specialty Start Date End Date Ian Morejon DO [email or web address] PCP - General Internal Medicine 10/05/18 documented as of this encounter Additional Source Comments The information contained in this document represents components of the legal health record. It is not the complete legal health record.[facility]
--- NOTE | ~2025-09-26 | CT_ITS ---
EXAMINATION: CT HEAD WITHOUT CONTRAST CLINICAL INFORMATION: Deformity of head COMPARISON: None available. TECHNIQUE: Contiguous axial imaging was performed from the skull base to vertex without intravenous administration of contrast. This CT examination was performed using dose optimization techniques as appropriate, variously including the following: *Automated exposure control *Adjustment of mA and/or kV according to patient size (this includes techniques or standardized protocols for targeted exams where dose is matched to indication/reason for exam; i.e. extremities or head) *Use of iterative reconstruction technique DLP: 913 mGy-cm FINDINGS: No acute fracture in the bony calvarium or the skull base. Degenerative changes at the craniocervical junction and periodontal C1 region. The possibility of an old type II C2 fracture cannot be excluded. No acute intracranial hemorrhage, mass effect, midline shift, hydrocephalus or herniation. Bilateral multifocal patchy and confluent subcortical, white matter and deep periventricular white matter hypodensities involving centrum semiovale and lovelace radiata. Prominence of the extra-axial CSF spaces cerebral sulci and ventricles involving mostly the bifrontal bitemporal lobes. 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 Punctate calcifications in the extra-axial compartment right hemicranium. Vascular calcifications, V4 segments, basilar and cavernous supracavernous segments, ICAs and M1 segments, MCA. Mucosal thickening, ethmoid cells. No air-fluid levels in the paranasal sinuses. Air-fluid levels in the right mastoid tip. Tympanic cavities are well aerated. Osteopenia versus osteoporosis. CT/CT head/brain wo IV con IMPRESSION: No acute intradural hemorrhage. 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 Bifrontal bitemporal lobe atrophy. Atherosclerosis disease, intracranial. Degenerative changes in the periodontal C1 region with questionable type II C2 fracture, old. Electronically signed by: Robby Conklin MD 09/26/2025 11:00 AM [facility]
--- OUTSIDE RECORDS SUMMARY | 2025-09-26 19:46 | XMS_ITS | Encounter Summary ---
Author Organization [facility] Address [address] [facility] [address] [place] [address] Phone Care Team Providers Care Store Sales Manager Name Role Phone Ian Morejon Primary Care Provider [phone] Encounter Details Date Type Department Care Team (Late st Contact Info) Description 09/27/2023 Procedure Pass [place] Admitting Dept - Virtual Department [address] [place] [address] Social History Tobacco Use Types Packs/Day Years [...] on filedocumented in this encounter Care Teams Store Sales Manager Relationship Specialty Start Date End Date Ian Morejon DO [email or web address] PCP - General Internal Medicine 10/05/18 documented as of this encounter Additional Source Comments The information contained in this document represents components of the legal health record. It is not the complete legal health record.[facility]
--- OUTSIDE RECORDS SUMMARY | 2025-09-26 19:46 | XMS_ITS | Encounter Summary ---
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; Elevated glucose Social [...] Specimen Source/ Description URINE CLEAN CLATCH URINE [facility] Special Requests None [facility] GRAM STAIN NO ORGANISMS SEEN [facility] Culture/Test NO GROWTH 48HRS [facility] Report Status 05/29/2018 FINAL [facility] Urine (Urine) 05/27/2018 10: 40 AM EDT 05/27/2018 10:43 AM EDT Jim Haddad MD LAB MICROBIOLOGY CULTURE ORDERABLES Final Result Performing Organization Address [facility] de Phone Number [address] [address] * Urinalysis (05/27/2018 10:40 AM EDT) COLOR Yellow Yellow [facility] CLARITY Clear [facility] GLUCOSE Negative Negative [facility] BILI Negative Negative [facility] KETONES Negative Negative [facility] SPECIFIC GRAVITY <1.005 1.005 - 1.030 [facility] BLOOD Negative Negative [facility] PH 5.5 5.0 - 8.0 [facility] Protein-UA Negative Negative [facility] NITRITE Negative Negative [facility] Leukocyte esterase, ur Negative Negative [facility] Urine (Urine) 05/27/2018 10: 40 AM EDT 05/27/2018 10:43 AM EDT Result [facility] Jim Haddad MD LAB URINE ORDERABLES Nunu l Result Performing Organization Address [facility] de Phone Number [address] [address] * PTT (05/27/2018 10:40 AM EDT) APTT 30.2 25.1 - 36.5 sec [facility] Comment:APTT response to unf ractionated heparin concentrations between 0.3 and 0.7 IU/mL is typically 54.0-94.0 seconds in uncomplicated cases. The Anti-Xa assay is the preferred method. Blood 05/27/2018 10:4 0 AM EDT 05/27/2018 10:43 AM EDT us Jim Haddad MD LAB BLOOD BKR ORDERABLES Final Result Performing Organization Address [facility] Co de Phone Number [address] [address] * PT-INR (05/27/2018 10:40 AM EDT) PT 12.1 10.2 - 12.9 sec [facility] INR 1.1 0.9 - 1.1 [facility] Comment:Therapeutic range fo r oral Vitamin K antagonists: 2.0-3.5 Blood 05/27/2018 10:4 0 AM EDT 05/27/2018 10:43 AM EDT us Jim Haddad MD LAB BLOOD BKR ORDERABLES Final Result Performing Organization Address [facility] de Phone Number [address] [address] * (ABNORMAL) Hemoglobin A1c (05/27/2018 10:40 AM EDT) HEMOGLOBIN A1C 6.3(H) 4.3 - 5.8 % [facility] Blood 05/27/2018 10:4 0 AM EDT 05/27/2018 10:43 AM EDT Jim Haddad MD LAB BLOOD BKR ORDERABLES Final Result Performing Organization Address [facility] Co de Phone Number [address] [address] * (ABNORMAL) Glucose, fasting (05/27/2018 10:40 AM EDT) FASTING GLUCOSE 138(H) 70 - 110 mg/dL [facility] Blood 05/27/2018 10:4 0 AM EDT 05/27/2018 10:43 AM EDT us Jim Haddad MD LAB BLOOD BKR ORDERABLES Final Result Performing Organization Address [facility]/State/ZIP Co de Phone Number [address] [address] * Creatinine/eGFR (05/27/2018 10:40 AM EDT) CREATININE 1.00 0.5 - 1.5 mg/dL [facility] EGFR 76 >59 mL/min/1.7 3m2 [facility] Comment:If patient is black, multiply result by 1.159. Estimated glomerular filtration rate calculated using the CKD-EPI equation. Blood 05/27/2018 10:4 0 AM EDT 05/27/2018 10:43 AM EDT us Jim Haddad MD LAB BLOOD BKR ORDERABLES Final Result [address] [address] * (ABNORMAL) CBC and differential (05/27/2018 10:40 AM EDT) WBC 5.68 3.40 - 11.20 K/uL [facility] RBC 3.87(L) 4.50 - 5.50 M/uL [facility] HGB 8.6(L) 13.0 - 17.0 g/dL [facility] HCT 29.3(L) 40.0 - 51.0 % [facility] PLT 211 130 - 400 K/uL [facility] MCV 75.7(L) 79.0 - 98.0 fL [facility] MCH 22.2(L) 27.0 - 34.8 pg [facility] MCHC 29.4(L) 31.5 - 36.0 g/dL [facility] RDW 16.6(H) 10.8 - 14.6 % [facility] MPV 11.3 9.4 - 12.4 fl [facility] NRBC 0.00 /100 WBCs [facility] ABSOLUTE NRBC 0.00 K/uL [facility] DIFF METHOD Auto [facility] NEUTS 67.9 45.30 - 77.70 % [facility] LYMPHS 22.0 12.30 - 39.70 % [facility] MONOS 7.4 4.10 - 12.80 % [facility] EOS 1.8 0 - 7.2 % [facility] BASOS 0.5 0 - 2.80 % [facility] Granulocytes, immature (%) 0.4 0.0 - 0.9 % [facility] ABSOLUTE NEUTS 3.86 1.40 - 7.70 K/uL [facility] ABSOLUTE LYMPHS 1.25 0.60 - 3.20 K/uL [facility] ABSOLUTE MONOS 0.42 0.11 - 0.59 K/uL [facility] ABSOLUTE EOS 0.10 0.01 - 0.50 K/uL [facility] ABSOLUTE BASOS 0.03 0.00 - 0.08 K/uL [facility] Granulocytes, immature 0.02 0.00 - 0.05 K/uL [facility] Blood 05/27/2018 10:4 0 AM EDT 05/27/2018 10:43 AM EDT us Jim Haddad MD LAB BLOOD BKR ORDERABLES Final Result [address] [address] * BUN (05/27/2018 10:40 AM EDT) BUN 16 6 - 19 mg/dL [facility] Blood 05/27/2018 10:4 0 AM EDT 05/27/2018 10:43 AM EDT us Jim Haddad MD LAB BLOOD BKR ORDERABLES Final Result Performing Organization Address City/[facility]/ZIP Co de Phone Number [address] [address] * Electrolytes (05/27/2018 10:40 AM EDT) SODIUM 143 133 - 146 mmol/L [facility] POTASSIUM 4.6 3.3 - 5.1 mmol/L [facility] CHLORIDE 103 96 - 108 mmol/L [facility] CO2 29 21 - 35 mmol/L [facility] ANION GAP 16 10 - 20 mmol/L [facility] Blood 05/27/2018 10:4 0 AM EDT 05/27/2018 10:43 AM EDT us Jim Haddad MD LAB BLOOD BKR ORDERABLES Final Result [facility] [address] [place] [address] documented in this encounter Visit Diagnoses Diagnosis Pre-operative laboratory examination- Primary Pre-procedural laboratory examination 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 It is not the complete legal health record.[facility]
--- OUTSIDE RECORDS SUMMARY | 2025-09-26 19:46 | XMS_ITS | Clinical Summary ---
Author Organization [facility] it Address [address] [place] [address] Care Team Providers Care Metal Furniture Polisher Name Role Phone Ian Morejon DO Primary Care Provider [phone] Surgical History Surgery Date Site/Laterality Comments CORONARY ARTERY BYPASS GRAFT PROCEDURE: HISTORICAL CABG TOTAL KNEE ARTHROPLASTY PROCEDURE: WA ARTHRP KNE CONDYLE&PLATU MEDIAL&LAT COMPARTMENTS BACK SURGERY PROCEDURE: HISTORICAL BACK SURGERY Medical History Medical History Date Comments Essential hypertension DX:Essent ial hypertension Diabetes mellitus type 2, co ntrolled, with complications (CMS/HCC V24, CMS/[facility] V28) DX:Diabetes mellitus type 2, controlled, with complications (HCC) Rheumatoid arthritis ([facility]/ C V24, [facility]/HCC V28) DX:Rheumatoid arthritis (HCC ) Heart attack (CMS/HCC V24, CMS/[facility] V28) DX:Heart attack (HCC) Osteopenia DX:Osteopenia Hyperlipidemia [...] Depression Screening 11/08/2024 COVID-19 Vaccine (1 - 2024-2 6 season) 2025 Influenza Vaccine (#1) 2025 HIB [...] age to complete this topic Care Teams Metal Furniture Polisher Relationship Specialty Start Date End Date Ian Morejon DO [address] [place], [place] PCP - General 07/04/24
--- OUTSIDE RECORDS SUMMARY | 2025-09-26 19:46 | XMS_ITS | Encounter Summary ---
Author Organization [facility] Address [address] [place] [address] Care Team Providers Care Change Room Attendant Name Role Phone Ian Morejon Primary Care Provider [phone] Reason for Visit * Reason Comments PAC Clinical Questions Encounter Details Date Type Department Care Team ([facility] st Contact Info) Description 09/21/2025 Telephone [facility] [address] [place] [address] Java Websphere Developer: Santa Yap Telephone Intake, Staff PAC Clinical Questions Social History Tobacco Use Types Packs/Day Years Used Date Smoking Tobacco: Former Cigarettes Passive Smoke Exposure: Past Smokeless Tobacco: Never Alcohol Use Standard Drinks/Week Comments Not Currently 0 (1 standard drink = 0.6 oz pur e alcohol) Sex and Gender Information Value Date Recorded Sex Assigned at Male 05/25/2024 1:18 PM EDT Legal Sex Male 9:50 AM EST Gender Identity Male 05/25/2024 1:18 PM EDT Sexual Orientation Straight 05/25/2024 1: 18 PM EDT 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 Topic: Clinical - Messages for Clinical Team >> Sep 21, 2025 9:33 AM Maryann Perez wrote: Symptoms: Nodule Back of Head How long the symptoms have occurred: few weeks Any other relative information (i.e., past history, medications): Pt was seen on 09/10/25 by pcp, called there office to request xray or ultrasound to take a closer look at the Nodule. She States that it bothers him once in awhile & two weeks before seeing his pcp he did go to Derm, the states it was an Arthritic Nodule. Pt's would also like to rs the appt in rheum sooner in person. Please call her back @[phone]. documented in this encounter Plan of Treatment Upcoming Encounters Date Type Department Care Team (Late st Contact Info) Description 10/19/2025 12:00 PM EST Office Visit [facility] [address] [place] [address] Java Websphere Developer: Melchor Mckenna NP [address] [place] [address] 05/06/2026 10:30 AM EDT Infusion [facility] [address] [place] [address] documented as of this encounter Visit Diagnoses Not on filedocumented in this encounter Care Teams Change Room Attendant Relationship Specialty Start Date End Date Ian Morejon [address] [place] [address] PCP - General Internal Medicine 10/06/23 documented as of this encounter
--- OUTSIDE RECORDS SUMMARY | 2025-09-26 19:46 | XMS_ITS | Encounter Summary ---
Author Organization [facility] Address [address] [place] [address] Phone Care Team Providers Care Lead Security Officer Name Role Phone Wyatt Jorgensen MD Primary Care Provider Ian Morejon DO Primary Care Provider [phone] Encounter Details Date Type Department Care Team (Late st Contact Info) Description 07/29/2018 Transcribe Orders [facility] Specimen Processing [address] [place] [address] Arcenio Allen MD [address] [address], [address] [place] [address] S/P CABG x 3 (Primary Dx) Social [...] EDT) WBC 8.69 3.40 - 11.20 K/uL [facility] RBC 3.96(L) 4.50 - 5.50 M/uL [facility] HGB 9.7(L) 13.0 - 17.0 g/dL [facility] HCT 31.6(L) 40.0 - 51.0 % [facility] PLT 288 130 - 400 K/uL [facility] MCV 79.8 79.0 - 98.0 fL [facility] MCH 24.5(L) 27.0 - 34.8 pg [facility] MCHC 30.7(L) 31.5 - 36.0 g/dL [facility] RDW 18.4(H) 10.8 - 14.6 % [facility] MPV 10.8 9.4 - 12.4 fl [facility] NRBC 0.00 /100 WBCs [facility] ABSOLUTE NRBC 0.00 K/uL [facility] DIFF METHOD Auto [facility] NEUTS 85.7(H) 45.30 - 77.70 % [facility] LYMPHS 7.9(L) 12.30 - 39.70 % [facility] MONOS 4.9 4.10 - 12.80 % [facility] EOS 1.0 0 - 7.2 % [facility] BASOS 0.2 0 - 2.80 % [facility] Granulocytes, immature (%) 0.3 0.0 - 0.9 % [facility] ABSOLUTE NEUTS 7.43 1.40 - 7.70 K/uL [facility] ABSOLUTE LYMPHS 0.69 0.60 - 3.20 K/uL [facility] ABSOLUTE MONOS 0.43 0.11 - 0.59 K/uL [facility] ABSOLUTE EOS 0.09 0.01 - 0.50 K/uL [facility] ABSOLUTE BASOS 0.02 0.00 - 0.08 K/uL [facility] Granulocytes, immature 0.03 0.00 - 0.05 K/uL [facility] Blood 07/29/2018 11:1 0 AM EDT 07/29/2018 11:55 AM EDT us Arecnio Allen MD LAB BLOOD BKR ORDERABLES Final R esult [facility] [address] [place] [address] documented in this encounter Visit Diagnoses Diagnosis S/P CABG x 3- Primary Postsurgical aortocoronary bypass status documented in this encounter Care Teams Lead Security Officer Relationship Specialty Start Date End Date Wyatt Jorgensen MD [address] [place] [address] [email or web address] PCP - General 08/26/17 10/04/18 Ian Morejon DO [address] [place] [address] [email or web address] PCP - General Internal Medicine 10/05/18 documented as of this encounter Additional Source Comments The information contained in this document represents components of the legal health record. It is not the complete legal health record.[facility]
--- OUTSIDE RECORDS SUMMARY | 2025-09-26 19:46 | XMS_ITS | Encounter Summary ---
Author Organization [facility] Address [address] [place] [address] Phone Care Team Providers Care Receivable Executive Name Role Phone Ian Morejon Primary Care Provider [phone] Encounter Details Date Type Department Care Team (Late st Contact Info) Description 05/27/2023 Procedure Pass [facility], [address] [address] Social History Tobacco Use Types Packs/Day Years [...] on filedocumented in this encounter Care Teams Receivable Executive Relationship Specialty Start Date End Date Ian Morejon DO [email or web address] PCP - General Internal Medicine 10/05/18 documented as of this encounter Additional Source Comments The information contained in this document represents components of the legal health record. It is not the complete legal health record.[facility]
--- OUTSIDE RECORDS SUMMARY | 2025-09-26 19:46 | XMS_ITS | Encounter Summary ---
Author Organization [facility] Address [address] [place] [address] Phone Care Team Providers Care Data Sciences Director Name Role Phone Wyatt Jorgensen MD Primary Care Provider [phone] Ian Morejon DO Primary Care Provider [phone] Encounter Details Date Type Department Care Team (Late st Contact Info) Description 06/10/2018 Procedure Pass [facility] Endoscopy Admitting Dept Virtual Department [address] [place] [address] Social History Tobacco Use Types Packs/Day Years [...] on filedocumented in this encounter Care Teams Data Sciences Director Relationship Specialty Start Date End Date Wyatt Jorgensen MD [address] [place] [address] [email or web address] PCP - General 08/26/17 10/04/18 Ian Morejon DO [address] [place] [address] [email or web address] PCP - General Internal Medicine 10/05/18 documented as of this encounter Additional Source Comments The information contained in this document represents components of the legal health record. It is not the complete legal health record.[facility]
--- OUTSIDE RECORDS SUMMARY | 2025-09-26 19:46 | XMS_ITS | Clinical Summary ---
Author Organization [facility] Address [address] [place] [address] Phone Care Team Providers Care Guest Laundry Attendant Name Role Phone Ian Morejon Primary Care Provider [phone] Allergies No known active allergies Medications omega 4-fae-nfr-fish oil 1,000 mg (120 mg-180 mg) Cap [...] hospital encounter of 05/30/21 (from the past 21967 hour(s)) DXA Monitoring Narrative Reason for exam (per EHR order): Osteoporosis Additional clinical information obtained from the EHR: None. TECHNIQUE: Bone densitometry on HoloColect[employer] A ([id number]). The least significant change for this machine [...] hospital encounter of 05/17/19 (from the past 01731 hour(s)) DXA Monitoring Narrative COMPARISON: None. BONE [...] hospital encounter of 05/17/19 (from the past 15397 hour(s)) DXA Monitoring Narrative COMPARISON: None. BONE [...] hospital encounter of 05/17/19 (from the past 19974 hour(s)) DXA Monitoring Narrative COMPARISON: None. BONE [...] for fall and fracture due to his fdc use of glucocorticoids and low bone mass. Results for orders placed or performed during the hospital encounter of 05/17/19 (from the past 28735 hour(s)) DXA Monitoring Narrative COMPARISON: None. BONE [...] hospital encounter of 05/17/19 (from the past 22076 hour(s)) DXA Monitoring Narrative COMPARISON: None. BONE [...] hospital encounter of 05/17/19 (from the past 12563 hour(s)) DXA Monitoring Narrative COMPARISON: None. BONE [...] hospital encounter of 05/17/19 (from the past 18558 hour(s)) DXA Monitoring Narrative COMPARISON: None. BONE [...] no vegetation or thrombus, nl ef - traffic monitor specialist no afib so far - carotid - [...] of this 28-minute visit was spent in xbua-xa-[id number] conversation with the patient and his going [...] surgically removed and I referred him to [facility] to discuss that. Primary osteoarthritis of [...] daily but discontinuing the diclofenac and all tjbg-xmr-gothxgn anti- inflammatories. Follow up by phone call [...] ecorded Are you denied basic needs s [facility] as food, clothing, or medical care? No 05/10/2024 In the past 12 months have y ou been in a relationship with a person who hurts, threatens, or tries to control you? No 05/10/2024 Are you denied basic needs s [facility] as food, clothing, or medical care? No [...] Additional history exists HEPATITIS C SCREENING Completed 11/26/2023 , 07/01/2020, 07/01/2020 HEPATITIS A VACCINES Aged Out No long [...] this topic Medical Devices Implanted Type Area Weight Tester Device Identifier Shelf Expiration Date Model / Serial / Lot Lens Lens Bilateral: Eye Description:Pt is legally bl ind wears glasses Prosthetic Joint Prosthetic Joint Right: Knee Wire Wire Sternum Procedures Procedure Name Priority Date/Time Associated Diagnosis Comments BASIC METABOLIC PANEL (BMP) Routine 05/30/2024 6:20 AM EDT Type 2 diabetes mellitus with complication, with long-term current use of insulin HEMOGLOBIN A1C Routine 05/12/2023 9:44 AM EDT Primary osteoarthritis of left knee Diabetes mellitus of other type without complication, unspecified whether terminal computer operator insulin use HEPATITIS C ANTIBODY, QUALITATIVE Routine [...] EDT) SODIUM 143 133 - 146 mmol/L [facility] CHLORIDE 108 96 - 108 mmol/L [facility] POTASSIUM 4.9 3.3 - 5.1 mmol/L [facility] CO2 23 21 - 35 mmol/L [facility] BUN 22(H) 6 - 19 mg/dL [facility] CREATININE 0.80 0.5 - 1.5 mg/dL [facility] GLUCOSE 103(H) 70 - 99 mg/dL [facility] CALCIUM 8.3(L) 8.4 - 10.3 mg/dL [facility] EGFR 92 >59 mL/min/1.7 3m2 [facility] Comment:Estimated glomerular filtration rate calculated using the CKD-EPI refit equation. ANION GAP 17 10 - 20 mmol/L [facility] Blood 05/30/2024 6:20 AM EDT 05/30/2024 8:56 AM EDT us Arcenio Allen MD LAB BLOOD BKR ORDERABLES Final R esult Performing Organization Address City/[facility]/ZIP Co de Phone Number [address] [address] * (ABNORMAL) Hemoglobin A1c (05/12/2023 9:44 AM EDT) HEMOGLOBIN A1C 6.1(H) 4.3 - 5.8 % [facility] Blood 05/12/2023 9:44 AM EDT 05/12/2023 9:48 AM EDT us Wyatt Diallo MD LAB BLOOD BKR ORDERABLES Fin al Result Performing Organization Address [facility]/ZIP Co de Phone Number [address] [address] * Hepatitis C antibody, qualitative (07/01/2020 8:54 AM EDT) HCV NON-REACTIV E NON-REACTI VE [facility] Blood 07/01/2020 8:54 AM EDT 07/01/2020 8:56 AM EDT us Kervin Mo MD LAB BLOOD BKR ORDERABLES F inal Result Performing Organization Address [facility]/ZIP Co de Phone Number [address] [address] * (ABNORMAL) Microalbumin/creatinine ratio, random urine (05/17/2019 7:41 AM EDT) URINE MICROALBUMIN 2.9(H) 0 - 2.3 mg/dL [facility] URINE CREATININE 107 mg/dL [facility] MICROALB/CRE RATIO 27.1(H) 0 - 20 mg/g Cre [facility] Urine (Urine) 05/17/2019 7:4 1 AM EDT 05/17/2019 7:46 AM EDT us Ian Morejon DO LAB URINE ORDERABLES Final Resul t [facility] [address] [place] [address] from Last 3 Months or Most Recently Relevant to Health Maintenance Insurance MEDICARE PART A & B [facility] MEDICARE SUPPLEMENT MEDICARE PART A & [place] [address] [place] [address] MEDICARE SUPPLEMENT MEDICARE PART A & B MEDICARE SUPPLEMENT MEDICARE PART A & B MEDICARE SUPPLEMENT MEDICARE PART A & B MEDICARE SUPPLEMENT MEDICARE PART A & B [facility] MEDICARE SUPPLEMENT MEDICARE PART A & B [facility] MEDICARE SUPPLEMENT MEDICARE PART A & B MEDICARE SUPPLEMENT MEDICARE PART A & B MEDICARE SUPPLEMENT Advance Directives For more information, please contact: [phone] (9AM - 5PM [facility], Wednesday-Wednesday) Documents on File Type Date Recorded Patient Restaurant General Manager Expl anation Healthcare Proxy 12/09/2017 12:41 PM [...] Agents on File Name Relationship Healthcare Agent Relationshi p Communication Jesenia Vizcarra Spouse .Primary Health Care Agent (Proxy form on file) Rosy Vizcarra Daughter Alternate Heal thcare Agent (Proxy form on file) Care Teams Guest Laundry Attendant Relationship Specialty Start Date End Date Ian Morejon DO PCP - General Internal Medicine 10/05/18 Additional Source Comments The information contained in this document represents components of the legal health record. It is not the complete legal health record.[facility]
--- OUTSIDE RECORDS SUMMARY | 2025-09-26 19:46 | XMS_ITS | Encounter Summary ---
Author Organization [facility] Address [address] [place] [address] Phone Care Team Providers Care Chief Inspector Name Role Phone Ian Morejon Primary Care Provider [phone] Encounter Details Date Type Department Care Team (Late st Contact Info) Description 05/10/2024 Procedure Pass [facility], Ct Scan - [address] [address] Social History Tobacco Use Types Packs/Day Years [...] 7:45 AM EDT Rayne Alvarez RN * [place] Suicide Severity Rating Scale (Screener/Recent Self-Report) Question [...] filedocumented in this encounter Care Teams Chief Inspector Relationship Specialty Start Date End Date Ian Morejon DO [email or web address] PCP - General Internal Medicine 10/05/18 documented as of this encounter Additional Source Comments The information contained in this document represents components of the legal health record. It is not the complete legal health record.[facility]
--- OUTSIDE RECORDS SUMMARY | 2025-09-26 19:46 | XMS_ITS | Encounter Summary ---
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 Procedures MRI Cervical Spine Ian Morejon DO Phone: tel: fax: [email or web address] Electronic Referral ID Status Reason Start Date Expiration Date Visits Re quested Visits Authorized [id number] Closed 05/27/2023 1 1 Encounter Details Date Type Department Care Team (Late st Contact Info) Description 05/27/2023 Transcribe Orders Virtual Department [address] [place] [address] Ian Morejon DO [address] [place] [address] [place] [address] [email or web address] Osseous and subluxation stenosis of intervertebral foramina [...] region documented in this encounter Care Teams Director [employer] Relationship Specialty Start Date End Date Ian Morejon DO [email or web address] PCP - General Internal Medicine 10/05/18 documented as of this encounter Additional Source Comments The information contained in this document represents components of the legal health record. It is not the complete legal health record.[facility]
--- OUTSIDE RECORDS SUMMARY | 2025-09-26 19:46 | XMS_ITS | Encounter Summary ---
Author Organization [facility] Address [address] [place] [address] Phone Care Team Providers Care Roll Scale Man Name Role Phone Ian Morejon Primary Care Provider [phone] Encounter Details Date Type Department Care Team (Latest Contact Info) Description 10/13/2018 Transcribe Orders [facility] Phleb Main [address] [place] [address] [place], [facility] [address] [place] [address] [email or web address] Uncontrolled type 2 diabetes mellitus with hypoglycemia, unspecified hypoglycemia coma status (Primary Dx) Social History Tobacco Use Types [...] documented as of this encounter Results * Microalbumin/creatinine ratio, random urine (10/13/2018 7:13 AM EST) URINE MICROALBUMIN 0.8 0 - 2.3 mg/dL [facility] URINE CREATININE 130 mg/dL [employer] MICROALB/CRE RATIO NOT CALCULATED 0 - 20 mg/g Cre [facility] Comment:due to Microalbumin <1.2 Urine (Urine) 10/13/2018 7:1 3 AM EST 10/13/2018 8:56 AM EST us Morelia [facility] URINE ORDERABLES Final R esult [facility] [address] [place] [address] * (ABNORMAL) Comprehensive metabolic panel (10/13/2018 7:13 AM EST) SODIUM 145 133 - 146 mmol/L [facility] POTASSIUM 3.9 3.3 - 5.1 mmol/L [facility] CHLORIDE 103 96 - 108 mmol/L [facility] CO2 28 21 - 35 mmol/L [facility] BUN 25(H) 6 - 19 mg/dL [facility] CREATININE 1.20 0.5 - 1.5 mg/dL [facility] GLUCOSE 87 70 - 99 mg/dL [facility] ALBUMIN 4.0 3.9 - 4.8 g/dL [facility] TOTAL PROTEIN 6.8 6.5 - 8.0 g/dL [facility] CALCIUM 9.1 8.4 - 10.3 mg/dL [facility] ALKALINE PHOSPHATASE 57 39 - 117 U/L [facility] TOTAL BILIRUBIN 0.2 0.0 - 1.2 mg/dL [facility] AST 18 0 - 37 U/L [facility] ALT 25 0 - 40 U/L [facility] GLOBULIN 2.8 1 - 4.8 g/dL [facility] EGFR 61 >59 mL/min/1.7 3m2 [facility] Comment:If patient is black, multiply result by 1.159. Estimated glomerular filtration rate calculated using the CKD-EPI equation. ANION GAP 18 10 - 20 mmol/L [facility] Blood 10/13/2018 7:13 AM EST 10/13/2018 7:18 AM EST us February [facility] BLOOD BKR ORDERABLES Fin al Result [address] [address] * (ABNORMAL) Hemoglobin A1c (10/13/2018 7:13 AM EST) HEMOGLOBIN A1C 6.1(H) 4.3 - 5.8 % [facility] Blood 10/13/2018 7:13 AM EST 10/13/2018 7:18 AM EST February [facility] LAB BLOOD BKR ORDERABLES Fin al Result Performing Organization Address [facility] Co de Phone Number [address] [address] * (ABNORMAL) Lipid panel (10/13/2018 7:13 AM EST) HDL 35 mg/dL [facility] Comment: Interpretation <40 mg/dL: Low HDL cholesterol (major risk factor for CHD) Greater than or equal to 60 mg/dL: High HDL cholesterol ( negative risk factor for CHD) HDL - cholesterol is affected by a number of factors, e.g. smoking, excerise, hormones, sex and age. CHOLESTEROL 98 0 - 240 mg/dL [facility] TRIGLYCERIDES 168(H) 30 - 160 mg/dL [facility] LDL 29(L) 50 - 129 mg/dL [facility] Comment: LDL levels in terms of risk for coronary heart disease: <100 mg/dL: Optimal 100-129 mg/dL: Near or above optimal 130-159 mg/dL: Borderline high 160-189 mg/dL: High >190 mg/dL: Very High CARDIAC RISK RATIO 2.8(L) 3.4 - 5.0 [facility] Blood 10/13/2018 7:13 AM EST 10/13/2018 7:18 AM EST February [facility] BLOOD BKR ORDERABLES Fin al Result Performing Organization Address City/[facility]/ZIP Co de Phone Number [address] [place] [address] documented in this encounter Visit Diagnoses Diagnosis Uncontrolled type 2 diabetes mellitus with hypoglycemia, unspecified hypoglycemia coma status- Primary documented in this encounter Care Teams Roll Scale Man Relationship Specialty Start Date End Date Ian Morejon DO [email or web address] PCP - General Internal Medicine 10/05/18 documented as of this encounter Additional Source Comments The information contained in this document represents components of the legal health record. It is not the complete legal health record.[facility]
--- OUTSIDE RECORDS SUMMARY | 2025-09-26 19:46 | XMS_ITS | Encounter Summary ---
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, unspecified vessel or lesion type, unspecified whether chalkyitsik or transplanted heart (Primary Dx); Hypertension, unspecified type; Diabetes mellitus of other type with complication, unspecified whether correction insulin use Social History Tobacco Use Types [...] EDT) WBC 4.44 3.40 - 11.20 K/uL [facility] RBC 3.97(L) 4.50 - 5.50 M/uL [facility] HGB 9.6(L) 13.0 - 17.0 g/dL [facility] HCT 31.5(L) 40.0 - 51.0 % [facility] PLT 247 130 - 400 K/uL [facility] MCV 79.3 79.0 - 98.0 fL [facility] Comment:Checked by repeat an alysis. MCH 24.2(L) 27.0 - 34.8 pg [facility] MCHC 30.5(L) 31.5 - 36.0 g/dL [facility] RDW 19.0(H) 10.8 - 14.6 % [facility] MPV 11.3 9.4 - 12.4 fl [facility] NRBC 0.00 /100 WBCs [facility] ABSOLUTE NRBC 0.00 K/uL [facility] Blood 07/26/2018 6:05 AM EDT 07/26/2018 11:28 AM EDT us Arcenio Allen MD LAB BLOOD BKR ORDERABLES Final R esult [address] [address] * (ABNORMAL) Comprehensive metabolic panel (07/26/2018 6:05 AM EDT) SODIUM 141 133 - 146 mmol/L [facility] POTASSIUM 4.2 3.3 - 5.1 mmol/L [facility] CHLORIDE 100 96 - 108 mmol/L [facility] CO2 23 21 - 35 mmol/L [facility] BUN 18 6 - 19 mg/dL [facility] CREATININE 0.90 0.5 - 1.5 mg/dL [facility] GLUCOSE 113(H) 70 - 99 mg/dL [facility] ALBUMIN 3.2(L) 3.9 - 4.8 g/dL [facility] TOTAL PROTEIN 5.9(L) 6.5 - 8.0 g/dL [facility] CALCIUM 8.7 8.4 - 10.3 mg/dL [facility] ALKALINE PHOSPHATASE 73 39 - 117 U/L [facility] TOTAL BILIRUBIN 0.4 0.0 - 1.2 mg/dL [facility] AST 16 0 - 37 U/L [facility] ALT 19 0 - 40 U/L [facility] GLOBULIN 2.7 1 - 4.8 g/dL [facility] EGFR 86 >59 mL/min/1.7 3m2 [facility] Comment:If patient is black, multiply result by 1.159. Estimated glomerular filtration rate calculated using the CKD-EPI equation. ANION GAP 22(H) 10 - 20 mmol/L [facility] Blood 07/26/2018 6:05 AM EDT 07/26/2018 11:28 AM EDT us Arcenio Allen MD LAB BLOOD BKR ORDERABLES Final R esult [facility] [address] [place] [address] documented in this encounter Visit Diagnoses Diagnosis 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, unspecified vessel or lesion type, unspecified whether [place] or transplanted heart- Primary Hypertension, unspecified type Diabetes mellitus of other type with complication, unspecified whether termite treater insulin use documented in this encounter Care Teams Geoscience Professor Relationship Specialty Start Date End Date Waytt Jorgensen MD [address] [place] [address] [email or web address] PCP - General 08/26/17 10/04/18 Ian Morejon DO [address] [place] [address] [email or web address] PCP - General Internal Medicine 10/05/18 documented as of this encounter Additional Source Comments The information contained in this document represents components of the legal health record. It is not the complete legal health record.[facility]
--- OUTSIDE RECORDS SUMMARY | 2025-09-26 19:46 | XMS_ITS | Data Portability ---
Author Organization [facility], Main Office Address [address] [place] [address] Care Team Providers Care Lining Repairer Name Role Phone CAREONE (NONO UNIT) OTHER GIANLUCA BURGOS Primary Care Provider [phone] Assessment Encounter Date Assessment Date Assessment LastModified [...] 1.0 wbc 6.50 hgb 9.8 hct 30.7 [email or web address] Not available 05/22/2024 11:10:43 05/24/2024 05/24/2024 05/10/24 na 141, k 5 cre 1 wbc 9.48 hgb 9.9 hct 30.5 7/9 na 142 k 4.6 cre 1.0 wbc 6.50 hgb 9.8 hct 30.7 7/16 na 144 k 4.9 cre 1 wbc 10.4 hgb 10 hct 31.3 [email or web address] Not available 05/24/2024 12:41:15 05/29/2024 05/29/2024 05/10/24 na 141, k 5 cre 1 wbc 9.48 hgb 9.9 hct 30.5 7/9 na 142 k 4.6 cre 1.0 wbc 6.50 hgb 9.8 hct 30.7 7/16 na 144 k 4.9 cre 1 wbc 10.4 hgb 10 hct 31.3 Not available 05/29/2024 11:02:31 05/31/2024 05/31/2024 05/10/24 na 141, k 5 cre 1 wbc 9.48 hgb 9.9 hct 30.5 7/9 na 142 k 4.6 cre 1.0 wbc 6.50 hgb 9.8 hct 30.7 /16 na 144 k 4.9 cre 1 wbc 10.4 hgb 10 hct 31.3 05/31 na 149 k 4.9 cre 0.8 wbc 6 hgb 10 hct 31.7 [email or web address] Not available 05/31/2024 09:48:42 Plan of Treatment [...] Name and Address Organization Details Recorded Time Spinal stenosis of lumbar region 79189366 [facility] 7 15:43:58 Rheumatoid arthritis 97705482 Active 2016 Isabel yan [facility] 7 15:44:04 Essential hypertensio n 16534895 Active 2016 Isabel yan [facility] 7 15:44:08 Hyperlipide rick 00917541 Active 2016 [facility] 7 15:44:14 Diabetes mellitus 48645285 Active 2016 Isabel yan [facility] 7 15:44:24 Tobacco user 656228791 Active 2016 Isabel yan [facility] 7 15:45:11 Gastroesoph ageal reflux disease without esophagitis 420439072 Active 2016 Isabel yan [place] [facility] 7 15:45:20 Degenerativ e disorder of macula 615321494 Active 2016 Arcenio Allen MD [address], [address], [place], [address], [facility] 7 09:29:40 Coronary atheroscler osis 331622328 Active [address], [address], [place], [address], [facility] 8 08:37:12 Anemia 575424799 Active [address], [address], [place], [address], [facility] 8 08:45:06 History of right total knee replacement 8869023272065 102 Active [address], [address], [place], [address], [facility] 8 08:46:37 Depressive disorder 60504131 Active [address], [address], [place], [address], [facility] 8 08:49:47 At increased risk for falls 485623366 Active 2023 Florence Lees MD [address] [place] [address], [address], [place], [address], [facility] 4 23:59:32 Pain of right hip joint 3377878642251 02 Active 2023 Florence Lees MD [address] [place] [address], [address], [place], [address], [facility] 4 23:59:37 Problem Notes None recorded. Medical Equipment None [...] in Arterial blood by Pulse oximetry Systolic And Diastolic Provider Name and Address Organization Details Last Updated DateTime 167.64 cm 23.5 kg/m2 18526.0 5 g 68 /min 17 /min 97.7 [degF] 97 % 97 % 124/56 mm[Hg] Florence Lees MD [address], [address], [place], [address], [employer] [facility] 4 22:30:06 Social History Question Answer Notes LastModified by Organizat ion Details LastModified Time Tobacco Smoking Status Former Smoker hx of cigar smoking Florence Lees MD [address], [address], [place], [address], [facility] 05/21/2024 18:09:40 Do You Have An [...] Do 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 08/04/2018 [id number] Information not available 09/03/2020 Do You Have [...] Time Td(adult) unspecified formulation 5 completed Annalee [facility] 05/18/2024 16:37:09 Pneumococcal conjugate PCV 13 5 completed Annalee Arshad [facility] 05/18/2024 16:37:42 Pneumococcal conjugate PCV 13 0 completed Annalee Arshad [facility] 05/18/2024 16:38:02 influenza, unspecified formulation 2 completed Annalee Arshad [facility] 05/18/2024 16:40:53 influenza, unspecified formulation 3 completed Annalee Arshad [facility] 05/18/2024 16:41:01 SARS-COV-2 (COVID-19) vaccine, UNSPECIFIED 1 completed Annalee Arshad [facility] 05/18/2024 16:41:17 SARS-COV-2 (COVID-19) vaccine, UNSPECIFIED 1 completed Annalee Arshad [facility] 05/18/2024 16:41:24 SARS-COV-2 (COVID-19) vaccine, UNSPECIFIED [address] [facility] 05/18/2024 16:41:32 SARS-COV-2 (COVID-19) vaccine, UNSPECIFIED [address] [facility] 05/18/2024 16:41:39 SARS-COV-2 (COVID-19) vaccine, UNSPECIFIED [address] [facility] 05/18/2024 16:41:46 SARS-COV-2 (COVID-19) vaccine, UNSPECIFIED [address] [facility] 05/18/2024 16:41:54 Past Encounters Encounter ID Performer Location Encounter Start Date Encounter Closed Date Diagnosis/Indication Diagnosis SNOMED-CT Code Diagnosis ICD10 Code Diagnosis IMO Codes Diagnosis Note [id number] [address] [place] [address] 02/25/2017 15:34:34 03/18/2017 12:57:47 Spinal stenosis of lumbar region 85305906 M48.06 failed conservati ve treatment, now s/p L3-L5 spinal fusion by niki Grubbs for pain, monitor incision, f/u ortho, PT/OT eval and tx Rheumatoid arthritis 698 13698 M06.89 Prednisone 20 mg dailySimpo ni injection QmonthlyMo nitor sxs and pain Essential hypertension 26399844 I10 Atenolol 25 mg dailyTriam terene-HCT Z 37.5-25 mg dailyMonit or bp and labs Hyperlipidemia 81829561 E78.2 Atorvastat in 40 mg QHS Diabetes mellitus 551357 09 E11.9 Metformin 500 mg BIDLantus 10 units QHS SS insulinMon itor accuchecks Tobacco user 496513211 Z 72.0 Nicotine patch, patient reports quit smoking 6 mos ago but started again for 2 weeks prior to surgery d/t pain and stress, is very motivated not to start back up again Gastroesop hageal reflux disease without esophagitis 108753561 K21.9 Omeprazole 40 mg dailyMonit or sxs Constipation 86217490 K5 9.09 Initiate bowel protocol [address] [place] [address] 03/03/2017 12:14:08 03/18/2017 13:03:56 Diabetes mellitus 04629799 E11.9 Metformin 500 mg BIDLantus 10 units QHS SS insulinEle vated blood sugars mid-day, will increase AM metformin dose to 1000 mg, monitor [id number] MD PRIYA Da Silva [address] [place] [address] 03/04/2017 09:12:57 03/18/2017 13:05:25 Spinal stenosis of lumbar region 00379293 M48.07 see HPIfailed conservati ve treatmentf ollowed by Dr. Alejandro2-S1 laminectom ies with fusion of L4-X0veykg to snf on dilauded for pain controlmon itor for pain control and constipati on. Rheumatoid arthritis 698 56170 M06.89 Prednisone 20 mg qd baselineSi mponi 50 mg SQ q month through rheumatolo gyMonitor sxs and painrheuma tology consult prnfollowe d by Dr. Thrasher Essential hypertension 72106103 I10 Atenolol 25 mg qdTriamter shayla-HCTZ 37.5-25 mg qdMonitor bp and labs Hyperlipidemia 09034142 E78.2 Atorvastat in 40 mg QHS Diabetes mellitus 833012 09 E11.9 Metformin 500 mg BIDLantus 10 units QHS SS insulinfol low blood glucose at [facility] Tobacco user 940735582 Z 72.0 hx cigar smokingsta sammie he has quit Gastroesop hageal reflux disease without esophagitis 505863768 K21.9 Omeprazole 40 mg dailyMonit or sxs Constipation 08529489 K5 9.09 Bowel protocol and monitor for sx Degenerati ve disorder of macula 670769234 H35.3131 legally blind at baselinesp ecifics of dx not availableh as been eval at [facility] ear [id number] [address] [place] [address] 03/05/2017 08:34:04 03/18/2017 13:04:18 Diabetes mellitus 97025299 E11.9 Metformin 1000 mg QAM and 500 mg QPMLantus 10 units QHSF/u with pcp to adjust meds if BS remains elevated Spinal jasson nosis of lumbar region 33584282 M48.06 failed conservati ve treatment, now s/p L3-L5 spinal fusion by Dr Rosario, dilaudid for pain-repor ts pain well controlled , monitor incision, f/u ortho, good progress in therapy Rheumatoid arthritis 698 76197 M06.89 Prednisone 20 mg dailySimpo ni injection Q monthlyInc reased bilat. knee and R elbow pain-usual ly takes diclofenac -mistopros jose but was d/c prior to surgery-wi ll restart now Essential hypertension 30113754 I10 Atenolol 25 mg dailyTriam terene-HCT Z 37.5-25 mg dailyBP with good control Hyperlipidemia 58958593 E78.2 Atorvastat in 40 mg QHS Tobacco user 590170493 Z 72.0 Nicotine patch, patient reports quit smoking 6 mos ago but started again for 2 weeks prior to surgery d/t pain and stress, is very motivated not to start back up again Gastroesop hageal reflux disease without esophagitis 277427204 K21.9 Omeprazole 40 mg dailyMonit or sxs [id number] ERIKA RUSSO [address] [place] [address] 07/26/2018 08:32:23 07/29/2018 12:05:59 Coronary atherosclerosis 789662408 I25.10 ASA 81 mg dailyAtorv astatin 80 mg qhsToprol XL 25 mg dailyplavi x 75 mg X 2 months due to NSTEMIdail y weights to monitor fluid statusmoni tor labsmonito r incision sitesfollo w up with surgeon on 08/01oxycod one 10 mg q 4 PRN Anemia 344796134 D50.8 Transfused in hospital with 1 unitstable on dischargem onitor H/H weekly- keep above 7likely ACD due to RA- baseline hgb around 7.5 Rheumatoid arthritis 698 70364 M06.89 Prednisone 5 mg dailygolim umab every 28 days had stress dose in hospital History of right total knee replacement 3196674720 486629 Z96.651 PT/OT eval and treat Depressive disorder 3547 9007 F33.8 sertraline 50 mg qhs Diabetes mellitus 558011 09 E11.9 Lantus 14 units dailymetfo rmin 500 mg BID Gastroesop hageal reflux disease without esophagitis 522715183 K21.9 Omeprazole 40 mg dailymonit or for reflux [id number] MD PRIYA Perez [address] [place] [address] 07/27/2018 15:06:17 07/29/2018 12:35:28 Coronary arteriosclerosis 68072392 I25.10 s/p CABG x 3. Continue DAPT, beta sandra Multiple complications due to type 2 diabetes mellitus 513183870 E11.8 glargine, accuchecks Anemia 689113063 D64.9 stable after transfusio n. Monitor CBC Rheumatoid arthritis 698 73642 M06.9 continue prednisone 5 mg. F/u with rheumatolo gy [id number] ERIKA RUSSO [address] [place] [address] 08/04/2018 09:14:45 08/09/2018 13:21:36 Coronary atherosclerosis 654626955 I25.10 ASA 81 mg dailyAtorv astatin 80 mg qhsToprol XL 25 mg dailyplavi x 75 mg X 2 months due to NSTEMIcard iology to arrange cardiac rehab once outptVNA to continue daily dressing changes, if steri strips fall off reapply Anemia 642410812 D50.8 H/H stable 9.7/31.7 likely ACD due to RA- baseline hgb around 7.5 Rheumatoid arthritis 698 69249 M06.89 Prednisone 5 mg dailygolim umab every 28 days follow up with rheumatolo gy Depressive disorder 9765 9007 F33.8 sertraline 50 mg qhsfollow up with psych outpt if needed Diabetes mellitus 587929 09 E11.9 Lantus 14 units dailymetfo rmin 500 mg BID Gastroesop hageal reflux disease without esophagitis 473207151 K21.9 D/C omeprazole add Famotidine 40 mg daily- per cardiology recs [id number] ERIKA Carballo [facility] [address] [place] [address] 05/16/2024 09:26:41 05/23/2024 10:16:48 Degenerative disorder of macula 912267542 H35.30 carrying dx - legally blind-fall risk precaution s Coronary atherosclerosis 087128583 I25.10 carrying dx-ASA 81 mg daily-Lipi tor 80 mg qhs-Toprol XL 12.5 mg daily-plav ix 75 mg daily due to NSTEMI Depressive disorder 3548 9007 F33.8 carrying dx-not on meds-monit or mood and affect-psy ch eval prn-pravin garcia HS for insomnia Diabetes mellitus 224581 09 E11.9 carrying dx-trulici ty SQ on mon.-metfo rmin 1000 daily-accu checks once daily in am-diabeti c foot care HS-regular diet Essential hypertension 45566774 I10 well controlled -toprol XL 12.5 mg daily-BP Q shift X 3 days, then daily Gastroesop hageal reflux disease without esophagitis 365058983 K21.9 carrying dx-famotid ine 40 daily-jodie tor ss Hyperlipidemia 90092711 E78.5 carrying dx-lipitor 80 daily-lipi d panel prn Rheumatoid arthritis 698 91401 M06.89 carrying dx-Prednis one 2.5 mg daily-jasper min C daily-jasper min D 3 daily-Omeg a 3 daily-foll ows with rheumatolo gy Spinal jasson nosis of lumbar region 56152098 M48.061 -lyrica 300 mg bid-see above for pain control [facility] for [facility] 232479124 Z91.81 recent fall without fx or dislocatio ncontinues with right arm and hip painCT negative for acute findings-P t/OT for strength and mobility-f all precaution s-ordered to schedule tylenol 650 TID-start lidocaine patch to right hip-tramad ol 50 Q6H prn-morphi ne 7.5 Q4H prn Anemia 393992333 D50.8 H/H stable 05/10 9.9 and 30.5likely ACD due to RA-admissi on labs pending [id number] ERIKA Carballo at [facility] on [address] [place] [place] [address] 05/18/2024 10:46:07 05/23/2024 11:52:48 At increased risk for falls 720017737 Z91.81 recent fall without fx or dislocatio ncontinues with right arm and hip painCT negative for acute findings-P t/OT for strength and mobility-f all precaution s-continue scheduled tylenol 650 TID-contin ue lidocaine patch to right hip-contin ue home pain regimen = tramadol 50 Q6H prn and morphine 7.5 Q4H prn Degenerati ve disorder of macula 476937926 H35.30 carrying dx - legally blind-fall risk precaution s-glasses Essential hypertension 27326334 I10 well controlled -toprol XL 12.5 mg daily-BP Q shift X 3 days, then daily Rheumatoid arthritis 698 71022 M06.89 carrying dxmultiple joint deformitie s and nodes-cont inue prednisone 2.5 mg daily-foll ows with rheumatolo gy-see above for pain control Spinal jasson nosis of lumbar region 47297860 M48.061 -continue lyrica 300 mg bid-see above for pain control [id number] MD PRIYA Boyd [address] [place] [address] 05/19/2024 20:53:55 05/23/2024 12:09:01 At increased risk for falls 289441067 R29.6 As above. Degenerati ve disorder of macula 868351383 H35.30 Legally blind.Prov breanna supportive care.F/U with eye dr as planned. Essential hypertension 29924742 I10 BP in good control on metoprolol XL 12.5 mg qdMonitor BP and labs. Rheumatoid arthritis 698 71659 M06.89 Severe with chronic pain and deformitie s.Continue meds as above.F/U as above. Spinal jasson nosis of lumbar region 50002950 M48.061 PT/OT and pain management as above.Jodie tor Coronary atherosclerosis 045687320 I25.10 No recent sxs.Contin ue ASA 81 mg qd, atorvastat in 80 mg qhs, metoprolol XL 12.5 mg qd and plavix 75 mg qd.Also on Trulicity which helps with cardiac risk reduction. Monitor sxs.F/U with cardio as planned. Depressive disorder 1948 9007 F33.8 Situationa l due to chronic pain, not on meds.Angie nue melatonin 3 mg qhs for insomniaMo od good today.Jodie tor mood.Consu lt psych prn Diabetes mellitus 942850 09 E11.9 Last HgA1C was 6.1 in 05/2023.Con tinue trulicity 0.75 mg SQ weekly and metformin 1000 mg qd.Monitor fingerstic ks fasting qd and HgA1C as an outpt. Gastroesop hageal reflux disease without esophagitis 194542738 K21.9 No current sxs.Contin ue famotidine 40 mg qdMonitor GI sxs. Hyperlipidemia 41988263 E78.49 Continue atorvastat in 80 mg qd and fish oil 1000 mg qdMonitor labs as an outpt. Anemia 838283164 D50.8 Multifacto rial.Stabl eMonitor labs. Pain of ri ght hip joint 3363786327 49983 M25.551 Acute exacerbati on of chronic problem.Wi [...] safety.F/U with rheum and PM&R as planned. [id number] RIGO OLIVEROS [facility] on [address] [place] [address] 05/22/2024 09:44:23 05/26/2024 09:32:28 At increased risk for falls 943733204 Z91.81 recent fall without fx or dislocatio ncontinues with right arm and hip painCT negative for acute findings-P t/OT for strength and mobility-f all precaution s-continue scheduled tylenol 650 TID-contin ue lidocaine patch to right hip-contin ue home pain regimen = tramadol 50 Q6H prn and morphine 7.5 Q4H prn Rheumatoid arthritis 698 16464 M06.89 carrying dxmultiple joint deformitie s and nodes-cont inue prednisone 2.5 mg daily-foll ows with rheumatolo gy-see above for pain control Primary insomnia 6206655 F51.01 -increase melatonin to 10 mg HS-encoura ge sleep hygeine [id number] RIGO OLIVEROS [facility] on [address] [facility] [place] [address] 05/24/2024 09:04:49 05/26/2024 11:52:14 At increased risk for falls 263896287 Z91.81 recent fall without fx or dislocatio [...] wednesday with PT/OT services Rheumatoid arthritis 698 73844 M06.89 carrying dxmultiple joint deformitie s and nodes-cont inue prednisone 2.5 mg daily-foll ows with rheumatolo gy-see above for pain control Primary insomnia 2968629 F51.01 improved with increased melatonin- continue melatonin to 10 mg HS-encoura ge sleep hygeine [id number] RIGO OLIVEROS [facility] on [address] [facility] [place] [address] 05/29/2024 09:23:48 05/31/2024 09:17:09 At increased risk for falls 346879423 Z91.81 recent fall without fx or dislocatio [...] wednesday with PT/OT services Rheumatoid arthritis 698 19402 M06.89 carrying dxmultiple joint deformitie s and nodes-cont inue prednisone 2.5 mg daily-foll ows with rheumatolo gy-see above for pain control Primary insomnia 1581083 F51.01 improved with increased melatonin- continue melatonin to 10 mg HS-encoura ge sleep hygeine Diabetes mellitus 262983 09 E11.9 BS very well controlled = 146 today-trul icity SQ on mon.-metfo rmin 1000 daily-accu checks once daily in am-diabeti c foot care HS-regular diet Essential hypertension 21209703 I10 well controlled 101/ today-cont inue toprol XL 12.5 mg daily-BP check daily [id number] RIGO OLIVEROS [facility] on [address] [facility] [place] [address] 05/31/2024 09:43:57 06/01/2024 14:43:00 At increased risk for falls 926886749 Z91.81 recent fall without fx or dislocatio nCT negative for acute findings-h ome with PT/OT services-f /up with pcp Rheumatoid arthritis 698 55969 M06.89 carrying dxmultiple joint deformitie s and nodes-cont inue prednisone 2.5 mg daily-foll ows with rheumatolo gy-continu e scheduled tylenol 650 TID-contin ue home pain regimen = tramadol 50 Q6H prn and morphine 7.5 Q4H prn-f/up with pcp Primary insomnia 6270296 F51.01 improved with increased melatonin- continue melatonin to 10 mg HS-encoura ge sleep hygeine at home-f/up with pcp Diabetes mellitus 322693 09 E11.9 BS very well controlled = 146 today-trul icity SQ on mon.-metfo rmin 1000 daily-jodie tor BS at home-f/up with pcp Essential hypertension 46643204 I10 well controlled 101/67 today-cont inue toprol XL 12.5 mg daily-jodie tor BP with pcp Degenerati ve disorder of macula 509449794 H35.30 carrying dx = legally blind-f/up outpatient Coronary atherosclerosis 679342703 I25.10 carrying dx-ASA 81 mg daily-Lipi tor 80 mg qhs-Toprol XL 12.5 mg daily-plav ix 75 mg daily due to NSTEMI-f/u p with pcp Depressive disorder 3548 9007 F33.8 carrying dx-not on meds-f/up with pcp to monitor mood and affect Gastroesop hageal reflux disease without esophagitis 337136178 K21.9 carrying dx-famotid ine 40 daily-jodie tor ss outpatient with pcp Hyperlipidemia 50661262 E78.5 carrying dx-lipitor 80 daily-lipi d panel outpatient Spinal jasson nosis of lumbar region 35891056 M48.061 -lyrica 300 mg bid-see above for pain control-f/ up wit pcp Anemia 533504647 D50.8 H/H stable hgb 10 hct 31.7 on 05/31likely ACD due to RA-admissi on labs pending Health Concerns Section Related Observation LastModified by Organization Detai ls LastModified Time None Recorded Concern Status LastModified by Organization Details LastModified Time None Recorded Advance Directives Directive Y: Payers Insurance Date Sequence Insurance Name Policy Number Policy Meraz Covered Member ID Meraz Member ID Guarantor Name 05/31/2024 2 [employer] [place] [id number] 1 Vito Vizcarra [id number] Vito Vizcarra 05/31/2024 1 MEDICARE [place]: [employer] Vito Vizcarra [id number] Vito Vizcarra Notes Date Note Type Note [...] with pain meds.Then on 04/18, sent to [facility] for rehab. No info about that [...] macular degeneration, and depression. Florence Lees MD [address], [address], [place], [address], [facility] [email or web address] 05/22/2024 00:48:02 05/22/2024 text/html Patient is a [...] after the fall. [facility] Vito is doing well, he continue to [...] depression, and coronary atherosclerosis RIGO OLIVEROS [address], [address], [place], [address], [facility] [email or web address] 05/22/2024 11:12:17 05/24/2024 text/html Patient is a [...] after the fall. [facility] Patient seen today with his present. He [...] depression, and coronary atherosclerosis RIGO OLIVEROS [address], [address], [place], [address], [facility] 05/24/2024 12:45:10 05/29/2024 text/html Patient is a [...] after the fall. [facility] Patients weekend was uneventful. He is feeling very well, and happy to go home at the end of the week. He is planned for dc home on wed with PT/OT services. He has no complaints. He is sleeping well and his pain is being managed on current regimen. PMH GERD, HTN, HLD, RA, DM2, spinal stenosis, depression, and coronary atherosclerosis RIGO OLIVEROS [address], [address], [place], [address], [facility] 05/29/2024 11:05:35 05/31/2024 text/html Patient is a [...] after the fall. [facility] Patients rehab stay has been uneventful. His pain is well controlled on his home analgesics. Plan for dc home on wednesday with PT/OT services. He has no complaints and tells me he doesn't need any prescriptions sent home. PMH GERD, HTN, HLD, RA, DM2, spinal stenosis, depression, and coronary atherosclerosis RIGO OLIVEROS [address], [address], [place], [address], [employer] [facility] 05/31/2024 09:49:10
--- OUTSIDE RECORDS SUMMARY | 2025-09-26 19:46 | XMS_ITS | Encounter Summary ---
Author Organization [facility] Address [address] [place] [address] Phone Care Team Providers Care Farm Management Agent Name Role Phone Ian Morejon Primary Care Provider [phone] Encounter Details Date Type Department Care Team (Latest Contact Info) Description 10/27/2018 Transcribe Orders Non-Invasive Cardiology [address] [place] [address] Melchor Ji MD [address] [place] [address] [email or web address] NSTEMI (non-ST elevated myocardial infarction) (Primary Dx) [...] BPM [facility] Atrial Rate 97 BPM [facility] NE Interval 150 ms [facility] QRS Duration 80 ms [facility] QT Interval 348 ms [facility] QTC Interval 441 ms [facility] P Alpha 58 degrees [facility] R Wave Alpha -5 degrees [facility] T Wave Alpha 63 degrees [facility] 10/27/2018 3:18 PM EST [...] unspecified documented in this encounter Care Teams Farm Management Agent Relationship Specialty Start Date End Date Ian Morejon DO [email or web address] PCP - General Internal Medicine 10/05/18 documented as of this encounter Additional Source Comments The information contained in this document represents components of the legal health record. It is not the complete legal health record.[facility]
--- OUTSIDE RECORDS SUMMARY | 2025-09-26 19:46 | XMS_ITS | Encounter Summary ---
Author Organization [facility] Address [address] [place] [address] Phone Care Team Providers Care Mangle Operator Garments Name Role Phone Wyatt Jorgensen MD Primary Care Provider [phone] Gianluca Morejon DO Primary Care Provider [phone] Encounter Details Date Type Department Care Team (Latest Contact Info) Description 05/17/2018 Transcribe Orders Virtual Department [address] [place] [address] Jim Haddad MD [address] [place] [id number] Pre-op examination (Primary Dx) Social History Tobacco [...] BPM [facility] Atrial Rate 62 BPM [facility] IN Interval 158 ms [facility] QRS Duration 96 ms [facility] QT Interval 368 ms [facility] QTC Interval 373 ms [facility] P [place] 49 degrees [facility] R Wave [place] 5 degrees [facility] T Wave [place] 33 degrees [facility] 05/27/2018 11:1 2 AM [...] examination documented in this encounter Care Teams Mangle Operator Garments Relationship Specialty Start Date End Date Wyatt Jorgensen MD [address] [place] [address] [email or web address] PCP - General 08/26/17 10/04/18 Gianluca Morejon DO [address] [place] [address] [email or web address] PCP - General Internal Medicine 10/05/18 documented as of this encounter Additional Source Comments The information contained in this document represents components of the legal health record. It is not the complete legal health record.[facility]
--- OUTSIDE RECORDS SUMMARY | 2025-09-26 19:46 | XMS_ITS | Data Portability ---
Author Organization [facility] Bre Internal Medicine, Telehealth Patient Home Address [address] [place] [address] Assessment Encounter Date Assessment Date Assessment LastModified by Organization Details LastModified Time 04/13/2025 04/13/2025 [id number] [place] [id number] (REGIONAL MANAGER) [facility] MODERATE MUST MEET 2 OUT OF 3 [...] EACH ELEMENT THAT IS COVERED Not available 04/13/2025 11:02:23 07/20/2025 07/20/2025 [id number] [place] [id number] (REGIONAL MANAGER) MDM MODERATE MUST MEET 2 OUT OF [...] EACH ELEMENT THAT IS COVERED Not available 07/20/2025 12:37:54 08/06/2025 08/06/2025 [id number] [place] [id number] (REGIONAL MANAGER) : MDM LOW MUST MEET 2 OF 3 ELEMENTS: PROBLEMS, DATA OR RISK ELEMENT 1: PROBLEMS ADDRESSED (LOW): 2 OR MORE SELF-LIMITED OR MINOR PROBLEMS OR 1 STABLE CHRONIC ILLNESS OR 1 ACUTE UNCOMPLICATED ILLNESS OR INJURY ELEMENT 2: DATA TO BE REVISED AND ANALYZED (LOW) MUST MEET 1 OF 2 CATEGORIES: CATEGORY 1. REVIEW OF PRIOR EXTERNAL NOTES/RESULTS, ORDERING OF TEST(S) CATEGORY 2. ASSESSMENT REQUIRING INDEPENDENT HISTORIAN(S) INCLUDE WHO THE HISTORIAN IS AND RELATION TO PT AND WHY PT IS UNABLE TO GIVE COMPLETE HISTORY ELEMENT 3: RISK (LOW) RISK OF COMPLICATIONS AND/OR MORBIDITY OR MORTALITY OF PATIENT MANAGEMENT PROVIDER MUST THOROUGHLY DOCUMENT ALL OF THE ELEMENTS COVERED Not available 08/06/2025 14:41:56 Plan of Treatment Reminders Order Date Submit Date Provider Last Modified By Organization Details Last Modified Time Details Appointments None recorded. Lab vitamin B12, serum 2024 025 [facility], [address] [place] [address], [address], 12:41:47 TSH, serum or plasma 2024 025 [facility], [address] [place] [address], [address], 13:39:25 CBC w/ auto diff 2024 025 [facility], [address] [place] [address], [address], 12:41:47 vitamin D, 25-hydroxy , total, serum 2024 025 [facility], [address] [place] [address], [address], 13:39:24 CMP, serum or plasma 2024 025 [facility], [address] [place] [address], [address], 12:41:47 CMP, serum or plasma 2024 025 [facility], [address] [place] [address], [address], 5 11:31:26 hemoglobin A1c, QN, blood 2024 025 [facility], [address] [place] [address], [address], 5 11:31:26 Referral None recorded. Procedures None recorded. Surgeries None recorded. Imaging CT, head, w/o contrast 2024 025 [facility] Central Scheduling, [address] [place] [address], [address], 10:36:20 Medication Orders prednisone 2.5 mg tablet 2024 025 [facility]armacy #[id number], [address] [place], [address], 12:46:05 pregabalin 150 mg capsule 2024 025 [facility]/Pharmacy #[id number], [address] [place], [address], 10:28:22 Patient TargetsNo targets recorded. Patient Instructions Encounter Date Encounter Id Patient Instructions Last Modified By Organization Details Last Modified Time 07/20/2025 [id number] arthritis: care instructions Not available 07/20/2025 12:46:03 Reason for Referral None Reported. Results Created Date Observation Date Name Description Value Unit Range Abnormal Flag Note LastModifiedBy Organization Detail LastModifiedTime 09/26/20 25 09/26/2025 CT, head, w/o contr ast No observ ation record ed. [email or web address] [facility] (Medical Records) [address] [address], [address], 09/26/2025 16:36:42 Result Notes None recorded. 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's macular disease Not Available [facility] 3 14:31:55 Hyperten sive disorder 34491350 Completed 201710/07/2018 Yani yan [place] - [facility] 8 16:54:39 Gastroes ophageal reflux disease 422782363 Active 2017 Not Available [facility] 3 14:31:55 Type 2 diabetes mellitus 25966688 Active 2017 Not Available [facility] 3 14:31:55 Hyperlip idemia 74176519 Active 2017 Not Available [facility] 3 14:31:55 Rheumato id arthriti s 43968739 Active 2017 Not Available [facility] 3 14:31:56 [facility] hyperten susana 80933353 Active 2017 Not Available [facility] 3 14:31:55 Coronary atherosc lerosis 479157774 Active 2017 Not Available [facility] 3 14:31:55 Osteomye litis 33087453 Active 2017 left foot Not Available [facility] 3 14:31:55 Osteoart hritis 831881430 Active 2017 Not Available [facility] 3 14:31:55 Anemia 173768130 Active 2017 neg GI workup for bleed, thought to be 2/2 ACS from RA Not Available [facility] 3 14:31:55 Osteopor osis 79584121 Active 2018 Not Available [facility] 3 14:31:55 Herpes zoster 5000607 Active 2020 Not Available [facility] 3 14:31:55 Closed subluxat ion cervical spine 209024715 Active 2021 Not Available [facility] 3 14:31:55 COVID-19 035278447 Active 2021 Not Available [facility] 3 14:31:56 Eczema 61469908 Active 2021 Not Available [facility] 3 14:31:55 Atopic dermatit is of scalp 206034282 Active 2022 Not Available [facility] 3 14:31:55 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 9151094995 56410 Active 2022 Not Available [facility] 3 14:31:55 Sebaceou s cyst of skin 911663660 Active 2022 Not Available [facility] 3 14:31:56 Abscess 690097806 Active 2022 Not Available [facility] 3 14:31:55 Pain of left hip joint 8525765868 75124 Active 2023 RENATE MARTÍNEZ [address] [place], [address], [facility] 4 14:28:13 Degenera tion of lumbar interver tebral disc 87783096 Active 2023 Ian Morejon DO [address] [place] [address], [address], [facility] 4 11:03:05 Weakness of bilatera l lower limb Active 2023 Ian Morejon DO [address] [place] [address], [address], [facility] 4 15:44:43 Iron deficien cy anemia 48712766 Active 2023 RENATE MARTÍNEZ [address] [place], [address], [facility] 4 12:00:15 Thromboc ytosis 0224278 Active 2023 RENATE MARTÍNEZ [address] [place] [address], [address], [facility] 4 12:04:33 Chronic lymphoid leukemia , disease 03708234 Active 2023 RENATE MARTÍNEZ [address] [place] [address], [address], [facility] 4 12:14:41 Osteoart hritis of right hip joint 9140195648 99719 Active 2023 Ian Morejon DO [address] [place] [address], [address], [facility] 4 09:46:01 Total replacem ent of right hip joint Active 2024 Ian Morejon DO [address] [place] [address], [address], [facility] 5 15:04:34 Osteoart hritis of joint of right shoulder region 9651744790 44160 Active 2024 Ian Morejon DO [address] [place] [address], [address], [facility] 5 15:05:57 Neuropat hy due to diabetes mellitus 998352684 Active 2024 RENATE MARTÍNEZ [address] [place] [address], [address], [facility] 5 10:28:36 Fatigue 33944479 Active 2024 Ian Morejon DO [address] [place] [address], [address], [facility] 5 12:38:06 Osteoart hritis of left knee joint 8845564899 55910 Active 2024 Ian Morejon DO [address] [place] [address], [address], [facility] 14:42:19 Disorder of skull 246090205 Active 2024 RENATE MARTÍNEZ [address] [place] [address], [address], [facility] 10:24:32 Problem Notes None recorded. Procedures Surgical History Date Name Laterality Status Provider Name and Address Organization Details Recorded Time 025 Corticosteroid Injection completed Ian Morejon DO [address] [place] [address], [address], [facility] 08/06/2025 14:45:56 023 I&D completed RENATE MARTÍNEZ [address] [place] [address], [address], [facility] 07/02/2023 13:50:44 023 I&D completed RENATE MARTÍNEZ [address] [place] [address], [address], [facility] 05/26/2023 15:42:48 021 Family Practice Trigger Point Injection completed Ian Morejon DO [address] [place] [address], [address], [facility] 04/02/2021 12:27:07 021 I&D completed Ian Morejon DO [address] [place] [address], [address], [facility] 12/13/2020 11:00:52 020 I&D completed Ian Morejon DO [address] [place] [address], [address], [facility] 09/04/2020 16:33:02 019 I&D completed CHELO Del Rosario [address] [place] [address], [address], [facility] 08/02/2019 11:00:55 019 extraction of cataract completed Morelia Cholo, [address], [address], [facility] 04/17/2019 09:33:00 018 Cabg vein three completed [address], [address], [facility] 10/11/2018 14:10:20 018 total knee replacement completed [address], [address], [facility] 10/11/2018 14:10:41 017 Back Surgery completed [address], [address], [facility] 10/11/2018 14:19:44 008 amputation of toe completed [address], [address], [facility] 10/11/2018 14:21:35 Imaging Results None [...] Not Available fentanyl 50 mcg/hr transdermal patch Apply 1 patch every 72 hours by transderm al route for 30 days. 05/08 completed Not Available Not Available Not Available aspirin 25 mg-dipyrida mole 200 mg capsule,ext .release 12 hr multiphase 10/11 completed Not Available Not Available Not Available atorvastati n 80 mg tablet TAKE 1 TABLET BY MOUTH EVERY DAY 2024 active Not Available Not Available Not Avai lable carvedilol 6.25 mg tablet TAKE 1 TABLET [...] COAT TO AFFECTED AREA TWICE A DAY 07/20 completed Not Available Not Available Not Available acetaminoph en 300 mg-codeine 30 mg [...] NOT EXCEED 8 TABLETS (400MG) PER DAY. 03/16 completed Not Available Not Available Not Available amoxicillin 500 mg tablet TAKE 1 [...] Available Not Available prednisone 2.5 mg tablet TAKE 1 TABLET BY MOUTH EVERY DAY FOR 30 DAYS active Not Available Not Available No t Available cephalexin 500 mg capsule Take 1 [...] Available docusate sodium 100 mg capsule TAKE 1 CAPSULE BY MOUTH EVERY DAY NEEDED active Not Available Not Available No t Available cephalexin 500 mg tablet 07/17 completed [...] nded release 24 hr TAKE 2 TABLETS BY MOUTH EVERY MORNING 07/20 completed Not Available Not Available Not Available sertraline 50 mg tablet TAKE 1 TABLET BY MOUTH EVERY DAY 05/26 completed Not Available Not Available Not Available oxycodone 5 mg tablet Take 1 tablet twice a day by oral route as needed for 15 days. 09/10 completed Not Available Not Available Not Available valsartan 40 mg tablet TAKE 1 TABLET BY MOUTH EVERY DAY 04/17 completed Not Available Not Available Not Available pregabalin 75 mg capsule TAKE 1 [...] OUSLY ONCE A WEEK FOR 30 DAYS 2024 active Not Available Not Available Not Avai lable naloxone 4 mg/actuatio n nasal spray 06/07 [...] 3 mg capsule Take by oral route. 07/20 completed Not Available Not Available Not Available AsperFlex (lidocaine) 4 % topical patch [...] Details Last Updated DateTime 5 161.29 cm 27 kg/m2 04954.8 2 g 86 /min 98 % 98 % 124/82 mm[Hg] Barbra Bobby [facility] 5 10:05:42 Date Recorded Body height Body mass index (BMI) Body weight Oxygen saturation Oxygen saturation in Arterial blood by Pulse oximetry Heart rate Systolic And Diastolic Provider Name and Address Organization Details Last Updated DateTime 5 161.29 cm 28.9 kg/m2 74814.5 4 g 97 % 97 % 85 /min 96/72 mm[Hg] FREDI STYLES [facility] 5 10:45:22 Date Recorded Body height Body mass index (BMI) Body weight Oxygen saturation Oxygen saturation in Arterial blood by Pulse oximetry Heart rate Systolic And Diastolic Provider Name and Address Organization Details Last Updated DateTime 5 161.29 cm 27.7 kg/m2 09098.7 5 g 98 % 98 % 78 /min 100/72 mm[Hg] FREDI STYLES [facility] 5 12:10:54 Date Recorded Body height Body mass index (BMI) Body weight Oxygen saturation Oxygen saturation in Arterial blood by Pulse oximetry Heart rate Systolic And Diastolic Provider Name and Address Organization Details Last Updated DateTime 5 161.29 cm 27.8 kg/m2 22046.6 2 g 96 % 96 % 68 /min 112/72 mm[Hg] FREDI STYLES [facility] 5 10:18:36 Social History Question Answer Notes LastModified by Organizat ion Details LastModified Time Tobacco Smoking Status Former Smoker Yani yan [facility] 10/11/2018 14:03:00 What Was The Date Of Your Most Recent Tobacco Screening? 09/10/2025 [email or web address] Information not available 09/10/2025 How Many Years Have You Smoked Tobacco? 20 [email or web address] Information not available 10/11/2018 Sex: Unknown Functional Status Question Answer Note LastModified by Organization D etails LastModified Time Do you or have you ever used any other forms of tobacco or nicotine? No Information not available 01/27/2023 Mental Status None recorded. Family History Nothing Reported. Medical History No medical history recorded. Immunizations Vaccine Type Date Status Note Provider Nam e and Address Organization Details Recorded Time COVID-19, mRNA, LNP-S, PF, 30 mcg/0.3 mL dose 06/26/20 21 completed Not Available [facility] 11/26/2023 16:07:42 Influenza, split virus, quadrivalent, preservative 06/19/20 21 completed Not Available [facility] 11/26/2023 16:07:42 COVID-19, mRNA, LNP-S, PF, 30 mcg/0.3 mL dose, janay-sucrose 03/13/20 22 completed Not Available [facility] 11/26/2023 16:07:42 COVID-19, mRNA, LNP-S, PF, 30 mcg/0.3 mL dose, janay-sucrose 08/25/20 22 completed Not Available [facility] 11/26/2023 16:07:42 influenza, unspecified formulation 08/25/20 22 completed Not Available [facility] 11/26/2023 16:07:43 Respiratory syncytial virus (RSV) MAB, unspecified 08/09/20 24 completed RENATE MARTÍNEZ [address] [place] [address], [address], [facility] 08/11/2024 12:16:08 influenza, unspecified formulation 08/09/20 24 completed RENATE MARTÍNEZ [address] [place] [address], [address], [facility] 08/11/2024 12:16:22 Pneumococcal conjugate PCV 13 08/09/20 15 completed Not Available [facility] 11/26/2023 16:07:43 Influenza, split virus, quadrivalent, preservative 08/08/20 18 completed Not Available [facility] 11/26/2023 16:07:42 pneumococcal polysaccharide PPV23 09/18/20 16 completed Not Available [facility] 11/26/2023 16:07:42 Td (adult) 11/08/19 05 completed Not Available [facility] 11/26/2023 16:07:43 Influenza, split virus, quadrivalent, preservative 07/27/20 19 completed Not Available [facility] 11/26/2023 16:07:42 Influenza, split virus, quadrivalent, preservative 07/22/20 20 completed Not Available [facility] 11/26/2023 16:07:42 COVID-19, mRNA, LNP-S, PF, 30 mcg/0.3 mL dose 01/19/20 21 completed Not Available [facility] 11/26/2023 16:07:42 COVID-19, mRNA, LNP-S, PF, 30 mcg/0.3 mL dose 02/09/20 21 completed Not Available [facility] 11/26/2023 16:07:42 Past Encounters Encounter ID Performer Location Encounter Start Date Encounter Closed Date Diagnosis/Indication Diagnosis SNOMED-CT Code Diagnosis ICD10 Code Diagnosis IMO Codes Diagnosis Note [id number] Ian Morejon DO [facility] [address] [facility], [employer] [place] [address] 10/11/2018 13:40:31 10/11/2018 15:13:47 Gastroesophageal reflux disease 846242788 K21.9 stable on famotidine Type 2 gabriel betes mellitus 92001510 E11.65 fbs this am 89 doesn't know his last a1c but reports he is generally well controlled Hyperlipidemia 41953049 E78.5 he is on statin, especially now s/p PA. he doesn't know the dose Essential hypertension 11004613 I10 very well controlled Rheumatoid arthritis [address] mo who rx's his controlled substance - tylenol #3 Myocardial infarction 22 054302 I21.9 unsure of his next cardio appointmen t we need to get consult informatio n to clarify his meds Osteoarthritis 571498793 M19.90 just had right knee replaced, and then several days later had an PA Cataract 256677370 H26.9 he is hoping to have cataracts removed, but he says the eye doctor is going to be contacting the cardiologi for clearance [id number] Ian Morejon DO [facility] [address] [facility],[place] [employer] [address] 10/18/2018 11:35:27 10/18/2018 12:25:48 Gastroesophageal reflux disease 572417818 K21.9 stable on famotidine Type 2 gabriel betes mellitus 50407060 E11.65 a1c 6.1 Hyperlipidemia 99453478 E78.5 really well controlled Essential hypertension 66713025 I10 very well controlled per his cardio note he should be on half dose of metoprolol , so he was advised of this Rheumatoid arthritis [address] mo who rx's his controlled substance - tylenol #3 also gets simponi injection through rheum joints have been improved Myocardial infarction 22 872387 I21.9 meds reconciled per cardio note Osteoarthritis 596855124 M19.90 joints seem to be less painful as of lately right knee is good Cataract 340518415 H26.9 will likely be able to have his cataracts based on his current state of health will schedule pre-op for this [id number] Ian Morejon DO [facility] [address] [facility], [place] [address] 11/04/2018 14:15:40 11/04/2018 15:05:42 Pre-surgery evaluation 378330484 Z01.818 clear for b/l cataract removal procedures - will send note to office under conscious sedation surgeon - dr. camacho Type 2 gabriel betes mellitus 62937983 E11.65 a1c 6.1 very well controlled Hyperlipidemia 84082329 E78.5 really well controlled Essential hypertension 72065252 I10 very well controlled Myocardial infarction 22 366224 I21.9 undergoing cardiac rehab per pt, cardiac has cleared and will be sending their own note over to the eye surgeon as well [id number] Ian Morejon DO [facility] [address] [facility],[place] [address] 01/10/2019 09:03:28 01/10/2019 09:40:41 Gastroesophageal reflux disease 217853509 K21.9 stable on famotidine Type 2 gabriel betes mellitus 65953193 E11.65 needs repeat a1c Hyperlipidemia 45462712 E78.5 really well controlled as of last labs 10/25 will get labs in 3 months Essential hypertension 39620839 I10 very well controlled per his cardio note he should be on half dose of metoprolol , so he was advised of this Rheumatoid arthritis [address] mo who rx's his controlled substance - tylenol #3 also gets simponi injection through rheum joints have been improved Epidermoid cyst of skin of neck 603574278 L72.0 [id number] Ian Morejon [facility] [address] [facility],[place] [address] 04/17/2019 09:05:25 04/17/2019 09:50:32 Gastroesophageal reflux disease 270878864 K21.9 stable on famotidine Type 2 gabriel betes mellitus 09909929 E11.65 slightly elevated microalbum in 01/2019 will recheck a1c Hyperlipidemia 78523153 E78.5 really well controlled as of last labs 01/2019 will get labs in 3 months Essential hypertension 13819278 I10 very well controlled Rheumatoid arthritis [address] mo who rx's his controlled substance - tylenol #3 also gets simponi injection through rheum joints have been improved [id number] Ian Morejon [facility] [address] [facility],[place] [address] 07/18/2019 09:01:50 07/18/2019 09:55:16 Gastroesophageal reflux disease 467304170 K21.9 stable on famotidine will monitor sx as he is now being started on alendronat e Type 2 gabriel betes mellitus 88777710 E11.65 slightly elevated microalbum in 05/2019 will recheck a1c - very well controlled as of may Hyperlipidemia 56597834 E78.5 really well controlled as of last labs 05/2019 Essential hypertension 83623430 I10 very well controlled Rheumatoid arthritis [address] mo who rx's his controlled substance - tylenol #3 also gets simponi injection through rheum joints have been improved Active or passive immunization 452237068 Z23 Body mass index 25-29 - overweight 584520374 Z68.27 very mildly overweight healthy diet and exercise Hepatitis C screening 41 7500412 Z11.59 Advance care planning 71 7649841 Z71.89 all uptodate [id number] Ian Morejon [facility] [address] [facility] [address] [place] [address] [facility] [address] 08/02/2019 10:08:34 08/02/2019 11:14:51 Essential hypertension 35773268 I10 very well controlled Abscess 239247872 L02.91 abscess drained keep area covered, dry clean, may shower but dry and cover immediatel y following use warm compress or ice for discomfort Type 2 gabriel betes mellitus 63344390 E11.65 slightly elevated microalbum in 05/2019 will recheck a1c - very well controlled as of may Hyperlipidemia 47003083 E78.5 really well controlled as of last labs 05/2019 having labs again just before october Anemia 471119684 D64.9 has anemia, had GI work up in the past which was negative and apparently it was determined to be due to RA will recheck again as pt has been feeling tired since before the PA this came up after completing pre-op for cataracts should not affect clearance unless very significan tly low Abscess of back 87697715 7 L02.212 [id number] Ian Morejon [facility] [address] [facility],[place] [address] 12/01/2019 11:05:02 12/01/2019 12:27:58 Gastroesophageal reflux disease 541355331 K21.9 stable on famotidine will monitor sx as he is now being started on alendronat e Type 2 gabriel betes mellitus 10106590 E11.65 a1c was 6.2 Hyperlipidemia 27403351 E78.5 really well controlled as of last labs 05/2019 Essential hypertension 92628602 I10 very well controlled Rheumatoid arthritis [address] mo who rx's his controlled substance - tylenol #3 also gets simponi injection through rheum joints have been improved Body mass index 25-29 - overweight 920650088 Z68.27 very mildly overweight healthy diet and exercise Basal cell carcinoma of skin 852013309 C44.91 [id number] Ian Morejon [facility] Medicine [address] [facility] [address],[place] [address] 01/08/2020 16:01:20 01/08/2020 16:34:48 Type 2 diabetes mellitus 17698958 E11.9 a1c was stable at 6.2 Rheumatoid arthritis 698 18085 M06.9 stable but severe deformity noted in all limbs followed by dr mo Essential hypertension 62623070 I10 stable bp no changews Coronary atherosclerosis [id number] I25.10 quiet and feeling good Diabetic foot 388844993 E11.59 pt is in great need for diabetic custom shoes given the marked deformitie s as described in the exam as well as the history of the foot ulcers and neuropathy [id number] Ian Morejon [facility] Internal Medicine [address] [facility] [address] 04/17/2020 11:29:33 04/17/2020 12:26:09 Type 2 diabetes mellitus 34595766 E11.9 a1c was stable at 6.2 Essential hypertension 96596885 I10 stable bp no changews Myocardial infarction 22 153793 I21.9 Coronary atherosclerosis 195344483 I25.10 quiet and feeling good Rheumatoid arthritis 698 22150 M06.9 stable but severe deformity noted in [place] [id number] Ian Morejon [facility] Internal Medicine [address] [facility], [place] [address] 07/17/2020 10:24:18 07/17/2020 11:07:38 Type 2 diabetes mellitus 41075573 E11.9 a1c was elevated at 7.2 he was at 6.2 Hyperlipidemia 97627587 E78.5 is excellent and LDL 38 Essential hypertension 64216802 I10 stable bp no changes Coronary atherosclerosis 818573903 I25.10 quiet and feeling good Rheumatoid arthritis 698 86295 M06.9 stable but severe deformity noted in all limbs from rheumatoid followed by dr mo he is asking about accupunctu re andtold him i would try it [id number] Ian Morejon [facility] Internal Medicine [address] [facility], [place] [address] 09/04/2020 15:59:20 09/04/2020 16:43:00 Infection of sebaceous cyst 008761189 L72.3 I &D performed well tolerate d cont abx wound precaution s and extra bandages given [id number] Ian Morejon [facility] Internal Medicine [address] [facility],[place] [address] 11/12/2020 09:46:08 11/12/2020 11:04:42 Adult health examination 761262315 Z00.01 Screening for cardiovascular system disease 039759359 Z13.6 Type 2 gabriel betes mellitus 23133708 E11.9 a1c was elevated at 7.2 he was at 6.2 Essential hypertension 23550121 I10 stable bp no changes 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 [id number] Ian Morejon [facility] Internal Medicine [address] [facility],[place] [address] 12/13/2020 09:54:55 12/13/2020 11:08:35 Infection of sebaceous cyst 552211904 L72.3 I &D performed well tolerate d cont abx wound precaution s and extra bandages given [id number] Ian Morejon [facility] Internal Medicine [address] [facility],[place] [address] 03/11/2021 13:30:15 03/11/2021 15:22:51 Type 2 diabetes mellitus 77452400 E11.9 a1c was elevated at 7.2 he was at 6.2 Essential hypertension 68336718 I10 stable bp no changes Cervico-oc cipital neuralgia 94270635 M54.81 believe this is a classic case but we will have him try a quick medrol pk and see if this is beneficial [id number] Ian Morejon [facility] Internal Medicine [address] [facility],[place] [address] 04/02/2021 11:48:50 04/02/2021 12:29:39 Cervico-occipital neuralgia 48216549 M54.81 believe this is a classic case but we will have celia trigger pt injh and see if this is beneficial [id number] Ian Morejon [facility] Internal Medicine [address] [facility],[place] [address] 05/19/2021 14:36:14 05/20/2021 08:23:13 Herpes zoster 2987992 B02.9 will treat with valtrex and prednisone for pain and itching [id number] Ian Morejon [facility] Internal Medicine [address] [facility],[place] [address] 07/15/2021 10:51:13 07/15/2021 14:39:40 Degeneration of cervical intervertebral disc 08344292 M50.30 will have patient call Dr. Mo 's office for fu sooner than three months to discuss next options in treatment if it is warranted Post-herpe tic trigeminal neuralgia 40519042 B02.22 will continue pregabalin and start on betamethas one for the inflammati on and rash [id number] Ian Morejon [facility] Internal Medicine [address] [facility],[place] [address] 09/15/2021 09:47:06 09/15/2021 10:34:27 Essential hypertension 80771544 I10 stable bp no changes Type 2 gabriel betes mellitus 44006866 E11.9 a1c was elevated at 7.2 he was at 6.2 Rheumatoid arthritis 698 75137 M06.9 stable but severe deformity noted in all limbs from rheumatoid followed by dr mo s re[placeme ntthey are going to try to get him offf the prednisone and embrel injection but we dont know what he is going to use to replace now on 7.5 of pred and he is feeling it but is tolerating Cerebrovas cular accident 251631176 I63.9 has been stable and without further neuro deficits Myocardial infarction 22 866686 I21.9 has been stable and without any symptoms and we will fust follow along with the cardiologi sts Abdominal aortic aneurysm screening 410786969 Z13.6 we will order but not at this time while he is undergoing rheumatoid work up for tx Diabetic foot 258999689 E11.59 pt is in great need for diabetic custom shoes given the marked deformitie s as described in the exam as well as the history of the foot ulcers and neuropathy Anemia 043325570 D64.9 stable hgb at 11.2 feel this is anemia of chronic disease Seborrheic dermatitis of scalp 318450237 L21.0 Cervico-oc cipital neuralgia 78636455 M54.81 believe this is a classic case and is involved with the severe C1-2 vertebral degen will give him oxy for pain [facility] [id number] Ian Morejon [facility] Internal Medicine [address] [facility],[place] [address] 01/09/2022 11:01:17 01/09/2022 13:56:06 Type 2 diabetes mellitus 94679495 E11.9 a1c was elevated at 7.2 he was at 6.2 Essential hypertension 32377032 I10 stable bp no changes Abdominal aortic aneurysm screening 098080854 Z13.6 we will order but not at this time while he is undergoing rheumatoid work up for tx Cerebrovas cular accident 094253833 I63.9 has been stable and without further neuro deficits Myocardial infarction 22 733918 I21.9 has been stable and without any symptoms and we will fust follow along with the cardiologi sts Rheumatoid arthritis 698 30167 M06.9 stable but severe deformity noted in all limbs from rheumatoid followed by dr mo s re[placeme ntthey are going to try to get him offf the prednisone and embrel injection but we dont know what he is going to use to replace now on 7.5 of pred and he is feeling it but is tolerating Diabetic foot 792171148 E11.59 pt is in great need for diabetic custom shoes given the marked deformitie s as described in the exam as well as the history of the foot ulcers and neuropathy [id number] Ian Morejon [facility] Internal Medicine [address] [facility],[place] [address] 06/26/2022 10:51:02 06/26/2022 11:36:21 Type 2 diabetes mellitus 99461441 E11.9 a1c was great at 6.1 prior he was at 7.2 he was at 6.2 before that Hyperlipidemia 60976694 E78.5 is excellent and LDL 38 Essential hypertension 19596884 I10 stable bp no changes Active or passive immunization 308594236 Z23 will consider Tdap Depression screening 171 639029 Z13.31 Doing well on sertraline Eczema 19118964 L30.9 has been having irritating folliculit is episodes to the back of his scalp [id number] Ian Morejon [facility] Internal Medicine [address] [facility],[place] [address] 10/26/2022 11:55:46 10/26/2022 13:17:28 Type 2 diabetes mellitus 59428726 E11.9 a1c was great at 6.1 prior he was at 7.2 he was at 6.2 before that Essential hypertension 58179103 I10 stable bp no changes Hyperlipidemia 68726588 E78.5 is excellent and LDL 38 Rheumatoid arthritis 698 72243 M06.9 stable but severe deformity noted in all limbs from rheumatoid followed by dr chung lay[placemen tthey are going to try to get him off the prednisone and embrel injection but we dont know what he is going to use to replace now on 2.5 of pred and he is feeling it but is tolerating [id number] Ian Morejon [facility] Internal Medicine [address] [facility],[place] [address] 01/27/2023 10:32:23 01/27/2023 15:58:53 Essential hypertension 21393313 I10 stable bp no changes Type 2 gabriel betes mellitus 97969700 E11.9 a1c was great at 6.1 again!!! prior he was at 6., 7.2 he was at 6.2 before thatwe will decrease the metformin to just 2 tabs in amwe will rechk in may and further decrease the dose Coronary atherosclerosis 353111815 I25.10 quiet and feeling good Gastroesop hageal reflux disease 515750800 K21.9 Diabetic foot 265337539 E11.59 pt is in great need for diabetic custom shoes given the marked deformitie s as described in the exam as well as the history of the foot ulcers and neuropathy Rheumatoid arthritis 698 00688 M06.9 stable but severe deformity noted in all limbs from rheumatoid followed by dr chung lay[placemen ton ramira injection , per rheum , now on 2.5 of pred and he is feeling it but is tolerating Myocardial infarction 22 431629 I21.9 has been stable and without any symptoms and we will just follow along with the cardiologi sts Cerebrovas cular accident 184567866 I63.9 has been stable and without further neuro deficits Advance care planning 71 5561613 Z71.89 [id number] Ian Morejon [facility] Internal Medicine [address] [facility],[place] [address] 05/18/2023 14:03:23 05/18/2023 14:55:19 Closed subluxation cervical spine 809503232 S13.100D he is in agony from this and is hurting badly at times he will be seeing his rheumin meantime we will give him some oxycodone 10mg Atopic raffy matitis of scalp 651048994 L20.9 [id number] Ian Morejon [facility] Internal Medicine [address] [facility],[place] [address] 05/26/2023 15:04:03 05/28/2023 16:11:15 Sebaceous cyst of skin 455633788 L72.3 [place] [id number] Ian Morejon [facility] Internal Medicine [address] [facility],[place] [address] 07/02/2023 13:25:34 07/05/2023 14:56:49 Abscess 179646545 L02.212 resolved with I&D [id number] Ian Morejon [facility] Internal Medicine [address] [facility] [address] 01/07/2024 13:27:58 01/07/2024 15:44:40 Active or passive immunization 686335199 Z23 will consider Tdap Adult heal th examination 742780880 Z00.00 actually doing ok overall Type 2 gabriel betes mellitus 91919517 E11.9 a1c was great at 6.1 again!!! prior he was at 6., 7.2 he was at 6.2 before thatwe will decrease the metformin to just 2 tabs in amwe will rechk in may and further decrease the dose Rheumatoid arthritis 698 66149 M06.9 stable but severe deformity noted in all limbs from rheumatoid followed by dr chung lay[placemen ton ramira injection , per rheum , now on 2.5 of pred and he is feeling it but is tolerating Cerebrovas cular accident 770948248 I63.9 has been stable and without further neuro deficits Essential hypertension 58165279 I10 stable bp no changes Coronary atherosclerosis 917659223 I25.10 quiet and feeling good no cp no sob [id number] Ian Velez Evangelisthernesto [facility] Internal Medicine [address] [facility],[place] [address] 03/03/2024 14:05:25 03/03/2024 14:42:23 Rheumatoid arthritis 70741335 M05.152 fu with rheum Pain of le ft hip joint 1992041230 05670 M25.552 will set him up with PT [id number] Ian Velez Darleen [facility] Internal Medicine [address] [facility], [place] [place] [facility] [place] [address] 05/08/2024 14:46:18 05/09/2024 08:55:26 Depression screening 752858328 Z13.31 The patient denies little pleasure in [...] mental health. 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 9940832603 14044 M99.61 stable Rheumatoid arthritis 698 12632 M05.152 stable Pain of le ft hip joint 6379010021 61704 M25.552 stable [id number] Ian Rosie Morejon [facility] Internal Medicine [address] [facility] [address] [place] [address] 06/26/2024 10:35:53 06/26/2024 11:15:50 Closed subluxation cervical spine 008360695 S13.100D he is in agony from this and is hurting badly at times he will be seeing his rheumhe has been given oxy 10mg without relief he will need an MRI Essential hypertension 40603921 I10 stable bp no changes Hyperlipidemia 98209828 E78.5 is excellent and LDL 38 Type 2 gabriel betes mellitus 39899604 E11.9 a1c was great at 6.1 again!!! prior he was at 6., 7.2 he was at 6.2 before thatwe will decrease the metformin to just 2 tabs in amwe will rechk in may and further decrease the dose Depression screening 171 125950 Z13.31 Doing well on sertraline Cerebrovas cular accident 724707625 I63.9 has been stable and without further neuro deficits Degenerati on of lumbar intervertebral disc 02458310 M51.36 waiting to see if there is a record of a recent MRI of the lumbar spinestate s they think he had since [facility] is off all pain medscont the PT he is eating better [id number] Ian Morejon DO [facility] Internal Medicine [address] [facility],[place] [address] 08/11/2024 11:31:16 08/11/2024 14:23:26 Iron deficiency anemia 86849714 D50.0 recheck levelshas improved Myocardial infarction 22 958775 I21.9 refilled new meds from hospitalha s f/u with cardio to discussed continuati on of them recommende d nitro to have until his cardiac fugiven specific instructio ns for useavoid use when BP is low Antibiotic prophylaxis indicated 120026183 Z78.9 has f/u with dentistsug gested rescheduli ng it in a few weeks [id number] Ian Morejon DO [facility] Internal Medicine [address] [facility],[place] [address] 09/29/2024 09:14:31 09/29/2024 09:54:32 Essential hypertension 31231306 I10 stable bp no changes Type 2 gabriel betes mellitus 19654797 E11.9 a1c was great at 6.1 again!!! prior he was at 6., 7.2 he was at 6.2 before thatwe will decrease the metformin to just 2 tabs in amwe will rechk in may and further decrease the dose Hyperlipidemia 83562554 E78.5 is excellent and LDL 38 Osteoarthr itis of right hip joint 6733401065 00767 M16.11 going for surg wednesday [id number] Ian Morejon DO [facility] Internal Medicine [address] [facility],[place] [address] 01/15/2025 14:22:10 01/15/2025 15:41:26 Essential hypertension 66953726 I10 stable bp no changes Hyperlipidemia 36890320 E78.5 is excellent and LDL 38 Type 2 gabriel betes mellitus 93584038 E11.9 a1c was great at 6.1 again!!! prior he was at 6., 7.2 he was at 6.2 before thatwe will decrease the metformin to just 2 tabs in amwe will rechk in may and further decrease the dose Depression screening 171 021853 Z13.31 Doing well on sertraline Coronary atherosclerosis 593769613 I25.10 quiet and feeling good no cp no sob Gastroesop hageal reflux disease 908225108 K21.9 stable Chronic ly mphoid leukemia, disease 82263108 C91.10 cbc has been stable Osteoarthr itis of joint of right shoulder region 0388439588 48864 M19.011 still with severe pain at times will provide with med for prn use [id number] Ian Morejon DO [facility] Internal Medicine [address] [facility],[place] [address] 03/16/2025 09:44:24 03/16/2025 10:43:16 Pre-surgery evaluation 428203245 Z01.818 The patient was seen in the office today for pre-op evaluation . All medical conditions on patient's problem list were addressed and are currently stable, no interventi on needed at this time. Based on history and physical performed, the patient is cleared for surgery. Type 2 gabriel betes mellitus 99937734 E11.9 stable Neuropathy due to diabetes mellitus 546745252 E13.40 needs refill [id number] Ian Morejon [facility] Internal Medicine [address] [place] [address] 04/13/2025 10:20:17 04/13/2025 11:10:13 Depression screening 686920140 Z13.31 Doing well on sertraline Essential hypertension 09714913 I10 stable bp no changes Hyperlipidemia 91207434 E78.5 is excellent and LDL 38 Type 2 gabriel betes mellitus 17045509 E11.9 a1c was great at 6.1 again!!! prior he was at 6., 7.2 he was at 6.2 before thatwe will decrease the metformin to just 2 tabs in amwe will rechk in may and further decrease the dose [id number] Ian Morejon [facility] Internal Medicine [address] [place] [address] 07/20/2025 11:54:17 07/20/2025 12:48:31 Depression screening 809326417 Z13.31 Doing well on sertraline Essential hypertension 42677141 I10 stable bp no changes Hyperlipidemia 66114559 E78.5 is excellent and LDL 38 Type 2 gabriel betes mellitus 13224725 E11.9 Z79.4 a1c was great at 5.8 !! doing great again!!! prior he was at 6., 7.2 he was at 6.2 before thatwe will stop the metformin cont trulicity Fatigue 91655820 R53.82 317642 will chk lab Osteoarthritis 855447723 M19.90 [id number] Ian Morejon [facility] Internal Medicine [address] [place] [address] 08/06/2025 14:13:53 08/07/2025 08:11:35 Osteoarthritis of left knee joint 8820404316 92454 M17.12 1010812 [id number] Ian Morejon [facility] Internal Medicine [address] [place] [address] 09/10/2025 10:06:27 09/10/2025 17:19:34 Depression screening 423474474 Z13.31 The patient denies little pleasure in [...] investigat ion and treatment for mental health. Disorder of skull 169367 008 M95.2 2388870 will set up with CT, ?nodule or edil deformity Health Concerns Section Related Observation LastModified by Organization Detai ls LastModified Time None Recorded Concern Status LastModified by Organization Details LastModified Time None Recorded Advance Directives Directive None Recorded Payers Insurance Date Sequence Insurance Name Policy Number Policy Meraz Covered Member ID Meraz Member ID Guarantor Name 09/08/2025 1 MEDICARE [place]: [employer] Vito Vizcarra [id number] Vito Vizcarra 09/08/2025 2 [facility] [id number] Vito Vizcarra [id number] Vito Vizcarra Notes Date Note Type Note Provider Name and Address Organization Details Recorded Time 03/16/20 25 text/htm l Pre-OpReported by PatientHPIFor functional ability, patient reportsunable to perform heavy work around the house,difficulty walking up hills, andunable to walk 4 mph(due to gait and limited mobility, uses cane). For severity, patient reportspain level 8/10. For risk factors, patient reportsno cognitive impairment,no functional impairment,no malnutrition,no frailty,able to climb a flight of stairs (exercise capacity>4 mets),no obstructive sleep apnea,non-smoker,no alcohol misuse,no illicit drug use,no chronic cardiopulmonary condition, andnot obese(patient has a cane). For anesthesia hx, patient reportsno hx of anesthesia complications,no allergy to anesthetic agents,no family history of anesthesia complications, andno history with anesthesia. For post-op support, patient reportsadequate assistance at home. For surgery to be performed, (r reverse total shoulder replacement with dr. adames). For context/condition being addressed, (right osteoarthritis of shoulder). For location, (right shoulder).ROS as noted in the HPI RENATE MARTÍNEZ [address] [place], [address], [facility] 03/16/2025 10:29:47 04/13/20 25 text/htm l Care Management - DiabetesReported by PatientHPIFor self care, patient reportsseeing eye doctor yearly for dilated eye exam,checking feet regularly,normal range of home blood sugars (in the low 100s), andno side effects from medications. For associated symptoms, patient reportssymptoms are usually well controlled,no fatigue,no dizziness,no excessive sweating,no headaches,no confusion,no increased thirst,no increased appetite,no increased urination,no blurred vision,no numbness of feet, andno calluses on feet. Care Management - HypertensionReported by Patient Care Management - HyperlipidemiaReported by PatientHPIFor control, patient reportsusually well controlled,improving, andat goal. For complications, patient reportsno coronary artery disease,no heart attack,no cardiovascular disease,no pancreatitis, andno stroke.ROS as noted in the HPI has had shoulder surgery with a reverse shoulder replacementstates the pain is way down to a 3/10 and doing much better doing well and is feeling wellhad hip replaced and is feeling goodwas disch the next day Ian Morejon DO [address] [place], [address], [facility] 04/13/2025 11:03:20 07/20/20 25 text/htm l Care Management - HypertensionReported by PatientHPIFor self care, patient reportsnot under emotional stress. For severity, patient reportssymptoms are improvinganddoes not interfere with daily activities. For associated symptoms, patient reportsno dizziness,no lightheadedness,no chest pain,no shortness of breath,no palpitations,no edema,no calf muscle cramps,no blurred vision,no confusion,no headaches, andno fatigue. Care Management - DiabetesReported by PatientHPIFor self care, patient reportsseeing eye doctor yearly for dilated eye exam,checking feet regularly,normal range of home blood sugars (in the low 100s), andno side effects from medications. For associated symptoms, patient reportssymptoms are usually well controlled,no fatigue,no dizziness,no excessive sweating,no headaches,no confusion,no increased thirst,no increased appetite,no increased urination,no blurred vision,no numbness of feet, andno calluses on feet. Care Management - HyperlipidemiaReported by PatientHPIFor control, patient reportsusually well controlled,improving, andat goal. For complications, patient reportsno coronary artery disease,no heart attack,no cardiovascular disease,no pancreatitis, andno stroke.ROS as noted in the HPI here for rechk and is c/o very fatiguedstates can sleep 3 hours during the daystates sleeps well at nightsleeps in chair stillno cp no sobbowels ok 'bladder ok Ian Morejon DO [address] [place], [address], [facility] 07/20/2025 12:46:29 08/06/20 25 text/htm l ROS as noted in the HPI here for cynthia inj left kneevery sore diff to walk usng cane Ian Morejon DO [address] [place], [address], [facility] 08/06/2025 14:46:19 09/10/20 25 text/htm l ROS as noted in the HPI c/o found a bump at derm the patient says he went to derm, noted a bump on the back of the head, irregular shaped, under the skin, firm, attached to bone, feels like bone or calcium deposit the patient reports that he can feel it sometimes if he lays against like at bed on his pillow denies any neuro deficits or headachesrecommended CT RENATE MARTÍNEZ [address] [place], [address], [facility] 09/10/2025 10:34:05
--- OUTSIDE RECORDS SUMMARY | 2025-09-26 19:46 | XMS_ITS | Encounter Summary ---
Author Organization [facility] Address [address] [facility] [address] [place] [address] Phone Care Team Providers Care Ship Loader Name Role Phone Ian Morejon Primary Care Provider [phone] Encounter Details Date Type Department Care Team (Late st Contact Info) Description 05/10/2024 Procedure Pass [facility], Ct Scan - [address] [address] Social History Tobacco Use Types Packs/Day Years [...] 7:45 AM EDT Rayne Alvarez RN * [place] Suicide Severity Rating Scale (Screener/Recent Self-Report) Question [...] on filedocumented in this encounter Care Teams Ship Loader Relationship Specialty Start Date End Date Ian Morejon DO [email or web address] PCP - General Internal Medicine 10/05/18 documented as of this encounter Additional Source Comments The information contained in this document represents components of the legal health record. It is not the complete legal health record.[facility]
--- OUTSIDE RECORDS SUMMARY | 2025-09-26 19:46 | XMS_ITS | Encounter Summary ---
Author Organization [facility] Address [address] [facility] [address] [place] [address] Phone Care Team Providers Care Retail Field Merchandiser Name Role Phone Ian Morejon Primary Care Provider [phone] Encounter Details Date Type Department Care Team (Late st Contact Info) Description 05/10/2024 Procedure Pass [facility], Ct Scan - [address] [address] Social History Tobacco Use Types Packs/Day Years [...] 7:45 AM EDT Rayne Alvarez RN * [place] Suicide Severity Rating Scale (Screener/Recent Self-Report) Question [...] on filedocumented in this encounter Care Teams Retail Field Merchandiser Relationship Specialty Start Date End Date Ian Morejon DO [email or web address] PCP - General Internal Medicine 10/05/18 documented as of this encounter Additional Source Comments The information contained in this document represents components of the legal health record. It is not the complete legal health record.[facility]
--- OUTSIDE RECORDS SUMMARY | 2025-09-26 19:46 | XMS_ITS | Encounter Summary ---
Author Organization [facility] Address [address] [facility] [address] [place] [address] Phone Care Team Providers Care Gage Maker Name Role Phone Wyatt Jorgensen MD Primary Care Provider [phone] Ian Morejon DO Primary Care Provider [phone] Encounter Details Date Type Department Care Team (Late st Contact Info) Description 07/02/2018 Procedure Pass [facility], Ct Scan - [address] [address] Social History Tobacco Use Types Packs/Day Years [...] on filedocumented in this encounter Care Teams Gage Maker Relationship Specialty Start Date End Date Wyatt Jorgensen MD [address] [place] [address] [email or web address] PCP - General 08/26/17 10/04/18 Ian Morejon DO [address] [place] [address] [email or web address] PCP - General Internal Medicine 10/05/18 documented as of this encounter Additional Source Comments The information contained in this document represents components of the legal health record. It is not the complete legal health record.[facility]
--- OUTSIDE RECORDS SUMMARY | 2025-09-26 19:46 | XMS_ITS | Encounter Summary ---
Author Organization [facility] Address [address] [facility] [address] [place] [address] Phone Care Team Providers Care Trading Specialist Name Role Phone Ian Morejon Primary Care Provider [phone] Encounter Details Date Type Department Care Team (Late st Contact Info) Description 04/18/2024 Procedure Pass [facility], Ct Scan - [address] [address] Social History Tobacco Use Types Packs/Day Years [...] 6:27 PM EDT Thanh Faye RN * [place] Suicide Severity Rating Scale (Screener/Recent Self-Report) Question [...] on filedocumented in this encounter Care Teams Trading Specialist Relationship Specialty Start Date End Date Ian Morejon DO [email or web address] PCP - General Internal Medicine 10/05/18 documented as of this encounter Additional Source Comments The information contained in this document represents components of the legal health record. It is not the complete legal health record.[facility]
--- OUTSIDE RECORDS SUMMARY | 2025-09-26 19:47 | XMS_ITS | Encounter Summary ---
Author Organization [facility] Address [address] [facility] [address] [place] [address] Phone Care Team Providers Care Director Long Term Care Name Role Phone Wyatt Jorgensen MD Primary Care Provider [phone] Ian Morejon DO Primary Care Provider [phone] Encounter Details Date Type Department Care Team (Late st Contact Info) Description 12/08/2017 Procedure Pass [place] Admitting Dept - Virtual Department [address] [place] [address] Social History Tobacco Use Types Packs/Day Years [...] on filedocumented in this encounter Care Teams Director Long Term Care Relationship Specialty Start Date End Date Wyatt Jorgensen MD [address] [place] [address] [email or web address] PCP - General 08/26/17 10/04/18 Ian Morejon DO [address] [place] [address] [email or web address] PCP - General Internal Medicine 10/05/18 documented as of this encounter Additional Source Comments The information contained in this document represents components of the legal health record. It is not the complete legal health record.[facility]
--- OUTSIDE RECORDS SUMMARY | 2025-09-26 19:47 | XMS_ITS | Clinical Summary ---
Author Organization [facility] Address [address] [place] [address] Care Team Providers Care Funding Coordinator Name Role Phone Ian Morejon Primary Care Provider [phone] Allergies No known active allergies Medications ascorbic [...] skin every 14 days. 1.8 mL 11 09/24/2025 11:57 PM EST 03/01/2025 03/01/20 26 Active Active Problems Problem Noted Date Diagnosed Date High risk medication use 05/26/2024 Depression 03/14/2024 Current chronic use of systemic steroids 024 Assessment & Plan (01/14/2024 4:14 PM EST): -osteopenia per T scores, longterm steroid use. -discussed the above -goal Vit [...] this case, and given his travel from [facility] [place], zoledronate (Reclast) is the best option and [...] daily but discontinuing the diclofenac and all vhht-jlp-mpvolsl anti- inflammatories. Follow up by phone call in 5 days. 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 Not on file Not [...] Description 10/19/2025 12:00 PM EST Office Visit [facility] [address] [place] [address] Wrapper Rewinder: Melchor Mckenna NP [address] [place] [address] 05/06/2026 10:30 AM EDT Infusion [facility] [address] [place] [address] Health Maintenance Due Date Last Done Comments [...] Screening 11/08/2024 Depression Screening and Follow-Up 11/08/2024 Fall Risk Screening 11/08/2024 Health Care Proxy Review 11/08/2024 Social Drivers of Health Annual Screening 11/08/2024 Basic Metabolic Panel 05/30/2025 05/30/2024 , 05/23/2024, 05/16/2024, Additional history exists Influenza Vaccine (#1) 2025 , 09/17/2023, 08/25/2022, Additional history exists COVID-19 Vaccine ( season) 2025 09/10/2023, 08/25/2022, 03/13/2022, Additional history exists Pneumococcal Vaccine: 50+ Years Completed 07/22/2020, 09/18/2016, 08/09/2015, Additional history exists Hepatitis C Screening Completed 11/26/2023, 020 Hepatitis B Vaccines Aged Out No long er eligible based on patient's age to complete this topic Procedures * Due to [place] law, this organization might not be sharing [...] to Health Maintenance Results * Due to [place] law, this organization might not be sharing negative HIV tests. * (ABNORMAL) Comprehensive Metabolic Panel (01/14/2024 4:50 PM EST) NA 142 135 - 145 mmol/L 01/14/2024 6:38 PM EST [facility] K 4.1 3.5 - 5.3 mmol/L 01/14/2024 6:38 PM EST [facility] Cl 104 97 - 110 mmol/L 01/14/2024 6:38 PM [facility] CO2 30 24 - 32 mmol/L 01/14/2024 6:38 PM [facility] Anion Gap 8 5 - 15 01/14/2024 6:38 PM [facility] Glucose 95 70 - 99 mg/dL 01/14/2024 6:38 PM [facility] Creatinine 1.21 0.60 - 1.30 mg/dL 01/14/2024 6:38 PM [facility] Calcium 10.0 8.7 - 10.7 mg/dL 01/14/2024 6:38 PM [facility] Total Protein 7.3 6.0 - 8.0 g/dL 01/14/2024 6:38 PM [facility] Albumin 5.0(H) 3.5 - 4.8 g/dL 01/14/2024 6:38 PM [facility] Bilirubin, Total 0.4 0.3 - 1.2 mg/dL 01/14/2024 6:38 PM [facility] Alkaline Phosphatase 53 30 - 115 U/L 01/14/2024 6:38 PM [facility] AST 39 10 - 40 U/L 01/14/2024 6:38 PM [facility] ALT 55(H) 10 - 40 U/L 01/14/2024 6:38 PM [facility] BUN 21 7 - 23 mg/dL 01/14/2024 6:38 PM [facility] eGFR 62 >=60 mL/min/1. 73m2 01/14/2024 6:38 PM [facility] Comment:The estimated glomer ular filtration rate (eGFR) is calculated using a new formula developed by the NKF-ASN task force to eliminate race-based correction factors. The new formula uses serum/plasma creatinine, age, and gender to determine eGFR. A value below 60mls/min might indicate kidney disease and will be flagged. For additional information, see Pearson et al, Am J Kidney Dis. 2021;79(2):268- 288, A Unifying Approach for GFR estimation: Recommendations of the NKF-ASN Task Force on Reassessing the Inclusion of Race in Diagnosing Kidney Disease . Blood Structure of peripheral vein / Unknown Venipuncture / Unknown 01/14/2024 4:50 PM EST 01/14/2024 5:53 PM EST Christie East NP LAB BLOOD ORDERABLES Final Resul t Performing Organization Address City/[facility]/ZIP Co de Phone Number [facility] [address] [place] [address], * Hepatitis C Antibody w/Reflex to HCV RNA, Quantitative PCR (11/26/2023 12:16 PM EST) Hepatitis C Antibody NON-REACT NICOLASA NON-REACT NICOLASA 11/26/2023 9:50 PM EST [facility] Comment: HCV antibody was non-reactive. There is no laboratory evidence of HCV infection. In most cases, no further action is required. However, if recent HCV exposure is suspected, a test for HCV RNA (test code 21331) is suggested. For additional information please refer to http://education.[employer].io/faq/AKH21k1 (This link is being provided for informational/ educational purposes only.) Blood Structure of peripheral vein / Unknown Venipuncture / Unknown 11/26/2023 12:16 PM EST 11/26/2023 12:30 PM EST Narrative [facility] - 11/26/2023 9:50 PM EST [facility] Received Date:[id number] Jeimy Bui MD LAB BLOOD ORDERABLES Final Result [address], [place] [address], [employer] [address], [place] [address], [place] [phone] from Last 3 Months or Most Recently Relevant to Health Maintenance Insurance [facility] MEDIC[facility] Care Teams Funding Coordinator Relationship Specialty Start Date End Date Ian Morejon [address] [place] [phone] PCP - General Internal Medicine 10/06/23
--- OUTSIDE RECORDS SUMMARY | 2025-09-26 19:47 | XMS_ITS | Encounter Summary ---
Author Organization [facility] Address [address] [facility] [address] [place] [address] Phone Care Team Providers Care Machine Operator Hop Picker Name Role Phone Wyatt Jorgensen MD Primary Care Provider [phone] Ian Morejon DO Primary Care Provider [phone] Encounter Details Date Type Department Care Team (Late st Contact Info) Description 12/17/2017 Procedure Pass [facility], [address] [address] Social History Tobacco Use Types Packs/Day Years [...] on filedocumented in this encounter Care Teams Machine Operator Hop Picker Relationship Specialty Start Date End Date Wyatt Jorgensen MD [address] [place] [address] [email or web address] PCP - General 08/26/17 10/04/18 Ian Morejon DO [address] [place] [address] [email or web address] PCP - General Internal Medicine 10/05/18 documented as of this encounter Additional Source Comments The information contained in this document represents components of the legal health record. It is not the complete legal health record.[facility]
--- OUTSIDE RECORDS SUMMARY | 2025-09-26 19:47 | XMS_ITS | Encounter Summary ---
Author Organization [facility] Address [address] [facility] [address] [place] [address] Phone Care Team Providers Care Policy Issue Clerk Name Role Phone Ian Morejon DO Primary Care Provider [phone] Encounter Details Date Type Department Care Team (Late st Contact Info) Description 08/07/2021 Procedure Pass [facility], Ct Scan - [address] [address] Social History Tobacco Use Types Packs/Day Years [...] on filedocumented in this encounter Care Teams Policy Issue Clerk Relationship Specialty Start Date End Date Ian Morejon DO [email or web address] PCP - General Internal Medicine 10/05/18 documented as of this encounter Additional Source Comments The information contained in this document represents components of the legal health record. It is not the complete legal health record.[facility]
--- OUTSIDE RECORDS SUMMARY | 2025-09-26 19:47 | XMS_ITS | Encounter Summary ---
Author Organization [facility] Address [address] [facility] [address] [place] [address] Phone Care Team Providers Care Sizing Machine And Drier Operator Name Role Phone Wyatt Jorgensen MD Primary Care Provider [phone] Ian Morejon DO Primary Care Provider [phone] Encounter Details Date Type Department Care Team (Late st Contact Info) Description 12/17/2017 Procedure Pass [facility], Ct Scan - [address] [address] Social History Tobacco Use Types Packs/Day Years [...] on filedocumented in this encounter Care Teams Sizing Machine And Drier Operator Relationship Specialty Start Date End Date Wyatt Jorgensen MD [address] [place] [address] [email or web address] PCP - General 08/26/17 10/04/18 Ian Morejon DO [address] [place] [address] [email or web address] PCP - General Internal Medicine 10/05/18 documented as of this encounter Additional Source Comments The information contained in this document represents components of the legal health record. It is not the complete legal health record.[facility]
--- OUTSIDE RECORDS SUMMARY | 2025-09-26 19:47 | XMS_ITS | Encounter Summary ---
Author Organization [facility] Address [address] [facility] [address] [place] [address] Phone Care Team Providers Care Knife Sharpener Name Role Phone Ian Morejon DO Primary Care Provider [phone] Encounter Details Date Type Department Care Team (Late st Contact Info) Description 01/09/2022 Transcribe Orders Virtual Department [address] [place] [address] Ian Morejon DO [address] [facility] [place] [address] [place] [address] [email or web address] Encounter for screening for cardiovascular disorders (Primary [...] disorders documented in this encounter Care Teams Knife Sharpener Relationship Specialty Start Date End Date Ian Mroejon DO [email or web address] PCP - General Internal Medicine 10/05/18 documented as of this encounter Additional Source Comments The information contained in this document represents components of the legal health record. It is not the complete legal health record.[facility]
--- OUTSIDE RECORDS SUMMARY | 2025-09-26 19:47 | XMS_ITS | Encounter Summary ---
Author Organization [facility] Address [address] [facility] [address] [place] [address] Phone Care Team Providers Care Medication Aide Name Role Phone Ian Morejon DO Primary Care Provider [phone] Encounter Details Date Type Department Care Team (Late st Contact Info) Description 05/27/2022 Procedure Pass [place] Admitting Dept - Virtual Department [address] [place] [address] Social History Tobacco Use Types Packs/Day Years [...] on filedocumented in this encounter Care Teams Medication Aide Relationship Specialty Start Date End Date Ian Morejon DO PCP - General Internal Medicine 10/05/18 documented as of this encounter Additional Source Comments The information contained in this document represents components of the legal health record. It is not the complete legal health record.[facility]
--- OUTSIDE RECORDS SUMMARY | 2025-09-26 19:47 | XMS_ITS | Encounter Summary ---
Author Organization [facility] Address [address] [facility] [address] [place] [address] Phone Care Team Providers Care Awake Overnight Counselor Name Role Phone Ian Morejon DO Primary Care Provider [phone] Encounter Details Date Type Department Care Team (Late st Contact Info) Description 07/16/2021 Procedure Pass [facility], [address] [address] Social History Tobacco Use Types Packs/Day Years [...] on filedocumented in this encounter Care Teams Awake Overnight Counselor Relationship Specialty Start Date End Date Ian Morejon DO [email or web address] PCP - General Internal Medicine 10/05/18 documented as of this encounter Additional Source Comments The information contained in this document represents components of the legal health record. It is not the complete legal health record.[facility]
--- OUTSIDE RECORDS SUMMARY | 2025-09-26 19:47 | XMS_ITS | Encounter Summary ---
Author Organization [facility] Address [address] [facility] [address] [place] [address] Phone Care Team Providers Care Gaming Cage Cashier Name Role Phone Ian Morejon DO Primary Care Provider [phone] Encounter Details Date Type Department Care Team (Late st Contact Info) Description 06/05/2019 Procedure Pass [facility], [address] [address] Social History Tobacco Use Types Packs/Day Years [...] on filedocumented in this encounter Care Teams Gaming Cage Cashier Relationship Specialty Start Date End Date Ian Morejon DO PCP - General Internal Medicine 10/05/18 documented as of this encounter Additional Source Comments The information contained in this document represents components of the legal health record. It is not the complete legal health record.[facility]
--- OUTSIDE RECORDS SUMMARY | 2025-09-26 19:47 | XMS_ITS | Encounter Summary ---
Author Organization [facility] Address [address] [facility] [address] [place] [address] Phone Care Team Providers Care Manual Writer Name Role Phone Ian Morejon Primary Care Provider [phone] Encounter Details Date Type Department Care Team (Late st Contact Info) Description 05/29/2022 Ancillary Orders [facility], X-Ray - [address] [address] Joao Jernigan MD [address] [place] [address] Dr [place]UTIERRES[facility] [address] Subluxation of C1-C2 cervical vertebrae, initial encounter [...] encounter documented in this encounter Care Teams Manual Writer Relationship Specialty Start Date End Date Ian Morejon DO [email or web address] PCP - General Internal Medicine 10/05/18 documented as of this encounter Additional Source Comments The information contained in this document represents components of the legal health record. It is not the complete legal health record.[facility]
--- OUTSIDE RECORDS SUMMARY | 2025-09-26 19:47 | XMS_ITS | Encounter Summary ---
Author Organization [facility] Address [address] [facility] [address] [place] [address] Phone Care Team Providers Care Paper Production Engineer Name Role Phone Wyatt Jorgensen MD Primary Care Provider [phone] Ian Morejon DO Primary Care Provider [phone] Encounter Details Date Type Department Care Team (Late st Contact Info) Description 12/08/2017 Procedure Pass [place] Admitting Dept - Virtual Department [address] [place] [address] Social History Tobacco Use Types Packs/Day Years [...] on filedocumented in this encounter Care Teams Paper Production Engineer Relationship Specialty Start Date End Date Wyatt Jorgensen MD [address] [place] [address] [email or web address] PCP - General 08/26/17 10/04/18 Ian Morejon DO [address] [place] [address] [email or web address] PCP - General Internal Medicine 10/05/18 documented as of this encounter Additional Source Comments The information contained in this document represents components of the legal health record. It is not the complete legal health record.[facility]
--- OUTSIDE RECORDS SUMMARY | 2025-09-26 19:47 | XMS_ITS | Encounter Summary ---
Author Organization [facility] Address [address] [facility] [address] [place] [address] Phone Care Team Providers Care Metal Flooring Installer Name Role Phone Ian Morejon DO Primary Care Provider [phone] Encounter Details Date Type Department Care Team (Late st Contact Info) Description 05/09/2020 Procedure Pass [facility], [address] [address] Social History Tobacco Use Types Packs/Day Years [...] on filedocumented in this encounter Care Teams Metal Flooring Installer Relationship Specialty Start Date End Date Ian Morejon DO PCP - General Internal Medicine 10/05/18 documented as of this encounter Additional Source Comments The information contained in this document represents components of the legal health record. It is not the complete legal health record.[facility]
--- OUTSIDE RECORDS SUMMARY | 2025-09-26 19:47 | XMS_ITS | Encounter Summary ---
Author Organization [facility] Address [address] [place] [address] Phone Care Team Providers Care Cocoa Bean Roaster Name Role Phone Wyatt Jorgensen MD Primary Care Provider [phone] Ian Morejon DO Primary Care Provider [phone] Encounter Details Date Type Department Care Team (Late st Contact Info) Description 11/16/2017 Prep for Surgery [facility] Orthopedics & Sports Medicine [address] [place] [id number] Omer Alamo MD [address] [place] [address] Effusion of left olecranon bursa (Primary Dx) [...] been drained several times with by his nursing attendant but without resolution. Within this bursa he [...] Primary documented in this encounter Care Teams Cocoa Bean Roaster Relationship Specialty Start Date End Date Wyatt Jorgensen MD [address] [place] [phone] [email or web address] PCP - General 08/26/17 10/04/18 Ian Morejon DO [address] [place] [id number] [email or web address] PCP - General Internal Medicine 10/05/18 documented as of this encounter Additional Source Comments The information contained in this document represents components of the legal health record. It is not the complete legal health record.[facility]
--- OUTSIDE RECORDS SUMMARY | 2025-09-26 19:47 | XMS_ITS | Encounter Summary ---
Author Organization [facility] Address [address] [place] [address] Phone Care Team Providers Care Account Leader Name Role Phone Ian Morejon DO Primary Care Provider [phone] Encounter Details Date Type Department Care Team (Late st Contact Info) Description 04/14/2022 Prep for Surgery [facility] Orthopedics & Sports Medicine [address] [place] [id number] Gem Blevins MD [address] [place] [address] Orthopedics & Sports Medicine, [facility] [place] [address] [email or web address] Social History Tobacco Use Types Packs/Day Years [...] on filedocumented in this encounter Care Teams Account Leader Relationship Specialty Start Date End Date Ian Morejon DO [email or web address] PCP - General Internal Medicine 10/05/18 documented as of this encounter Additional Source Comments The information contained in this document represents components of the legal health record. It is not the complete legal health record.[facility]
== END 2025-09-26 10:19 | disposition home or self-care (01) ==
LOC: HO.CT 10:18
PROVIDERS: PCP Internal Medicine; Visit Provider Physician Assistant
DX: M95.2 Other acquired deformity of head (principal)
CPT/HCPCS: 70450

== ENCOUNTER → 2025-09-26 10:20 | Outpatient (BNV) | payer MEDICARE, OTHER, SELFPAY | PROVIDERS: PCP Internal Medicine; Visit Provider Radiology Diagnostic Radiology | DX: I67.2 Cerebral atherosclerosis (principal); R90.82 White matter disease, unspecified; G31.9 Degenerative disease of nervous system, unspecified | CPT/HCPCS: 70450 ==